=== PATIENT | female | born 1955 | race Two or more races ===

== ENCOUNTER 2020-08-24 09:08 | Outpatient (REF) | payer MEDICARE, MEDICAID, SELFPAY ==
[2020-08-24 10:14] LABS: MANUAL DIFF FLAG NO
[2020-08-24 10:26] LABS: Basophils Percent Auto 0.4 % (0-2); Eosinophils Absolute Auto 0.4 X10*3/uL (0.0-0.4); Eosinophils Percent Auto 3.8 % (0-4); Hematocrit 33.7 % (37-47); Imm Gran Abs Auto 0.03 X10*3/uL (0.00-0.03); Imm Gran Pct Auto 0.3 % (0.0-0.4); Lymphocytes Absolute Auto 2.8 X10*3/uL (1.2-4.9); Lymphocytes Percent Auto 30.7 % (20-40); Mean Corpuscular HGB Conc 32.6 g/dl (31.0-35.0); Mean Corpuscular Hemoglobin 28.4 pg (27.0-33.0); Mean Corpuscular Volume 87.1 fL (80-98); Mean Platelet Volume 11.2 fL (9.4-12.3); Monocytes Absolute Auto 0.6 X10*3/uL (0.1-1.2); Monocytes Percent Auto 6.9 % (2-11); Neutrophils Absolute Auto 5.3 X10*3/uL (2.0-8.3); Neutrophils Percent Auto 57.9 % (45-73); Platelet Count 293 X10*3/uL (160-400); Red Blood Count 3.87 X10*6/uL (4.20-5.50); Red Cell Distribution Width 13.6 % (11.0-16.0); White Blood Count 9.2 X10*3/uL (4.8-10.8)
[2020-08-24 10:36] LABS: Alanine Aminotransferase 14 U/L (0-31); Albumin Level 3.7 g/dL (3.5-5.0); Alkaline Phosphatase 111 U/L (39-117); Anion Gap 17 (12-20); Aspartate Amino Transferase 15 U/L (5-31); Bilirubin Total 0.8 mg/dL (0.0-1.0); Blood Urea Nitrogen 40 mg/dL (9-16); Carbon Dioxide 27 mmol/L (22-29); Chloride 100 mmol/L (96-108); Cholesterol 213 mg/dL; Estimated Glomerular Filt Rate 18; Glucose Fasting 176 mg/dL (60-99); HDL Cholesterol 38 mg/dL; LDL Cholesterol Calculated 125 mg/dl; Potassium 3.5 mmol/l (3.3-5.1); Sodium 140 mmol/L (135-145); Total Protein 6.9 g/dL (6.5-8.0); Triglycerides 254 mg/dL
[2020-08-24 11:16] LABS: Creatinine Urine 112.52 mg/dL; Microalbum/Creatinine Ratio Ur 389.2 ug/mg cr
[2020-08-24 11:17] LABS: Folate > 20.0 ng/mL (> or = 4.0); Vitamin B12 > 2000 pg/mL (200-900)
== END 2020-08-24 09:09 | disposition home or self-care (01) ==
LOC: HO.LAB 09:08
PROVIDERS: PCP Internal Medicine; Visit Provider Internal Medicine
DX: E78.00 Pure hypercholesterolemia, unspecified (principal); E11.29 Type 2 diabetes mellitus with other diabetic kidney complication; E53.8 Deficiency of other specified B group vitamins
CPT/HCPCS: 36415; 80053; 80061; 82043; 82607; 82746; 85025

== ENCOUNTER 2020-09-11 09:45 | Emergency (ER) | payer MEDICARE, MEDICAID, SELFPAY ==
[2020-09-11 09:54] VITALS: BP 104/65; PULSE 71; RESP 16; TEMP 36.4; O2SAT 97; BMI 38.3
--- NOTE | 2020-09-11 10:13 | ED_ITS ---
HPI - Extremity Injury (Lower) General Chief Complaint: Extremity Injury, Lower Stated Complaint: feet pain Time Seen by Provider: 09/11/20 10:00 Source: patient Mode of arrival: ambulatory History of Present Illness HPI Narrative: 65-year-old female with a past medical history of depression, AKA, diabetes, hypertension, hyperlipidemia, presenting to the ED complaining of acute on chronic bilateral foot pain since yesterday. Reports pain began while she was lying in bed. Denies injury/falls or twisting. Denies numbness, tingling, fever, weakness. Reports pain when she ambulates or moves MD complaint: foot injury Related Data Home Medications Medication Instructions Recorded Confirmed hydrochlorothiazide 07/27/20 07/27/20 insulin glargine [Basaglar KwikPen 30 unit SUBCUT BID 07/27/20 07/27/20 U-100 Insulin] metformin 1,000 mg PO BID 07/27/20 07/27/20 Previous Rx's Medication Instructions Recorded chlorthalidone 25 mg tablet 25 mg PO DAILY 90 Days #90 tab 07/11/20 metoprolol tartrate 100 mg tablet 100 mg PO BID 90 Days #180 tab 07/18/20 Pravachol 20 mg tablet 20 mg PO DAILY #90 tab NS 07/31/20 rosuvastatin 10 mg tablet 10 mg PO DAILY 90 Days #90 tab 08/21/20 Pravachol 20 mg tablet 20 mg PO BEDTIME 90 Days #90 tab NS 08/27/20 pantoprazole 40 mg tablet,delayed 40 mg PO DAILY #90 tab 09/06/20 release Allergies Allergy/AdvReac Type Severity Reaction Status Date / Time nut - unspecified [nut] Allergy Severe ANAPHYLAXIS Verified 07/27/20 09:15 vancomycin [VANCOMYCIN] Allergy Severe SEVERE Verified 07/27/20 09:15 ITCHING [place] Inhibitors Allergy Intermediate RASH Verified 07/27/20 09:15 [[place] INHIBITORS] ciprofloxacin [From CIPRO] Allergy Intermediate RASH Verified 07/27/20 09:15 codeine [CODEINE] Allergy Intermediate RASH Verified 07/27/20 09:15 cyclobenzaprine Allergy Intermediate HIVES Verified 07/27/20 09:15 [CYCLOBENZAPRINE] ferrous sulfate Allergy Intermediate RASH Verified 07/27/20 09:15 [FERROUS SULFATE] latex [LATEX] Allergy Intermediate HIVES Verified 07/27/20 09:15 methylprednisolone Allergy Intermediate RASH Verified 07/27/20 09:15 [From MEDROL] Penicillins [PCN] Allergy Intermediate RASH Verified 07/27/20 09:15 tamsulosin [TAMSULOSIN] Allergy Intermediate RASH Verified 07/27/20 09:15 insulin lispro Allergy Unknown Hives Verified 07/27/20 09:15 [Humalog U-100 Insulin] penicillin V Allergy Unknown Hives Verified 07/27/20 09:15 lactose [LACTOSE] AdvReac Intermediate DIARRHEA Verified 07/27/20 09:15 Beef Containing Products AdvReac Mild STOMACH Verified 07/27/20 09:15 UPSET Fish Containing Products AdvReac Mild NAUSEA & Verified 07/27/20 09:15 VOMITING Pork/Porcine Containing AdvReac Mild STOMACH Verified 07/27/20 09:15 Products UPSET Wiley inhibitors Allergy Unknown Anaphylaxis Uncoded 07/27/20 09:15 beef containing products,fish Allergy Unknown Stomach Uncoded 07/27/20 09:15 Upset Codeine Sulfate Allergy Unknown Rash Uncoded 07/27/20 09:15 ferrous sulfate Allergy Unknown dizziness Uncoded 05/24/20 00:00 Latex Allergy Unknown Hives Uncoded 07/27/20 09:15 Latex Exam Gloves Allergy Unknown Hives Uncoded 07/27/20 09:15 Medrol (Jaswinder) Allergy Unknown itchy Uncoded 05/24/20 00:00 Tramadol Allergy Unknown itchy Uncoded 05/24/20 00:00 FRUIT AdvReac Mild NAUSEA & Uncoded 06/07/20 16:26 VOMITING VEGETABLES,FRESH AdvReac Mild NAUSEA & Uncoded 06/07/20 16:26 VOMITING Review of Systems Review of Systems: Constitutional: No Weight loss, No Fever, No Chills Musculoskeletal: +foot pain, No Myalgias, No Joint Swelling Skin: No Skin Lesions, No rash Neuro: No Weakness, No Numbness, No Paresthesias PMFSH Past Medical History Attestation statement: The following information was validated with the patient. Medical History Acute kidney injury Depression Diabetes Essential hypertension Hypercholesteremia Irregular heart beat Surgical History History of extraction of renal calculus History of hysterectomy Family History Family History (Updated 09/06/20 @ 08:19 by AMANDA Baker) Father Diabetes Mother Diabetes Sister Breast cancer Brother No problems noted. Sister No problems noted. Social History Social History Advance Directives: No Advance Directives Information Provided: Yes Physical Exam Vital Signs: Vital Signs: Last Vital Signs Temp 97.6 F 09/11/20 12:00 Pulse 68 09/11/20 12:25 Resp 14 09/11/20 12:00 BP 101/63 09/11/20 12:25 Pulse Ox 96 09/11/20 12:25 Body Mass Index 38.3 Const: General: cooperative and healthy appearing Orientation/consciousness: patient oriented x3 Limitations: no limitations HENMT: Head: Yes normal to inspection Ears: hearing grossly normal bilaterally General nose exam: Normal external nose present Face and sinus: Yes normal facial exam Eyes: General: appearance normal, both eyes and all related structures EOM: EOMs intact bilaterally Neck: Neck: Yes normal visual inspection Resp: Effort & Inspection: normal respiratory effort Cardio: Rate: regular rate Peripheral pulses: dorsalis pedis present Skin: Rashes: no rashes Wounds: no wounds Neuro: General: patient oriented x3 Extrem: Other: Bilateral feet normal to inspection, no erythema, no deformity, no ecchymosis, no fluctuance or induration. Tender bilaterally diffuely, non localized. Neurovascularly intact. Full range of motion intact. Sensation i ntact to light touch. Compartments soft No lower extremity edema or calf tenderness General: Yes normal to inspection Course Course Course Narrative: * X-ray showing bilateral calcaneal spurs. Mild degenerative changes of the midfoot, left greater than right. * Attempted ambulation trial in the ED which patient refused to stand on feet Will obtain PT /case management evaluation * Patient was evaluated by Physical therapy and recommended to go to short-term rehab * [id number]-patient now refusing to go to short-term rehab. Would like to go home. Discussed with patient worried about her being discharged home as she will not ambulate in the ED, she reports she will walk with her walker. Will discharge, significant other is in the waiting room to pick her up MDM - Extremity Injury (Lower) MDM Narrative Medical decision making narrative: 65-year-old female with a past medical history of depression, AKA, diabetes, hypertension, hyperlipidemia, presenting to the ED complaining of acute on chronic bilateral foot pain since yesterday. On exam VSS, NAD/well-appearing, feet bilaterally tender without appreciable deformity or cellulitis/infection Low concern for septic joint, neurovascular compromise, DVT, compartment syndrome, fracture or dislocation Patient requesting x-rays Plan: X-rays, Tylenol/Motrin, ambulation trial Lab Data Labs: Lab Results 09/11/20 Range/Units 12:49 COVID-19 (VIRAJ) Negative (Negative) COVID-19 Clin Com See Note Discharge Plan Discharge Clinical Impression: Bilateral foot pain Patient Disposition: Home, Self-Care Instructions: Arthralgia (ED) Additional Instructions: You need to follow-up with her doctor Your x-ray showed degenerative changes, no acute fracture/dislocation, any fever not infected at this time Take Tylenol and Motrin at home for pain. Ice any your feet, elevate her feet, rest. Follow-up with a human resource consultant Prescriptions: No Action chlorthalidone 25 mg tablet 25 mg PO DAILY 90 Days Qty: 90 RF: 3 metoprolol tartrate 100 mg tablet 100 mg PO BID 90 Days Qty: 180 RF: 0 pravastatin [Pravachol] 20 mg tablet 20 mg PO DAILY Qty: 90 RF: 0 rosuvastatin 10 mg tablet 10 mg PO DAILY 90 Days Qty: 90 RF: 3 pravastatin [Pravachol] 20 mg tablet 20 mg PO BEDTIME 90 Days Qty: 90 RF: 3 pantoprazole 40 mg tablet,delayed release (DR/EC) 40 mg PO DAILY Qty: 90 RF: 1 metformin 500 mg tablet 1,000 mg PO BID RF: 0 Basaglar KwikPen U-100 Insulin 100 unit/mL (3 mL) insulin pen 30 unit SUBCUT BID RF: 0 hydrochlorothiazide RF: 0 Referrals: Joann Partida MD [Primary Care Provider] - 2 days Michael Myers [Physician] - 5 days
[2020-09-11] MEDS: Acetaminophen 325 MG TABLET 650 MG PO (10:18)
[2020-09-11] MEDS: Ibuprofen 600 MG TABLET PO (10:18)
--- NOTE | 2020-09-11 10:27 | XR_ITS ---
EXAMINATION: BILATERAL LEG X-RAY CLINICAL INFORMATION: Acute and chronic foot pain COMPARISON: Previous x-rays of the left foot most recent October 2017 TECHNIQUE: 3 views of each foot FINDINGS: Left: Bone alignment is normal. No fracture or dislocation is seen. There are mild degenerative changes of the midfoot with small osteophytes at the talar navicular and navicular cuneiform joint. Joint spaces are otherwise normal. There are calcaneal spurs. Right foot: Bone alignment is normal. No fracture or dislocation is seen. There are mild degenerative changes of the midfoot with small osteophytes at the talar navicular joint. The joint spaces are otherwise normal. There are calcaneal spurs. XR/XR foot LT min 3V IMPRESSION: Bilateral calcaneal spurs. Mild degenerative changes of the midfoot, left greater than right.
--- NOTE | 2020-09-11 10:27 | XR_ITS ---
EXAMINATION: BILATERAL LEG X-RAY CLINICAL INFORMATION: Acute and chronic foot pain COMPARISON: Previous x-rays of the left foot most recent October 2017 TECHNIQUE: 3 views of each foot FINDINGS: Left: Bone alignment is normal. No fracture or dislocation is seen. There are mild degenerative changes of the midfoot with small osteophytes at the talar navicular and navicular cuneiform joint. Joint spaces are otherwise normal. There are calcaneal spurs. Right foot: Bone alignment is normal. No fracture or dislocation is seen. There are mild degenerative changes of the midfoot with small osteophytes at the talar navicular joint. The joint spaces are otherwise normal. There are calcaneal spurs. XR/XR foot RT min 3V IMPRESSION: Bilateral calcaneal spurs. Mild degenerative changes of the midfoot, left greater than right.
--- NOTE | 2020-09-11 11:31 | PC.NURSE ---
ATTEMPT TO AMBULATE PT AFTER XRAY RESULTS RECEIVED. PT MOMENTARILY STOOD AT BEDSIDE WITH WALKER, MOANING STATED CAN'T , CIERRA HENDRICKS UPDATED, CASE MANAGEMENT AND PT CONSULT ORDERED. PT REPORTED PAIN A LITTLE BETTER 10
[2020-09-11 12:00] VITALS: BP 101/63; PULSE 68; RESP 14; TEMP 36.4; O2SAT 96
--- NOTE | 2020-09-11 12:18 | PC.NURSE ---
pt at bedside for assessment, oob to standing position with walker and therapist
[2020-09-11 12:25] VITALS: BP 101/63; PULSE 68; O2SAT 96
--- NOTE | 2020-09-11 12:44 | MHC.CM.ED ---
Received case management consult from Cassie NORTON. Patient came to ER due to leg pain. Work up essentially negative. Physical therapy eval completed. Short term rehab is recommended. Met with patient and city manager. 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 PCP verified. Copy of HCP obtained from PCP's office. List of facilities provided from [facility]. Patient choices are: 1)[facility] 2)[facility] and 3)[facility]. Referral made via allscripts. [facility] is pending. Continue to monitor for d/c needs.
[2020-09-11 13:11] LABS: COVID-19 Test Negative (Negative)
--- NOTE | 2020-09-11 14:10 | MHC.CM.ED ---
[facility], [facility] and [facility] are unable to offer a bed. Referrals being broadcasted at this time. Continue to monitor for d/c needs.
--- NOTE | 2020-09-11 14:44 | MHC.CM.ED ---
Patient has decided she doesn't want to go to short term rehab. She wants to go home. Her boyfriend will transport her home. Cassie NORTON aware. Continue to monitor for d/c needs.
== END 2020-09-11 15:48 | disposition home or self-care (01) ==
PROVIDERS: Physician Assistant; Emergency Provider Emergency Medicine; PCP Internal Medicine
DX: M79.671 Pain in right foot (principal); M79.672 Pain in left foot; E11.9 Type 2 diabetes mellitus without complications; I10 Essential (primary) hypertension; Z20.828 Contact with and (suspected) exposure to other viral communicable diseases; Z79.899 Other long term (current) drug therapy; Z79.01 Long term (current) use of anticoagulants
CPT/HCPCS: 73630; 87635; 97161; 99283

== ENCOUNTER 2021-03-02 12:29 | Emergency (ER) | payer MEDICARE, MEDICAID, SELFPAY ==
--- NOTE | ~2021-03-02 | XR_ITS ---
EXAMINATION: XR ELBOW, LEFT CLINICAL INFORMATION: Elbow swelling. COMPARISON: None TECHNIQUE: AP, lateral, and oblique views of the left elbow. FINDINGS: Bony alignments are intact. The cortices are intact. Significant soft tissue swelling is present overlying the olecranon process, most consistent with olecranon bursitis, indeterminate etiology. There is no joint effusion present. Incidental note is also made of subtle calcification overlying and inseparable from both medial and lateral epicondyles of the humerus consistent with epicondylitis. XR/XR elbow LT min 3V IMPRESSION: 1. Significant soft tissue swelling overlying the olecranon process of the ulna, most consistent with olecranon bursitis, indeterminate etiology. 2. No radiographic evidence of any acute fracture, subluxation or dislocation or joint effusion. Subtle soft tissue calcification inseparable from and overlying both medial and lateral epicondyles of the humerus, most consistent with epicondylitis.
[2021-03-02 13:14] VITALS: BP 142/75; PULSE 80; RESP 18; TEMP 36.3; O2SAT 96; BMI 37.7
--- NOTE | 2021-03-02 14:29 | ED.EXTPRO ---
HPI - Extremity Problem General Chief complaint: Extremity Injury, Upper Stated complaint: elbow pain Time Seen by Provider: 03/02/21 14:29 Source: patient Mode of arrival: ambulatory Limitations: no limitations History of Present Illness HPI Narrative: Patient is a 65-year-old female with no significant past medical history complaining of 2 days of left elbow pain. She denies injury. She says that it is just swollen and she does not know why. She is able to flex and extend her elbow. She denies any bug bites or rashes or fevers. She states this is never happened before. Related Data Home Medications Medication Instructions Recorded Confirmed metformin 1,000 mg PO BID 07/27/20 11/27/20 albuterol sulfate 90 mcg/actuation 2 puff PO Q4H PRN 09/12/20 01/29/21 aerosol inhaler cetirizine 10 mg tablet 10 mg PO DAILY PRN 09/12/20 01/29/21 Previous Rx's Medication Instructions Recorded chlorthalidone 25 mg tablet 25 mg PO DAILY 90 Days #90 tab 07/11/20 pantoprazole 40 mg tablet,delayed 40 mg PO DAILY #90 tab 09/06/20 release bupropion HCl 150 mg 24 hr tablet, 150 mg PO QAM #90 tab 10/24/20 extended release miscellaneous medical supply #1 ea 10/30/20 pen needle, diabetic 31 gauge x #60 ea 11/28/2002/03 insulin glargine 100 unit/mL (3 30 unit SUBCUT BID #3 ml 12/03/20 mL) subcutaneous pen Cozaar 50 mg tablet 50 mg PO BID 90 Days #180 tab NS 12/07/20 blood sugar diagnostic #100 ea 01/30/21 blood-glucose meter #1 ea 01/30/21 lancets 28 gauge #100 ea 01/30/21 naproxen 500 mg tablet 500 mg PO BID #60 tab 01/30/21 dextromethorphan HBr 15 mg capsule 30 mg PO Q8H PRN 7 Days #21 cap 02/13/21 azithromycin 250 mg tablet 250 mg PO DIRECTED 5 Days #6 tab 02/14/21 gabapentin 300 mg capsule 300 mg PO BID #180 cap 02/19/21 Allergies Allergy/AdvReac Type Severity Reaction Status Date / Time nut - unspecified [nut] Allergy Severe ANAPHYLAXIS Verified 03/02/21 13:16 vancomycin [VANCOMYCIN] Allergy Severe SEVERE Verified 03/02/21 13:16 ITCHING [place] Inhibitors Allergy Intermediate RASH Verified 03/02/21 13:16 [[place] INHIBITORS] ciprofloxacin [From CIPRO] Allergy Intermediate RASH Verified 03/02/21 13:16 codeine [CODEINE] Allergy Intermediate RASH Verified 03/02/21 13:16 cyclobenzaprine Allergy Intermediate HIVES Verified 03/02/21 13:16 [CYCLOBENZAPRINE] ferrous sulfate Allergy Intermediate RASH Verified 03/02/21 13:16 [FERROUS SULFATE] latex [LATEX] Allergy Intermediate HIVES Verified 03/02/21 13:16 methylprednisolone Allergy Intermediate RASH Verified 03/02/21 13:16 [From MEDROL] tamsulosin [TAMSULOSIN] Allergy Intermediate RASH Verified 03/02/21 13:16 insulin lispro Allergy Unknown Hives Verified 03/02/21 13:16 [Humalog U-100 Insulin] penicillin V Allergy Unknown Hives Verified 03/02/21 13:16 lactose [LACTOSE] AdvReac Intermediate DIARRHEA Verified 03/02/21 13:16 Beef Containing Products AdvReac Mild STOMACH Verified 03/02/21 13:16 UPSET Fish Containing Products AdvReac Mild NAUSEA & Verified 03/02/21 13:16 VOMITING Pork/Porcine Containing AdvReac Mild STOMACH Verified 03/02/21 13:16 Products UPSET Tramadol Allergy Unknown itchy Uncoded 11/27/20 10:59 FRUIT AdvReac Mild NAUSEA & Uncoded 11/27/20 10:59 VOMITING VEGETABLES,FRESH AdvReac Mild NAUSEA & Uncoded 11/27/20 10:59 VOMITING Review of Systems Review of Systems: Yes all other systems are reviewed and are negative PMFSH Past Medical History Medical History Acute kidney injury Calcaneal spur of both feet Depression Diabetes Dyslipidemia Essential hypertension Hypercholesteremia Irregular heart beat Leg edema Pain in both lower legs Surgical History History of extraction of renal calculus History of hysterectomy Family History Family History Father Diabetes Mother Diabetes Sister Breast cancer Brother No problems noted. Sister No problems noted. Social History Social History Alcohol intake: former Advance Directives: No Advance Directives Information Provided: No Patient : No Physical Exam Vital Signs: Vital Signs: Last Vital Signs Temp 97.3 F 03/02/21 13:14 Pulse 80 03/02/21 13:14 Resp 18 03/02/21 13:14 BP 142/75 H 03/02/21 13:14 Pulse Ox 96 03/02/21 13:14 Body Mass Index 37.7 Const: General: cooperative, healthy appearing, comfortable and no acute distress Nutritional Appearance: average body habitus Orientation/consciousness: patient oriented x3 Eyes: General: appearance normal, both eyes and all related structures Neuro: General: patient oriented x3 Extrem: Other: Left elbow, swelling at the joint, full range of motion, no signs of infection noted, no lacerations or ecchymosis. No tenderness to palpation. MDM - Extremity (Nontraumatic) Imaging Data elbow x-ray left: Attestation: I personally reviewed and interpreted this imaging study as follows: Radiologist's impression: [address] [id number] ReportSigned Patient: Paige HarrisMR#: [id number]: [id number]:[id number]/Sex: 65 / FADM Date: 03/02/21Loc: HO.EDAttending Dr: Ordering Physician: Milad Velazquez MD Date of Service: 03/02/21 Procedure(s): XR elbow LT min 3V Accession Number(s): [id number] cc: Milad Velazquez MD~ EXAMINATION: XR ELBOW, LEFT CLINICAL INFORMATION: Elbow swelling. COMPARISON: None TECHNIQUE: AP, lateral, and oblique views of the left elbow. FINDINGS: Bony alignments are intact. The cortices are intact. Significant soft tissue swelling is present overlying the olecranon process, most consistent with olecranon bursitis, indeterminate etiology. There is no joint effusion present. Incidental note is also made of subtle calcification overlying and inseparable from both medial and lateral epicondyles of the humerus consistent with epicondylitis. XR/XR elbow LT min 3V IMPRESSION: 1. Significant soft tissue swelling overlying the olecranon process of the ulna, most consistent with olecranon bursitis, indeterminate etiology. 2. No radiographic evidence of any acute fracture, subluxation or dislocation or joint effusion. Subtle soft tissue calcification inseparable from and overlying both medial and lateral epicondyles of the humerus, most consistent with epicondylitis. Dictated By:SAQIB HERRERA MDSigned By:<Electronically signed by SAQIB HERRERA MD in OV>03/02/21 1417 DD/ 1356TD/TT: Vp Ad Products And Planning: ENRIQUE Discharge Plan Discharge Clinical Impression: Epicondylitis Bursitis of elbow Qualifiers: Elbow bursitis location: olecranon bursitis Laterality: left Qualified Code(s): M70.22 - Olecranon bursitis, left elbow Prescriptions: No Action chlorthalidone 25 mg tablet 25 mg PO DAILY 90 Days Qty: 90 RF: 3 pantoprazole 40 mg tablet,delayed release (DR/EC) 40 mg PO DAILY Qty: 90 RF: 1 bupropion HCl 150 mg tablet extended release 24 hr 150 mg PO QAM Qty: 90 RF: 1 (DME) miscellaneous medical supply Misc See Rx Instructions .ROUTE .MEDSUPPLY Qty: 1 RF: 2 (DME) pen needle, diabetic 31 gauge x 5/16 needle See Rx Instructions .ROUTE .MEDSUPPLY Qty: 60 RF: 11 Basaglar KwikPen U-100 Insulin 100 unit/mL (3 mL) insulin pen 30 unit SUBCUT BID Qty: 3 RF: 2 losartan [Cozaar] 50 mg tablet 50 mg PO BID 90 Days Qty: 180 RF: 1 (DME) FreeStyle Test Strip See Rx Instructions .ROUTE .MEDSUPPLY Qty: 100 RF: 11 (DME) blood-glucose meter [FreeStyle Lite Meter] Kit See Rx Instructions .ROUTE .MEDSUPPLY Qty: 1 RF: 0 (DME) lancets [FreeStyle Lancets] 28 gauge misc See Rx Instructions .ROUTE .MEDSUPPLY Qty: 100 RF: 6 naproxen 500 mg tablet 500 mg PO BID Qty: 60 RF: 3 dextromethorphan HBr [Tussin Cough (DM only)] 15 mg capsule 30 mg PO Q8H PRN (Reason: cough) 7 Days Qty: 21 RF: 0 azithromycin 250 mg tablet 250 mg PO DIRECTED 5 Days Qty: 6 RF: 0 gabapentin 300 mg capsule 300 mg PO BID Qty: 180 RF: 2 metformin 500 mg tablet 1,000 mg PO BID RF: 0 albuterol sulfate 90 mcg/actuation HFA aerosol inhaler 2 puff PO Q4H PRN (Reason: Wheezing) RF: 0 cetirizine 10 mg tablet 10 mg PO DAILY PRN (Reason: Allergy Symptoms) RF: 0
== END 2021-03-02 15:09 | disposition home or self-care (01) ==
PROVIDERS: Emergency Provider Emergency Medicine Emergency Medical Services; PCP Internal Medicine
DX: M70.22 Olecranon bursitis, left elbow (principal); M77.02 Medial epicondylitis, left elbow; M77.12 Lateral epicondylitis, left elbow; M25.522 Pain in left elbow; R22.32 Localized swelling, mass and lump, left upper limb; Y93.9 Activity, unspecified; I10 Essential (primary) hypertension; E11.9 Type 2 diabetes mellitus without complications; E78.5 Hyperlipidemia, unspecified
CPT/HCPCS: 73080; 99283

== ENCOUNTER 2021-04-08 09:51 | Outpatient (REF) | payer MEDICARE, MEDICAID, SELFPAY ==
[2021-04-08 10:56] LABS: Alanine Aminotransferase 13 U/L (0-31); Alkaline Phosphatase 118 U/L (39-117); Anion Gap 14 (12-20); Aspartate Amino Transferase 12 U/L (5-31); Bilirubin Total 0.7 mg/dL (0.0-1.0); Blood Urea Nitrogen 43 mg/dL (9-16); Calcium 9.7 mg/dL (8.4-10.2); Carbon Dioxide 28 mmol/L (22-29); Chloride 101 mmol/L (96-108); Cholesterol 246 mg/dL; Estimated Glomerular Filt Rate 17; Glucose Fasting 241 mg/dL (60-99); HDL Cholesterol 48 mg/dL; LDL Cholesterol Calculated 145 mg/dl; Potassium 4.2 mmol/L (3.3-5.1); Sodium 139 mmol/L (135-145); Total Protein 7.3 g/dL (6.5-8.0); Triglycerides 266 mg/dL
[2021-04-08 12:52] LABS: Creatinine Urine 111.69 mg/dL; Microalbum/Creatinine Ratio Ur 244.4 ug/mg cr
[2021-04-13 13:21] LABS: Vitamin D 25-OH, D2 <4 ng/mL; Vitamin D 25-OH, D3 19 ng/mL; Vitamin D 25-OH, Total 19 ng/mL (30-100)
== END 2021-04-08 09:52 | disposition home or self-care (01) ==
LOC: HO.LAB 09:51
PROVIDERS: PCP Internal Medicine; Visit Provider Internal Medicine
DX: E78.5 Hyperlipidemia, unspecified (principal); E55.9 Vitamin D deficiency, unspecified; N17.9 Acute kidney failure, unspecified; E11.65 Type 2 diabetes mellitus with hyperglycemia; Z79.4 Long term (current) use of insulin
CPT/HCPCS: 36415; 80053; 80061; 82043; 82306

== ENCOUNTER 2021-05-06 11:58 | Outpatient (REF) | payer MEDICARE, MEDICAID, SELFPAY ==
[2021-05-06 12:55] LABS: MANUAL DIFF FLAG NO
[2021-05-06 13:12] LABS: Basophils Percent Auto 0.4 % (0-2); Eosinophils Absolute Auto 0.4 X10*3/uL (0.0-0.4); Eosinophils Percent Auto 5.4 % (0-4); Hemoglobin 10.7 g/dl (12.0-16.0); Imm Gran Abs Auto 0.03 X10*3/uL (0.00-0.03); Imm Gran Pct Auto 0.4 % (0.0-0.4); Lymphocytes Absolute Auto 2.7 X10*3/uL (1.2-4.9); Lymphocytes Percent Auto 33.7 % (20-40); Mean Corpuscular HGB Conc 33.4 g/dl (31.0-35.0); Mean Corpuscular Volume 86.7 fL (80-98); Mean Platelet Volume 10.8 fL (9.4-12.3); Monocytes Absolute Auto 0.5 X10*3/uL (0.1-1.2); Monocytes Percent Auto 5.9 % (2-11); Neutrophils Absolute Auto 4.3 X10*3/uL (2.0-8.3); Neutrophils Percent Auto 54.2 % (45-73); Platelet Count 269 X10*3/uL (160-400); Red Blood Count 3.69 X10*6/uL (4.20-5.50); Red Cell Distribution Width 13.2 % (11.0-16.0); White Blood Count 7.9 X10*3/uL (4.8-10.8)
[2021-05-06 13:45] LABS: Albumin Level 3.9 g/dL (3.5-5.0); Anion Gap 17 (12-20); Carbon Dioxide 25 mmol/L (22-29); Chloride 98 mmol/L (96-108); Magnesium 1.6 mg/dL (1.6-2.6); Phosphorus 3.5 mg/dL (2.7-4.5); Potassium 4.6 mmol/L (3.3-5.1); Sodium 135 mmol/L (135-145)
[2021-05-06 14:09] LABS: Vitamin D 25-OH Total 51.5 ng/mL (>30)
[2021-05-06 15:42] LABS: Creatinine Urine 58.56 mg/dL; Protein/Creatinine Ratio, Ur 0.85 (<0.2); Total Protein Urine Random 50 mg/dL (<12)
[2021-05-06 15:44] LABS: Glucose Urine UA 250 MG/DL (NEG); Leukocyte Esterase Urine NEG (NEG); Nitrite Urine NEG (NEG); Specific Gravity - Urine 1.015 (1.005-1.025); Urine Blood NEG (NEG); Urine Ketones NEG (NEG); Urine Protein 1+ MG/DL (NEG-TRACE)
[2021-05-06 16:07] LABS: Appearance Urine CLEAR; Color Urine YELLOW
[2021-05-06 17:13] LABS: Bacteria Urine 1+ /LPF; RBC Urine 0 /HPF (0); Renal Epithelial Cells Urine 1+ /LPF; Squamous Epithelial Cell Urine 1+ /LPF
[2021-05-07 16:31] LABS: PTHI 34 pg/mL (14-64)
== END 2021-05-06 11:59 | disposition home or self-care (01) ==
LOC: HO.LAB 11:58
PROVIDERS: PCP Internal Medicine; Visit Provider Internal Medicine Nephrology
DX: N18.4 Chronic kidney disease, stage 4 (severe) (principal)
CPT/HCPCS: 36415; 80051; 81001; 81003; 82040; 82043; 82306; 82310; 83735; 83970; 84100; 84156; 85025; 87086; 87147

== ENCOUNTER 2021-06-27 19:20 | Emergency (ER) | payer MEDICARE, MEDICAID, SELFPAY | END 2021-06-27 20:17 | disposition left against medical advice (07) | PROVIDERS: Emergency Provider Emergency Medicine; PCP Internal Medicine | DX: R21 Rash and other nonspecific skin eruption (principal); M79.89 Other specified soft tissue disorders ==

== ENCOUNTER 2021-07-29 07:33 | Outpatient (REF) | payer MEDICARE, MEDICAID, SELFPAY ==
[2021-07-29 08:10] LABS: MANUAL DIFF FLAG NO
[2021-07-29 08:25] LABS: Basophils Percent Auto 0.4 % (0-2); Eosinophils Absolute Auto 0.3 X10*3/uL (0.0-0.4); Eosinophils Percent Auto 3.3 % (0-4); Hematocrit 31.5 % (37.0-47.0); Hemoglobin 10.3 g/dl (12.0-16.0); Imm Gran Abs Auto 0.03 X10*3/uL (0.00-0.03); Imm Gran Pct Auto 0.4 % (0.0-0.4); Lymphocytes Absolute Auto 2.2 X10*3/uL (1.2-4.9); Lymphocytes Percent Auto 27.7 % (20-40); Mean Corpuscular HGB Conc 32.7 g/dl (31.0-35.0); Mean Corpuscular Hemoglobin 28.9 pg (27.0-33.0); Mean Corpuscular Volume 88.2 fL (80.0-98.0); Mean Platelet Volume 10.5 fL (9.4-12.3); Monocytes Absolute Auto 0.4 X10*3/uL (0.1-1.2); Monocytes Percent Auto 5.2 % (2-11); Platelet Count 286 X10*3/uL (160-400); Red Blood Count 3.57 X10*6/uL (4.20-5.50); Red Cell Distribution Width 13.1 % (11.0-16.0); White Blood Count 7.9 X10*3/uL (4.8-10.8)
[2021-07-29 08:33] LABS: Estimated Average Glucose 194 mg/dL; Hemoglobin A1c % 8.4 %
[2021-07-29 09:02] LABS: ~HepC Num1 0.07 S/CO (0.00-0.79); ~Hepatitis C Antibody Nonreactive (Nonreactive)
[2021-07-29 09:03] LABS: Anion Gap 15 (12-20); Blood Urea Nitrogen 31 mg/dL (9-16); Calcium 9.6 mg/dL (8.4-10.2); Carbon Dioxide 26 mmol/L (22-29); Chloride 101 mmol/L (96-108); Estimated Glomerular Filt Rate 17; Iron 58 mcg/dL (30-160); Magnesium 1.6 mg/dL (1.6-2.6); Percent Iron Saturation 20 % (15-50); Potassium 4.6 mmol/L (3.3-5.1); Sodium 137 mmol/L (135-145); Total Iron Binding Capacity 296 mcg/dL (228-428); Unsaturated Iron Binding 238 ug/dL
[2021-07-29 09:05] LABS: Ferritin 62 ng/mL (10-250); TSH reflex Free T4 1.47 uIU/mL (0.32-4.0); Vitamin D 25-OH Total 43.6 ng/mL (>30)
[2021-07-29 09:08] LABS: Uric Acid 11.2 mg/dL (2.4-5.7)
[2021-07-29 09:13] LABS: HBsAGNum1 0.18 S/CO (0.00-0.99); Hepatitis B Surface Antigen Negative (Negative)
[2021-07-29 10:42] LABS: Appearance Urine CLEAR; Color Urine STRAW; Glucose Urine UA NEG (NEG); Leukocyte Esterase Urine NEG (NEG); Nitrite Urine NEG (NEG); Urine Blood NEG (NEG); Urine Ketones NEG (NEG); Urine Protein TRACE MG/DL (NEG-TRACE)
[2021-07-29 11:13] LABS: Creatinine Urine 99.69 mg/dL; Microalbum/Creatinine Ratio Ur 171.5 ug/mg cr
[2021-07-30 14:55] LABS: Complement C3 105 mg/dL (83-193)
[2021-07-30 16:21] LABS: Calcium (PTHI) 9.6 mg/dL (8.6-10.4); PTHI 75 pg/mL (14-64)
[2021-07-30 23:02] LABS: Anti Nuclear Antibody Pattern Nuclear, Homogeneous; Anti Nuclear Antibody Screen POSITIVE (NEGATIVE); Anti Nuclear Antibody Titer 1:40 titer
[2021-08-01 12:46] LABS: IgA 343 mg/dL (70-320); IgG 1261 mg/dL (600-1540); IgM 21 mg/dL (50-300)
[2021-08-01 13:47] LABS: Neutrophil Cyto Ab Screen NEGATIVE (NEGATIVE)
== END 2021-07-29 07:34 | disposition home or self-care (01) ==
LOC: HO.LAB 07:33
PROVIDERS: PCP Internal Medicine; Visit Provider Internal Medicine Nephrology
DX: N18.4 Chronic kidney disease, stage 4 (severe) (principal)
CPT/HCPCS: 36415; 80051; 81003; 82043; 82306; 82310; 82565; 82728; 82784; 83036; 83540; 83735; 83970; 84443; 84520; 84550; 85025; 86021; 86038; 86039; 86160; 86334; 86803; 87340

== ENCOUNTER → 2021-08-20 10:34 | Outpatient (BNVA) | payer MEDICARE, MEDICAID, SELFPAY | PROVIDERS: PCP Internal Medicine; Visit Provider Nurse Practitioner Gerontology | DX: E11.65 Type 2 diabetes mellitus with hyperglycemia (principal); E11.22 Type 2 diabetes mellitus with diabetic chronic kidney disease; I12.9 Hypertensive chronic kidney disease with stage 1 through stage 4 chronic kidney disease, or unspecified chronic kidney disease; N17.9 Acute kidney failure, unspecified; N18.4 Chronic kidney disease, stage 4 (severe); E66.09 Other obesity due to excess calories; E78.5 Hyperlipidemia, unspecified; E78.00 Pure hypercholesterolemia, unspecified; Z68.37 Body mass index [BMI] 37.0-37.9, adult; Z83.3 Family history of diabetes mellitus; Z80.3 Family history of malignant neoplasm of breast; Z88.6 Allergy status to analgesic agent; Z88.1 Allergy status to other antibiotic agents; Z91.014 Allergy to mammalian meats; Z91.040 Latex allergy status; Z91.011 Allergy to milk products; Z91.018 Allergy to other foods; Z88.0 Allergy status to penicillin; Z91.013 Allergy to seafood; Z88.8 Allergy status to other drugs, medicaments and biological substances; Z79.4 Long term (current) use of insulin; Z79.84 Long term (current) use of oral hypoglycemic drugs; Z79.899 Other long term (current) drug therapy | CPT/HCPCS: 82947; 99212 ==

== ENCOUNTER → 2021-11-19 09:51 | Outpatient (BNVA) | payer MEDICARE, SELFPAY | PROVIDERS: PCP Internal Medicine; Visit Provider Surgery Vascular Surgery | DX: N18.4 Chronic kidney disease, stage 4 (severe) (principal) | CPT/HCPCS: 99202 ==

== ENCOUNTER 2021-11-25 05:57 | Day surgery (SDC) | payer MEDICARE, MEDICAID, SELFPAY ==
[2021-11-25] VITALS (7 sets, daily range): BP systolic 104–130; BP diastolic 69–79; PULSE 64–78; RESP 14–18; TEMP 36.6–36.9; O2SAT 95–100; BMI 36.5
[2021-11-25 06:21] LABS: Glucose, Whole Blood 206 mg/dL (60-115)
[2021-11-25 06:22] LABS: Hematocrit 34.9 % (37.0-47.0); Mean Corpuscular HGB Conc 31.5 g/dl (31.0-35.0); Mean Corpuscular Hemoglobin 27.9 pg (27.0-33.0); Mean Corpuscular Volume 88.6 fL (80.0-98.0); Mean Platelet Volume 10.4 fL (9.4-12.3); Platelet Count 318 X10*3/uL (160-400); Red Blood Count 3.94 X10*6/uL (4.20-5.50); Red Cell Distribution Width 14.6 % (11.0-16.0); White Blood Count 9.2 X10*3/uL (4.8-10.8)
[2021-11-25 06:32] LABS: Anion Gap 16 (12-20); Blood Urea Nitrogen 33 mg/dL (9-16); Calcium 10.3 mg/dL (8.4-10.2); Carbon Dioxide 24 mmol/L (22-29); Chloride 102 mmol/L (96-108); Estimated Glomerular Filt Rate 24; Glucose Random 235 mg/dL (60-115); Potassium 4.5 mmol/L (3.3-5.1); Sodium 137 mmol/L (135-145)
--- NOTE | 2021-11-25 07:03 | ECG_ITS ---
Test Reason : R/O ARRHYTHMIA Blood Pressure : / mmHG Vent. Rate : 062 BPM Atrial Rate : 062 BPM P-R Int : 314 ms QRS Dur : 128 ms QT Int : 458 ms P-R-T Axes : 037 047 000 degrees QTc Int : 464 ms Sinus rhythm with 1st degree A-V block Right bundle branch block Abnormal ECG When compared with ECG of 15-NOV-2019 13:15, MD interval has increased Right bundle branch block is now Present Referred By: Praveen Muniz Electronically Signed By:CALEB LONG MD
--- NOTE | 2021-11-25 07:16 | HO.ANESPROP2 ---
HPI - Anesthesia Eval Consult details Narrative: 66 yo female patient for AV fistula creation Left Upper Extremity PMFSH Active Problems Active Problems: All Active Problems (Updated 08/20/21 @ 11:39 by KATIE Leos) Type 2 diabetes mellitus with chronic kidney disease (Acute) Obesity due to excess calories (Acute) DM2 (diabetes mellitus, type 2) (Acute) CKD (chronic kidney disease) (Acute) Epicondylitis, lateral (tennis elbow) (Acute) Dyslipidemia (Acute) Leg edema (Acute) Pain in both lower legs (Acute) Calcaneal spur of both feet (Acute) Diabetes (Acute) Acute kidney injury (Acute) Anemia (Acute) Essential hypertension (Acute) Chest pain in last 2 weeks. Intermittent- not activity related. ? Improvement with positioning. [id number]. Resolves on its own . Cardiac work up in the past for palpitations, chest pain, dyspnea at various times.Negative. Last echo 2011 normal EF 60-65%. ?Borderline pulmonary HTN. Last myocardial perfusion scan 2009 negative for ischemia. EKG in past has shown increased SC interval and RBBB. No change in EKG today compared with previous. H/o CHF in the past 2011 secondary to anemia in the setting of ventricular dysfunction from HTN. Diuresed. GERD. Takes medications as needed Past Medical History Medical History Acute kidney injury Calcaneal spur of both feet CKD (chronic kidney disease) Depression Diabetes DM2 (diabetes mellitus, type 2) Dyslipidemia Epicondylitis, lateral (tennis elbow) Essential hypertension Hypercholesteremia Irregular heart beat Leg edema Obesity due to excess calories Pain in both lower legs Type 2 diabetes mellitus with chronic kidney disease Family History Family History Father Diabetes Mother Diabetes Sister Breast cancer Brother No problems noted. Sister No problems noted. Family history of problems with anesthesia: No Surgical History Surgical History History of extraction of renal calculus History of hysterectomy History of Problems with Anesthesia: No Social History Social History Household Members: Significant Other Housing: Apartment Alcohol intake: never Patient Tobacco Use Status: Never used Tobacco e-Cigarette/Vaping Use: Never Used Second Hand Smoke Exposure: No Use of substances other than those prescribed or required for medical reasons: No Are you DNR?: No Advance Directives: No Advance Directives Information Provided: Yes service: No Current occupational status: disabled Meds Allergies Allergy/AdvReac Type Severity Reaction Status Date / Time nut - unspecified [nut] Allergy Severe ANAPHYLAXIS Verified 11/25/21 06:12 rosuvastatin Allergy Severe Facial Verified 11/25/21 06:12 Swelling vancomycin [VANCOMYCIN] Allergy Severe SEVERE Verified 11/25/21 06:12 ITCHING [place] Inhibitors Allergy Intermediate RASH Verified 11/25/21 06:12 [[place] INHIBITORS] ciprofloxacin [From CIPRO] Allergy Intermediate RASH Verified 11/25/21 06:12 codeine [CODEINE] Allergy Intermediate RASH Verified 11/25/21 06:12 cyclobenzaprine Allergy Intermediate HIVES Verified 11/25/21 06:12 [CYCLOBENZAPRINE] ferrous sulfate Allergy Intermediate RASH Verified 11/25/21 06:12 [FERROUS SULFATE] insulin lispro Allergy Intermediate Hives Verified 11/25/21 06:12 [Humalog U-100 Insulin] latex [LATEX] Allergy Intermediate HIVES Verified 11/25/21 06:12 methylprednisolone Allergy Intermediate RASH Verified 11/25/21 06:12 [From MEDROL] penicillin V Allergy Intermediate Hives Verified 11/25/21 06:12 tamsulosin [TAMSULOSIN] Allergy Intermediate RASH Verified 11/25/21 06:12 insulin degludec Allergy Mild Hives Verified 11/25/21 06:12 [From Tresiba FlexTouch U-100] pravastatin Allergy Mild pruritus Verified 11/25/21 06:12 lactose [LACTOSE] AdvReac Intermediate DIARRHEA Verified 11/25/21 06:12 Beef Containing Products AdvReac Mild STOMACH Verified 11/25/21 06:12 UPSET Fish Containing Products AdvReac Mild NAUSEA & Verified 11/25/21 06:12 VOMITING Pork/Porcine Containing AdvReac Mild STOMACH Verified 11/25/21 06:12 Products UPSET Tramadol Allergy Intermediate itchy Uncoded 11/25/21 06:12 FRUIT AdvReac Mild NAUSEA & Uncoded 11/25/21 06:12 VOMITING VEGETABLES,FRESH AdvReac Mild NAUSEA & Uncoded 11/25/21 06:12 VOMITING Exam Exam Date and Time: November 25, 2021 0716 Height,Weight and Vital Signs: Height 5 ft 3 in Weight 93.44 kg Last Vital Signs Temp 97.8 F 11/25/21 06:15 Pulse 64 11/25/21 06:15 Resp 16 11/25/21 06:15 BP 130/76 11/25/21 06:15 Pulse Ox 100 11/25/21 06:15 Pertinent Lab Results Pertinent Lab Results: Laboratory Tests 11/25/21 11/25/21 11/25/21 06:12 06:12 06:17 WBC 9.2 RBC 3.94 L Hgb 11.0 L Hct 34.9 L MCV 88.6 MCH 27.9 MCHC 31.5 RDW 14.6 Plt Count 318 MPV 10.4 Absolute Nucleated RBC 0.000 Nucleated RBC % (auto) 0.0 Sodium 137 Potassium 4.5 Chloride 102 Carbon Dioxide 24 Anion Gap 16 BUN 33 H Creatinine 2.07 H Estim Creat Clear Calc TNP Estimated GFR 24 POC Glucose 206 H Random Glucose 235 H Calcium 10.3 H D Airway Mallampati Class: II TM Dist: >3cm Neck ROM: Full Loose/Missing/Broken Teeth: No Heart: RRR Lungs: CTAB Assessment and Plan Assessment Anesthesia Assessment: Anesthesia Plan Discussed and Chart Reviewed Final Anesthetic Review Family History of Problems with Anesthesia: No History of Problems with Anesthesia: No NPO: Yes ASA Class: III Final Preanesthetic Review: No Changes in Pt Med Stat, Meds/Allgs Chart Reviewed, Consent Obtained/Reviewed and Anes Risks/Benef Reviewed Patient Risk: Intermediate Procedure Risk: Intermediate Assessment/Block/Sedation in SS: Assess/Block/Sedation-SS Anesthetic Plan Anesthetic Plan: GA and Other (No new ekg changes. No chest pain today. OK to proceed) Disposition: Standard PACU
[2021-11-25] MEDS: 0.9 % Sodium Chloride 1,000 ML 50 ML IVCONT (07:26)
--- NOTE | 2021-11-25 07:37 | MHC.SHP ---
Pre-Procedural Eval Section A Date of Service: 11/25/21 The patient is an INPATIENT: No Changes since office visit: Yes Patient answered all questions The History & Physical has been completed within 30 days and I have reviewed it.: Yes Section B Chief Complaint: chronic kidney disease Allergies: Allergies Allergy/AdvReac Type Severity Reaction Status Date / Time nut - unspecified [nut] Allergy Severe ANAPHYLAXIS Verified 11/25/21 06:12 rosuvastatin Allergy Severe Facial Verified 11/25/21 06:12 Swelling vancomycin [VANCOMYCIN] Allergy Severe SEVERE Verified 11/25/21 06:12 ITCHING [place] Inhibitors Allergy Intermediate RASH Verified 11/25/21 06:12 [[place] INHIBITORS] ciprofloxacin [From CIPRO] Allergy Intermediate RASH Verified 11/25/21 06:12 codeine [CODEINE] Allergy Intermediate RASH Verified 11/25/21 06:12 cyclobenzaprine Allergy Intermediate HIVES Verified 11/25/21 06:12 [CYCLOBENZAPRINE] ferrous sulfate Allergy Intermediate RASH Verified 11/25/21 06:12 [FERROUS SULFATE] insulin lispro Allergy Intermediate Hives Verified 11/25/21 06:12 [Humalog U-100 Insulin] latex [LATEX] Allergy Intermediate HIVES Verified 11/25/21 06:12 methylprednisolone Allergy Intermediate RASH Verified 11/25/21 06:12 [From MEDROL] penicillin V Allergy Intermediate Hives Verified 11/25/21 06:12 tamsulosin [TAMSULOSIN] Allergy Intermediate RASH Verified 11/25/21 06:12 insulin degludec Allergy Mild Hives Verified 11/25/21 06:12 [From Tresiba FlexTouch U-100] pravastatin Allergy Mild pruritus Verified 11/25/21 06:12 lactose [LACTOSE] AdvReac Intermediate DIARRHEA Verified 11/25/21 06:12 Beef Containing Products AdvReac Mild STOMACH Verified 11/25/21 06:12 UPSET Fish Containing Products AdvReac Mild NAUSEA & Verified 11/25/21 06:12 VOMITING Pork/Porcine Containing AdvReac Mild STOMACH Verified 11/25/21 06:12 Products UPSET Tramadol Allergy Intermediate itchy Uncoded 11/25/21 06:12 FRUIT AdvReac Mild NAUSEA & Uncoded 11/25/21 06:12 VOMITING VEGETABLES,FRESH AdvReac Mild NAUSEA & Uncoded 11/25/21 06:12 VOMITING Plan I have reviewed the history and physical and performed a pertinent physical examination on my patient. No changes have occurred unless specified.
--- NOTE | 2021-11-25 09:57 | W.PM.OPN ---
Operative Note Operative Note Date of Service: 11/25/21 Narrative: Operative note by [facility] Preoperative diagnosis: Chronic renal insufficiency Postoperative diagnosis: Same Procedure: Left arm AV fistula creation (direct brachiocephalic) Surgeon:Remington Giraldo M.D. Financial Services Agent: Thomas Anesthesia: General Specimens: None Drains: None Estimated blood loss: Minimal Indications: 66-year-old female with chronic renal insufficiency presents for permanent dialysis access. The patient has signed the informed consent after reviewing risks, complications, benefits, and alternatives previously discussed with the patient. The patient was given the opportunity to ask any additional questions or voice any concerns. All questions were answered to the patient's satisfaction. Procedure in detail: Patient was brought to the operating room prior to which a time-out was called for patient identification site verification. Left arm was prepped and draped in standard surgical fashion. Preprocedure the cephalic vein was mapped out with ultrasound along with the brachial artery. Transverse incision was carried out approximately 1-2 cm above the antecubital fossa we were able to dissect down to the cephalic vein. This was isolated with a silastic loop. In a similar fashion we were easily able to find the brachial artery. We dissected this proximally and distally and we placed silastic loops as well. At this time 3000 units of systemic heparin was administered. After 5 minutes of circulation time the cephalic vein was clamped at its most distal point. Ligated with an 11 blade. And the residual stump was tied off with a 3-0 silk stick tie. Once this was done we flushed the cephalic vein. We dissect this up proximally. We used pen to hilton the anterior aspect of the vein. This was spatulated. Arteriotomy was made in the brachial artery. This was splayed open with to retention 7 0 Prolene stitches. Once this was done we circumferentially anastomosed the artery and vein with a 6 0 Prolene suture. Prior to closure was flushed clear. Once closed adequate hemostasis was achieved. One interrupted 7 0 Prolene had to be placed. Snow was used for hemostatic agent. Once dry deep layer was reapproximated using 2 0 Polysorb superficial layer with 3-0 poly Sorb and finally skin with a running subcuticular 4-0 Monocryl. Dermabond was used as a sterile dressing. At the end the case sponge instrument counts were correct. Patient had a palpable radial and ulnar pulse at the end the case. This note is constructed using voice recognition software. While every effort has been made to ensure accuracy, analytics associate errors may have been included. Thank you for allowing me to participate in the care of your patient. Yours sincerely, Remington Giraldo MD, FACS, R.P.V.I.
== END 2021-11-25 11:08 | disposition home or self-care (01) ==
PROVIDERS: PCP Internal Medicine; Visit Provider Surgery Vascular Surgery
PROC: (CPT 36821; principal; 2021-11-25 07:30)
DX: E11.22 Type 2 diabetes mellitus with diabetic chronic kidney disease (principal); N18.4 Chronic kidney disease, stage 4 (severe); I12.9 Hypertensive chronic kidney disease with stage 1 through stage 4 chronic kidney disease, or unspecified chronic kidney disease; Z87.442 Personal history of urinary calculi; Z79.84 Long term (current) use of oral hypoglycemic drugs; R60.0 Localized edema; I49.9 Cardiac arrhythmia, unspecified; E78.5 Hyperlipidemia, unspecified; M17.0 Bilateral primary osteoarthritis of knee; Z88.1 Allergy status to other antibiotic agents; Z88.8 Allergy status to other drugs, medicaments and biological substances; Z91.040 Latex allergy status
CPT/HCPCS: 36821; 36415; 80048; 82947; 85027; 93005; J0690; J2370; J2405; J3010

== ENCOUNTER → 2021-11-29 10:23 | Outpatient (BNVA) | payer OTHER, SELFPAY | PROVIDERS: PCP Internal Medicine; Visit Provider Nurse Practitioner Gerontology | DX: E11.22 Type 2 diabetes mellitus with diabetic chronic kidney disease (principal); I12.9 Hypertensive chronic kidney disease with stage 1 through stage 4 chronic kidney disease, or unspecified chronic kidney disease; N18.4 Chronic kidney disease, stage 4 (severe); E78.5 Hyperlipidemia, unspecified; I10 Essential (primary) hypertension; E66.09 Other obesity due to excess calories; Z79.4 Long term (current) use of insulin; Z68.37 Body mass index [BMI] 37.0-37.9, adult | CPT/HCPCS: 82947; 83036; 99212 ==

== ENCOUNTER 2021-12-09 12:56 | Outpatient (REF) | payer OTHER, SELFPAY ==
--- NOTE | ~2021-12-09 | MM_ITS ---
EXAMINATION: MM SCREENING DIGITAL BREAST TOMOSYNTHESIS, BILATERAL CLINICAL INFORMATION: Screening. Asymptomatic. The lifetime risk of breast cancer based on the Tyrer-Cuzick Model is 14%. COMPARISON: Mammography: December 09, 2017 and studies dating back to September 10, 2011 TECHNIQUE: Digital breast tomosynthesis is performed in both the craniocaudal and mediolateral oblique views along with computer-aided detection (CAD). Synthesized 2D images are generated from the tomosynthesis. FINDINGS: The breasts are almost entirely fatty (ACR BI-RADS breast composition Category a). There are no significant masses, abnormal calcifications, or other abnormalities. MM/MM tomosynthesis screening BI IMPRESSION: There are no significant changes from prior study. ASSESSMENT: BI-RADS 1: Negative RECOMMENDATION: Routine annual mammography screening. This patient's information was entered into a reminder system with a target due date for their next mammogram.
== END 2021-12-09 12:57 | disposition home or self-care (01) ==
LOC: HO.MAMMO 12:56
PROVIDERS: PCP Internal Medicine; Visit Provider Internal Medicine
DX: Z12.31 Encounter for screening mammogram for malignant neoplasm of breast (principal)
CPT/HCPCS: 77063; 77067

== ENCOUNTER → 2021-12-17 10:25 | Outpatient (BNVA) | payer OTHER, MEDICAID, SELFPAY | PROVIDERS: PCP Internal Medicine; Visit Provider Surgery Vascular Surgery | DX: N18.4 Chronic kidney disease, stage 4 (severe) (principal) | CPT/HCPCS: 99212 ==

== ENCOUNTER 2022-02-19 09:53 | Outpatient (REF) | payer OTHER, SELFPAY ==
--- NOTE | ~2022-02-19 | MM_ITS ---
EXAMINATION: BONE DENSITOMETRY CLINICAL INDICATION: Asymptomatic menopausal state. COMPARISON: None (current study represents initial baseline exam). TECHNIQUE: Using a [employer] DXA System (software version: 13.1) manufactured by [employer], dual-energy x-ray absorptiometry was performed of the lumbar spine and left hip. The images are of good technical quality. Summary results are attached. FINDINGS: AP SPINE L1-L4 (excluding L2 and L3): The data of L1-L4 has been changed to exclude the L2 and L3 vertebral bodies, because degenerative changes at these levels may cause overestimation of lumbar spine density. BMD 1.144 g/cm2, Z-score 0.5, T-score -0.2, normal. LEFT FEMUR, NECK: BMD 0.924 g/cm2, Z-score 0.1, T-score -0.8, normal. LEFT FEMUR, TOTAL: BMD 0.818 g/cm2, Z-score -1.0, T-score -1.5, osteopenia. IDENTIFIED RISK FACTORS: Renal, height loss, menopause, hysterectomy, bilateral oophorectomy. HISTORY OF FRACTURE: None listed. MEDICATIONS: Multivitamin. MM/XR DEXA axial skeleton IMPRESSION: 1. DIAGNOSIS: Osteopenia based on the lowest T-score value of -1.5 in the total femur applying World Health Organization criteria. 2. 10-YEAR FRACTURE RISK PREDICTION, FRAX: Major osteoporotic fracture (clinical spine, forearm, hip or shoulder) 4.0%. Hip fracture 0.2%. 3. Treatment Recommendations: NOF guidelines recommend consideration for treatment in postmenopausal women and men age 50 and older presenting with the following: -A hip or vertebral (clinical or morphometric) fracture. -T-score less than or equal to -2.5 at the femoral neck or spine after appropriate evaluation to exclude secondary causes. -Low bone mass at the hip or spine and a 10-year fracture probability by FRAX of greater than or equal to 3% for hip fracture or greater than or equal to 20% for major osteoporotic fracture based on the [place] adapted WHO algorithm. 4. Other Recommendations: All treatment decisions require clinical judgment and consideration of individual patient factors, including patient preferences, comorbidities, previous drug use, risk factors not captured in the FRAX model (e.g. frailty, falls, vitamin D deficiency, increased bone turnover, interval significant decline in bone density) and possible under or overestimation of fracture risk by FRAX. Additional medical evaluation for secondary cause of low bone mineral density may be appropriate. FUTURE SCAN RECOMMENDATION: People with diagnosed cases of osteoporosis or at high risk for fracture should have regular bone mineral density tests. For patients eligible for Medicare, routine testing is allowed once every 2 years. The testing frequency can be increased to one year for patients who have rapidly progressing disease, those who are receiving or discontinuing medical therapy to restore bone mass, or have additional risk factors.
== END 2022-02-19 09:54 | disposition home or self-care (01) ==
LOC: HO.MAMMO 09:53
PROVIDERS: PCP Internal Medicine; Visit Provider Internal Medicine
DX: Z13.820 Encounter for screening for osteoporosis (principal); Z78.0 Asymptomatic menopausal state; M85.80 Other specified disorders of bone density and structure, unspecified site
CPT/HCPCS: 77080

== ENCOUNTER 2022-04-24 09:10 | Outpatient (REF) | payer MEDICARE, SELFPAY ==
[2022-04-24 10:47] LABS: Appearance Urine CLEAR; Color Urine YELLOW; Glucose Urine UA NEG (NEG); Leukocyte Esterase Urine NEG (NEG); Nitrite Urine NEG (NEG); PH 5.5 (5.0-8.0); Urine Blood NEG (NEG); Urine Ketones NEG (NEG); Urine Protein NEG (NEG-TRACE)
[2022-04-24 10:48] LABS: Alanine Aminotransferase 11 U/L (0-31); Albumin Level 4.2 g/dL (3.5-5.0); Alkaline Phosphatase 121 U/L (39-117); Anion Gap 16 (12-20); Aspartate Amino Transferase 13 U/L (5-31); Bilirubin Total 0.7 mg/dL (0.0-1.0); Blood Urea Nitrogen 38 mg/dL (9-16); Calcium 9.9 mg/dL (8.4-10.2); Carbon Dioxide 23 mmol/L (22-29); Chloride 104 mmol/L (96-108); Cholesterol 271 mg/dL; Estimated Glomerular Filt Rate 22; Glucose Fasting 121 mg/dL (60-99); HDL Cholesterol 46 mg/dL; LDL Cholesterol Calculated 193 mg/dl; Potassium 4.2 mmol/L (3.3-5.1); Sodium 139 mmol/L (135-145); Total Protein 7.8 g/dL (6.5-8.0); Triglycerides 161 mg/dL
[2022-04-24 10:48] LABS: Albumin Level 4.2 g/dL (3.5-5.0); Anion Gap 16 (12-20); Blood Urea Nitrogen 40 mg/dL (9-16); Calcium 9.9 mg/dL (8.4-10.2); Carbon Dioxide 23 mmol/L (22-29); Chloride 105 mmol/L (96-108); Estimated Glomerular Filt Rate 22; Magnesium 1.7 mg/dL (1.6-2.6); Potassium 4.3 mmol/L (3.3-5.1); Sodium 140 mmol/L (135-145)
[2022-04-24 10:58] LABS: Creatinine Urine 108.25 mg/dL; Microalbum/Creatinine Ratio Ur 49.8 ug/mg cr; Protein/Creatinine Ratio, Ur 0.12 (<0.2); Total Protein Urine Random 13 mg/dL (<12)
[2022-04-24 11:08] LABS: Vitamin D 25-OH Total 50.1 ng/mL (>30)
[2022-04-24 11:17] LABS: Bacteria Urine 1+ /LPF; Mucus Urine TRACE /LPF; RBC Urine 0-2 /HPF (0); Squamous Epithelial Cell Urine 1+ /LPF
[2022-04-24 11:28] LABS: Vitamin D 25-OH Total 48.7 ng/mL (>30)
[2022-04-28 17:32] LABS: Calcium (PTHI) 10.3 mg/dL (8.6-10.4); PTHI 113 pg/mL (16-77)
== END 2022-04-24 09:11 | disposition home or self-care (01) ==
LOC: HO.LAB 09:10
PROVIDERS: PCP Internal Medicine; Visit Provider Internal Medicine Nephrology
DX: E11.22 Type 2 diabetes mellitus with diabetic chronic kidney disease (principal); N18.4 Chronic kidney disease, stage 4 (severe); E55.9 Vitamin D deficiency, unspecified; E78.5 Hyperlipidemia, unspecified; Z79.4 Long term (current) use of insulin
CPT/HCPCS: 36415; 80051; 80053; 80061; 81001; 82040; 82043; 82306; 82310; 82565; 83735; 83970; 84100; 84156; 84520; 87086

== ENCOUNTER 2022-06-08 08:46 | Emergency (ER) | payer OTHER, SELFPAY ==
--- NOTE | ~2022-06-08 | XR_ITS ---
EXAMINATION: XR SHOULDER, RIGHT CLINICAL INFORMATION: Pain COMPARISON: Previous exam dated 04/28/2012 TECHNIQUE: Three views of the right shoulder. FINDINGS: There is loss of bony integrity at the level of the distal clavicle and adjacent acromion at the AC joint. There is degenerative lipping occurring off the acromium. Degenerative change at the insertion of the superior rotator cuff. Mild degeneration in the inferior glenohumeral articulation. XR/XR shoulder RT min 2V IMPRESSION: Evidence of degenerative changes. Findings may preclude to impingement. I cannot exclude an element of osteolysis at the level of the AC joint
[2022-06-08 09:47] VITALS: BP 146/67; PULSE 68; RESP 18; TEMP 37.2; O2SAT 99; BMI 38.4
--- NOTE | 2022-06-08 11:44 | ED.EXTPRO ---
HPI - Extremity Problem General Chief complaint: Extremity Injury, Upper Stated complaint: sent from doctors, pain in R arm Time Seen by Provider: 06/08/22 10:15 Source: patient Mode of arrival: ambulatory Limitations: no limitations History of Present Illness HPI Narrative: 66-year-old female history of anemia, CKD, diabetes presents to ED for right shoulder pain for the past 2 weeks. Patient denies any swelling or redness of right upper extremity. Patient states she received a B12 injection into her right arm ever since has had pain. Patient states pain on range of motion of shoulders. Patient denies any referred chest pain, shortness of breath, bluish discoloration, hotness, or coolness. Related Data Home Medications Medication Instructions Recorded Confirmed pen needle, diabetic 32 gauge x #50 ea 12/17/21 12/31/21 (BD Ultra-Fine Debra Pen Needle) Previous Rx's Medication Instructions Recorded miscellaneous medical supply #1 ea 10/30/20 blood sugar diagnostic (FreeStyle #100 ea 01/30/21 Test strips) blood-glucose meter (FreeStyle #1 ea 01/30/21 Lite Meter kit) pantoprazole 40 mg tablet,delayed 40 mg PO DAILY #90 tabs 03/05/21 release albuterol sulfate 90 mcg/actuation 2 puff PO Q4H PRN bronchospasm 30 05/18/21 aerosol inhaler days #6.7 grams fluticasone 250 mcg-salmeterol 50 1 inh inhalation BID 30 days #60 ea 05/18/21 mcg/dose blistr powdr for inhalation (Advair Diskus) pravastatin 20 mg tablet 20 mg PO BEDTIME 90 days #90 tabs 08/05/21 blood-glucose meter (FreeStyle #1 ea 08/20/21 Lite Meter kit) cetirizine 10 mg tablet 10 mg PO DAILY PRN Allergy 11/12/21 Symptoms 90 days #90 tabs blood sugar diagnostic (FreeStyle #100 ea 11/28/21 Lite Strips) flash glucose scanning reader #1 ea 11/29/21 (FreeStyle Med 2 [place]) lancets 28 gauge (FreeStyle #100 ea 12/02/21 Lancets) insulin glargine U-300 conc 300 82 unit (0.2733 mL) subcut DAILY 12/05/21 unit/mL (1.5 mL) subcutaneous pen 30 days #9 mL (Toujeo SoloStar U-300 Insulin) pen needle, diabetic 31 gauge x #150 ea 12/05/21/ (AboutTime Pen Needle) azithromycin 250 mg tablet See Rx Instructions PO .COMPLEX #6 01/10/22 tabs metoprolol tartrate 50 mg tablet 50 mg PO BID 90 days #180 tabs 01/14/22 dulaglutide 1.5 mg/0.5 mL 1.5 mg (0.5 mL) subcut QWEEK 84 01/29/22 subcutaneous pen injector days #6 mL (Trulicity) valsartan 160 mg tablet 160 mg PO DAILY 30 days #30 tabs 02/03/22 chlorthalidone 25 mg tablet 25 mg PO DAILY 90 days #90 tabs 02/27/22 walker #1 ea 03/03/22 gabapentin 300 mg capsule 300 mg PO BID #180 caps 04/29/22 flash glucose sensor (FreeStyle #2 ea 05/15/22 Med 2 Sensor kit) amlodipine 5 mg tablet 5 mg PO DAILY 90 days #90 tabs 06/03/22 bupropion HCl 150 mg 24 hr tablet, 150 mg PO QAM #90 tabs 06/03/22 extended release insulin aspart U-100 100 unit/mL 12 - 16 unit (0.12 - 0.16 mL) 06/04/22 (3 mL) subcutaneous pen (Novolog subcut TID #15 mL Flexpen U-100 Insulin aspart) Allergies Allergy/AdvReac Type Severity Reaction Status Date / Time nut - unspecified [nut] Allergy Severe ANAPHYLAXIS Verified 06/08/22 09:47 rosuvastatin Allergy Severe Facial Verified 06/08/22 09:47 Swelling vancomycin [VANCOMYCIN] Allergy Severe SEVERE Verified 06/08/22 09:47 ITCHING [place] Inhibitors Allergy Intermediate RASH Verified 06/08/22 09:47 [[place] INHIBITORS] ciprofloxacin [From CIPRO] Allergy Intermediate RASH Verified 06/08/22 09:47 codeine [CODEINE] Allergy Intermediate RASH Verified 06/08/22 09:47 cyclobenzaprine Allergy Intermediate HIVES Verified 06/08/22 09:47 [CYCLOBENZAPRINE] ferrous sulfate Allergy Intermediate RASH Verified 06/08/22 09:47 [FERROUS SULFATE] insulin lispro Allergy Intermediate Hives Verified 06/08/22 09:47 [Humalog U-100 Insulin] latex [LATEX] Allergy Intermediate HIVES Verified 06/08/22 09:47 methylprednisolone Allergy Intermediate RASH Verified 06/08/22 09:47 [From MEDROL] penicillin V Allergy Intermediate Hives Verified 06/08/22 09:47 tamsulosin [TAMSULOSIN] Allergy Intermediate RASH Verified 06/08/22 09:47 insulin degludec Allergy Mild Hives Verified 06/08/22 09:47 [From Tresiba FlexTouch U-100] pravastatin Allergy Mild pruritus Verified 06/08/22 09:47 lactose [LACTOSE] AdvReac Intermediate DIARRHEA Verified 06/08/22 09:47 Beef Containing Products AdvReac Mild STOMACH Verified 06/08/22 09:47 UPSET Fish Containing Products AdvReac Mild NAUSEA & Verified 06/08/22 09:47 VOMITING Pork/Porcine Containing AdvReac Mild STOMACH Verified 06/08/22 09:47 Products UPSET Tramadol Allergy Intermediate itchy Uncoded 12/31/21 09:01 FRUIT AdvReac Mild NAUSEA & Uncoded 12/31/21 09:01 VOMITING VEGETABLES,FRESH AdvReac Mild NAUSEA & Uncoded 12/31/21 09:01 VOMITING Review of Systems Review of Systems: Right shoulder pain. 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 Sister No problems noted. Social History Social History Household Members: Significant Other Housing: Apartment Alcohol intake: never Patient Tobacco Use Status: Never used Tobacco e-Cigarette/Vaping Use: Never Used Second Hand Smoke Exposure: No Advance Directives: No Advance Directives Information Provided: No service: No Current occupational status: disabled Physical Exam Vital Signs: Vital Signs: Last Vital Signs Temp 99.0 F 06/08/22 09:47 Pulse 68 06/08/22 09:47 Resp 18 06/08/22 09:47 BP 146/67 H 06/08/22 09:47 Pulse Ox 99 06/08/22 09:47 O2 Del Method 06/08/22 09:47 BMI result Body Mass Index 38.4 Const: General: cooperative, healthy appearing, comfortable, no acute distress, well developed, alert, awake and Physically active Orientation/consciousness: oriented to person, oriented to place, oriented to time and patient oriented x3 HEENT: Head: Yes normal to inspection, Yes No palpable skull fracture present, Yes normocephalic, Yes atraumatic and No abrasion Eyes: General: appearance normal, both eyes and all related structures Neck: Neck: Yes normal visual inspection, Yes full ROM, Yes no lymphadenopathy, Yes no meningeal signs, Yes trachea midline, Yes supple, No anterior neck swelling and No tender Chest: Chest palpation & inspection: normal inspection of the chest and normal palpation of entire chest wall Resp: Effort & Inspection: normal respiratory effort and able to speak in complete sentences Auscultation: clear to auscultation bilaterally Cardio: Jugular venous distension: no JVD Heart sounds: S1 normal heart sound present and S2 normal heart sound present GI: Inspection: Yes normal to inspection and No abdominal wall ecchymosis Palpation (GI): Soft to palpation, not firm, nontender, no guarding and not rigid : General: No CVA tenderness and Yes no CVA tenderness Back/Spine/Pelvis: Back: no CVA tenderness, No CVA tenderness and No back tenderness Skin: General skin exam: no rashes or lesions noted and elasticity normal Neuro: General: oriented to person, oriented to place, oriented to time, patient oriented x3, gait normal, no meningeal signs and CN's II-XI intact bilaterally Extrem: General: Yes normal to inspection and Yes full ROM Shoulder/upper arm images: 1. Positive for tenderness on palpation. Negative for swelling, redness, ecchymosis, or deformity of her upper extremity. Positive for pain on range of motion. Neuro/vascular exam intact. Motor exam intact but limited due to pain Psych: Appearance: grossly normal, well kempt and not disheveled Course Course Course Narrative: Was sent for x-ray make sure there is no fracture arthritis. Currently no signs of DVT. Reevaluation(s) Reevaluation #1: Patient's x-ray shows severe arthritis of shoulder. Once again history physical exam does not indicate DVT. Negative for any swelling, redness, warmth or heaviness sensation of right upper extremity as per patient. Negative for coldness, numbness, or bluish black discoloration of extremity to indicate arterial occlusion. NOt Suspecting compartment syndrome. Skin is soft. Patient only able to take Tylenol. Patient cannot take NSAIDs due to renal failure on dialysis. Patient has allergy to narcotics patient also has allergy to steroids. Time: 13:27 MDM - Extremity (Nontraumatic) MDM Narrative Medical decision making narrative: Shoulder degenerative arthritis Discharge Plan Discharge Clinical Impression: Shoulder arthritis Patient Disposition: Home, Self-Care Instructions: Arthritis (ED) Additional Instructions: X-ray shows severe arthritis. He follow-up with primary care provider for referral to Orthopedic and physical therapy. Due to significant allergies he can only take Tylenol. Primary care provider may need to refer you to pain managment clinic. Return to the ED immediately for any swelling of the upper extremity, redness, bluish black discoloration, coldness, hotness, stiffness, numbness/tingling, fever, chills, chest pain, shortness of breath, or any other concerning symptoms. Prescriptions: No Action (DME) miscellaneous medical supply Misc See Rx Instructions .ROUTE .MEDSUPPLY Qty: 1 2RF Rx Instructions: Use 1 compression stocking bilaterally knee high 20 mmHg. (DME) FreeStyle Test Strip See Rx Instructions .ROUTE .MEDSUPPLY Qty: 100 11RF Rx Instructions: Use 1 three times a day (DME) blood-glucose meter [FreeStyle Lite Meter] Kit See Rx Instructions .ROUTE .MEDSUPPLY Qty: 1 0RF Rx Instructions: As directed 3x daily pantoprazole 40 mg tablet,delayed release (DR/EC) 40 mg PO DAILY Qty: 90 1RF albuterol sulfate 90 mcg/actuation HFA aerosol inhaler 2 puff PO Q4H PRN (Reason: bronchospasm) 30 Days Qty: 6.7 3RF fluticasone propion-salmeterol [Advair Diskus] 250-50 mcg/dose blister with device 1 inh inhalation BID 30 Days Qty: 60 2RF cetirizine 10 mg tablet 10 mg PO DAILY PRN (Reason: Allergy Symptoms) 90 Days Qty: 90 1RF (DME) FreeStyle Lite Strips Strip See Rx Instructions .ROUTE .MEDSUPPLY Qty: 100 11RF Rx Instructions: As directed three times a day (DME) lancets [FreeStyle Lancets] 28 gauge misc See Rx Instructions .ROUTE .MEDSUPPLY Qty: 100 11RF Rx Instructions: Three times a day Toujeo SoloStar U-300 Insulin 300 unit/mL (1.5 mL) insulin pen 82 unit subcut DAILY 30 Days Qty: 9 5RF (DME) pen needle, diabetic [AboutTime Pen Needle] 31 gauge x 5/16 needle See Rx Instructions .Route Qty: 150 11RF Rx Instructions: As directed 4 x/day azithromycin 250 mg tablet See Rx Instructions PO .COMPLEX Qty: 6 0RF Rx Instructions: For 250 mg dose pack: take 500 mg today (day 1), then 250 mg for 4 days (days 2-5) PO metoprolol tartrate 50 mg tablet 50 mg PO BID 90 Days Qty: 180 1RF Trulicity 1.5 mg/0.5 mL pen injector 1.5 mg subcut QWEEK 84 Days Qty: 6 2RF valsartan 160 mg tablet 160 mg PO DAILY 30 Days Qty: 30 6RF chlorthalidone 25 mg tablet 25 mg PO DAILY 90 Days Qty: 90 3RF (DME) walker Misc See Rx Instructions .Route Qty: 1 0RF Rx Instructions: walker with seat gabapentin 300 mg capsule 300 mg PO BID Qty: 180 2RF (DME) FreeStyle Med 2 Sensor Kit See Rx Instructions .ROUTE .MEDSUPPLY Qty: 2 11RF Rx Instructions: As directed every 2 weeks bupropion HCl 150 mg tablet extended release 24 hr 150 mg PO QAM Qty: 90 1RF amlodipine 5 mg tablet 5 mg PO DAILY 90 Days Qty: 90 1RF insulin aspart U-100 [Novolog Flexpen U-100 Insulin] 100 unit/mL (3 mL) insulin pen 12 - 16 unit subcut TID Qty: 15 6RF Rx Instructions: 12 units before meals, 14 units for bg over 200 and 16 u for bg over 300 pravastatin 20 mg tablet 20 mg PO BEDTIME 90 Days Qty: 90 1RF (DME) blood-glucose meter [FreeStyle Lite Meter] Kit See Rx Instructions .ROUTE .MEDSUPPLY Qty: 1 0RF Rx Instructions: As directed (DME) FreeStyle Med 2 [place] Misc See Rx Instructions .ROUTE .MEDSUPPLY Qty: 1 0RF Rx Instructions: As directed (DME) pen needle, diabetic [BD Ultra-Fine Debra Pen Needle] 32 gauge x 5/32 needle See Rx Instructions subcut QID Qty: 50 Rx Instructions: As directed Referrals: Joann Partida MD [Primary Care Provider] - (Right shoulder severe arthritis.) Stand Alone Forms: Work/School Release Interventions: ED Discharge Assessment Last Done: 06/08/22 13:53 Discharge Date/Time: 06/08/22 13:54 Print Language: [place]ayan
[2022-06-08] MEDS: Acetaminophen 325 MG TABLET 975 MG PO (11:56)
== END 2022-06-08 13:54 | disposition home or self-care (01) ==
PROVIDERS: Emergency Provider Emergency Medicine; PCP Internal Medicine
DX: M19.011 Primary osteoarthritis, right shoulder (principal); M25.511 Pain in right shoulder; Z79.899 Other long term (current) drug therapy
CPT/HCPCS: 73030; 99283

== ENCOUNTER 2022-07-07 10:00 | Emergency (ER) | payer OTHER, MEDICAID, SELFPAY ==
--- NOTE | ~2022-07-07 | CT_ITS ---
EXAMINATION: CT ABDOMEN AND PELVIS WITHOUT CONTRAST CLINICAL INFORMATION: Reason for Exam Back pain radiating to pelvic area COMPARISON: 04/13/2019 TECHNIQUE: Multidetector volumetric imaging was performed from the lung bases through the pubic symphysis. Sagittal and coronal reformatted images were obtained on the technologist workstation. This CT examination was performed using dose optimization techniques as appropriate, variously including the following: *Automated exposure control *Adjustment of mA and/or kV according to patient size (this includes techniques or standardized protocols for targeted exams where dose is matched to indication/reason for exam; i.e. extremities or head) *Use of iterative reconstruction technique DLP 1044. FINDINGS: The lack of intravenous contrast limits evaluation of the solid visceral organs including the liver, spleen, pancreas, and kidneys. LUNG BASES: Mild bibasilar atelectasis. Normal heart size. LIVER, GALLBLADDER, AND BILIARY TREE: Limited non-contrast evaluation is normal. No gross focal hepatic lesion. Normal liver size and contour. No gross biliary ductal dilation. The gallbladder is unremarkable with no evidence of radiopaque gallstones, gallbladder wall thickening, or obvious pericholecystic inflammatory changes. PANCREAS: Limited non-contrast evaluation is normal. No sky-pancreatic fluid. SPLEEN: Borderline splenomegaly measuring 13.4 cm anterior to posterior and 11 cm craniocaudal. No focal splenic lesion. ADRENAL GLANDS: Normal; no adrenal mass. KIDNEYS AND URETERS: Limited non-contrast evaluation is normal. No hydronephrosis, hydroureter, or calculi seen. No perinephric stranding. GASTROINTESTINAL TRACT: Small bowel and colon are non-dilated. No bowel wall thickening. No pericolonic inflammatory changes to suggest colitis or diverticulitis. Normal appendix. ABDOMINAL WALL: Small fat-containing umbilical hernia. LYMPH NODES: Normal sized left periaortic lymph nodes are present. No pathologically enlarged lymphadenopathy. VASCULAR: Normal caliber abdominal aorta. BLADDER: Unremarkable. PELVIC VISCERA: Uterus not seen likely surgically absent. No adnexal mass. OSSEOUS STRUCTURES: No acute or suspicious osseous abnormalities. Mild convex left lumbar scoliosis with asymmetric loss of disc height, endplate sclerosis, and osteophytosis along the right aspect of L2-3. CT/CT abdomen pelvis wo IV con IMPRESSION: No acute CT finding. Borderline splenomegaly. Degenerative changes at L2-3.
--- NOTE | ~2022-07-07 | XR_ITS ---
EXAMINATION: XR CHEST CLINICAL INFORMATION: Weakness COMPARISON: 11/15/2019 TECHNIQUE: Frontal view of the chest was obtained. FINDINGS: Similar appearance of chronic coarse interstitial prominence. No focal consolidation or mass. Normal pulmonary vascularity. No pleural effusion or pneumothorax. Normal heart size. Degenerative changes of the shoulders and spine. XR/XR chest 1V IMPRESSION: No acute pulmonary disease. Similar appearance of chronic coarse interstitial prominence.
[2022-07-07 10:16] VITALS: BP 130/70; PULSE 90; O2SAT 98
[2022-07-07 10:17] VITALS: BP 109/51; PULSE 79; RESP 18; TEMP 36.8; O2SAT 96; BMI 38.4
[2022-07-07 10:24] VITALS: BP 109/51; PULSE 90; RESP 18; TEMP 36.8; O2SAT 95
--- NOTE | 2022-07-07 10:25 | ECG_ITS ---
Test Reason : Chest Pain Blood Pressure : / mmHG Vent. Rate : 079 BPM Atrial Rate : 079 BPM P-R Int : 206 ms QRS Dur : 124 ms QT Int : 412 ms P-R-T Axes : 019 079 009 degrees QTc Int : 472 ms Normal sinus rhythm Right bundle branch block Abnormal ECG When compared with ECG of 25-NOV-2021 07:09, TN interval has decreased Referred By: Cassie Hassan Electronically Signed By:SILVERIO ANN MD
--- NOTE | 2022-07-07 10:25 | ED_ITS ---
HPI - General Adult General Chief complaint: Abdominal Pain Stated complaint: BACK PAIN,H/O KIDNEY FAILURE PER EMS Time Seen by Provider: 07/07/22 10:10 Source: patient and EMS Mode of arrival: EMS History of Present Illness HPI narrative: 67-year-old female with a past medical history of CKD, diabetes, HLD, HTN, arthritis, presenting to the ED via EMS complaining of substernal chest pain, SOB, and back pain radiating to pelvic area x2 days. States pain is constant. Reports pain is similar to prior arthritic attacks, c/o diffuse myalgias. Also reports urinary frequency. Denies nausea, vomiting, diarrhea, dysuria/hematuria, cough, urinary incontinence/retention, numbness, tingling, weakness Onset (ago): day(s) Related Data Home Medications Medication Instructions Recorded Confirmed pen needle, diabetic 32 gauge x #50 ea 12/17/21 06/19/22 (BD Ultra-Fine Debra Pen Needle) Previous Rx's Medication Instructions Recorded miscellaneous medical supply #1 ea 10/30/20 pantoprazole 40 mg tablet,delayed 40 mg PO DAILY #90 tabs 03/05/21 release albuterol sulfate 90 mcg/actuation 2 puff PO Q4H PRN bronchospasm 30 05/18/21 aerosol inhaler days #6.7 grams fluticasone 250 mcg-salmeterol 50 1 inh inhalation BID 30 days #60 ea 05/18/21 mcg/dose blistr powdr for inhalation (Advair Diskus) blood-glucose meter (FreeStyle #1 ea 08/20/21 Lite Meter kit) cetirizine 10 mg tablet 10 mg PO DAILY PRN Allergy 11/12/21 Symptoms 90 days #90 tabs blood sugar diagnostic (FreeStyle #100 ea 11/28/21 Lite Strips) flash glucose scanning reader #1 ea 11/29/21 (FreeStyle Med 2 [facility]) lancets 28 gauge (FreeStyle #100 ea 12/02/21 Lancets) pen needle, diabetic 31 gauge x #150 ea 12/05/2102/03 (AboutTime Pen Needle) dulaglutide 1.5 mg/0.5 mL 1.5 mg (0.5 mL) subcut QWEEK 84 01/29/22 subcutaneous pen injector days #6 mL (Trulicity) valsartan 160 mg tablet 160 mg PO DAILY 30 days #30 tabs 02/03/22 chlorthalidone 25 mg tablet 25 mg PO DAILY 90 days #90 tabs 02/27/22 walker #1 ea 03/03/22 flash glucose sensor (FreeStyle #2 ea 05/15/22 Med 2 Sensor kit) amlodipine 5 mg tablet 5 mg PO DAILY 90 days #90 tabs 06/03/22 bupropion HCl 150 mg 24 hr tablet, 150 mg PO QAM #90 tabs 06/03/22 extended release insulin aspart U-100 100 unit/mL 12 - 16 unit (0.12 - 0.16 mL) 06/09/22 (3 mL) subcutaneous pen (Novolog subcut TID #15 mL Flexpen U-100 Insulin aspart) insulin glargine U-300 conc 300 85 unit (0.2833 mL) subcut DAILY 06/19/22 unit/mL (1.5 mL) subcutaneous pen 30 days #8.499 mL (Toujeo SoloStar U-300 Insulin) meclizine 25 mg tablet 25 mg PO TID PRN dizziness 30 days 06/19/22 #90 tabs pravastatin 40 mg tablet 40 mg PO BEDTIME 90 days #90 tabs 06/19/22 metoprolol tartrate 50 mg tablet 50 mg PO BID 90 days #180 tabs 06/20/22 gabapentin 300 mg capsule 300 mg PO BID #180 caps 06/30/22 acetaminophen 500 mg tablet 500 mg PO Q6H PRN fever or pain 07/07/22 (Tylenol Extra Strength) #14 tabs cefuroxime axetil 250 mg tablet 250 mg PO BID 7 days #14 tabs 07/07/22 methocarbamol 500 mg tablet 500 mg PO TID PRN pain (scale 07/07/22 score 4-6) #14 tabs Allergies Allergy/AdvReac Type Severity Reaction Status Date / Time nut - unspecified [nut] Allergy Severe ANAPHYLAXIS Verified 06/19/22 09:22 rosuvastatin Allergy Severe Facial Verified 06/19/22 09:22 Swelling vancomycin [VANCOMYCIN] Allergy Severe SEVERE Verified 06/19/22 09:22 ITCHING [place] Inhibitors Allergy Intermediate RASH Verified 06/19/22 09:22 [[place] INHIBITORS] ciprofloxacin [From CIPRO] Allergy Intermediate RASH Verified 06/19/22 09:22 codeine [CODEINE] Allergy Intermediate RASH Verified 06/19/22 09:22 cyclobenzaprine Allergy Intermediate HIVES Verified 06/19/22 09:22 [CYCLOBENZAPRINE] ferrous sulfate Allergy Intermediate RASH Verified 06/19/22 09:22 [FERROUS SULFATE] insulin lispro Allergy Intermediate Hives Verified 06/19/22 09:22 [Humalog U-100 Insulin] latex [LATEX] Allergy Intermediate HIVES Verified 06/19/22 09:22 methylprednisolone Allergy Intermediate RASH Verified 06/19/22 09:22 [From MEDROL] penicillin V Allergy Intermediate Hives Verified 06/19/22 09:22 tamsulosin [TAMSULOSIN] Allergy Intermediate RASH Verified 06/19/22 09:22 insulin degludec Allergy Mild Hives Verified 06/19/22 09:22 [From Tresiba FlexTouch U-100] pravastatin Allergy Mild pruritus Verified 06/19/22 09:22 lactose [LACTOSE] AdvReac Intermediate DIARRHEA Verified 06/19/22 09:22 Beef Containing Products AdvReac Mild STOMACH Verified 06/19/22 09:22 UPSET Fish Containing Products AdvReac Mild NAUSEA & Verified 06/19/22 09:22 VOMITING Pork/Porcine Containing AdvReac Mild STOMACH Verified 06/19/22 09:22 Products UPSET Tramadol Allergy Intermediate itchy Uncoded 06/19/22 09:22 FRUIT AdvReac Mild NAUSEA & Uncoded 06/19/22 09:22 VOMITING VEGETABLES,FRESH AdvReac Mild NAUSEA & Uncoded 06/19/22 09:22 VOMITING Review of Systems Review of Systems: Constitutional: No Fever, No Chills, No Night Sweats, No Fatigue, No Malaise ENT/Mouth: No Ear Pain, No Nasal Congestion, No Sinus Pain, No sore throat, No Rhinorrhea, No Swallowing Difficulty Eyes: No Eye Pain, No Swelling, No Redness, No Vision Changes Cardiovascular: + Chest Pain, + SOB, No Dyspnea on Exertion, No Orthopnea, No Edema, No Palpitations Respiratory: No Cough, No Sputum, No Wheezing, No Dyspnea Gastrointestinal: No Nausea, No Vomiting, No Diarrhea, No Constipation, + Abdominal pain Genitourinary: No Dysuria, + Urinary Frequency, No Hematuria, No Urinary Incontinence/retention, No Urgency, No Flank Pain, No Urinary Flow Changes, No Hesitancy Musculoskeletal: + joint pain, + Myalgias, No Joint Swelling Skin: No Skin Lesions, No rash Neuro: No Weakness, No Numbness, No Paresthesias, No Loss of Consciousness, No Dizziness, No Headache Yes all other systems are reviewed and are negative Constitutional: Constitutional: Reports as per HPI Neurologic: Denies Abnormal speech present [facility] Past Medical History Attestation statement: The following information was validated with the patient. 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 Sister No problems noted. Social History Social History Household Members: Significant Other Housing: Apartment Alcohol intake: never Patient Tobacco Use Status: Never used Tobacco e-Cigarette/Vaping Use: Never Used Second Hand Smoke Exposure: No Advance Directives: Yes Advance Directives on File: Yes Advance Directives Date on File: 09/11/20 service: No Current occupational status: disabled Cognitive needs: Yes Hearing needs: No Vision needs: Yes Physical Exam ED Vital Signs: Vital Signs - 24 hr 07/07/22 10:17 07/07/22 10:24 07/07/22 13:21 Temperature 98.3 F 98.3 F Pulse Rate 79 90 70 Respiratory Rate 18 18 18 Blood Pressure 109/51 L 109/51 L 123/67 Pulse Oximetry 96 95 94 Oxygen Delivery Method Room Air Room Air Room Air BMI result Body Mass Index 38.4 Const General: cooperative, healthy appearing, no acute distress, alert and awake Orientation/consciousness: patient oriented x3 Limitations: no limitations HENNE Head: Yes normal to inspection and Yes atraumatic Ears: hearing grossly normal bilaterally General nose exam: Normal external nose present Face and sinus: Yes normal facial exam Eyes General: appearance normal, both eyes and all related structures EOM: EOMs intact bilaterally Neck Neck: Yes normal visual inspection and Yes no meningeal signs Resp Effort & Inspection: normal respiratory effort and no respiratory distress Auscultation: clear to auscultation bilaterally, no crackles, no rhonchi and no wheezes Cardio Rate: regular rate Heart sounds: S1 normal heart sound present and S2 normal heart sound present GI Inspection: Yes normal to inspection Palpation (GI): Soft to palpation, nontender, no guarding and not rigid General: Yes no CVA tenderness Back/Spine/Pelvis Other: No midline thoracic/lumbar spinous tenderness/step-off or deformity. + diffuse MSK back tenderness to palpation, no appreciable deformity/ecchymosis. Back: no CVA tenderness Skin Rashes: no rashes Wounds: no wounds Neuro Other: Strength intact throughout. No saddle anesthesia. Sensation intact to light touch. Neurovascular intact distally General: patient oriented x3, tone normal, moves all extremities, no meningeal signs, no focal motor deficits and CN's II-XI intact bilaterally Cranial nerves: Yes CN's II-XII intact bilaterally Cognition (Neuro): normal cognition Speech: No Abnormal speech present Motor exam (neuro): 5/5 motor strength present throughout Extrem General: Yes normal to inspection Course Course Course Narrative: -1215--no leukocytosis. H&H at patient's baseline. Renal function at patient's baseline. Magnesium mildly low at 1.5 > IV repletion ordered -troponin negative. UA infected > IV Rocephin given XR chest 1V IMPRESSION: No acute pulmonary disease. Similar appearance of chronic coarse interstitial prominence. 1339--CT abdomen pelvis wo IV con IMPRESSION: No acute CT finding. ? ? Borderline splenomegaly. Degenerative changes at L2-3. > patient reports symptomatic improvement after medications given in the ED. Results discussed with patient including worrisome signs and symptoms and strict return precautions, and when to return to the emergency department. They v erbalized understanding and feel safe for discharge at this time. Medical Decision Making [facility] Narrative Medical decision making narrative: 67-year-old female with a past medical history of CKD, diabetes, HLD, HTN, arthritis, presenting to the ED via EMS complaining of substernal chest pain, SOB, and back pain radiating to pelvic area x2 days. On exam vital signs stable, NAD, nontoxic appearing, lungs CTA, abdomen soft/nontender, no midline spinous tenderness or or red flag symptoms. Concern for ACS vs renal stone vs UTI vs arthritic flare vs ?Diverticulitis/appendicitis of the lower a differ ential due to nontender abdomen. Symptoms atypical for PE/pneumonia Plan: EKG, labs, UA, CXR, CT abdomen/pelvis, re-evaluate Medical Records Medical records reviewed: Yes I reviewed the patient's medical records. Lab Data Lab results reviewed: Yes I reviewed the patient's lab results. Result diagrams: 07/07/22 11:08 07/07/22 11:08 Labs: Lab Results 07/07/22 07/07/22 07/07/22 Range/Units 11:08 11:08 11:08 WBC 10.3 (4.8-10.8) X10*3/uL RBC 3.77 L (4.20-5.50) X10*6/uL Hgb 10.5 L (12.0-16.0) g/dl Hct 31.5 L (37.0-47.0) % MCV 83.6 (80.0-98.0) fL MCH 27.9 (27.0-33.0) pg MCHC 33.3 (31.0-35.0) g/dl RDW 13.6 (11.0-16.0) % Plt Count 169 D (160-400) X10*3/uL MPV 10.9 (9.4-12.3) fL Immature Gran % (Auto) 0.4 (0.0-0.4) % Neut % (Auto) 71.8 (45-73) % Lymph % (Auto) 19.3 L (20-40) % [place] % (Auto) 6.1 (2-11) % Eos % (Auto) 2.1 (0-4) % Baso % (Auto) 0.3 (0-2) % Lymph # (Auto) 2.0 (1.2-4.9) X10*3/uL [place] # (Auto) 0.6 (0.1-1.2) X10*3/uL Eos # (Auto) 0.2 (0.0-0.4) X10*3/uL Baso # (Auto) 0.0 (0.0-0.2) X10*3/uL Abs Immat Gran (auto) 0.04 H (0.00-0.03) X10*3/uL Absolute Neuts (auto) 7.4 (2.0-8.3) x10*3/uL Absolute Nucleated RBC 0.000 (0.0-0.012) X10*3/uL Nucleated RBC % (auto) 0.0 (0.0-0.2) /100WBC Sodium 138 (135-145) mmol/L Potassium 3.8 (3.3-5.1) mmol/L Chloride 102 (96-108) mmol/L Carbon Dioxide 21 L (22-29) mmol/L Anion Gap 19 (12-20) BUN 43 H (9-16) mg/dL Creatinine 2.29 H (0.5-1.4) mg/dL Estim Creat Clear Calc 26.9 Estimated GFR 21 Random Glucose 226 H (60-115) mg/dL Calcium 9.3 D (8.4-10.2) mg/dL Magnesium 1.5 L (1.6-2.6) mg/dL Total Bilirubin 0.9 (0.0-1.0) mg/dL Direct Bilirubin 0.3 (0.0-0.5) mg/dL AST 10 (5-31) U/L ALT 7 (0-31) U/L Alkaline Phosphatase 120 H (39-117) U/L Troponin I High Sens 3.9 (<3.5-17.0) ng/L Total Protein 7.4 (6.5-8.0) g/dL Albumin 3.9 (3.5-5.0) g/dL Lipase 17 (8-78) U/L Urine Color Urine Appearance Urine pH (5.0-9.0) Ur Specific Chloride (1.005-1.025) Urine Protein (Neg-Trace) mg/dL Urine Glucose (UA) (Negative) mg/dL Urine Ketones (Negative) mg/dL Urine Blood (Negative) Urine Nitrite (Negative) Ur Leukocyte Esterase (Negative) Urine RBC (0-2) /HPF Urine WBC (0-5) /HPF Ur Squamous Epith Cells (0-2) /HPF Urine Bacteria (None Seen) Hyaline Casts (0-2) /LPF 07/07/22 Range/Units 11:39 WBC (4.8-10.8) X10*3/uL RBC (4.20-5.50) X10*6/uL Hgb (12.0-16.0) g/dl Hct (37.0-47.0) % MCV (80.0-98.0) fL MCH (27.0-33.0) pg MCHC (31.0-35.0) g/dl RDW (11.0-16.0) % Plt Count (160-400) X10*3/uL MPV (9.4-12.3) fL Immature Gran % (Auto) (0.0-0.4) % Neut % (Auto) (45-73) % Lymph % (Auto) (20-40) % [place] % (Auto) (2-11) % Eos % (Auto) (0-4) % Baso % (Auto) (0-2) % Lymph # (Auto) (1.2-4.9) X10*3/uL [place] # (Auto) (0.1-1.2) X10*3/uL Eos # (Auto) (0.0-0.4) X10*3/uL Baso # (Auto) (0.0-0.2) X10*3/uL Abs Immat Gran (auto) (0.00-0.03) X10*3/uL Absolute Neuts (auto) (2.0-8.3) x10*3/uL Absolute Nucleated RBC (0.0-0.012) X10*3/uL Nucleated RBC % (auto) (0.0-0.2) /100WBC Sodium (135-145) mmol/L Potassium (3.3-5.1) mmol/L Chloride (96-108) mmol/L Carbon Dioxide (22-29) mmol/L Anion Gap (12-20) BUN (9-16) mg/dL Creatinine (0.5-1.4) mg/dL Estim Creat Clear Calc Estimated GFR Random Glucose (60-115) mg/dL Calcium (8.4-10.2) mg/dL Magnesium (1.6-2.6) mg/dL Total Bilirubin (0.0-1.0) mg/dL Direct Bilirubin (0.0-0.5) mg/dL AST (5-31) U/L ALT (0-31) U/L Alkaline Phosphatase (39-117) U/L Troponin I High Sens (<3.5-17.0) ng/L Total Protein (6.5-8.0) g/dL Albumin (3.5-5.0) g/dL Lipase (8-78) U/L Urine Color Yellow Urine Appearance Clear Urine pH 5.5 (5.0-9.0) Ur Specific Chloride 1.015 (1.005-1.025) Urine Protein Trace (Neg-Trace) mg/dL Urine Glucose (UA) Negative (Negative) mg/dL Urine Ketones Negative (Negative) mg/dL Urine Blood Negative (Negative) Urine Nitrite Negative (Negative) Ur Leukocyte Esterase Small (1+) H (Negative) Urine RBC 0-2 (0-2) /HPF Urine WBC 11-20 H (0-5) /HPF Ur Squamous Epith Cells 0-2 (0-2) /HPF Urine Bacteria None Seen (None Seen) Hyaline Casts 0-2 (0-2) /LPF Discharge Plan Discharge Clinical Impression: Acute UTI, Myalgia Patient Disposition: Home, Self-Care Instructions: Acute Low Back Pain (ED), Urinary Tract Infection in Older Adults (ED) Additional Instructions: You have urinary tract infection. Ceftin is an antibiotic please take as prescribed. Your other blood work was reassuring, her chest x-ray was unremarkable Robaxin is a muscle relaxer, take at night as makes you drowsy, do not drive, drink alcohol, or operate machinery while taking. Additionally take Tylenol for pain. If symptoms persist or worsen return to the emergency department Please have close follow-up with her doctor Prescriptions: New cefuroxime axetil 250 mg tablet 250 mg PO BID 7 Days Qty: 14 0RF acetaminophen [Tylenol Extra Strength] 500 mg tablet 500 mg PO Q6H PRN (Reason: fever or pain) Qty: 14 0RF methocarbamol 500 mg tablet 500 mg PO TID PRN (Reason: pain (scale score 4-6)) Qty: 14 0RF No Action (DME) miscellaneous medical [place] [facility] [place] Inst[place] .ROUTE .MEDSUPPLY Qty: 1 2RF Rx Instructions: Use 1 compression stocking bilaterally knee high 20 mmHg. pantoprazole 40 mg tablet,delayed release (DR/EC) 40 mg PO DAILY Qty: 90 1RF albuterol sulfate 90 mcg/actuation HFA aerosol inhaler 2 puff PO Q4H PRN (Reason: bronchospasm) 30 Days Qty: 6.7 3RF fluticasone propion-salmeterol [Advair Diskus] 250-50 mcg/dose blister with device 1 inh inhalation BID 30 Days Qty: 60 2RF cetirizine 10 mg tablet 10 mg PO DAILY PRN (Reason: Allergy Symptoms) 90 Days Qty: 90 1RF (DME) FreeStyle Lite Strips Strip See Rx Instructions .ROUTE .MEDSUPPLY Qty: 100 11RF Rx Instructions: As directed three times a day (DME) lancets [FreeStyle Lancets] 28 gauge [facility] [place] See Rx Instructions .ROUTE .MEDSUPPLY Qty: 100 11RF Rx Instructions: Three times a day (DME) pen needle, diabetic [AboutTime Pen Needle] 31 gauge x 5/16 needle See Rx Instructions .Route Qty: 150 11RF Rx Instructions: As directed 4 x/day Trulicity 1.5 mg/0.5 mL pen injector 1.5 mg subcut QWEEK 84 Days Qty: 6 2RF valsartan 160 mg tablet 160 mg PO DAILY 30 Days Qty: 30 6RF chlorthalidone 25 mg tablet 25 mg PO DAILY 90 Days Qty: 90 3RF (DME) [place] [facility] [place] Instructions .Route Qty: 1 0RF Rx Instructions: walker with seat (DME) FreeStyle Med 2 Sensor Kit See Rx Instructions .ROUTE .MEDSUPPLY Qty: 2 11RF Rx Instructions: As directed every 2 weeks bupropion HCl 150 mg tablet extended release 24 hr 150 mg PO QAM Qty: 90 1RF amlodipine 5 mg tablet 5 mg PO DAILY 90 Days Qty: 90 1RF insulin aspart U-100 [Novolog Flexpen U-100 Insulin] 100 unit/mL (3 mL) insulin pen 12 - 16 unit subcut TID Qty: 15 6RF Rx Instructions: 12 units before meals, 14 units for bg over 200 and 16 u for bg over 300 metoprolol tartrate 50 mg tablet 50 mg PO BID 90 Days Qty: 180 1RF gabapentin 300 mg capsule 300 mg PO BID Qty: 180 2RF Toudax SoloStar U-300 Insulin 300 unit/mL (1.5 mL) insulin pen 85 unit subcut DAILY 30 Days Qty: 8.499 5RF pravastatin 40 mg tablet 40 mg PO BEDTIME 90 Days Qty: 90 1RF meclizine 25 mg tablet 25 mg PO TID PRN (Reason: dizziness) 30 Days Qty: 90 0RF (DME) blood-glucose meter [FreeStyle Lite Meter] Kit See Rx Instructions .ROUTE .MEDSUPPLY Qty: 1 0RF Rx Instructions: As directed (DME) FreeStyle Med 2 [facility] See Rx Instructions .ROUTE .MEDSUPPLY Qty: 1 0RF Rx Instructions: As directed (DME) pen needle, diabetic [BD Ultra-Fine Debra Pen Needle] 32 gauge x 5/32 needle See Rx Instructions subcut QID Qty: 50 Rx Instructions: As directed Referrals: [facility] [Provider Group] Physician,Unknown J [Primary Care Provider] - 2 days
[2022-07-07 11:12] LABS: MANUAL DIFF FLAG NO
[2022-07-07 11:14] LABS: Basophils Percent Auto 0.3 % (0-2); Eosinophils Absolute Auto 0.2 X10*3/uL (0.0-0.4); Eosinophils Percent Auto 2.1 % (0-4); Hematocrit 31.5 % (37.0-47.0); Hemoglobin 10.5 g/dl (12.0-16.0); Imm Gran Abs Auto 0.04 X10*3/uL (0.00-0.03); Imm Gran Pct Auto 0.4 % (0.0-0.4); Lymphocytes Percent Auto 19.3 % (20-40); Mean Corpuscular HGB Conc 33.3 g/dl (31.0-35.0); Mean Corpuscular Hemoglobin 27.9 pg (27.0-33.0); Mean Corpuscular Volume 83.6 fL (80.0-98.0); Mean Platelet Volume 10.9 fL (9.4-12.3); Monocytes Absolute Auto 0.6 X10*3/uL (0.1-1.2); Monocytes Percent Auto 6.1 % (2-11); Neutrophils Absolute Auto 7.4 x10*3/uL (2.0-8.3); Neutrophils Percent Auto 71.8 % (45-73); Platelet Count 169 X10*3/uL (160-400); Red Blood Count 3.77 X10*6/uL (4.20-5.50); Red Cell Distribution Width 13.6 % (11.0-16.0); White Blood Count 10.3 X10*3/uL (4.8-10.8)
[2022-07-07] MEDS: Ketorolac Tromethamine 15 MG/ML VIAL IVPUSH (11:18)
--- NOTE | 2022-07-07 11:21 | PC.NURSE ---
pt alert and oriented x 4. skin pink and warm. came with lower back pain radiating to lower abdomen. She reports pain 10/10, adm Ketorolac 1mg. Pt also complains of chest pain 10/10. ekg and chest xray ordered. Pt insisted in going to the bathroom to urinate but could not get off the bed. I offered bed palacio and she refused. She is now asking for commode.
[2022-07-07 11:39] LABS: Alanine Aminotransferase 7 U/L (0-31); Albumin Level 3.9 g/dL (3.5-5.0); Alkaline Phosphatase 120 U/L (39-117); Anion Gap 19 (12-20); Aspartate Amino Transferase 10 U/L (5-31); Bilirubin Direct 0.3 mg/dL (0.0-0.5); Bilirubin Total 0.9 mg/dL (0.0-1.0); Blood Urea Nitrogen 43 mg/dL (9-16); Calcium 9.3 mg/dL (8.4-10.2); Carbon Dioxide 21 mmol/L (22-29); Chloride 102 mmol/L (96-108); Creatinine Clr Calc Pharmacy 26.9; Estimated Glomerular Filt Rate 21; Glucose Random 226 mg/dL (60-115); Lipase 17 U/L (8-78); Magnesium 1.5 mg/dL (1.6-2.6); Potassium 3.8 mmol/L (3.3-5.1); Sodium 138 mmol/L (135-145); Total Protein 7.4 g/dL (6.5-8.0)
[2022-07-07 11:40] LABS: Troponin-I High Sensitivity 3.9 ng/L (<3.5-17.0)
[2022-07-07 11:51] LABS: Appearance Urine Clear; Color Urine Yellow; Glucose Urine UA Negative (Negative); Leukocyte Esterase Urine Small (1+) (Negative); Nitrite Urine Negative (Negative); PH 5.5 (5.0-9.0); Specific Gravity - Urine 1.015 (1.005-1.025); UMIC TRIGGER UACC YES; Urine Blood Negative (Negative); Urine Ketones Negative (Negative); Urine Protein Trace mg/dL (Neg-Trace)
[2022-07-07 11:56] LABS: Bacteria Urine None Seen (None Seen); Hyaline Casts Urine 0-2 /LPF (0-2); RBC Urine 0-2 /HPF (0-2); Squamous Epithelial Cell Urine 0-2 /HPF (0-2); UACC Culture Trigger YES
--- NOTE | 2022-07-07 12:28 | PC.NURSE ---
pt has CKD. She is still able to make urine. She has a fistula on her left upper arm. thrill and bruit present.
[2022-07-07] MEDS: cefTRIAXone sodium 1 GM in 0.9 % Sodium Chloride 50 ML IV (12:43)
[2022-07-07] MEDS: Magnesium Sulfate/H2O 2 GM/50 ML PIGGYBACK IV (13:12)
[2022-07-07 13:21] VITALS: BP 123/67; PULSE 70; RESP 18; O2SAT 94
== END 2022-07-07 14:27 | disposition home or self-care (01) ==
PROVIDERS: Physician Assistant; Emergency Provider Emergency Medicine
DX: N39.0 Urinary tract infection, site not specified (principal); B95.1 Streptococcus, group B, as the cause of diseases classified elsewhere; M79.10 Myalgia, unspecified site; E11.22 Type 2 diabetes mellitus with diabetic chronic kidney disease; I12.9 Hypertensive chronic kidney disease with stage 1 through stage 4 chronic kidney disease, or unspecified chronic kidney disease; N18.4 Chronic kidney disease, stage 4 (severe); E78.5 Hyperlipidemia, unspecified; Z79.899 Other long term (current) drug therapy; Z79.4 Long term (current) use of insulin; Z79.02 Long term (current) use of antithrombotics/antiplatelets
CPT/HCPCS: 36415; 71045; 74176; 80048; 80076; 81001; 83690; 83735; 84484; 85025; 87086; 87147; 93005; 96365; 96375; 99284; J0696; J1885; J3475

== ENCOUNTER 2022-08-21 13:27 | Emergency (ER) | payer OTHER, SELFPAY ==
--- NOTE | ~2022-08-21 | XR_ITS ---
EXAMINATION: XR CHEST CLINICAL INFORMATION: Weakness COMPARISON: 07/07/2022 TECHNIQUE: 2 views of the chest were obtained. FINDINGS: No significant abnormality is noted involving the heart, lungs, mediastinum, bony thorax or soft tissues. Some minimal interstitial prominence is again noted unchanged. XR/XR chest 2V IMPRESSION: No acute intrathoracic disease.
--- NOTE | 2022-08-21 13:44 | ECG_ITS ---
Test Reason : WEAKNESS Blood Pressure : / mmHG Vent. Rate : 099 BPM Atrial Rate : 099 BPM P-R Int : 238 ms QRS Dur : 130 ms QT Int : 356 ms P-R-T Axes : 032 055 -10 degrees QTc Int : 456 ms Sinus rhythm with 1st degree A-V block Right bundle branch block T wave abnormality, consider inferior ischemia Abnormal ECG When compared with ECG of 07-JUL-2022 10:36, IN interval has increased Referred By: Luda Levine Electronically Signed By:Johnathon Perez
[2022-08-21 13:45] VITALS: BP 151/72; PULSE 99; RESP 18; TEMP 37; O2SAT 97
[2022-08-21 13:46] VITALS: BP 151/72; PULSE 99; RESP 18; TEMP 37; O2SAT 97; BMI 31.3
--- NOTE | 2022-08-21 13:46 | ED.GENADULT ---
HPI - General Adult General Chief complaint: General Medical Stated complaint: GENERAL WEAKNESS PER EMS Time Seen by Provider: 08/21/22 13:28 Source: patient Mode of arrival: EMS Limitations: no limitations History of Present Illness HPI narrative: Patient is a 67-year-old female who presents to the emergency department via EMS with complaints of generalized weakness, diffuse myalgias, has diffuse lower back pain radiating to the bilateral legs, bilateral knees and feet are painful. She states that this is chronic. However, she states that her symptoms have been worsening and causing her to not be able to sleep at night. Today she felt that she could not deal with the pain anymore, she tried to contact her primary care doctor's office, and she states that the phone number was not working. She states that pain has been progressively worsening since she was last seen in the emergency department (which was 07/07/2022). She is ambulatory with a walker at home but feels weak, she is currently taking gabapentin and Tylenol at home without improvement in her pain. Denies any known sick contacts. Denies any chest pain, shortness of breath, difficulty breathing, nausea, vomiting, diarrhea. Denies identifiable precipitating injury/ fall, fevers, chills, burning with micturition, urinary frequency, urgency, hesitancy, bladder or bowel dysfunction, numbness or tingling of the perineum or bilateral legs. Denies any recent surgical procedures, personal history of cancer, or IV drug usage. . Related Data Home Medications Medication Instructions Recorded Confirmed pen needle, diabetic 32 gauge x #50 ea 12/17/21 06/19/22 (BD Ultra-Fine Debra Pen Needle) Previous Rx's Medication Instructions Recorded miscellaneous medical supply #1 ea 10/30/20 pantoprazole 40 mg tablet,delayed 40 mg PO DAILY #90 tabs 03/05/21 release albuterol sulfate 90 mcg/actuation 2 puff PO Q4H PRN bronchospasm 30 05/18/21 aerosol inhaler days #6.7 grams fluticasone 250 mcg-salmeterol 50 1 inh inhalation BID 30 days #60 ea 05/18/21 mcg/dose blistr powdr for inhalation (Advair Diskus) blood-glucose meter (FreeStyle #1 ea 08/20/21 Lite Meter kit) cetirizine 10 mg tablet 10 mg PO DAILY PRN Allergy 11/12/21 Symptoms 90 days #90 tabs blood sugar diagnostic (FreeStyle #100 ea 11/28/21 Lite Strips) flash glucose scanning reader #1 ea 11/29/21 (FreeStyle Med 2 [place]) lancets 28 gauge (FreeStyle #100 ea 12/02/21 Lancets) pen needle, diabetic 31 gauge x #150 ea 12/05/21 5/16 (AboutTime Pen Needle) dulaglutide 1.5 mg/0.5 mL 1.5 mg (0.5 mL) subcut QWEEK 84 01/29/22 subcutaneous pen injector days #6 mL (Trulicity) chlorthalidone 25 mg tablet 25 mg PO DAILY 90 days #90 tabs 02/27/22 walker #1 ea 03/03/22 flash glucose sensor (FreeStyle #2 ea 05/15/22 Med 2 Sensor kit) amlodipine 5 mg tablet 5 mg PO DAILY 90 days #90 tabs 06/03/22 bupropion HCl 150 mg 24 hr tablet, 150 mg PO QAM #90 tabs 06/03/22 extended release insulin aspart U-100 100 unit/mL 12 - 16 unit (0.12 - 0.16 mL) 06/09/22 (3 mL) subcutaneous pen (Novolog subcut TID #15 mL Flexpen U-100 Insulin aspart) insulin glargine U-300 conc 300 85 unit (0.2833 mL) subcut DAILY 06/19/22 unit/mL (1.5 mL) subcutaneous pen 30 days #8.499 mL (Toujeo SoloStar U-300 Insulin) pravastatin 40 mg tablet 40 mg PO BEDTIME 90 days #90 tabs 06/19/22 metoprolol tartrate 50 mg tablet 50 mg PO BID 90 days #180 tabs 06/20/22 gabapentin 300 mg capsule 300 mg PO BID #180 caps 06/30/22 acetaminophen 500 mg tablet 500 mg PO Q6H PRN fever or pain 07/07/22 (Tylenol Extra Strength) #14 tabs cefuroxime axetil 250 mg tablet 250 mg PO BID 7 days #14 tabs 07/07/22 methocarbamol 500 mg tablet 500 mg PO TID PRN pain (scale 07/07/22 score 4-6) #14 tabs valsartan 160 mg tablet 160 mg PO DAILY 30 days #30 tabs 07/07/22 meclizine 25 mg tablet 25 mg PO TID PRN dizziness 30 days 07/23/22 #90 tabs back brace #1 ea 08/12/22 juxtalite calf wrap bilateral #2 ea 08/12/22 methocarbamol 500 mg tablet 500 mg PO BEDTIME PRN muscle spasm 08/21/22 #10 tabs Allergies Allergy/AdvReac Type Severity Reaction Status Date / Time nut - unspecified [nut] Allergy Severe ANAPHYLAXIS Verified 06/19/22 09:22 rosuvastatin Allergy Severe Facial Verified 06/19/22 09:22 Swelling vancomycin [VANCOMYCIN] Allergy Severe SEVERE Verified 06/19/22 09:22 ITCHING [place] Inhibitors Allergy Intermediate RASH Verified 06/19/22 09:22 [[place] INHIBITORS] ciprofloxacin [From CIPRO] Allergy Intermediate RASH Verified 06/19/22 09:22 codeine [CODEINE] Allergy Intermediate RASH Verified 06/19/22 09:22 cyclobenzaprine Allergy Intermediate HIVES Verified 06/19/22 09:22 [CYCLOBENZAPRINE] ferrous sulfate Allergy Intermediate RASH Verified 06/19/22 09:22 [FERROUS SULFATE] insulin lispro Allergy Intermediate Hives Verified 06/19/22 09:22 [Humalog U-100 Insulin] latex [LATEX] Allergy Intermediate HIVES Verified 06/19/22 09:22 methylprednisolone Allergy Intermediate RASH Verified 06/19/22 09:22 [From MEDROL] penicillin V Allergy Intermediate Hives Verified 06/19/22 09:22 tamsulosin [TAMSULOSIN] Allergy Intermediate RASH Verified 06/19/22 09:22 insulin degludec Allergy Mild Hives Verified 06/19/22 09:22 [From Tresiba FlexTouch U-100] pravastatin Allergy Mild pruritus Verified 06/19/22 09:22 lactose [LACTOSE] AdvReac Intermediate DIARRHEA Verified 06/19/22 09:22 Beef Containing Products AdvReac Mild STOMACH Verified 06/19/22 09:22 UPSET Fish Containing Products AdvReac Mild NAUSEA & Verified 06/19/22 09:22 VOMITING Pork/Porcine Containing AdvReac Mild STOMACH Verified 06/19/22 09:22 Products UPSET Tramadol Allergy Intermediate itchy Uncoded 06/19/22 09:22 FRUIT AdvReac Mild NAUSEA & Uncoded 06/19/22 09:22 VOMITING VEGETABLES,FRESH AdvReac Mild NAUSEA & Uncoded 06/19/22 09:22 VOMITING Review of Systems Review of Systems: Constitutional: No weight loss, fever, chills. Positive weakness, positive fatigue HEENT: No visual loss, blurred vision, double vision. No hearing loss, sneezing, congestion, runny nose or sore throat. Skin: No rash or itching. Cardiovascular: No chest pain, chest pressure or chest discomfort. No palpitations or pedal edema. Respiratory: No shortness of breath, cough or sputum production. Gastrointestinal: No anorexia, nausea, vomiting or diarrhea. No abdominal pain or blood in stool. Genitourinary: No burning micturition. No urinary frequency or incontinence. Neurologic: No headache, dizziness, syncope, unilateral weakness, ataxia, numbness or tingling in the extremities. No change in bowel or bladder control. Musculoskeletal: + Back pain as noted in HPI. Bilateral lower extremity and joint pain. Hematologic: No bleeding or bruising. Lymphatics: No enlarged lymph nodes. [facility] Past Medical History Attestation statement: The following information was validated with the patient. 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 Sister No problems noted. Social History Social History Household Members: Significant Other Housing: Apartment Alcohol intake: never Patient Tobacco Use Status: Never used Tobacco e-Cigarette/Vaping Use: Never Used Second Hand Smoke Exposure: No Advance Directives: Yes Advance Directives on File: Yes Advance Directives Date on File: 09/11/20 service: No Current occupational status: disabled Cognitive needs: Yes Hearing needs: No Vision needs: Yes Physical Exam ED Vital Signs: Vital Signs - 24 hr 08/21/22 13:45 08/21/22 13:46 08/21/22 15:28 Temperature 98.6 F 98.6 F 96.9 F Pulse Rate 99 99 99 Respiratory Rate 18 18 16 Blood Pressure 151/72 H 151/72 H 135/71 Pulse Oximetry 97 97 96 Oxygen Delivery Method Room Air Room Air Room Air BMI result Body Mass Index 31.3 Appearance: Alert.?Oriented to person, place and time. No acute distress.?Normal affect. Eyes: Pupils equal, round and reactive to light.? ENT: Pharynx normal.?? Neck: Normal inspection.? Neck supple.?? CVS: Heart sounds normal. Normal heart rate and rhythm.? Pulses normal; bilateral radial pulses 2+, bilateral posterior tibial/dorsalis pedis pulses 2+.? Respiratory: No respiratory distress.? Lung sounds clear to auscultation bilaterally?? Abdomen: Soft and non-tender. Normoactive bowel sounds. Skin: Skin warm and dry.? Normal skin color.? Extremities: No lower extremity edema.? No calf ttp? Back: + mild paraspinal muscular tenderness from lumbar region to coccyx. No CVA tenderness. No midline spinal tenderness, step-off's, or deformity. Full ROM intact in bilateral lower extremities. Straight leg test positive on right; Straight leg test positive on left. No rashes, lesions, areas of induration or fluctuance, or signs of infection noted. Neuro: Moves all extremities spontaneously. 3/5 strength in hip extension/flexion, abduction, adduction bilaterally. Sensation to light touch intact bilaterally. Patellar and Achilles reflex 2+ bilaterally. No focal neuro deficits. Course Course Course Narrative: Patient is a 67-year-old female with a past medical history of CKD, dm, HLD, HTN, arthritis who presents to the emergency department for evaluation of generalized weakness, diffuse lower back and bilateral lower extremity pain. Acute on chronic. She presented via EMS, ambulatory with a slow and steady gait in the use of a walker in the emergency department, required minimal assistance from lying to sitting pisition, otherwise independent. On examination vitals are stable, she is nontoxic appearing, no apparent respiratory distress, abdominal exam is benign, no red flag symptoms, no neurological deficits upon examination, no midline spinous tenderness, step-offs, or deformities. Exacerbation of pain has been atraumatic, low suspicion for fracture or subluxation, given history of arthritis I suspect pain to be secondary to arthritic flare. However, given age in reports of generalized weakness will obtain labs, EKG, urinalysis, chest x-ray, acetaminophen for pain. Disposition pending results. Reevaluation(s) Reevaluation #1: CBC reveals a normocytic anemia consistent with baseline not needing transfusion criteria, no leukocytosis. CMP reveals CKD, BUN and creatinine are actually improved from baseline. Magnesium at 1.5, will order oral replacement. Troponin 6.4, EKG revealing sinus rhythm with first-degree AV block and right bundle-branch block, no acute ischemic findings when compared to prior, not suspect ACS as cause of generalized weakness. Urinalysis not consistent with UTI. Chest x-ray reveals no acute cardiopulmonary process. At this time, suspect increased pain/weakness to be related to arthritic flare. Discussed these findings with patient. She declines physical therapy evaluation to determine with her short-term rehab or physical therapy and home would be of benefit. Advised that she should follow-up with her primary care provider for persistent symptoms. Return with worsening signs and symptoms to return back to the emergency department for. All questions answered. She was discharged home in stable condition. Time: 15:52 Medications Administered Discontinued Medications Generic Name Dose Route Start Last Admin Trade Name Leatha PRN Reason Stop Dose Admin Magnesium Oxide 800 mg 08/21/22 15:52 08/21/22 16:00 Magnesium Oxide 400 Mg Tablet PO 08/21/22 15:53 800 mg ONCE ONE Administration Ondansetron HCl 4 mg 08/21/22 15:48 08/21/22 15:55 Ondansetron Hcl 4 Mg/2 Ml Vial IVPUSH 08/21/22 15:49 4 mg ONCE ONE Administration Medical Decision Making Medical Records Medical records reviewed: Yes I reviewed the patient's medical records. Lab Data Lab results reviewed: Yes I reviewed the patient's lab results. Result diagrams: 08/21/22 14:23 08/21/22 14:23 Labs: Lab Results 08/21/22 08/21/22 08/21/22 Range/Units 14:23 14:23 14:23 WBC 9.7 (4.8-10.8) X10*3/uL RBC 3.68 L (4.20-5.50) X10*6/uL Hgb 10.1 L (12.0-16.0) g/dl Hct 30.3 L (37.0-47.0) % MCV 82.3 (80.0-98.0) fL MCH 27.4 (27.0-33.0) pg MCHC 33.3 (31.0-35.0) g/dl RDW 13.2 (11.0-16.0) % Plt Count 269 D (160-400) X10*3/uL MPV 10.1 (9.4-12.3) fL Immature Gran % (Auto) 0.4 (0.0-0.4) % Neut % (Auto) 71.2 (45-73) % Lymph % (Auto) 20.4 (20-40) % [place] % (Auto) 6.6 (2-11) % Eos % (Auto) 1.1 (0-4) % Baso % (Auto) 0.3 (0-2) % Lymph # (Auto) 2.0 (1.2-4.9) X10*3/uL [place] # (Auto) 0.6 (0.1-1.2) X10*3/uL Eos # (Auto) 0.1 (0.0-0.4) X10*3/uL Baso # (Auto) 0.0 (0.0-0.2) X10*3/uL Abs Immat Gran (auto) 0.04 H (0.00-0.03) X10*3/uL Absolute Neuts (auto) 6.9 (2.0-8.3) x10*3/uL Absolute Nucleated RBC 0.000 (0.0-0.012) X10*3/uL Nucleated RBC % (auto) 0.0 (0.0-0.2) /100WBC Sodium 135 (135-145) mmol/L Potassium 3.6 (3.3-5.1) mmol/L Chloride 97 (96-108) mmol/L Carbon Dioxide 28 (22-29) mmol/L Anion Gap 14 (12-20) BUN 26 H (9-16) mg/dL Creatinine 1.92 H (0.5-1.4) mg/dL Estim Creat Clear Calc 33.3 Estimated GFR 26 Random Glucose 218 H (60-115) mg/dL Calcium 10.1 D (8.4-10.2) mg/dL Magnesium 1.5 L (1.6-2.6) mg/dL Total Bilirubin 0.8 (0.0-1.0) mg/dL AST 9 (5-31) U/L ALT 9 (0-31) U/L Alkaline Phosphatase 129 H (39-117) U/L Troponin I High Sens (<3.5-17.0) ng/L B-Natriuretic Peptide (<100) pg/mL Total Protein 7.9 (6.5-8.0) g/dL Albumin 3.9 (3.5-5.0) g/dL Urine Color Urine Appearance Urine pH (5.0-9.0) Ur Specific [place] (1.005-1.025) Urine Protein (Neg-Trace) mg/dL Urine Glucose (UA) (Negative) mg/dL Urine Ketones (Negative) mg/dL Urine Blood (Negative) Urine Nitrite (Negative) Ur Leukocyte Esterase (Negative) Urine RBC (0-2) /HPF Urine WBC (0-5) /HPF Ur Squamous Epith Cells (0-2) /HPF Urine Bacteria (None Seen) Hyaline Casts (0-2) /LPF COVID-19 (VIRAJ) Negative (Negative) COVID-19 Clin Com See Note Influenza Type A (LEEANNE) (Negative) Influenza Type B (LEEANNE) (Negative) Influenza A & B Note 08/21/22 08/21/22 08/21/22 Range/Units 14:23 14:23 14:23 WBC (4.8-10.8) X10*3/uL RBC (4.20-5.50) X10*6/uL Hgb (12.0-16.0) g/dl Hct (37.0-47.0) % MCV (80.0-98.0) fL MCH (27.0-33.0) pg MCHC (31.0-35.0) g/dl RDW (11.0-16.0) % Plt Count (160-400) X10*3/uL MPV (9.4-12.3) fL Immature Gran % (Auto) (0.0-0.4) % Neut % (Auto) (45-73) % Lymph % (Auto) (20-40) % [place] % (Auto) (2-11) % Eos % (Auto) (0-4) % Baso % (Auto) (0-2) % Lymph # (Auto) (1.2-4.9) X10*3/uL [place] # (Auto) (0.1-1.2) X10*3/uL Eos # (Auto) (0.0-0.4) X10*3/uL Baso # (Auto) (0.0-0.2) X10*3/uL Abs Immat Gran (auto) (0.00-0.03) X10*3/uL Absolute Neuts (auto) (2.0-8.3) x10*3/uL Absolute Nucleated RBC (0.0-0.012) X10*3/uL Nucleated RBC % (auto) (0.0-0.2) /100WBC Sodium (135-145) mmol/L Potassium (3.3-5.1) mmol/L Chloride (96-108) mmol/L Carbon Dioxide (22-29) mmol/L Anion Gap (12-20) BUN (9-16) mg/dL Creatinine (0.5-1.4) mg/dL Estim Creat Clear Calc Estimated GFR Random Glucose (60-115) mg/dL Calcium (8.4-10.2) mg/dL Magnesium (1.6-2.6) mg/dL Total Bilirubin (0.0-1.0) mg/dL AST (5-31) U/L ALT (0-31) U/L Alkaline Phosphatase (39-117) U/L Troponin I High Sens 6.4 D (<3.5-17.0) ng/L B-Natriuretic Peptide 16 (<100) pg/mL Total Protein (6.5-8.0) g/dL Albumin (3.5-5.0) g/dL Urine Color Urine Appearance Urine pH (5.0-9.0) Ur Specific [place] (1.005-1.025) Urine Protein (Neg-Trace) mg/dL Urine Glucose (UA) (Negative) mg/dL Urine Ketones (Negative) mg/dL Urine Blood (Negative) Urine Nitrite (Negative) Ur Leukocyte Esterase (Negative) Urine RBC (0-2) /HPF Urine WBC (0-5) /HPF Ur Squamous Epith Cells (0-2) /HPF Urine Bacteria (None Seen) Hyaline Casts (0-2) /LPF COVID-19 (VIRAJ) (Negative) COVID-19 Clin Com Influenza Type A (LEEANNE) Negative (Negative) Influenza Type B (LEEANNE) Negative (Negative) Influenza A & B Note See Note 08/21/22 Range/Units 14:23 WBC (4.8-10.8) X10*3/uL RBC (4.20-5.50) X10*6/uL Hgb (12.0-16.0) g/dl Hct (37.0-47.0) % MCV (80.0-98.0) fL MCH (27.0-33.0) pg MCHC (31.0-35.0) g/dl RDW (11.0-16.0) % Plt Count (160-400) X10*3/uL MPV (9.4-12.3) fL Immature Gran % (Auto) (0.0-0.4) % Neut % (Auto) (45-73) % Lymph % (Auto) (20-40) % [place] % (Auto) (2-11) % Eos % (Auto) (0-4) % Baso % (Auto) (0-2) % Lymph # (Auto) (1.2-4.9) X10*3/uL [place] # (Auto) (0.1-1.2) X10*3/uL Eos # (Auto) (0.0-0.4) X10*3/uL Baso # (Auto) (0.0-0.2) X10*3/uL Abs Immat Gran (auto) (0.00-0.03) X10*3/uL Absolute Neuts (auto) (2.0-8.3) x10*3/uL Absolute Nucleated RBC (0.0-0.012) X10*3/uL Nucleated RBC % (auto) (0.0-0.2) /100WBC Sodium (135-145) mmol/L Potassium (3.3-5.1) mmol/L Chloride (96-108) mmol/L Carbon Dioxide (22-29) mmol/L Anion Gap (12-20) BUN (9-16) mg/dL Creatinine (0.5-1.4) mg/dL Estim Creat Clear Calc Estimated GFR Random Glucose (60-115) mg/dL Calcium (8.4-10.2) mg/dL Magnesium (1.6-2.6) mg/dL Total Bilirubin (0.0-1.0) mg/dL AST (5-31) U/L ALT (0-31) U/L Alkaline Phosphatase (39-117) U/L Troponin I High Sens (<3.5-17.0) ng/L B-Natriuretic Peptide (<100) pg/mL Total Protein (6.5-8.0) g/dL Albumin (3.5-5.0) g/dL Urine Color Yellow Urine Appearance Clear Urine pH 5.5 (5.0-9.0) Ur Specific [place] 1.010 (1.005-1.025) Urine Protein 30 (1+) H (Neg-Trace) mg/dL Urine Glucose (UA) Negative (Negative) mg/dL Urine Ketones Negative (Negative) mg/dL Urine Blood Negative (Negative) Urine Nitrite Negative (Negative) Ur Leukocyte Esterase Negative (Negative) Urine RBC 0-2 (0-2) /HPF Urine WBC 0-5 (0-5) /HPF Ur Squamous Epith Cells 0-2 (0-2) /HPF Urine Bacteria None Seen (None Seen) Hyaline Casts 0-2 (0-2) /LPF COVID-19 (VIRAJ) (Negative) COVID-19 Clin Com Influenza Type A (LEEANNE) (Negative) Influenza Type B (LEEANNE) (Negative) Influenza A & B Note Imaging Data Chest x-ray: Radiologist's impression: XR/XR chest 2V IMPRESSION: No acute intrathoracic disease. ECG Data Attestation: I personally reviewed and interpreted this ECG as follows: Prior ECG tracings: available for review Interpretation: Rate: 79 Rhythm:? Sinus rhythm first-degree AV block and right bundle-branch block which is seen on prior EKG Normal P waves.? Normal MISTI.?? Normal QRS complex.?? ST T wave :??T-wave inversion in III, aVF which is seen and prior EKG qTC: 456 prior studies:? June 2022 The study has been interpreted contemporaneously by me. Discharge Plan Discharge Clinical Impression: Myalgia Patient Disposition: Home, Self-Care Instructions: Musculoskeletal Pain (ED) Additional Instructions: You can take Tylenol 500 mg, 2 tablets (1,000mg) every 4-6 hours as needed for pain, but not to exceed 3 doses daily (3,000mg).? Prescription for Robaxin , a muscle relaxer, was sent to your pharmacy, that you may take at bedtime as needed for pain. Medication may make you drowsy, should not drive, drink alcohol, or operate machinery while taking this medication. Return to emergency department any new or worsening symptoms or concerns. Contact your primary care provider to arrange for a follow-up visit. Prescriptions: New methocarbamol 500 mg tablet 500 mg PO BEDTIME PRN (Reason: muscle spasm) Qty: 10 0RF No Action (DME) miscellaneous medical supply [facility] [place] See Rx Instructions .ROUTE .MEDSUPPLY Qty: 1 2RF Rx Instructions: Use 1 compression stocking bilaterally knee high 20 mmHg. pantoprazole 40 mg tablet,delayed release (DR/EC) 40 mg PO DAILY Qty: 90 1RF albuterol sulfate 90 mcg/actuation HFA aerosol inhaler 2 puff PO Q4H PRN (Reason: bronchospasm) 30 Days Qty: 6.7 3RF fluticasone propion-salmeterol [Advair Diskus] 250-50 mcg/dose blister with device 1 inh inhalation BID 30 Days Qty: 60 2RF cetirizine 10 mg tablet 10 mg PO DAILY PRN (Reason: Allergy Symptoms) 90 Days Qty: 90 1RF (DME) FreeStyle Lite Strips Strip See Rx Instructions .ROUTE .MEDSUPPLY Qty: 100 11RF Rx Instructions: As directed three times a day (DME) lancets [FreeStyle Lancets] [facility] See Rx Instructions .ROUTE .MEDSUPPLY Qty: 100 11RF Rx Instructions: Three times a day (DME) pen needle, diabetic [AboutTime Pen Needle] 31 gauge x 5/16 needle See Rx Instructions .Route Qty: 150 11RF Rx Instructions: As directed 4 x/day Trulicity 1.5 mg/0.5 mL pen injector 1.5 mg subcut QWEEK 84 Days Qty: 6 2RF chlorthalidone 25 mg tablet 25 mg PO DAILY 90 Days Qty: 90 3RF (DME) walker Misc See Rx Instructions .Route Qty: 1 0RF Rx Instructions: walker with seat (DME) FreeStyle Med 2 Sensor Kit See Rx Instructions .ROUTE .MEDSUPPLY Qty: 2 11RF Rx Instructions: As directed every 2 weeks bupropion HCl 150 mg tablet extended release 24 hr 150 mg PO QAM Qty: 90 1RF amlodipine 5 mg tablet 5 mg PO DAILY 90 Days Qty: 90 1RF insulin aspart U-100 [Novolog Flexpen U-100 Insulin] 100 unit/mL (3 mL) insulin pen 12 - 16 unit subcut TID Qty: 15 6RF Rx Instructions: 12 units before meals, 14 units for bg over 200 and 16 u for bg over 300 metoprolol tartrate 50 mg tablet 50 mg PO BID 90 Days Qty: 180 1RF gabapentin 300 mg capsule 300 mg PO BID Qty: 180 2RF valsartan 160 mg tablet 160 mg PO DAILY 30 Days Qty: 30 6RF meclizine 25 mg tablet 25 mg PO TID PRN (Reason: dizziness) 30 Days Qty: 90 0RF (DME) back brace Misc See Rx Instructions .Route Qty: 1 0RF Rx Instructions: As directed (DME) juxtalite calf wrap bilateral 30 mmHg See Rx Instructions .Route .MEDSUPPLY Qty: 2 0RF Rx Instructions: As directed cefuroxime axetil 250 mg tablet 250 mg PO BID 7 Days Qty: 14 0RF acetaminophen [Tylenol Extra Strength] 500 mg tablet 500 mg PO Q6H PRN (Reason: fever or pain) Qty: 14 0RF methocarbamol 500 mg tablet 500 mg PO TID PRN (Reason: pain (scale score 4-6)) Qty: 14 0RF Toujeo SoloStar U-300 Insulin 300 unit/mL (1.5 mL) insulin pen 85 unit subcut DAILY 30 Days Qty: 8.499 5RF pravastatin 40 mg tablet 40 mg PO BEDTIME 90 Days Qty: 90 1RF (DME) blood-glucose meter [FreeStyle Lite Meter] Kit See Rx Instructions .ROUTE .MEDSUPPLY Qty: 1 0RF Rx Instructions: As directed (DME) FreeStyle Med 2 [place] Misc See Rx Instructions .ROUTE .MEDSUPPLY Qty: 1 0RF Rx Instructions: As directed (DME) pen needle, diabetic [BD Ultra-Fine Debra Pen Needle] 32 gauge x 5/32 needle See Rx Instructions subcut QID Qty: 50 Rx Instructions: As directed Referrals: Joann Partida MD [Primary Care Provider] -
[2022-08-21 14:30] LABS: MANUAL DIFF FLAG NO
[2022-08-21 14:32] LABS: Basophils Percent Auto 0.3 % (0-2); Eosinophils Absolute Auto 0.1 X10*3/uL (0.0-0.4); Eosinophils Percent Auto 1.1 % (0-4); Hematocrit 30.3 % (37.0-47.0); Hemoglobin 10.1 g/dl (12.0-16.0); Imm Gran Abs Auto 0.04 X10*3/uL (0.00-0.03); Imm Gran Pct Auto 0.4 % (0.0-0.4); Lymphocytes Percent Auto 20.4 % (20-40); Mean Corpuscular HGB Conc 33.3 g/dl (31.0-35.0); Mean Corpuscular Hemoglobin 27.4 pg (27.0-33.0); Mean Corpuscular Volume 82.3 fL (80.0-98.0); Mean Platelet Volume 10.1 fL (9.4-12.3); Monocytes Absolute Auto 0.6 X10*3/uL (0.1-1.2); Monocytes Percent Auto 6.6 % (2-11); Neutrophils Absolute Auto 6.9 x10*3/uL (2.0-8.3); Neutrophils Percent Auto 71.2 % (45-73); Platelet Count 269 X10*3/uL (160-400); Red Blood Count 3.68 X10*6/uL (4.20-5.50); Red Cell Distribution Width 13.2 % (11.0-16.0); White Blood Count 9.7 X10*3/uL (4.8-10.8)
[2022-08-21 14:42] LABS: Appearance Urine Clear; Color Urine Yellow; Glucose Urine UA Negative (Negative); Leukocyte Esterase Urine Negative (Negative); Nitrite Urine Negative (Negative); PH 5.5 (5.0-9.0); UMIC TRIGGER UACC YES; Urine Blood Negative (Negative); Urine Ketones Negative (Negative); Urine Protein 30 (1+) mg/dL (Neg-Trace)
[2022-08-21 14:47] LABS: Bacteria Urine None Seen (None Seen); Hyaline Casts Urine 0-2 /LPF (0-2); RBC Urine 0-2 /HPF (0-2); Squamous Epithelial Cell Urine 0-2 /HPF (0-2); WBC Urine 0-5 /HPF (0-5)
[2022-08-21 14:50] LABS: Alanine Aminotransferase 9 U/L (0-31); Albumin Level 3.9 g/dL (3.5-5.0); Alkaline Phosphatase 129 U/L (39-117); Anion Gap 14 (12-20); Aspartate Amino Transferase 9 U/L (5-31); Bilirubin Total 0.8 mg/dL (0.0-1.0); Blood Urea Nitrogen 26 mg/dL (9-16); Calcium 10.1 mg/dL (8.4-10.2); Carbon Dioxide 28 mmol/L (22-29); Chloride 97 mmol/L (96-108); Creatinine Clr Calc Pharmacy 33.3; Estimated Glomerular Filt Rate 26; Glucose Random 218 mg/dL (60-115); Magnesium 1.5 mg/dL (1.6-2.6); Potassium 3.6 mmol/L (3.3-5.1); Sodium 135 mmol/L (135-145); Total Protein 7.9 g/dL (6.5-8.0)
[2022-08-21 14:53] LABS: COVID-19 Test Negative (Negative); IDNOW Serial# 55D5AD1C; IDNOW Serial# 9DB6401D; Influenza A Negative (Negative); Influenza B2 Negative (Negative)
[2022-08-21 14:54] LABS: B Type Natriuretic Peptide 16 pg/mL (<100)
[2022-08-21 14:55] LABS: Troponin-I High Sensitivity 6.4 ng/L (<3.5-17.0)
[2022-08-21 15:28] VITALS: BP 135/71; PULSE 99; RESP 16; TEMP 36.1; O2SAT 96
[2022-08-21] MEDS: ondansetron HCL 4 MG/2 ML VIAL IVPUSH (15:55)
[2022-08-21] MEDS: Magnesium Oxide 400 MG TABLET 800 MG PO (16:00)
== END 2022-08-21 18:48 | disposition home or self-care (01) ==
PROVIDERS: Nurse Practitioner Family; Emergency Provider Emergency Medicine; PCP Internal Medicine
DX: M79.10 Myalgia, unspecified site (principal); E11.22 Type 2 diabetes mellitus with diabetic chronic kidney disease; I12.9 Hypertensive chronic kidney disease with stage 1 through stage 4 chronic kidney disease, or unspecified chronic kidney disease; N18.4 Chronic kidney disease, stage 4 (severe); E78.5 Hyperlipidemia, unspecified; D64.9 Anemia, unspecified; Z79.84 Long term (current) use of oral hypoglycemic drugs; Z79.02 Long term (current) use of antithrombotics/antiplatelets; Z79.899 Other long term (current) drug therapy; Z20.822 Contact with and (suspected) exposure to COVID-19
CPT/HCPCS: 71046; 80053; 81001; 83735; 83880; 84484; 85025; 87502; 87635; 93005; 99283; 99284; J2405

== ENCOUNTER 2022-10-24 08:49 | Outpatient (REF) | payer OTHER, SELFPAY ==
[2022-10-24 10:01] LABS: Creatinine Urine 109.65 mg/dL; Microalbum/Creatinine Ratio Ur 40.1 ug/mg cr
[2022-10-24 10:46] LABS: Alanine Aminotransferase 13 U/L (0-31); Albumin Level 3.8 g/dL (3.5-5.0); Alkaline Phosphatase 130 U/L (39-117); Anion Gap 17 (12-20); Aspartate Amino Transferase 13 U/L (5-31); Bilirubin Total 0.6 mg/dL (0.0-1.0); Blood Urea Nitrogen 37 mg/dL (9-16); Calcium 10.3 mg/dL (8.4-10.2); Carbon Dioxide 30 mmol/L (22-29); Chloride 98 mmol/L (96-108); Cholesterol 222 mg/dL; Estimated Glomerular Filt Rate 18; Glucose Fasting 200 mg/dL (60-99); HDL Cholesterol 37 mg/dL; LDL Cholesterol Calculated 153 mg/dl; Potassium 4.3 mmol/L (3.3-5.1); Sodium 141 mmol/L (135-145); Total Protein 7.5 g/dL (6.5-8.0); Triglycerides 160 mg/dL
[2022-10-24 11:09] LABS: Vitamin D 25-OH Total 42.8 ng/mL (>30)
== END 2022-10-24 08:50 | disposition home or self-care (01) ==
LOC: HO.LAB 08:49
PROVIDERS: PCP Internal Medicine; Visit Provider Internal Medicine
DX: E11.9 Type 2 diabetes mellitus without complications (principal); N18.4 Chronic kidney disease, stage 4 (severe); E55.9 Vitamin D deficiency, unspecified; E78.5 Hyperlipidemia, unspecified
CPT/HCPCS: 36415; 80053; 80061; 82043; 82306

== ENCOUNTER 2022-11-20 09:58 | Emergency (ER) | payer OTHER, SELFPAY ==
--- NOTE | ~2022-11-20 | XR_ITS ---
EXAMINATION: XR CHEST CLINICAL INFORMATION: Fatigue. COMPARISON: 08/21/2022 chest radiographs. TECHNIQUE: Frontal view of the chest was obtained. FINDINGS: No significant abnormality is noted involving the heart, lungs, mediastinum, bony thorax or soft tissues. XR/XR chest 1V IMPRESSION: No acute cardiopulmonary process.
--- NOTE | 2022-11-20 10:27 | ED_ITS ---
HPI - General Adult General Chief complaint: Weakness Stated complaint: PT FEELS UNWELL PER EMS Time Seen by Provider: 11/20/22 10:15 Source: patient and EMS Mode of arrival: EMS History of Present Illness HPI narrative: 67-year-old female the past medical history of CKD, depression, diabetes, HLD, HTN, pedal edema, presenting to ED complaining of generalized fatigue, nausea, chills, decreased appetite, and feeling generally unwell x3 weeks. Reports decreased p.o. intake. POC 500 via EMS. Patient reports compliance with insulin. Denies CP/SOB, abdominal pain, vomiting/diarrhea, dysuria/hematuria, pedal edema. Onset (ago): week(s) Related Data Home Medications Medication Instructions Recorded Confirmed pen needle, diabetic 32 gauge x #50 ea 12/17/21 10/28/22 (BD Ultra-Fine Debra Pen Needle) Previous Rx's Medication Instructions Recorded miscellaneous medical supply #1 ea 10/30/20 blood-glucose meter (FreeStyle #1 ea 08/20/21 Lite Meter kit) cetirizine 10 mg tablet 10 mg PO DAILY PRN Allergy 11/12/21 Symptoms 90 days #90 tabs blood sugar diagnostic (FreeStyle #100 ea 11/28/21 Lite Strips) flash glucose scanning reader #1 ea 11/29/21 (FreeStyle Med 2 [place]) lancets 28 gauge (FreeStyle #100 ea 12/02/21 Lancets) pen needle, diabetic 31 gauge x #150 ea 12/05/21 5/ (AboutTime Pen Needle) dulaglutide 1.5 mg/0.5 mL 1.5 mg (0.5 mL) subcut QWEEK 84 01/29/22 subcutaneous pen injector days #6 mL (Trulicity) chlorthalidone 25 mg tablet 25 mg PO DAILY 90 days #90 tabs 02/27/22 walker #1 ea 03/03/22 flash glucose sensor (FreeStyle #2 ea 05/15/22 Med 2 Sensor kit) amlodipine 5 mg tablet 5 mg PO DAILY 90 days #90 tabs 06/03/22 bupropion HCl 150 mg 24 hr tablet, 150 mg PO QAM #90 tabs 06/03/22 extended release insulin aspart U-100 100 unit/mL 12 - 16 unit (0.12 - 0.16 mL) 06/09/22 (3 mL) subcutaneous pen (Novolog subcut TID #15 mL FlexPen U-100 Insulin aspart) insulin glargine U-300 conc 300 85 unit (0.2833 mL) subcut DAILY 06/19/22 unit/mL (1.5 mL) subcutaneous pen 30 days #8.499 mL (Toujeo SoloStar U-300 Insulin) metoprolol tartrate 50 mg tablet 50 mg PO BID 90 days #180 tabs 06/20/22 acetaminophen 500 mg tablet 500 mg PO Q6H PRN fever or pain 07/07/22 (Tylenol Extra Strength) #14 tabs cefuroxime axetil 250 mg tablet 250 mg PO BID 7 days #14 tabs 07/07/22 valsartan 160 mg tablet 160 mg PO DAILY 30 days #30 tabs 07/07/22 back brace #1 ea 08/12/22 juxtalite calf wrap bilateral #2 ea 08/12/22 fluticasone 250 mcg-salmeterol 50 1 inh inhalation BID 30 days #60 ea 09/17/22 mcg/dose blistr powdr for inhalation (Advair Diskus) recliner #1 ea 09/19/22 back brace #1 ea 10/08/22 fluticasone 100 mcg-salmeterol 50 1 inh inhalation BID 30 days #60 ea 10/16/22 mcg/dose blistr powdr for inhalation (Advair Diskus) comp.stocking,thigh,long,x-lrg #12 ea 10/19/22 albuterol sulfate 2.5 mg/3 mL 2.5 mg (3 mL) inhalation QID PRN 10/21/22 (0.083 %) solution for nebulization shortness of breath or wheezing 30 days #75 mL albuterol sulfate 90 mcg/actuation 2 puff PO Q4H PRN bronchospasm 30 10/21/22 aerosol inhaler days #6.7 grams ezetimibe 10 mg tablet 10 mg PO DAILY 90 days #90 tabs 10/28/22 nebulizer tube #1 ea 10/28/22 pantoprazole 40 mg tablet,delayed 40 mg PO DAILY #90 tabs 10/28/22 release Allergies Allergy/AdvReac Type Severity Reaction Status Date / Time nut - unspecified [nut] Allergy Severe ANAPHYLAXIS Verified 10/28/22 09:52 rosuvastatin Allergy Severe Facial Verified 10/28/22 09:52 Swelling vancomycin [VANCOMYCIN] Allergy Severe SEVERE Verified 10/28/22 09:52 ITCHING [place] Inhibitors Allergy Intermediate RASH Verified 10/28/22 09:52 [[place] INHIBITORS] ciprofloxacin [From CIPRO] Allergy Intermediate RASH Verified 10/28/22 09:52 codeine [CODEINE] Allergy Intermediate RASH Verified 10/28/22 09:52 cyclobenzaprine Allergy Intermediate HIVES Verified 10/28/22 09:52 [CYCLOBENZAPRINE] ferrous sulfate Allergy Intermediate RASH Verified 10/28/22 09:52 [FERROUS SULFATE] insulin lispro Allergy Intermediate Hives Verified 10/28/22 09:52 [Humalog U-100 Insulin] latex [LATEX] Allergy Intermediate HIVES Verified 10/28/22 09:52 methylprednisolone Allergy Intermediate RASH Verified 10/28/22 09:52 [From MEDROL] penicillin V Allergy Intermediate Hives Verified 10/28/22 09:52 tamsulosin [TAMSULOSIN] Allergy Intermediate RASH Verified 10/28/22 09:52 insulin degludec Allergy Mild Hives Verified 10/28/22 09:52 [From Tresiba FlexTouch U-100] pravastatin Allergy Mild pruritus Verified 10/28/22 09:52 lactose [LACTOSE] AdvReac Intermediate DIARRHEA Verified 10/28/22 09:52 Beef Containing Products AdvReac Mild STOMACH Verified 10/28/22 09:52 UPSET Fish Containing Products AdvReac Mild NAUSEA & Verified 10/28/22 09:52 VOMITING Pork/Porcine Containing AdvReac Mild STOMACH Verified 10/28/22 09:52 Products UPSET Tramadol Allergy Intermediate itchy Uncoded 10/28/22 09:52 FRUIT AdvReac Mild NAUSEA & Uncoded 10/28/22 09:52 VOMITING VEGETABLES,FRESH AdvReac Mild NAUSEA & Uncoded 10/28/22 09:52 VOMITING Review of Systems Review of Systems: Constitutional: No Fever, + Chills, + Fatigue, + Malaise ENT/Mouth: No Ear Pain, No Nasal Congestion, No sore throat, No Rhinorrhea, No Swallowing Difficulty Eyes: No Eye Pain, No Swelling, No Redness,No Vision Changes Cardiovascular: No Chest Pain, No SOB, No Orthopnea, No Edema, No Palpitations Respiratory: No Cough, No Sputum, No Dyspnea Gastrointestinal: + Nausea, No Vomiting, No Diarrhea, No Constipation, No Abdominal pain Genitourinary: No irregular bleeding, No Dysuria, No Urinary Frequency, No Hematuria, No Urinary Incontinence/retention, No Flank Pain Musculoskeletal: No joint pain, No Myalgias, No Joint Swelling Skin: No Skin Lesions, No rash Neuro: + Weakness, No Loss of Consciousness, No Dizziness, No Headache Yes all other systems are reviewed and are negative Constitutional: Constitutional: Reports as per [facility] Past Medical History Attestation statement: The following information was validated with the patient. 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 Sister No problems noted. Social History Social History Household Members: Significant Other Housing: Apartment Alcohol intake: never Patient Tobacco Use Status: Never used Tobacco Smoked in Last 30 Days: No e-Cigarette/Vaping Use: Never Used Second Hand Smoke Exposure: No Use of substances other than those prescribed or required for medical reasons: No Advance Directives: Yes Advance Directives on File: Yes Advance Directives Date on File: 09/11/20 service: No Current occupational status: disabled Cognitive needs: Yes Hearing needs: No Vision needs: Yes Physical Exam ED Vital Signs: Vital Signs - 24 hr 11/20/22 10:33 11/20/22 12:28 11/20/22 14:15 Temperature 98.1 F 97.8 F 98.8 F Pulse Rate 79 72 76 Respiratory Rate 20 18 18 Blood Pressure 142/80 H 131/70 127/68 Pulse Oximetry 97 97 96 Oxygen Delivery Method Room Air Room Air Room Air BMI result Body Mass Index 36.8 Const General: cooperative, healthy appearing and no acute distress Orientation/consciousness: patient oriented x3 Limitations: no limitations HENMT Head: Yes normal to inspection and Yes atraumatic Ears: hearing grossly normal bilaterally General nose exam: Normal external nose present Face and sinus: Yes normal facial exam Eyes General: appearance normal, both eyes and all related structures EOM: EOMs intact bilaterally Neck Neck: Yes normal visual inspection and Yes no meningeal signs Resp Effort & Inspection: normal respiratory effort and no respiratory distress Auscultation: clear to auscultation bilaterally, no crackles, no rales, no rhonchi and no wheezes Cardio Rate: regular rate Heart sounds: S1 normal heart sound present and S2 normal heart sound present GI Inspection: Yes normal to inspection Palpation (GI): Soft to palpation, nontender, no guarding and not rigid General: Yes no CVA tenderness Back/Spine/Pelvis Back: no CVA tenderness Skin Rashes: no rashes Wounds: no wounds Neuro General: patient oriented x3, tone normal, moves all extremities, no meningeal signs, no focal motor deficits and CN's II-XI intact bilaterally Cognition (Neuro): normal cognition Extrem General: Yes normal to inspection Course Course Course Narrative: -1213--no leukocytosis. H&H stable. Baseline CKD. Magnesium low at 1.3 > will give IV repletion. Labs otherwise reassuring -glucose 346, no anion gap. Acetone negative. COVID and influenza negative. XR chest 1V IMPRESSION: No acute cardiopulmonary process. -repeat magnesium 1.9 -1516--repeat POC 131 Results discussed with patient including worrisome signs and symptoms and strict return precautions, and when to return to the emergency department. They verbalized understanding and feel safe for discharge at this time. Medications Administered Discontinued Medications Generic Name Dose Route Start Last Admin Trade Name Freq PRN Reason Stop Dose Admin Lactated Ringer's 500 mls @ 999 mls/hr 11/20/22 10:45 11/20/22 13:24 Lr IV 11/20/22 11:15 Infused .Q31M JOSE Infusion Magnesium Sulfate 2 gm in 50 mls @ 25 mls/hr 11/20/22 12:14 03/02/23 13:23 Magnesium Sulfate/H2o IV 11/20/22 14:13 25 mls/hr ONCE ONE Administration Medical Decision Making Medical Decision Making [facility] Narrative: 67-year-old female the past medical history of CKD, depression, diabetes, HLD, HTN, pedal edema, presenting to ED complaining of generalized fatigue, nausea, chills, decreased appetite, and feeling generally unwell x3 weeks. On exam vital signs stable, NAD, nontoxic appearing, exam nonfocal. Concern for metabolic/infectious etiologies vs viral illness vs hyperglycemia or DKA. Plan: EKG, labs, UA, CXR, IVF, re-evaluate Please refer to course for remaining clinical decision making, interpretation of labs/imaging results, and discussions with consultants and/or family members. Differential Diagnosis Differential Diagnoses: The differential diagnosis associated with the presentation includes as above Lab Data [facility] Lab Attestation statement: I reviewed the patient's lab results. 11/20/22 11:13 11/20/22 11:12 Labs: Lab Results 11/20/22 11/20/22 11/20/22 Range/Units 11:12 11:12 11:13 WBC 10.4 (4.8-10.8) X10*3/uL RBC 3.79 L (4.20-5.50) X10*6/uL Hgb 10.6 L (12.0-16.0) g/dl Hct 31.6 L (37.0-47.0) % MCV 83.4 (80.0-98.0) fL MCH 28.0 (27.0-33.0) pg MCHC 33.5 (31.0-35.0) g/dl RDW 14.0 (11.0-16.0) % Plt Count 228 (160-400) X10*3/uL MPV 10.9 (9.4-12.3) fL Immature Gran % (Auto) 0.5 H (0.0-0.4) % Neut % (Auto) 65.6 (45-73) % Lymph % (Auto) 25.4 (20-40) % Gregg % (Auto) 6.2 (2-11) % Eos % (Auto) 1.7 (0-4) % Baso % (Auto) 0.6 (0-2) % Lymph # (Auto) 2.6 (1.2-4.9) X10*3/uL Gregg # (Auto) 0.6 (0.1-1.2) X10*3/uL Eos # (Auto) 0.2 (0.0-0.4) X10*3/uL Baso # (Auto) 0.1 (0.0-0.2) X10*3/uL Abs Immat Gran (auto) 0.05 H (0.00-0.03) X10*3/uL Absolute Neuts (auto) 6.8 (2.0-8.3) x10*3/uL Absolute Nucleated RBC 0.000 (0.0-0.012) X10*3/uL Nucleated RBC % (auto) 0.0 (0.0-0.2) /100WBC VBG pH (7.32-7.43) VBG pCO2 mmHg VBG pO2 mmHg VBG HCO3 (22-26) mmol/L VBG O2 Saturation % VBG Base Excess mmol/L Sodium 136 (135-145) mmol/L Potassium 3.7 (3.3-5.1) mmol/L Chloride 98 (96-108) mmol/L Carbon Dioxide 26 (22-29) mmol/L Anion Gap 16 (12-20) BUN 29 H (9-16) mg/dL Creatinine 1.88 H (0.5-1.4) mg/dL Estim Creat Clear Calc 32.1 Estimated GFR 27 POC Glucose (60-115) mg/dL Random Glucose 346 H (60-115) mg/dL Calcium 9.3 D (8.4-10.2) mg/dL Magnesium 1.3 L* (1.6-2.6) mg/dL Total Bilirubin 0.8 (0.0-1.0) mg/dL Direct Bilirubin 0.2 (0.0-0.5) mg/dL AST 9 (5-31) U/L ALT 10 (0-31) U/L Alkaline Phosphatase 117 (39-117) U/L Troponin I High Sens (<3.5-17.0) ng/L B-Natriuretic Peptide 30 (<100) pg/mL Total Protein 7.0 (6.5-8.0) g/dL Albumin 3.5 (3.5-5.0) g/dL Lipase 17 (8-78) U/L Urine Color Urine Appearance Urine pH (5.0-9.0) Ur Specific Pollock (1.005-1.025) Urine Protein (Neg-Trace) mg/dL Urine Glucose (UA) (Negative) mg/dL Urine Ketones (Negative) mg/dL Urine Blood (Negative) Urine Nitrite (Negative) Ur Leukocyte Esterase (Negative) Acetone, Qual Negative (Negative) COVID-19 (VIRAJ) (Negative) COVID-19 Clin Com Influenza Type A (LEEANNE) (Negative) Influenza Type B (LEEANNE) (Negative) Influenza A & B Note 11/20/22 11/20/22 11/20/22 Range/Units 11:13 11:13 11:18 WBC (4.8-10.8) X10*3/uL RBC (4.20-5.50) X10*6/uL Hgb (12.0-16.0) g/dl Hct (37.0-47.0) % MCV (80.0-98.0) fL MCH (27.0-33.0) pg MCHC (31.0-35.0) g/dl RDW (11.0-16.0) % Plt Count (160-400) X10*3/uL MPV (9.4-12.3) fL Immature Gran % (Auto) (0.0-0.4) % Neut % (Auto) (45-73) % Lymph % (Auto) (20-40) % Gregg % (Auto) (2-11) % Eos % (Auto) (0-4) % Baso % (Auto) (0-2) % Lymph # (Auto) (1.2-4.9) X10*3/uL Gregg # (Auto) (0.1-1.2) X10*3/uL Eos # (Auto) (0.0-0.4) X10*3/uL Baso # (Auto) (0.0-0.2) X10*3/uL Abs Immat Gran (auto) (0.00-0.03) X10*3/uL Absolute Neuts (auto) (2.0-8.3) x10*3/uL Absolute Nucleated RBC (0.0-0.012) X10*3/uL Nucleated RBC % (auto) (0.0-0.2) /100WBC VBG pH 7.44 H (7.32-7.43) VBG pCO2 39 mmHg VBG pO2 54 mmHg VBG HCO3 27 H (22-26) mmol/L VBG O2 Saturation 85.0 % VBG Base Excess 3.0 mmol/L Sodium (135-145) mmol/L Potassium (3.3-5.1) mmol/L Chloride (96-108) mmol/L Carbon Dioxide (22-29) mmol/L Anion Gap (12-20) BUN (9-16) mg/dL Creatinine (0.5-1.4) mg/dL Estim Creat Clear Calc Estimated GFR POC Glucose (60-115) mg/dL Random Glucose (60-115) mg/dL Calcium (8.4-10.2) mg/dL Magnesium (1.6-2.6) mg/dL Total Bilirubin (0.0-1.0) mg/dL Direct Bilirubin (0.0-0.5) mg/dL AST (5-31) U/L ALT (0-31) U/L Alkaline Phosphatase (39-117) U/L Troponin I High Sens (<3.5-17.0) ng/L B-Natriuretic Peptide (<100) pg/mL Total Protein (6.5-8.0) g/dL Albumin (3.5-5.0) g/dL Lipase (8-78) U/L Urine Color Urine Appearance Urine pH (5.0-9.0) Ur Specific Pollock (1.005-1.025) Urine Protein (Neg-Trace) mg/dL Urine Glucose (UA) (Negative) mg/dL Urine Ketones (Negative) mg/dL Urine Blood (Negative) Urine Nitrite (Negative) Ur Leukocyte Esterase (Negative) Acetone, Qual (Negative) COVID-19 (VIRAJ) Negative (Negative) COVID-19 Clin Com See Note Influenza Type A (LEEANNE) Negative (Negative) Influenza Type B (LEEANNE) Negative (Negative) Influenza A & B Note See Note 11/20/22 11/20/22 11/20/22 Range/Units 12:02 12:34 14:22 WBC (4.8-10.8) X10*3/uL RBC (4.20-5.50) X10*6/uL Hgb (12.0-16.0) g/dl Hct (37.0-47.0) % MCV (80.0-98.0) fL MCH (27.0-33.0) pg MCHC (31.0-35.0) g/dl RDW (11.0-16.0) % Plt Count (160-400) X10*3/uL MPV (9.4-12.3) fL Immature Gran % (Auto) (0.0-0.4) % Neut % (Auto) (45-73) % Lymph % (Auto) (20-40) % Gregg % (Auto) (2-11) % Eos % (Auto) (0-4) % Baso % (Auto) (0-2) % Lymph # (Auto) (1.2-4.9) X10*3/uL Gregg # (Auto) (0.1-1.2) X10*3/uL Eos # (Auto) (0.0-0.4) X10*3/uL Baso # (Auto) (0.0-0.2) X10*3/uL Abs Immat Gran (auto) (0.00-0.03) X10*3/uL Absolute Neuts (auto) (2.0-8.3) x10*3/uL Absolute Nucleated RBC (0.0-0.012) X10*3/uL Nucleated RBC % (auto) (0.0-0.2) /100WBC VBG pH (7.32-7.43) VBG pCO2 mmHg VBG pO2 mmHg VBG HCO3 (22-26) mmol/L VBG O2 Saturation % VBG Base Excess mmol/L Sodium (135-145) mmol/L Potassium (3.3-5.1) mmol/L Chloride (96-108) mmol/L Carbon Dioxide (22-29) mmol/L Anion Gap (12-20) BUN (9-16) mg/dL Creatinine (0.5-1.4) mg/dL Estim Creat Clear Calc Estimated GFR POC Glucose (60-115) mg/dL Random Glucose (60-115) mg/dL Calcium (8.4-10.2) mg/dL Magnesium 1.9 (1.6-2.6) mg/dL Total Bilirubin (0.0-1.0) mg/dL Direct Bilirubin (0.0-0.5) mg/dL AST (5-31) U/L ALT (0-31) U/L Alkaline Phosphatase (39-117) U/L Troponin I High Sens < 3.5 (<3.5-17.0) ng/L B-Natriuretic Peptide (<100) pg/mL Total Protein (6.5-8.0) g/dL Albumin (3.5-5.0) g/dL Lipase (8-78) U/L Urine Color Yellow Urine Appearance Clear Urine pH 6.5 (5.0-9.0) Ur Specific Pollock 1.010 (1.005-1.025) Urine Protein Trace (Neg-Trace) mg/dL Urine Glucose (UA) 250 H (Negative) mg/dL Urine Ketones Negative (Negative) mg/dL Urine Blood Negative (Negative) Urine Nitrite Negative (Negative) Ur Leukocyte Esterase Negative (Negative) Acetone, Qual (Negative) COVID-19 (VIRAJ) (Negative) COVID-19 Clin Com Influenza Type A (LEEANNE) (Negative) Influenza Type B (LEEANNE) (Negative) Influenza A & B Note 11/20/22 Range/Units 15:09 WBC (4.8-10.8) X10*3/uL RBC (4.20-5.50) X10*6/uL Hgb (12.0-16.0) g/dl Hct (37.0-47.0) % MCV (80.0-98.0) fL MCH (27.0-33.0) pg MCHC (31.0-35.0) g/dl RDW (11.0-16.0) % Plt Count (160-400) X10*3/uL MPV (9.4-12.3) fL Immature Gran % (Auto) (0.0-0.4) % Neut % (Auto) (45-73) % Lymph % (Auto) (20-40) % Gregg % (Auto) (2-11) % Eos % (Auto) (0-4) % Baso % (Auto) (0-2) % Lymph # (Auto) (1.2-4.9) X10*3/uL Gregg # (Auto) (0.1-1.2) X10*3/uL Eos # (Auto) (0.0-0.4) X10*3/uL Baso # (Auto) (0.0-0.2) X10*3/uL Abs Immat Gran (auto) (0.00-0.03) X10*3/uL Absolute Neuts (auto) (2.0-8.3) x10*3/uL Absolute Nucleated RBC (0.0-0.012) X10*3/uL Nucleated RBC % (auto) (0.0-0.2) /100WBC VBG pH (7.32-7.43) VBG pCO2 mmHg VBG pO2 mmHg VBG HCO3 (22-26) mmol/L VBG O2 Saturation % VBG Base Excess mmol/L Sodium (135-145) mmol/L Potassium (3.3-5.1) mmol/L Chloride (96-108) mmol/L Carbon Dioxide (22-29) mmol/L Anion Gap (12-20) BUN (9-16) mg/dL Creatinine (0.5-1.4) mg/dL Estim Creat Clear Calc Estimated GFR POC Glucose 131 H (60-115) mg/dL Random Glucose (60-115) mg/dL Calcium (8.4-10.2) mg/dL Magnesium (1.6-2.6) mg/dL Total Bilirubin (0.0-1.0) mg/dL Direct Bilirubin (0.0-0.5) mg/dL AST (5-31) U/L ALT (0-31) U/L Alkaline Phosphatase (39-117) U/L Troponin I High Sens (<3.5-17.0) ng/L B-Natriuretic Peptide (<100) pg/mL Total Protein (6.5-8.0) g/dL Albumin (3.5-5.0) g/dL Lipase (8-78) U/L Urine Color Urine Appearance Urine pH (5.0-9.0) Ur Specific Pollock (1.005-1.025) Urine Protein (Neg-Trace) mg/dL Urine Glucose (UA) (Negative) mg/dL Urine Ketones (Negative) mg/dL Urine Blood (Negative) Urine Nitrite (Negative) Ur Leukocyte Esterase (Negative) Acetone, Qual (Negative) COVID-19 (VIRAJ) (Negative) COVID-19 Clin Com Influenza Type A (LEEANNE) (Negative) Influenza Type B (LEEANNE) (Negative) Influenza A & B Note Independent Interpretation I performed an independent interpretation of an: EKG Radiology Impression Discussion of test interpretation with radiology: I have reviewed the radiologist's reading. External Record Review External record reviewed: Office record, Outpatient record, Prior outpatient labs, Prior outpatient radiology, Primary care record and Outside ED record Chronic Conditions Patient?s care impacted by: Diabetes and Hypertension Discharge Plan Discharge Clinical Impression: Generalized weakness Patient Disposition: Home, Self-Care Instructions: Weakness (ED) Additional Instructions: Your blood work showed a low magnesium, this was repleted in the emergency department. Otherwise your blood work, urine, and chest x-ray were reassuring. Please close follow-up with her doctor. Recommend repeat outpatient labs in 1-2 weeks If symptoms persist or worsen return to the emergency department Please make sure you are checking her sugar in taking her insulin Prescriptions: No Action (DME) miscellaneous medical supply Misc See Rx Instructions .ROUTE .MEDSUPPLY Qty: 1 2RF Rx Instructions: Use 1 compression stocking bilaterally knee high 20 mmHg. cetirizine 10 mg tablet 10 mg PO DAILY PRN (Reason: Allergy Symptoms) 90 Days Qty: 90 1RF (DME) FreeStyle Lite Strips Strip See Rx Instructions .ROUTE .MEDSUPPLY Qty: 100 11RF Rx Instructions: As directed three times a day (DME) lancets [FreeStyle Lancets] 28 gauge misc See Rx Instructions .ROUTE .MEDSUPPLY Qty: 100 11RF Rx Instructions: Three times a day (DME) pen needle, diabetic [AboutTime Pen Needle] 31 gauge x 5/16 needle See Rx Instructions .Route Qty: 150 11RF Rx Instructions: As directed 4 x/day Trulicity 1.5 mg/0.5 mL pen injector 1.5 mg subcut QWEEK 84 Days Qty: 6 2RF chlorthalidone 25 mg tablet 25 mg PO DAILY 90 Days Qty: 90 3RF (DME) walker Misc See Rx Instructions .Route Qty: 1 0RF Rx Instructions: walker with seat (DME) FreeStyle Med 2 Sensor Kit See Rx Instructions .ROUTE .MEDSUPPLY Qty: 2 11RF Rx Instructions: As directed every 2 weeks bupropion HCl 150 mg tablet extended release 24 hr 150 mg PO QAM Qty: 90 1RF amlodipine 5 mg tablet 5 mg PO DAILY 90 Days Qty: 90 1RF insulin aspart U-100 [Novolog FlexPen U-100 Insulin] 100 unit/mL (3 mL) insulin pen 12 - 16 unit subcut TID Qty: 15 6RF Rx Instructions: 12 units before meals, 14 units for bg over 200 and 16 u for bg over 300 metoprolol tartrate 50 mg tablet 50 mg PO BID 90 Days Qty: 180 1RF valsartan 160 mg tablet 160 mg PO DAILY 30 Days Qty: 30 6RF (DME) back brace Misc See Rx Instructions .Route Qty: 1 0RF Rx Instructions: As directed (DME) juxtalite calf wrap bilateral 30 mmHg See Rx Instructions .Route .MEDSUPPLY Qty: 2 0RF Rx Instructions: As directed (DME) recliner See Rx Instructions .Route .MEDSUPPLY Qty: 1 0RF Rx Instructions: As directed (DME) back brace Misc See Rx Instructions .Route Qty: 1 0RF Rx Instructions: As directed fluticasone propion-salmeterol [Advair Diskus] 100-50 mcg/dose blister with device 1 inh inhalation BID 30 Days Qty: 60 0RF (DME) comp.stocking,thigh,long,x-lrg Misc See Rx Instructions .Route Qty: 12 0RF Rx Instructions: PLEASE MEASURE FOR COMPRESSION STOCKINGS albuterol sulfate 90 mcg/actuation HFA aerosol inhaler 2 puff PO Q4H PRN (Reason: bronchospasm) 30 Days Qty: 6.7 3RF albuterol sulfate 2.5 mg /3 mL (0.083 %) solution for nebulization 2.5 mg inhalation QID PRN (Reason: shortness of breath or wheezing) 30 Days Qty: 75 1RF (DME) nebulizer tube See Rx Instructions .Route .MEDSUPPLY Qty: 1 0RF Rx Instructions: As directed cefuroxime axetil 250 mg tablet 250 mg PO BID 7 Days Qty: 14 0RF acetaminophen [Tylenol Extra Strength] 500 mg tablet 500 mg PO Q6H PRN (Reason: fever or pain) Qty: 14 0RF Sangita KimoStar U-300 Insulin 300 unit/mL (1.5 mL) insulin pen 85 unit subcut DAILY 30 Days Qty: 8.499 5RF pantoprazole 40 mg tablet,delayed release (DR/EC) 40 mg PO DAILY Qty: 90 1RF ezetimibe 10 mg tablet 10 mg PO DAILY 90 Days Qty: 90 0RF fluticasone propion-salmeterol [Advair Diskus] 250-50 mcg/dose blister with device 1 inh inhalation BID 30 Days Qty: 60 2RF (DME) blood-glucose meter [FreeStyle Lite Meter] Kit See Rx Instructions .ROUTE .MEDSUPPLY Qty: 1 0RF Rx Instructions: As directed (DME) [place] Med 2 [facility] [place] Instructions .ROUTE .MEDSUPPLY Qty: 1 0RF Rx Instructions: As directed (DME) pen needle, diabetic [BD Ultra-Fine Debra Pen Needle] 32 gauge x 5/32 needle See Rx Instructions subcut QID Qty: 50 Rx Instructions: As directed Referrals: Joann Partida MD [Primary Care Provider] - 3 days
[2022-11-20 10:33] VITALS: BP 124/80; BP 142/80; PULSE 66; PULSE 79; RESP 20; TEMP 36.7; O2SAT 90; O2SAT 97; BMI 36.8
--- NOTE | 2022-11-20 10:34 | ECG_ITS ---
Test Reason : feeling unwell Blood Pressure : / mmHG Vent. Rate : 077 BPM Atrial Rate : 077 BPM P-R Int : 322 ms QRS Dur : 086 ms QT Int : 414 ms P-R-T Axes : 044 073 -01 degrees QTc Int : 468 ms Sinus rhythm with 1st degree A-V block Junctional ST depression, probably normal Right bundle branch block Abnormal ECG When compared with ECG of 21-AUG-2022 13:53, No significant changes seen Referred By: Cassie Hassan Electronically Signed By:CALEB LONG MD
[2022-11-20 11:19] LABS: MANUAL DIFF FLAG NO
[2022-11-20 11:25] LABS: Basophils Absolute Auto 0.1 X10*3/uL (0.0-0.2); Basophils Percent Auto 0.6 % (0-2); Eosinophils Absolute Auto 0.2 X10*3/uL (0.0-0.4); Eosinophils Percent Auto 1.7 % (0-4); Hematocrit 31.6 % (37.0-47.0); Hemoglobin 10.6 g/dl (12.0-16.0); Imm Gran Abs Auto 0.05 X10*3/uL (0.00-0.03); Imm Gran Pct Auto 0.5 % (0.0-0.4); Lymphocytes Absolute Auto 2.6 X10*3/uL (1.2-4.9); Lymphocytes Percent Auto 25.4 % (20-40); Mean Corpuscular HGB Conc 33.5 g/dl (31.0-35.0); Mean Corpuscular Volume 83.4 fL (80.0-98.0); Mean Platelet Volume 10.9 fL (9.4-12.3); Monocytes Absolute Auto 0.6 X10*3/uL (0.1-1.2); Monocytes Percent Auto 6.2 % (2-11); Neutrophils Absolute Auto 6.8 x10*3/uL (2.0-8.3); Neutrophils Percent Auto 65.6 % (45-73); Platelet Count 228 X10*3/uL (160-400); Red Blood Count 3.79 X10*6/uL (4.20-5.50); White Blood Count 10.4 X10*3/uL (4.8-10.8)
[2022-11-20 11:32] LABS: VBG HCO3 27 mmol/L (22-26); VBG pCO2 39 mmHg; VBG pH 7.44 (7.32-7.43); VBG pO2 54 mmHg
[2022-11-20 11:32] LABS: Venous Blood Gas Refer to POC result
[2022-11-20 11:44] LABS: IDNOW Serial# 16C4AD1C
[2022-11-20 11:45] LABS: COVID-19 Test Negative (Negative); IDNOW Serial# BCCEAD1C; Influenza A Negative (Negative); Influenza B2 Negative (Negative)
[2022-11-20 11:48] LABS: Acetone, serum QL Negative (Negative)
[2022-11-20 11:53] LABS: B Type Natriuretic Peptide 30 pg/mL (<100)
[2022-11-20] MEDS: Lactated Ringers 500 ML 999 ML IV (11:59)
[2022-11-20 12:04] LABS: Alanine Aminotransferase 10 U/L (0-31); Albumin Level 3.5 g/dL (3.5-5.0); Alkaline Phosphatase 117 U/L (39-117); Anion Gap 16 (12-20); Aspartate Amino Transferase 9 U/L (5-31); Bilirubin Direct 0.2 mg/dL (0.0-0.5); Bilirubin Total 0.8 mg/dL (0.0-1.0); Blood Urea Nitrogen 29 mg/dL (9-16); Calcium 9.3 mg/dL (8.4-10.2); Carbon Dioxide 26 mmol/L (22-29); Chloride 98 mmol/L (96-108); Creatinine Clr Calc Pharmacy 32.1; Estimated Glomerular Filt Rate 27; Glucose Random 346 mg/dL (60-115); Lipase 17 U/L (8-78); Magnesium 1.3 mg/dL (1.6-2.6); Potassium 3.7 mmol/L (3.3-5.1); Sodium 136 mmol/L (135-145)
[2022-11-20 12:12] LABS: Appearance Urine Clear; Color Urine Yellow; Glucose Urine UA 250 mg/dL (Negative); Leukocyte Esterase Urine Negative (Negative); Nitrite Urine Negative (Negative); PH 6.5 (5.0-9.0); Urine Blood Negative (Negative); Urine Ketones Negative (Negative); Urine Protein Trace mg/dL (Neg-Trace)
[2022-11-20 12:28] VITALS: BP 131/70; PULSE 72; RESP 18; TEMP 36.6; O2SAT 97
[2022-11-20 12:58] LABS: Troponin-I High Sensitivity < 3.5 ng/L (<3.5-17.0)
[2022-11-20] MEDS: Magnesium Sulfate/H2O 2 GM/50 ML PIGGYBACK IV (13:23)
--- NOTE | 2022-11-20 13:55 | MHC.EDTECH ---
patient states she does not want to have labs drawn anymore, patient had labs drawn twice and states if she needs to drawn again she will refuse.
[2022-11-20 14:15] VITALS: BP 127/68; PULSE 76; RESP 18; TEMP 37.1; O2SAT 96
[2022-11-20 14:44] LABS: Magnesium 1.9 mg/dL (1.6-2.6)
[2022-11-20 15:12] LABS: Glucose, Whole Blood 131 mg/dL (60-115)
[2022-11-20 15:40] VITALS: BP 112/63; PULSE 77; RESP 18; TEMP 36.7; O2SAT 96
== END 2022-11-20 15:40 | disposition home or self-care (01) ==
PROVIDERS: Physician Assistant; Emergency Provider Student in an Organized Health Care Education/Training Program; PCP Internal Medicine
DX: R53.1 Weakness (principal); R06.02 Shortness of breath; R60.0 Localized edema; I10 Essential (primary) hypertension; R11.0 Nausea; R94.31 Abnormal electrocardiogram [ECG] [EKG]; Z20.822 Contact with and (suspected) exposure to COVID-19; Z20.828 Contact with and (suspected) exposure to other viral communicable diseases; Z79.899 Other long term (current) drug therapy
CPT/HCPCS: 36415; 71045; 80048; 80076; 81003; 82009; 82803; 82947; 83690; 83735; 83880; 84484; 85025; 87502; 87635; 93005; 96361; 96374; 99284; 99285; J3475

== ENCOUNTER 2022-12-19 09:08 | Outpatient (REF) | payer OTHER, SELFPAY ==
[2022-12-19 10:47] LABS: MANUAL DIFF FLAG NO
[2022-12-19 11:05] LABS: Basophils Absolute Auto 0.1 X10*3/uL (0.0-0.2); Basophils Percent Auto 0.6 % (0-2); Eosinophils Absolute Auto 0.3 X10*3/uL (0.0-0.4); Eosinophils Percent Auto 2.5 % (0-4); Hemoglobin 11.9 g/dl (12.0-16.0); Imm Gran Abs Auto 0.03 X10*3/uL (0.00-0.03); Imm Gran Pct Auto 0.3 % (0.0-0.4); Lymphocytes Absolute Auto 3.2 X10*3/uL (1.2-4.9); Lymphocytes Percent Auto 28.5 % (20-40); Mean Corpuscular Volume 85.4 fL (80.0-98.0); Mean Platelet Volume 10.8 fL (9.4-12.3); Monocytes Absolute Auto 0.8 X10*3/uL (0.1-1.2); Monocytes Percent Auto 6.9 % (2-11); Neutrophils Absolute Auto 6.8 x10*3/uL (2.0-8.3); Neutrophils Percent Auto 61.2 % (45-73); Platelet Count 256 X10*3/uL (160-400); Red Cell Distribution Width 14.1 % (11.0-16.0); White Blood Count 11.1 X10*3/uL (4.8-10.8)
== END 2022-12-19 09:09 | disposition home or self-care (01) ==
LOC: HO.LAB 09:08
PROVIDERS: PCP Internal Medicine; Visit Provider Internal Medicine Pulmonary Disease
DX: J45.909 Unspecified asthma, uncomplicated (principal); Z91.09 Other allergy status, other than to drugs and biological substances
CPT/HCPCS: 36415; 82785; 85025; 86003; 99202

== ENCOUNTER 2023-01-28 08:24 | Outpatient (REF) | payer OTHER, SELFPAY ==
--- NOTE | 2023-01-28 09:55 | PFT_ITS ---
INDICATION: Asthma. SPIROMETRY: FEV1 to FVC of 87% with an FEV1 of 1.87 L, which is 82% predicted and an FVC of 2.15 L, which is 73% predicted. There was a trend response to bronchodilators noted. Maximum voluntary ventilation 66% predicted. LUNG VOLUMES: Total lung capacity 70% predicted with an expiratory reserve volume of 57% predicted. DIFFUSION CAPACITY: DLCO 70% predicted. COMPARISON: None. INTERPRETATION: No obstructive ventilatory defects. There was a trend response to bronchodilators noted. There is a moderate decrease in maximum voluntary ventilation secondary to lung deconditioning, although cannot rule out neuromuscular conditions. The patient does have a restrictive ventilatory defects consistent with mild restrictive lung disease. Need to consider underlying parenchymal lung condition and/or neuromuscular conditions. The patient does have a mild diffusion impairment that corrects to normal when correcting for the alveolar volume. Clinical correlation is warranted. Benoit Bridges MD MR/MODL / [id number]
== END 2023-01-28 08:25 | disposition home or self-care (01) ==
LOC: HO.RESP 08:24
PROVIDERS: PCP Nurse Practitioner Family; Visit Provider Internal Medicine Pulmonary Disease
DX: J45.909 Unspecified asthma, uncomplicated (principal); Z91.09 Other allergy status, other than to drugs and biological substances
CPT/HCPCS: 94010; 94727; 94729; 99212

== ENCOUNTER 2023-04-22 10:52 | Outpatient (AMB) | payer OTHER, SELFPAY ==
--- NOTE | 2023-04-22 10:54 | A.OFFPC_ITS ---
Vital Signs 04/22/23 10:57 04/22/23 11:35 Height 5 ft 3 in Weight 198 lb BMI 35.1 BP 140/78 H 130/80 Blood Pressure Location Rt brachial Lt brachial Position Sitting Sitting Intake Visit Reasons: 3mth f/u Intake Note: Patient here for a 3 month follow up Glove Maker Required: No Accompanied by: BREAD ICER Allergies nut - unspecified [nut] Allergy (Severe, Verified 04/22/23 11:05) Anaphylaxis rosuvastatin Allergy (Severe, Verified 04/22/23 11:05) Facial Swelling vancomycin [VANCOMYCIN] Allergy (Severe, Verified 04/22/23 11:05) Itching VIRGINIA Inhibitors [VIRGINIA INHIBITORS] Allergy (Intermediate, Verified 04/22/23 11:05) Rash ciprofloxacin [From CIPRO] Allergy (Intermediate, Verified 04/22/23 11:05) Rash codeine [CODEINE] Allergy (Intermediate, Verified 04/22/23 11:05) Rash cyclobenzaprine [CYCLOBENZAPRINE] Allergy (Intermediate, Verified 04/22/23 11:05) Hives ferrous sulfate [FERROUS SULFATE] Allergy (Intermediate, Verified 04/22/23 11:05) Rash insulin lispro [Humalog U-100 Insulin] Allergy (Intermediate, Verified 04/22/23 11:05) Hives latex [LATEX] Allergy (Intermediate, Verified 04/22/23 11:05) Hives methylprednisolone [From MEDROL] Allergy (Intermediate, Verified 04/22/23 11:05) Rash penicillin V Allergy (Intermediate, Verified 04/22/23 11:05) Hives tamsulosin [TAMSULOSIN] Allergy (Intermediate, Verified 04/22/23 11:05) Rash tramadol Allergy (Intermediate, Verified 04/22/23 11:05) Itching insulin degludec [From Tresiba FlexTouch U-100] Allergy (Mild, Verified 04/22/23 11:05) Hives pravastatin Allergy (Mild, Verified 04/22/23 11:05) pruritus lactose [LACTOSE] Adverse Reaction (Intermediate, Verified 04/22/23 11:05) Diarrhea Beef Containing Products Adverse Reaction (Mild, Verified 04/22/23 11:05) Stomach Upset Fish Containing Products Adverse Reaction (Mild, Verified 04/22/23 11:05) Nausea and Vomiting Pork/Porcine Containing Products Adverse Reaction (Mild, Verified 04/22/23 11:05) Stomach Upset FRUIT Adverse Reaction (Mild, Uncoded 04/22/23 11:05) NAUSEA & VOMITING VEGETABLES,FRESH Adverse Reaction (Mild, Uncoded 04/22/23 11:05) NAUSEA & VOMITING Medication List - Last Reconciled 04/22/23 by Joann Ferreira MD acetaminophen (Tylenol Extra Strength) 500 mg PO Q6H PRN albuterol sulfate 90 mcg/actuation (Ventolin HFA) 2 puffs inhalation Q4H PRN albuterol sulfate 2.5 mg (3 mL) inhalation QID PRN 30 days amlodipine 5 mg PO DAILY 90 days back brace As directed blood sugar diagnostic (FreeStyle Lite Strips) As directed three times a day blood-glucose meter (FreeStyle Lite Meter kit) As directed Breo Ellipta 200-25 mcg/dose (fluticasone furoate-vilanterol) 1 inh inhalation DAILY 30 days NS bupropion HCl 150 mg PO QAM cetirizine 10 mg PO DAILY PRN 90 days chlorthalidone 25 mg PO DAILY 90 days comp.stocking,thigh,long,x-lrg PLEASE MEASURE FOR COMPRESSION STOCKINGS dulaglutide (Trulicity) 1.5 mg (0.5 mL) subcut QWEEK 84 days ezetimibe 10 mg PO DAILY 90 days flash glucose scanning reader (AGRIMAPSStyle Med 2 [place]) As directed flash glucose sensor (FreeStyle Med 2 Sensor kit) As directed every 2 weeks fluticasone propion-salmeterol 250-50 mcg/dose (Advair Diskus) 1 inh inhalation BID insulin aspart U-100 (Novolog FlexPen U-100 Insulin aspart) 12 - 16 units (0.12 - 0.16 mL) subcut TID insulin glargine U-300 conc (Toujeo SoloStar U-300 Insulin) 85 units (0.2833 mL) subcut DAILY 30 days [juxtalite calf wrap bilateral As directed] lancets (FreeStyle Lancets) Three times a day metoprolol tartrate 50 mg PO BID 90 days miscellaneous medical supply Use 1 compression stocking bilaterally knee high 20 mmHg. [nebulizer tube As directed] [nebulizer tube and adapter As directed] omalizumab 300 mg (2 mL) subcut Q4W 28 days pantoprazole 40 mg PO DAILY pen needle, diabetic (AboutTime Pen Needle) As directed 4 x/day pen needle, diabetic (BD Ultra-Fine Debra Pen Needle) As directed [recliner lift chair As directed] valsartan 160 mg PO DAILY 30 days walker walker with seat Tobacco use date assessed: 10/28/22 Fall risk assessment: No Falls in past year Last assessed Fall Risk: 04/22/23 Dental Screening Dental Screen Date: 04/22/23 Did you have a dental visit in the last 12 months?: No Did you have a dental problem in the last 6 months where you did not have access to dental care?: No Was dental information given to patient?: Patient has dentist HPI HPI Comments History of Present Illness Details This is a 67-year-old female with hypertension, diabetes mellitus type 2 on long-term current use of insulin, chronic kidney disease stage IV and severe recurrent major depression that comes today accompanied by BREAD ICER for follow-up on his conditions. Walks with a walker for gait stability. Blood pressure borderline normal to elevated. GFR has been about the same and has Nephrology. Depression stable with medications. A1c within goal. Complains of left foot pain has been present for few months. No chest pain or shortness of breath. She has not started Zetia. [facility] Medical History Acute kidney injury Calcaneal spur of both feet CKD (chronic kidney disease) CKD (chronic kidney disease) stage 4, GFR 15-29 ml/min Depression Diabetes DM2 (diabetes mellitus, type 2) Dyslipidemia Epicondylitis, lateral (tennis elbow) Essential hypertension Hypercholesteremia Irregular heart beat Leg edema Medicare annual wellness visit, initial Obesity due to excess calories Pain in both lower legs Postmenopausal Severe recurrent major depression Type 2 diabetes mellitus with chronic kidney disease Surgical History History of extraction of renal calculus History of hysterectomy Hx of vascular surgery Family History Father Diabetes Mother Diabetes Sister Breast cancer Brother No problems noted. Sister No problems noted. Social History Household Members: Significant Other Housing: Apartment Are you a primary child daycare worker to a significant other at home: No Do you presently have visiting nurse or other home services: Yes Alcohol intake: never Patient Tobacco Use Status: Never used Tobacco e-Cigarette/Vaping Use: Never Used Second Hand Smoke Exposure: No Advance Directives Date on File: 09/11/20 service: No Current occupational status: disabled Cognitive needs: Yes Hearing needs: No Vision needs: Yes Questionnaire Thrive Questionnaire Date Thrive assessed: 10/28/22 NAYELY-7 AMB Questionnaire NAYELY-7 Date NAYELY - 7 assessed: 10/28/22 Source: Developed by Drs. Stew Reynolds, Татьяна Barron, Biju Rodrigez and colleagues, with an educational saul from [employer]. Review of Systems Const All systems reviewed & are unremarkable except as noted in HPI and below Eyes Reports no additional complaints, Denies change in vision and Denies other visual disturbances Card Denies chest pain at rest, Denies chest pain with activity, Denies edema, Denies irregular heart rhythm, Denies claudication, Denies dyspnea, Denies dyspnea on exertion, Denies orthopnea, Denies paroxysmal nocturnal dyspnea and Denies slow heart rate Resp Denies cough, Denies dyspnea and Denies dyspnea on exertion GI Denies abdominal pain, Denies change in bowel habits, Denies excessive flatus, Denies nausea and Denies vomiting Denies urinary incontinence, Denies urinary hesitancy and Denies urinary urgency Musc Denies abnormal gait, Denies atrophy, Denies deformity and Denies limited range of motion Skin/Breast Denies bleeding lesions, Denies changing lesions and Denies rash Neuro Denies abnormal gait and Denies lack of coordination Physical exam (Primary Care) Vital Signs: Last Vital Signs BP 140/78 H 04/22/23 10:57 BMI result Body Mass Index 35.1 Tobacco/Smoking Status: Tobacco use Status Tobacco use date assessed 10/28/22 04/22/23 10:56 Patient Tobacco Use Status Never used Tobacco 04/22/23 10:56 e-Cigarette/Vaping Use Never Used 04/22/23 10:56 Thrive Assessment: Date of Thrive Assessment Date Thrive assessed 10/28/22 04/22/23 10:56 Eyes General: appearance normal, both eyes and all related structures Eyelids: Yes eyelids normal Conjunctivae: conjunctivae normal Neck Neck: Yes normal visual inspection and Yes supple Resp Effort & Inspection: normal respiratory effort Auscultation: clear to auscultation bilaterally Cardio Jugular venous distension: no JVD Rate: regular rate Rhythm: regular rhythm Heart sounds: S1 normal heart sound present and S2 normal heart sound present Extrem General: Yes full ROM Results AMB Hemoglobin A1c AMB Hemoglobin A1c 6.8 % Last Edit by AMANDA Dumont on 04/22/23 11:0 4 Results Reviewed Results Reviewed: Laboratory Last Values Hgb A1c (Clinic) 6.8 % (4.0-6.0) H 04/22/23 10:54 Assessment and Plan Assessment & Plan (1) DM2 (diabetes mellitus, type 2): Code(s): E11.9 - Type 2 diabetes mellitus without complications Qualifiers: Diabetes mellitus care home insulin use: without care home use Diabetes mellitus complication status: with hyperglycemia Qualified Code(s): E11.65 - Type 2 diabetes mellitus with hyperglycemia Plan: Continue insulin and Trulicity. A1c goal is equal or less than 7% (2) Severe recurrent major depression: Code(s): F33.2 - Major depressive disorder, recurrent severe without psychotic features Plan: Continue bupropion (3) CKD (chronic kidney disease) stage 4, GFR 15-29 ml/min: Code(s): N18.4 - Chronic kidney disease, stage 4 (severe) Plan: Avoid NSAIDs. Blood pressure should be within goal. A1c within goal. Blood pressure goal is equal or less than 130/80. Follow-up with nephrology. (4) Essential hypertension: Code(s): I10 - Essential (primary) hypertension Plan: Continue amlodipine and valsartan. Blood pressure goal is equal or less than 130/80. Orders: Orders Comprehensive [place]. Panel Fast 5 Months E11.22 - Type 2 diabetes mellitus with diabetic chronic kidney disease, N18.4 - Chronic kidney disease, stage 4 (severe), Z79.4 - shelter (current) use of insulin Lipid Panel 5 Months E78.5 - Hyperlipidemia, unspecified Vitamin D 25-OH Total 5 Months E55.9 - Vitamin D deficiency, unspecified Microalbumin, Random (w Creat) 5 Months E11.9 - Type 2 diabetes mellitus without complications AMB Hemoglobin A1c Today E11.22 - Type 2 diabetes mellitus with diabetic chronic kidney disease Coding Level of Care Code Est Pt Level 4 (24980) Diagnoses DM2 (diabetes mellitus, type 2) E11.65 Diabetes mellitus remote computer terminal operator insulin use: without care home use Diabetes mellitus complication status: with hyperglycemia Severe recurrent major depression F33.2 CKD (chronic kidney disease) stage 4, GFR 15-29 ml/min N18.4 Essential hypertension I10 Time Spent (min) 23
[2023-04-22 10:57] VITALS: BP 140/78; BMI 35.1
[2023-04-22 11:35] VITALS: BP 130/80
== END 2023-04-22 11:19 | disposition home or self-care (01) ==
PROVIDERS: PCP Internal Medicine; Visit Provider Internal Medicine
DX: E11.65 Type 2 diabetes mellitus with hyperglycemia (principal); F33.2 Major depressive disorder, recurrent severe without psychotic features; I12.9 Hypertensive chronic kidney disease with stage 1 through stage 4 chronic kidney disease, or unspecified chronic kidney disease; N18.4 Chronic kidney disease, stage 4 (severe); E11.22 Type 2 diabetes mellitus with diabetic chronic kidney disease
CPT/HCPCS: 83036; 99214

== ENCOUNTER 2023-05-13 12:46 | Outpatient (AMB) | payer OTHER, SELFPAY ==
--- NOTE | 2023-05-13 12:48 | A.OFFVIS_ITS ---
Intake Vital Signs 05/13/23 12:49 Height 5 ft 3 in Weight 195 lb 1.745 oz BMI 34.6 BP 116/70 Blood Pressure Location Rt brachial Position Sitting Pulse 70 Pulse Source Pulse Oximeter Temp 98.2 F Temp Source Skin Pulse Oximetry (%) 96 Oxygen Delivery Method Room Air Intake Visit Reasons: Joint Pain Intake Note: New patient here for joint pain. Naval Marine Engineer Required: No Accompanied by: Self / Same As Patient Allergies nut - unspecified [nut] Allergy (Severe, Verified 05/13/23 12:49) Anaphylaxis rosuvastatin Allergy (Severe, Verified 05/13/23 12:49) Facial Swelling vancomycin [VANCOMYCIN] Allergy (Severe, Verified 05/13/23 12:49) Itching V[place] Inhibitors [VIR[place]IA INHIBITORS] Allergy (Intermediate, Verified 05/13/23 12:49) Rash ciprofloxacin [From CIPRO] Allergy (Intermediate, Verified 05/13/23 12:49) Rash codeine [CODEINE] Allergy (Intermediate, Verified 05/13/23 12:49) Rash cyclobenzaprine [CYCLOBENZAPRINE] Allergy (Intermediate, Verified 05/13/23 12:49) Hives ferrous sulfate [FERROUS SULFATE] Allergy (Intermediate, Verified 05/13/23 12:49) Rash insulin lispro [Humalog U-100 Insulin] Allergy (Intermediate, Verified 05/13/23 12:49) Hives latex [LATEX] Allergy (Intermediate, Verified 05/13/23 12:49) Hives methylprednisolone [From MEDROL] Allergy (Intermediate, Verified 05/13/23 12:49) Rash penicillin V Allergy (Intermediate, Verified 05/13/23 12:49) Hives tamsulosin [TAMSULOSIN] Allergy (Intermediate, Verified 05/13/23 12:49) Rash tramadol Allergy (Intermediate, Verified 05/13/23 12:49) Itching insulin degludec [From Tresiba FlexTouch U-100] Allergy (Mild, Verified 05/13/23 12:49) Hives pravastatin Allergy (Mild, Verified 05/13/23 12:49) pruritus lactose [LACTOSE] Adverse Reaction (Intermediate, Verified 05/13/23 12:49) Diarrhea Beef Containing Products Adverse Reaction (Mild, Verified 05/13/23 12:49) Stomach Upset Fish Containing Products Adverse Reaction (Mild, Verified 05/13/23 12:49) Nausea and Vomiting Pork/Porcine Containing Products Adverse Reaction (Mild, Verified 05/13/23 12:49) Stomach Upset FRUIT Adverse Reaction (Mild, Uncoded 05/13/23 12:49) NAUSEA & VOMITING VEGETABLES,FRESH Adverse Reaction (Mild, Uncoded 05/13/23 12:49) NAUSEA & VOMITING Medication List - Last Reconciled 05/13/23 by Saira Rodriguez MD acetaminophen (Tylenol Extra Strength) 500 mg PO Q6H PRN albuterol sulfate 90 mcg/actuation (Ventolin HFA) 2 puffs inhalation Q4H PRN albuterol sulfate 2.5 mg (3 mL) inhalation QID PRN 30 days amlodipine 5 mg PO DAILY 90 days back brace As directed blood sugar diagnostic (FreeStyle Lite Strips) As directed three times a day blood-glucose meter (FreeStyle Lite Meter kit) As directed Breo Ellipta 200-25 mcg/dose (fluticasone furoate-vilanterol) 1 inh inhalation DAILY 30 days NS bupropion HCl 150 mg PO QAM cetirizine 10 mg PO DAILY PRN 90 days chlorthalidone 25 mg PO DAILY 90 days dulaglutide (Trulicity) 1.5 mg (0.5 mL) subcut QWEEK 84 days ezetimibe 10 mg PO DAILY 90 days flash glucose scanning reader (JimdoStyle Med 2 [place]) As directed flash glucose sensor (FreeStyle Med 2 Sensor kit) As directed every 2 weeks fluticasone propion-salmeterol 250-50 mcg/dose (Advair Diskus) 1 inh inhalation BID insulin aspart U-100 (Novolog FlexPen U-100 Insulin aspart) 12 - 16 units (0.12 - 0.16 mL) subcut TID insulin glargine U-300 conc (Toujeo SoloStar U-300 Insulin) 85 units (0.2833 mL) subcut DAILY 30 days [juxtalite calf wrap bilateral As directed] lancets (FreeStyle Lancets) Three times a day metoprolol tartrate 50 mg PO BID 90 days [nebulizer tube and adapter As directed] pantoprazole 40 mg PO DAILY pen needle, diabetic (AboutTime Pen Needle) As directed 4 x/day pen needle, diabetic (BD Ultra-Fine Debra Pen Needle) As directed [recliner lift chair As directed] valsartan 160 mg PO DAILY 30 days walker walker with seat HPI HPI Comments History of Present Illness Details This is a 67-year-old female who presents for evaluation of diffuse pain. Patient states she has pain everywhere in her knees, back, neck, shoulders, hands, feet. She states that both her sisters also suffer from chronic pain. She takes Tylenol sometimes which does not help much. She used to be on gabapentin in the past and it was discontinued due to CKD. She is unaware of any family history of autoimmune rheumatic disease. ON LICENSE OF [facility] Medical History Acute kidney injury Calcaneal spur of both feet CKD (chronic kidney disease) CKD (chronic kidney disease) stage 4, GFR 15-29 ml/min Depression Diabetes DM2 (diabetes mellitus, type 2) Dyslipidemia Epicondylitis, lateral (tennis elbow) Essential hypertension Hypercholesteremia Irregular heart beat Leg edema Medicare annual wellness visit, initial Obesity due to excess calories Pain in both lower legs Postmenopausal Severe recurrent major depression Type 2 diabetes mellitus with chronic kidney disease Surgical History History of extraction of renal calculus History of hysterectomy Hx of vascular surgery Family History Father Diabetes Mother Diabetes Sister Breast cancer Brother No problems noted. Sister No problems noted. Social History Household Members: Significant Other Housing: Apartment Are you a primary acute care nursing assistant to a significant other at home: No Do you presently have visiting nurse or other home services: Yes Alcohol intake: never Patient Tobacco Use Status: Never used Tobacco e-Cigarette/Vaping Use: Never Used Second Hand Smoke Exposure: No Advance Directives Date on File: 09/11/20 service: No Current occupational status: disabled Cognitive needs: Yes Hearing needs: No Vision needs: Yes Female Reproductive History Menstrual Total pregnancies: 0 Review of Systems Const Reports fatigue and Reports weakness ENT Reports neck pain Musc Reports arthralgias and Reports neck pain Neuro Reports weakness Endo Reports fatigue Physical Exam Vital Signs: Last Vital Signs Temp 98.2 F 05/13/23 12:49 Pulse 70 08/23/23 12:49 BP 116/70 05/13/23 12:49 Pulse Ox 96 05/13/23 12:49 Oxygen Delivery Method Room Air 05/13/23 12:49 BMI result Body Mass Index 34.6 Const General: cooperative, healthy appearing and comfortable Nutritional Appearance: obese Orientation/consciousness: patient oriented x3 Limitations: wheelchair HEENT Head: Yes normocephalic and Yes atraumatic Mouth: moist mucous membranes Resp Effort & Inspection: normal respiratory effort and able to speak in complete sentences Neuro General: patient oriented x3 Extrem Other: Mild osteoarthritic changes of both hands with no active synovitis Normal range of motion of both shoulders with no pain Diffuse fibromyalgia tender points Bilateral knee crepitus Assessment & Plan Assessment & Plan (1) Polyarthralgia: Code(s): M25.50 - Pain in unspecified joint Plan: This is a 67-year-old female who presents for evaluation of diffuse pain. I do not see any signs of autoimmune rheumatic disease upon my evaluation. Clinical picture rather consistent with fibromyalgia. Discussed management of fibromyalgia with patient. Is a noninflammatory, non- autoimmune central afferent processing disorder leading to a diffuse pain syndrome. I suggested evaluation by a therapist and/or a psychiatrist. Advised patient to use her CPAP regularly. Try to follow sleep hygiene practices. Consider a referral for a sleep study to rule out LYNETTE from her PCP. Patient would benefit from increased physical activity. patient's mobility is quite limited, I suggested low-impact exercises such as stretches at home or lifting light weights Follow-up as needed Plan I spent 30 minutes reviewing patient's chart, evaluating patient, ordering diagnostic workup, counseling patient and documenting in the chart Coding Level of Care Code New Pt Level 3 (34082) Diagnoses Polyarthralgia M25.50
[2023-05-13 12:49] VITALS: BP 116/70; PULSE 70; TEMP 36.8; O2SAT 96; BMI 34.6
== END 2023-05-13 13:33 | disposition home or self-care (01) ==
PROVIDERS: PCP Internal Medicine; Visit Provider Student in an Organized Health Care Education/Training Program
DX: M25.50 Pain in unspecified joint (principal)
CPT/HCPCS: 99203

== ENCOUNTER → 2023-05-13 12:46 | Outpatient (BNVA) | payer OTHER, SELFPAY | PROVIDERS: Visit Provider Student in an Organized Health Care Education/Training Program | DX: M25.50 Pain in unspecified joint (principal) | CPT/HCPCS: 99202 ==

== ENCOUNTER 2023-06-30 11:15 | Outpatient (AMB) | payer OTHER, SELFPAY ==
--- NOTE | 2023-06-30 11:18 | MHC.PC.OV ---
Vital Signs 06/30/23 11:19 Height 5 ft 3 in Weight 196 lb 6 oz BMI 34.8 BP 110/60 Blood Pressure Location Rt brachial Position Sitting Pulse 64 Pulse Source Pulse Oximeter Pulse Oximetry (%) 94 Oxygen Delivery Method Room Air Intake Visit Reasons: all over pain, rheumatology no help Intake Note: Patient is here to follow up on Polyarthralgia. Jackaroo Required: No Oceanographic Meteorologist: Present Accompanied by: Spouse Allergies nut - unspecified [nut] Allergy (Severe, Verified 06/30/23 11:19) Anaphylaxis rosuvastatin Allergy (Severe, Verified 06/30/23 11:19) Facial Swelling vancomycin [VANCOMYCIN] Allergy (Severe, Verified 06/30/23 11:19) Itching VIRGINIA Inhibitors [VIRGINIA INHIBITORS] Allergy (Intermediate, Verified 06/30/23 11:19) Rash ciprofloxacin [From CIPRO] Allergy (Intermediate, Verified 06/30/23 11:19) Rash codeine [CODEINE] Allergy (Intermediate, Verified 06/30/23 11:19) Rash cyclobenzaprine [CYCLOBENZAPRINE] Allergy (Intermediate, Verified 06/30/23 11:19) Hives ferrous sulfate [FERROUS SULFATE] Allergy (Intermediate, Verified 06/30/23 11:19) Rash insulin lispro [Humalog U-100 Insulin] Allergy (Intermediate, Verified 06/30/23 11:19) Hives latex [LATEX] Allergy (Intermediate, Verified 06/30/23 11:19) Hives methylprednisolone [From MEDROL] Allergy (Intermediate, Verified 06/30/23 11:19) Rash penicillin V Allergy (Intermediate, Verified 06/30/23 11:19) Hives tamsulosin [TAMSULOSIN] Allergy (Intermediate, Verified 06/30/23 11:19) Rash tramadol Allergy (Intermediate, Verified 06/30/23 11:19) Itching insulin degludec [From Tresiba FlexTouch U-100] Allergy (Mild, Verified 06/30/23 11:19) Hives pravastatin Allergy (Mild, Verified 06/30/23 11:19) pruritus lactose [LACTOSE] Adverse Reaction (Intermediate, Verified 06/30/23 11:19) Diarrhea Beef Containing Products Adverse Reaction (Mild, Verified 06/30/23 11:19) Stomach Upset Fish Containing Products Adverse Reaction (Mild, Verified 06/30/23 11:19) Nausea and Vomiting Pork/Porcine Containing Products Adverse Reaction (Mild, Verified 06/30/23 11:19) Stomach Upset FRUIT Adverse Reaction (Mild, Uncoded 06/30/23 11:19) NAUSEA & VOMITING VEGETABLES,FRESH Adverse Reaction (Mild, Uncoded 06/30/23 11:19) NAUSEA & VOMITING Tobacco use date assessed: 06/30/23 Fall risk assessment: No Falls in past year Last assessed Fall Risk: 06/30/23 Dental Screening Dental Screen Date: 06/30/23 Did you have a dental visit in the last 12 months?: Yes Did you have a dental problem in the last 6 months where you did not have access to dental care?: No Was dental information given to patient?: Patient has dentist HPI HPI Comments History of Present Illness Details 68-year-old female past medical history significant for hypertension, CKD, diabetes mellitus, depression, hyperlipidemia osteoarthritis amongst other. Patient presents today for polyarthralgia. 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 Patient continues to have bilateral wrist joint pain, knee pain. Patient reports take Tylenol once a day for arthritis pain with no improvement patient advised she can take Tylenol 500 mg q.6 hours as needed for pain and do not exceed 4000 mg Tylenol in 1 day and will send diclofenac cream to apply to joints pain. Offered referral to pain management however patient declines at this time. Patient currently ambulates with a walker inside her house and uses a motorized wheelchair when going out of the house due to limited mobility from pain. 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 Sister No problems noted. Social History Household Members: Significant Other Housing: Apartment Are you a primary health care / medical job titles to a significant other at home: No Do you presently have visiting nurse or other home services: Yes Alcohol intake: never Patient Tobacco Use Status: Never used Tobacco e-Cigarette/Vaping Use: Never Used Second Hand Smoke Exposure: No Advance Directives Date on File: 09/11/20 service: No Current occupational status: disabled Cognitive needs: Yes (walker, power chair) Hearing needs: No Vision needs: Yes (glasses) Questionnaire Thrive Questionnaire Date Thrive assessed: 10/28/22 NAYELY-7 AMB Questionnaire NAYELY-7 Date NAYELY - 7 assessed: 10/28/22 Source: Developed by Drs. Stew Reynolds, Татьяна Barron, Biju Rodrigez and colleagues, with an educational saul from [employer]. Review of Systems Const Denies chills, Denies fatigue, Denies fever(s) and Denies poor appetite Eyes Denies no additional complaints ENT Reports Normal hearing present Card Denies chest pain, Denies syncope, Denies rapid heart rate and Denies dyspnea Resp Denies cough and Denies dyspnea GI Denies change in stool character, Denies constipation, Denies diarrhea, Denies nausea and Denies vomiting Denies urinary frequency, Denies dysuria and Denies urinary urgency Neuro Reports Normal hearing present, Denies confusion and Denies syncope Psych Denies confusion Endo Denies fatigue Physical exam (Primary Care) Vital Signs: Last Vital Signs Pulse 64 06/30/23 11:19 BP 110/60 06/30/23 11:19 Pulse Ox 94 06/30/23 11:19 Oxygen Delivery Method Room Air 06/30/23 11:19 BMI result Body Mass Index 34.8 Tobacco/Smoking Status: Tobacco use Status Tobacco use date assessed 06/30/23 06/30/23 11:26 Patient Tobacco Use Status Never used Tobacco 06/30/23 11:26 e-Cigarette/Vaping Use Never Used 06/30/23 11:26 Thrive Assessment: Date of Thrive Assessment Date Thrive assessed 10/28/22 06/30/23 11:26 Const General: No confusion Orientation/consciousness: No confusion HENMT Head: Yes normocephalic and Yes atraumatic Eyes Conjunctivae: conjunctivae normal Chest Chest palpation & inspection: normal inspection of the chest Resp Effort & Inspection: normal respiratory effort Auscultation: clear to auscultation bilaterally, no crackles, no rhonchi and no wheezes Cardio Rate: regular rate Rhythm: regular rhythm Heart sounds: S1 normal heart sound present and S2 normal heart sound present GI Inspection: Yes normal to inspection Neuro General: No confusion Cranial nerves: Yes Normal hearing present Extrem General: No edema Assessment and Plan Assessment & Plan (1) Fibromyalgia: Code(s): M79.7 - Fibromyalgia (2) Polyarthralgia: Code(s): M25.50 - Pain in unspecified joint Plan: Can continue to take Tylenol as needed for pain. Will send diclofenac cream to apply to various joints. Offer referral to pain management patient declines at this time. Plan Keep scheduled follow-up with PCP or follow-up sooner if needed. Medications: New diclofenac sodium 1% (Arthritis Pain (diclofenac)) apply to single elbow, wrist or hand; for hand includes palm/fingers/back of hand 2 grams topical QID 100 grams 0RF M17.9 - Osteoarthritis of knee, unspecified, M79.7 - Fibromyalgia Coding Level of Care Code Est Pt Level 3 (36588) Diagnoses Fibromyalgia M79.7 Polyarthralgia M25.50
[2023-06-30 11:19] VITALS: BP 110/60; PULSE 64; O2SAT 94; BMI 34.8
== END 2023-06-30 11:46 | disposition home or self-care (01) ==
PROVIDERS: PCP Internal Medicine; Visit Provider Nurse Practitioner Family
DX: M79.7 Fibromyalgia (principal); M25.50 Pain in unspecified joint
CPT/HCPCS: 99213

== ENCOUNTER 2023-10-05 09:05 | Outpatient (AMB) | payer OTHER, SELFPAY ==
--- NOTE | 2023-10-05 09:06 | A.OFFPC_ITS ---
Intake Visit Reasons: DM [phone] Intake Note: Telephone visit for DM follow up Senior Field Engineer Required: No Accompanied by: Self / Same As Patient Allergies nut - unspecified [nut] Allergy (Severe, Verified 10/05/23:) Anaphylaxis rosuvastatin Allergy (Severe, Verified 10/05/23:) Facial Swelling vancomycin [VANCOMYCIN] Allergy (Severe, Verified 10/05/23:) Itching VIRGINIA Inhibitors [VIRGINIA INHIBITORS] Allergy (Intermediate, Verified 10/05/23) Rash ciprofloxacin [From CIPRO] Allergy (Intermediate, Verified 10/05/23) Rash codeine [CODEINE] Allergy (Intermediate, Verified 10/05/23) Rash cyclobenzaprine [CYCLOBENZAPRINE] Allergy (Intermediate, Verified 10/05/23) Hives ferrous sulfate [FERROUS SULFATE] Allergy (Intermediate, Verified 10/05/23) Rash insulin lispro [Humalog U-100 Insulin] Allergy (Intermediate, Verified 10/05/23) Hives latex [LATEX] Allergy (Intermediate, Verified 10/05/23) Hives methylprednisolone [From MEDROL] Allergy (Intermediate, Verified 10/05/23) Rash penicillin V Allergy (Intermediate, Verified 10/05/23:) Hives tamsulosin [TAMSULOSIN] Allergy (Intermediate, Verified 10/05/23) Rash tramadol Allergy (Intermediate, Verified 10/05/23:) Itching insulin degludec [From Tresiba FlexTouch U-100] Allergy (Mild, Verified 10/05/23:) Hives pravastatin Allergy (Mild, Verified 10/05/23:) pruritus lactose [LACTOSE] Adverse Reaction (Intermediate, Verified 10/05/23:) Diarrhea Beef Containing Products Adverse Reaction (Mild, Verified 10/05/23:28) Stomach Upset Fish Containing Products Adverse Reaction (Mild, Verified 10/05/23:) Nausea and Vomiting Pork/Porcine Containing Products Adverse Reaction (Mild, Verified 10/05/23:) Stomach Upset FRUIT Adverse Reaction (Mild, Uncoded 10/05/23 09:28) NAUSEA & VOMITING VEGETABLES,FRESH Adverse Reaction (Mild, Uncoded 10/05/23 09:28) NAUSEA & VOMITING Medication List - Last Reconciled 10/05/23 by Joann Ferreira MD acetaminophen (Tylenol Extra Strength) 500 mg PO Q6H PRN albuterol sulfate 2.5 mg (3 mL) inhalation QID PRN 30 days albuterol sulfate 90 mcg/actuation (Ventolin HFA) 2 puffs inhalation Q4H PRN amlodipine 5 mg PO DAILY 90 days back brace As directed blood sugar diagnostic (FreeStyle Lite Strips) As directed three times a day blood-glucose meter (FreeStyle Lite Meter kit) As directed Breo Ellipta 200-25 mcg/dose (fluticasone furoate-vilanterol) 1 inh inhalation DAILY 30 days NS bupropion HCl 150 mg PO QAM cetirizine 10 mg PO DAILY PRN 90 days chlorthalidone 25 mg PO DAILY 90 days diclofenac sodium 1% (Arthritis Pain (diclofenac)) 2 grams topical QID dulaglutide (Trulicity) 1.5 mg (0.5 mL) subcut QWEEK 84 days ezetimibe 10 mg PO DAILY 90 days flash glucose scanning reader (CoreworxStyle Med 2 [place]) As directed flash glucose sensor (FreeStyle Med 2 Sensor kit) As directed every 2 weeks fluticasone propion-salmeterol 250-50 mcg/dose (Wixela Inhub) 1 ea PO BID insulin aspart U-100 (Novolog FlexPen U-100 Insulin aspart) 12 - 16 units (0.12 - 0.16 mL) subcut TID insulin glargine U-300 conc (Toujeo SoloStar U-300 Insulin) 85 units (0.2833 mL) subcut DAILY 30 days [juxtalite calf wrap bilateral As directed] lancets (FreeStyle Lancets) Three times a day metoprolol tartrate 50 mg PO BID 90 days [nebulizer tube and adapter As directed] pantoprazole 40 mg PO DAILY pen needle, diabetic As directed 4 x/day pen needle, diabetic (BD Ultra-Fine Debra Pen Needle) As directed [recliner lift chair As directed] valsartan 160 mg PO DAILY 30 days walker walker with seat Tobacco use date assessed: 10/05/23 Fall risk assessment: No Falls in past year Last assessed Fall Risk: 10/05/23 Dental Screening Dental Screen Date: 10/05/23 Did you have a dental visit in the last 12 months?: Yes Did you have a dental problem in the last 6 months where you did not have access to dental care?: No Was dental information given to patient?: Patient has dentist HPI HPI Comments History of Present Illness Details This is a 68-year-old female with diabetes mellitus type 2 on long-term current use of insulin, hypertension, hyperlipidemia and severe major depression that has tele health visit by phone complaining of left knee pain that has been bothering her for the past month. I will order an x-ray and refer to ortho. Labs will be order to check A1c. Was advised to take her blood pressure at home. Lipid panel will be order and her LDL goal should be less than 70. Depression stable with medications. She has chronic kidney disease stage 4 with last GFR 21 and is follow by Nephrology. Aware that has to avoid NSAIDs. [facility] Medical History (Updated 10/05/23 @ 11:48 by Joann Ferreira MD) Medicare annual wellness visit, initial Severe recurrent major depression Postmenopausal CKD (chronic kidney disease) stage 4, GFR 15-29 ml/min Type 2 diabetes mellitus with chronic kidney disease Obesity due to excess calories DM2 (diabetes mellitus, type 2) CKD (chronic kidney disease) Epicondylitis, lateral (tennis elbow) Dyslipidemia Leg edema Pain in both lower legs Calcaneal spur of both feet Acute kidney injury Irregular heart beat Depression Hypercholesteremia Diabetes Essential hypertension Surgical History Hx of vascular surgery History of extraction of renal calculus History of hysterectomy Family History Father Diabetes Mother Diabetes Sister Breast cancer Brother No problems noted. Sister No problems noted. Social History Household Members: Significant Other Housing: Apartment Are you a primary healthcare consultant to a significant other at home: No Do you presently have visiting nurse or other home services: Yes Alcohol intake: never Patient Tobacco Use Status: Never used Tobacco e-Cigarette/Vaping Use: Never Used Second Hand Smoke Exposure: No Advance Directives Date on File: 09/11/20 service: No Current occupational status: disabled Cognitive needs: Yes (walker, power chair) Hearing needs: No Vision needs: Yes (glasses) Questionnaire PHQ-9 Over the last 2 weeks, how often have you been bothered by any of the following problems? 1. Little interest or pleasure in doing things: nearly every day 2. Feeling down, depressed, or hopeless: nearly every day 3. Trouble falling or staying asleep, or sleeping too much: nearly every day 4. Feeling tired or having little energy: several days 5. Poor appetite or overeating: several days 6. Feeling bad about yourself - or that you are a failure or have let yourself or your family down: more than half the days 7. Trouble concentrating on things, such as reading the newspaper or watching television: not at all 8. Moving or speaking so slowly that other people could have noticed. Or the opposite - being so fidgety or restless that you have been moving around a lot more than usual: not at all 9. Thoughts that you would be better off or of hurting yourself in some way: not at all Total score: 13 Depression Screening Interpretation: Positive Depression Screening Follow-up: Existing condition and In treatment Depression Screening Done: Yes 45721 - PHQ-9 Billing: Yes Source: Developed by Drs. Stew Reynolds, Татьяна Barron, Biju Rodrigez and colleagues, with an educational saul from [employer]. Thrive Questionnaire Date Thrive assessed: 10/05/23 I am a: Patient What is your living situation today?: I have a steady place to live Within the past 12 months, did the food you bought not last and you didn't have the money to get more?: Never true Within the past 12 months, did you worry whether your food would run out before you got money to buy more?: Never true Do you have trouble paying for medicines?: No Do you have trouble getting transportation to medical appointments?: No Do you have trouble paying your heating and electricity bill?: No Do you have trouble taking care of your child, family member or friend?: No Do you have trouble with day-to-day activities such as bathing, preparing meals, shopping, managing finances, etc.?: No Are you currently unemployed and looking for a job?: No Are you interested in more education?: No Please select the resources that you would like help with: None AUDIT C Alcohol Use Questionnaire (AUDIT-C) 1. How often do you have a drink containing alcohol?: Never Total Score: 0 NAYELY-7 AMB Questionnaire NAYELY-7 Date NAYELY - 7 assessed: 10/05/23 Feeling nervous, anxious, or on edge: 2 = More than half the days Not being able to stop or control worryin = Not at all Worrying too much about different things: 1 = Several days Trouble relaxin = Not at all Being so restless that it is hard to sit still: 0 = Not at all Becoming easily annoyed or irritable: 1 = Several days Feeling afraid as if something awful might happen: 0 = Not at all Total NAYELY-7 score (0-4 normal; 5-9 mild; 10-14 moderate; 15-21 severe): 4 Source: Developed by Drs. Stew Reynolds, Татьяна Barron, Biju Rodrigez and colleagues, with an educational saul from [employer]. NAYELY-7 Assessment Billing NAYELY-7 Assessment Tool: NAYELY-7 Assessment 57128 Review of Systems Const All systems reviewed & are unremarkable except as noted in HPI and below Eyes Reports no additional complaints, Denies change in vision and Denies other visual disturbances ENT Denies change in voice, Denies nasal discharge and Denies sinus pain Card Denies chest pain at rest, Denies chest pain with activity, Denies edema, Denies irregular heart rhythm, Denies claudication, Denies dyspnea, Denies dyspnea on exertion, Denies orthopnea, Denies paroxysmal nocturnal dyspnea and Denies slow heart rate Resp Denies cough, Denies dyspnea and Denies dyspnea on exertion GI Denies abdominal pain, Denies change in bowel habits, Denies excessive flatus, Denies nausea and Denies vomiting Denies urinary incontinence, Denies urinary hesitancy and Denies urinary urgency Musc Denies abnormal gait, Denies atrophy, Denies deformity, Reports arthralgias and Denies limited range of motion Skin/Breast Denies bleeding lesions, Denies changing lesions and Denies rash Neuro Denies abnormal gait and Denies lack of coordination Physical exam (Primary Care) Tobacco/Smoking Status: Tobacco use Status Tobacco use date assessed 10/05/23 10/05/23 09:11 Patient Tobacco Use Status Never used Tobacco 10/05/23 09:11 e-Cigarette/Vaping Use Never Used 10/05/23 09:11 PHQ-9: PHQ-9 Score PHQ-9: Total score 13 10/05/23 09:34 Depression Screening Interpretation: Positive Depression Screening Follow-up: Existing condition and In treatment Thrive Assessment: Date of Thrive Assessment Date Thrive assessed 10/05/23 10/05/23 09:11 Office Procedures Flu Questionnaire Does the patient have a severe egg allergy?: No Immunizations flu vacc [id number] 6mos up(PF) 60 mcg(15 mcgx4)/0.5 mL IM syringe Performing Provider: Joann Ferreira MD [facility] Documented (not given) by: AMANDA Dumont on 10/05/23 09:12 Reason Not Given: Patient Refused Telehealth Telehealth Location of provider rendering services: practice address Location of patient: address on file Patient Identification confirmed using: Name, : Yes Telehealth method: voice only Patient verbally consented to treatment: Yes Patient verbally consented to billing insurance company: Yes Patient informed of any privacy concerns related to visit: Yes Minutes spent on Phone/Video with Pt.: 15 Assessment and Plan Assessment & Plan (1) Severe recurrent major depression: Code(s): F33.2 - Major depressive disorder, recurrent severe without psychotic features Qualifiers: Psychotic features: without psychotic features Qualified Code(s): F33.2 - Major depressive disorder, recurrent severe without psychotic features Plan: Continue bupropion. (2) DM2 (diabetes mellitus, type 2): Code(s): E11.9 - Type 2 diabetes mellitus without complications Qualifiers: Diabetes mellitus penitentiary insulin use: without intermediate accountant use Diabetes mellitus complication status: with hyperglycemia Qualified Code(s): E11.65 - Type 2 diabetes mellitus with hyperglycemia Plan: Continue insulin. A1c goal is equal or less than 7%. (3) Essential hypertension: Code(s): I10 - Essential (primary) hypertension Plan: Continue chlorthalidone. Blood pressure goal is equal or less than 130/80. (4) Left knee pain: Code(s): M25.562 - Pain in left knee Qualifiers: Chronicity: chronic Qualified Code(s): M25.562 - Pain in left knee; G89.29 - Other chronic pain Plan: X-ray ordered. Referred to Ortho. (5) Hyperlipidemia LDL goal <70: Code(s): E78.5 - Hyperlipidemia, unspecified Plan: Continue statins. LDL goal is less than 70. (6) CKD (chronic kidney disease) stage 4, GFR 15-29 ml/min: Code(s): N18.4 - Chronic kidney disease, stage 4 (severe) Plan: Avoid NSAIDs. Follow-up with nephrology. Orders: Orders Vitamin D 25-OH Total Today E55.9 - Vitamin D deficiency, unspecified Influenza [id number] Immunization Today Z23 - Encounter for immunization XR knee LT 2V Today M25.562 - Pain in left knee Lipid Panel Today E78.5 - Hyperlipidemia, unspecified Microalbumin, Random (w Creat) Today E11.9 - Type 2 diabetes mellitus without complications Comprehensive [place]. Panel Fast Today E78.5 - Hyperlipidemia, unspecified Referrals Orthopedics Referral M25.562 - Pain in left knee Medications: New pen needle, diabetic (Comfort EZ Pen [place]) Use 1 pen needle four times a day 100 ea 6RF E11.9 - Type 2 diabetes mellitus without complications Coding Level of Care Code Tele Est Pt Level 4 (02180) Diagnoses Severe episode of recurrent major depressive disorder, without psychotic features F33.2 Psychotic features: without psychotic features Type 2 diabetes mellitus with hyperglycemia, without long-term current use of insulin E11.65 Diabetes mellitus penitentiary insulin use: without intermediate accountant use Diabetes mellitus complication status: with hyperglycemia Essential hypertension I10 Chronic pain of left knee M25.562; G89.29 Chronicity: chronic Hyperlipidemia LDL goal <70 E78.5 CKD (chronic kidney disease) stage 4, GFR 15-29 ml/min N18.4 Additional Codes NAYELY-7 Assessment Billing - NAYELY-7 Assessment Tool: NAYELY-7 Assessment 15901 ([id number]) Time Spent (min) 15
== END 2023-10-05 09:43 | disposition home or self-care (01) ==
LOC: HO.HMGH 09:05
PROVIDERS: PCP Internal Medicine; Visit Provider Internal Medicine
DX: E11.65 Type 2 diabetes mellitus with hyperglycemia (principal); I12.9 Hypertensive chronic kidney disease with stage 1 through stage 4 chronic kidney disease, or unspecified chronic kidney disease; N18.4 Chronic kidney disease, stage 4 (severe); F33.2 Major depressive disorder, recurrent severe without psychotic features
CPT/HCPCS: 99442

== ENCOUNTER 2023-11-11 07:52 | Outpatient (REF) | payer OTHER, SELFPAY ==
--- NOTE | ~2023-11-11 | XR_ITS ---
EXAMINATION: XR KNEE, LEFT CLINICAL INFORMATION: Pain. COMPARISON: Radiographs dated 04/22/2019. TECHNIQUE: AP and lateral views of the left knee. FINDINGS: No fracture or joint effusion. Alignment is anatomic. Joint spaces are maintained. There are atherosclerotic calcifications. XR/XR knee LT 2V IMPRESSION: Normal left knee.
--- NOTE | ~2023-11-11 | XR_ITS ---
EXAMINATION: XR ANKLE, LEFT CLINICAL INFORMATION: Pain. COMPARISON: Left foot radiographs dated 09/11/2020. TECHNIQUE: AP, lateral, and mortise views of the left ankle. FINDINGS: There is bony demineralization. The ankle mortise is intact. No fracture or dislocation is seen. There is a left ankle joint effusion. Boehler's angle is normal. There are moderate posterior and plantar calcaneal spurs. There are degenerative changes of the dorsal midfoot. There is mild lateral soft tissue swelling. XR/XR ankle LT min 3V IMPRESSION: 1. No fracture or dislocation is seen. 2. There is a small left ankle joint effusion. 3. There are calcaneal spurs. 4. There is mild soft tissue swelling adjacent to the lateral malleolus.
[2023-11-11 08:07] LABS: MANUAL DIFF FLAG NO
[2023-11-11 08:46] LABS: Basophils Absolute Auto 0.1 X10*3/uL (0.0-0.2); Basophils Percent Auto 0.6 % (0-2); Eosinophils Absolute Auto 0.3 X10*3/uL (0.0-0.4); Eosinophils Percent Auto 3.1 % (0-4); Hematocrit 34.5 % (37.0-47.0); Hemoglobin 11.2 g/dl (12.0-16.0); Imm Gran Pct Auto 1.2 % (0.0-0.4); Lymphocytes Absolute Auto 2.7 X10*3/uL (1.2-4.9); Lymphocytes Percent Auto 31.6 % (20-40); Mean Corpuscular HGB Conc 32.5 g/dl (31.0-35.0); Mean Corpuscular Hemoglobin 28.7 pg (27.0-33.0); Mean Corpuscular Volume 88.5 fL (80.0-98.0); Mean Platelet Volume 9.9 fL (9.4-12.3); Monocytes Absolute Auto 0.5 X10*3/uL (0.1-1.2); Monocytes Percent Auto 5.7 % (2-11); Neutrophils Percent Auto 57.8 % (45-73); Platelet Count 275 X10*3/uL (160-400); Red Cell Distribution Width 14.4 % (11.0-16.0); White Blood Count 8.6 X10*3/uL (4.8-10.8)
[2023-11-11 09:17] LABS: Alanine Aminotransferase 9 U/L (0-31); Alkaline Phosphatase 110 U/L (39-117); Anion Gap 12 (12-20); Aspartate Amino Transferase 11 U/L (5-31); Bilirubin Total 0.5 mg/dL (0.0-1.0); Blood Urea Nitrogen 26 mg/dL (9-16); Carbon Dioxide 24 mmol/L (22-29); Chloride 109 mmol/L (96-108); Cholesterol 197 mg/dL (<200); Estimated Glomerular Filt Rate 27; Glucose Fasting 123 mg/dL (60-99); HDL Cholesterol 45 mg/dL (>40); Iron 50 mcg/dL (30-160); LDL Cholesterol Calculated 121 mg/dL (<100); Percent Iron Saturation 21 % (15-50); Potassium 4.3 mmol/L (3.3-5.1); Sodium 141 mmol/L (135-145); Total Iron Binding Capacity 238 mcg/dL (228-428); Triglycerides 158 mg/dL (<150); Unsaturated Iron Binding 188 ug/dL
[2023-11-11 09:18] LABS: Creatinine Urine 68.08 mg/dL; Microalbum/Creatinine Ratio Ur 111.6 ug/mg cr (<30)
[2023-11-11 09:34] LABS: Vitamin D 25-OH Total 41.3 ng/mL (>30)
[2023-11-11 09:52] LABS: Folate 6.6 ng/mL (> or = 4.0); Vitamin B12 626 pg/mL (200-900)
== END 2023-11-11 07:53 | disposition home or self-care (01) ==
LOC: HO.XRAY 07:52
PROVIDERS: PCP Internal Medicine; Visit Provider Internal Medicine
DX: E11.22 Type 2 diabetes mellitus with diabetic chronic kidney disease (principal); N18.4 Chronic kidney disease, stage 4 (severe); E53.8 Deficiency of other specified B group vitamins; E78.5 Hyperlipidemia, unspecified; D63.1 Anemia in chronic kidney disease; E55.9 Vitamin D deficiency, unspecified; M25.562 Pain in left knee; M25.572 Pain in left ankle and joints of left foot; Z79.4 Long term (current) use of insulin
CPT/HCPCS: 36415; 73560; 73610; 80053; 80061; 82043; 82306; 82570; 82607; 82746; 83540; 85025

== ENCOUNTER 2023-12-16 22:08 | Emergency (ER) | payer OTHER, SELFPAY ==
--- NOTE | ~2023-12-16 | CT_ITS ---
EXAMINATION: CT head/brain wo IV con CLINICAL INFORMATION: Reason for Exam headache COMPARISON: None. TECHNIQUE: Contiguous axial imaging was performed from the skull base to vertex without intravenous contrast. Sagittal and coronal reformatted images were obtained. This CT examination was performed using dose optimization techniques as appropriate, variously including the following: * Automated exposure control * Adjustment of mA and/or kV according to patient size (this includes techniques or standardized protocols for targeted exams where dose is matched to indication/reason for exam; i.e. extremities or head) Use of iterative reconstruction technique DLP: 582.08 mGy-cm FINDINGS: No acute osseous or soft tissue abnormality. The mastoid air cells and visualized portions of the paranasal sinuses are well aerated. There is no evidence of acute intracranial hemorrhage or territorial infarction. No abnormal mass effect or midline shift is seen. Chapman to white matter differentiation is well preserved. No extra-axial fluid collections are identified. No hydrocephalus. Proportional prominence of the ventricles and sulcal spaces is consistent with mild volume loss. Patchy periventricular and deep white matter hypoattenuation is consistent with mild small vessel ischemic changes. CT/CT head/brain wo IV con IMPRESSION: No acute intracranial abnormality including hemorrhage, mass effect, hydrocephalus, or acute territorial edematous infarction.
[2023-12-16 22:16] VITALS: BP 162/88; PULSE 77; O2SAT 98; BMI 33.3
[2023-12-16 22:19] VITALS: BP 137/52; PULSE 73; RESP 18; TEMP 36.8; O2SAT 98
--- NOTE | 2023-12-16 22:37 | ECG_ITS ---
Test Reason : PAIN Blood Pressure : / mmHG Vent. Rate : 072 BPM Atrial Rate : 072 BPM P-R Int : 260 ms QRS Dur : 086 ms QT Int : 426 ms P-R-T Axes : 037 058 -09 degrees QTc Int : 466 ms Sinus rhythm with 1st degree A-V block Low voltage QRS Nonspecific ST abnormality Abnormal QRS-T angle, consider primary T wave abnormality Abnormal ECG When compared with ECG of 20-NOV-2022 10:55, No significant change was found Referred By: David De Electronically Signed By:Johnathon Perez
[2023-12-16 23:04] LABS: Basophils Percent Auto 0.4 % (0-2); Eosinophils Absolute Auto 0.2 X10*3/uL (0.0-0.4); Eosinophils Percent Auto 2.6 % (0-4); Hematocrit 32.1 % (37.0-47.0); Hemoglobin 10.6 g/dl (12.0-16.0); Imm Gran Abs Auto 0.03 X10*3/uL (0.00-0.03); Imm Gran Pct Auto 0.4 % (0.0-0.4); Lymphocytes Absolute Auto 2.4 X10*3/uL (1.2-4.9); Lymphocytes Percent Auto 29.8 % (20-40); MANUAL DIFF FLAG NO; Mean Corpuscular Hemoglobin 28.7 pg (27.0-33.0); Mean Platelet Volume 9.8 fL (9.4-12.3); Monocytes Absolute Auto 0.6 X10*3/uL (0.1-1.2); Monocytes Percent Auto 7.1 % (2-11); Neutrophils Absolute Auto 4.8 x10*3/uL (2.0-8.3); Neutrophils Percent Auto 59.7 % (45-73); Platelet Count 197 X10*3/uL (160-400); Red Blood Count 3.69 X10*6/uL (4.20-5.50); Red Cell Distribution Width 13.6 % (11.0-16.0)
--- NOTE | 2023-12-16 23:13 | ED.GENADULT ---
HPI - General Adult General Chief complaint: General Medical Stated complaint: HTN,pt took valsartan 30 mins prior to ems arrival Time Seen by Provider: 12/16/23 22:17 Source: patient, RN notes reviewed and old records reviewed Mode of arrival: EMS Limitations: no limitations History of Present Illness HPI narrative: 68-year-old female presents for evaluation of ?my blood pressure was high. ? Patient has a history of kidney disease, diabetes, hypertension. She states ?I had a headache and felt off so I took my blood pressure and it was ?220/140. She took her valsartan and called EMS. EMS found her blood pressure be 182/94 On arrival to the ED, the patient's blood pressure is 137/52 Patient reports that she currently experiences a dull, 3-10 posterior headache She denies any other symptoms at this time Related Data Previous Rx's Medication Instructions Recorded blood-glucose meter (FreeStyle #1 ea 08/20/21 Lite Meter kit) cetirizine 10 mg tablet 10 mg PO DAILY PRN Allergy 11/12/21 Symptoms 90 days #90 tabs flash glucose scanning reader #1 ea 11/29/21 (FreeStyle Med 2 Wellman) lancets 28 gauge (FreeStyle #100 ea 12/02/21 Lancets) walker #1 ea 03/03/22 flash glucose sensor (FreeStyle #2 ea 05/15/22 Med 2 Sensor kit) acetaminophen 500 mg tablet 500 mg PO Q6H PRN fever or pain 07/07/22 (Tylenol Extra Strength) #14 tabs juxtalite calf wrap bilateral #2 ea 08/12/22 back brace #1 ea 10/08/22 nebulizer tube and adapter #1 ea 11/27/22 recliner lift chair #1 ea 01/07/23 albuterol sulfate 2.5 mg/3 mL 2.5 mg (3 mL) inhalation QID PRN 05/18/23 (0.083 %) solution for nebulization shortness of breath or wheezing 30 days #75 mL diclofenac sodium 1 % topical gel 2 g topical QID #100 grams 06/30/23 (Arthritis Pain (diclofenac)) albuterol sulfate 90 mcg/actuation 2 puff inhalation Q4H PRN for 07/15/23 aerosol inhaler (Ventolin HFA) muscle spasm #18 ea Breo Ellipta 200 mcg-25 mcg/dose 1 inh inhalation DAILY 30 days #1 08/26/23 powder for inhalation (fluticasone ea furoate-vilanterol) metoprolol tartrate 50 mg tablet 50 mg PO BID 90 days #180 tabs 08/26/23 chlorthalidone 25 mg tablet 25 mg PO DAILY 90 days #90 tabs 09/30/23 pen needle, diabetic 31 gauge x #150 ea 09/30/2302/03 pen needle, diabetic 31 gauge x #100 ea 10/05/2302/03 (Comfort EZ Pen [place]) bupropion HCl 150 mg 24 hr tablet, 150 mg PO QAM #90 tabs 10/21/23 extended release fluticasone 250 mcg-salmeterol 50 1 ea PO BID #60 ea 10/21/23 mcg/dose blistr powdr for inhalation (Wixela Inhub) insulin aspart U-100 100 unit/mL 12 - 16 unit (0.12 - 0.16 mL) 10/21/23 (3 mL) subcutaneous pen (Novolog subcut TID #15 mL FlexPen U-100 Insulin aspart) insulin glargine U-300 conc 300 85 unit (0.2833 mL) subcut DAILY 10/21/23 unit/mL (1.5 mL) subcutaneous pen 30 days #8.499 mL (Toujeo SoloStar U-300 Insulin) dulaglutide 1.5 mg/0.5 mL 1.5 mg (0.5 mL) subcut QWEEK 84 11/06/23 subcutaneous pen injector days #6 mL (Trulicity) valsartan 320 mg tablet 320 mg PO DAILY 90 days #90 tabs 11/20/23 ezetimibe 10 mg tablet 10 mg PO DAILY 90 days #90 tabs 11/24/23 pantoprazole 40 mg tablet,delayed 40 mg PO DAILY #90 tabs 12/11/23 release blood sugar diagnostic (FreeStyle #100 ea 12/14/23 Lite Strips) tirzepatide 2.5 mg/0.5 mL 5 mg subcut QWEEK 4 weeks #4 mL 12/14/23 subcutaneous pen injector (Andrey) Allergies Allergy/AdvReac Type Severity Reaction Status Date / Time nut - unspecified [nut] Allergy Severe Anaphylaxis Verified 10/05/23 09:28 rosuvastatin Allergy Severe Facial Verified 10/05/23 09:28 Swelling vancomycin [VANCOMYCIN] Allergy Severe Itching Verified 10/05/23 09:28 [place] Inhibitors Allergy Intermediate Rash Verified 10/05/23 09:28 [[place] INHIBITORS] ciprofloxacin [From CIPRO] Allergy Intermediate Rash Verified 10/05/23 09:28 codeine [CODEINE] Allergy Intermediate Rash Verified 10/05/23 09:28 cyclobenzaprine Allergy Intermediate Hives Verified 10/05/23 09:28 [CYCLOBENZAPRINE] ferrous sulfate Allergy Intermediate Rash Verified 10/05/23 09:28 [FERROUS SULFATE] insulin lispro Allergy Intermediate Hives Verified 10/05/23 09:28 [Humalog U-100 Insulin] latex [LATEX] Allergy Intermediate Hives Verified 10/05/23 09:28 methylprednisolone Allergy Intermediate Rash Verified 10/05/23 09:28 [From MEDROL] penicillin V Allergy Intermediate Hives Verified 10/05/23 09:28 tamsulosin [TAMSULOSIN] Allergy Intermediate Rash Verified 10/05/23 09:28 tramadol Allergy Intermediate Itching Verified 10/05/23 09:28 insulin degludec Allergy Mild Hives Verified 10/05/23 09:28 [From Tresiba FlexTouch U-100] pravastatin Allergy Mild pruritus Verified 10/05/23 09:28 lactose [LACTOSE] AdvReac Intermediate Diarrhea Verified 10/05/23 09:28 Beef Containing Products AdvReac Mild Stomach Verified 10/05/23 09:28 Upset Fish Containing Products AdvReac Mild Nausea and Verified 10/05/23 09:28 Vomiting Pork/Porcine Containing AdvReac Mild Stomach Verified 10/05/23 09:28 Products Upset FRUIT AdvReac Mild NAUSEA & Uncoded 10/05/23 09:28 VOMITING VEGETABLES,FRESH AdvReac Mild NAUSEA & Uncoded 10/05/23 09:28 VOMITING Review of Systems Constitutional: Constitutional: Denies chills, Denies fever(s) and Reports headache(s) Eyes: Eyes: Denies blurry vision ENT: Reports headache(s) Cardiovascular: Cardiovascular: Denies chest pain and Denies dyspnea Respiratory: Respiratory: Denies cough and Denies dyspnea Gastrointestinal: Gastrointestinal: Denies abdominal pain, Denies nausea and Denies vomiting Musculoskeletal: Musculoskeletal: Denies back pain Integumentary/Breasts: Skin/Breast: Denies rash Neurologic: Reports headache(s) PMFSH Past Medical History Medical History Acute kidney injury Calcaneal spur of both feet CKD (chronic kidney disease) CKD (chronic kidney disease) stage 4, GFR 15-29 ml/min Depression Diabetes DM2 (diabetes mellitus, type 2) Dyslipidemia Epicondylitis, lateral (tennis elbow) Essential hypertension Hypercholesteremia Irregular heart beat Leg edema Medicare annual wellness visit, initial Obesity due to excess calories Pain in both lower legs Postmenopausal 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 Sister No problems noted. Social History Social History Household Members: Significant Other Housing: Apartment Are you a primary pharmacist critical care to a significant other at home: No Do you presently have visiting nurse or other home services: Yes Alcohol intake: never Patient Tobacco Use Status: Never used Tobacco Smoked in Last 30 Days: No e-Cigarette/Vaping Use: Never Used Second Hand Smoke Exposure: No Use of substances other than those prescribed or required for medical reasons: No Advance Directives: Yes Advance Directives Information Provided: Yes Advance Directives on File: No Advance Directives Date on File: 09/11/20 service: No Current occupational status: disabled Cognitive needs: Yes (walker, power chair) Hearing needs: No Vision needs: Yes (glasses) Physical Exam ED Vital Signs: Vital Signs - 24 hr 12/16/23 22:19 12/17/23 00:04 Temperature 98.2 F 98.2 F Pulse Rate 73 76 Respiratory Rate 18 16 Blood Pressure 137/52 L 123/53 L Pulse Oximetry 98 99 Oxygen Delivery Method Room Air Room Air BMI result Body Mass Index 33.3 Const General: healthy appearing, comfortable, no acute distress, alert and awake Nutritional Appearance: well nourished Orientation/consciousness: patient oriented x3 HENMT Head: Yes normocephalic and Yes atraumatic Throat: Yes posterior oropharynx normal Eyes Eyelids: Yes eyelids normal Conjunctivae: conjunctivae normal Sclerae: sclerae normal Corneas: corneas normal Pupils: Equal, round and reactive pupils present EOM: EOMs intact bilaterally Neck Neck: Yes full ROM Resp Effort & Inspection: normal respiratory effort, able to speak in complete sentences, no audible wheezes and not labored Auscultation: clear to auscultation bilaterally Cardio Rate: regular rate Rhythm: regular rhythm GI Inspection: No distended Palpation (GI): Soft to palpation, not firm, nontender, no guarding and not rigid Skin Other: Left upper extremity fistula General skin exam: no rashes or lesions noted and elasticity normal Neuro General: patient oriented x3 Cranial nerves: Yes CN's II-XII intact bilaterally, Yes Equal, round and reactive pupils present and Yes Bilaterally intact EOM present Cognition (Neuro): normal cognition Extrem Other: Moving all extremities well without any obvious deformities Medical Decision Making Medical Decision Making MDM Narrative: 68-year-old female presents for evaluation of high blood pressure, on arrival to the ED her blood pressure is 137/52. She still complains of a headache. She denies any chest pain. Plan for basic labs, EKG and a CT scan of the brain. Will follow her blood pressure closely. Her symptoms may be related to anxiety. She has a left upper extremity fistula that was placed 2 years ago but she is not on dialysis and this has not yet been used Differential Diagnosis Differential Diagnoses: The differential diagnosis associated with the presentation includes Hypertension Acute headache Anxiety Tension headache Cluster headache Lab Data 12/16/23 22:56 12/16/23 22:56 Labs: Lab Results 12/16/23 Range/Units 22:56 WBC 8.0 (4.8-10.8) X10*3/uL RBC 3.69 L (4.20-5.50) X10*6/uL Hgb 10.6 L (12.0-16.0) g/dl Hct 32.1 L (37.0-47.0) % MCV 87.0 (80.0-98.0) fL MCH 28.7 (27.0-33.0) pg MCHC 33.0 (31.0-35.0) g/dl RDW 13.6 (11.0-16.0) % Plt Count 197 D (160-400) X10*3/uL MPV 9.8 (9.4-12.3) fL Immature Gran % (Auto) 0.4 (0.0-0.4) % Neut % (Auto) 59.7 (45-73) % Lymph % (Auto) 29.8 (20-40) % [place] % (Auto) 7.1 (2-11) % Eos % (Auto) 2.6 (0-4) % Baso % (Auto) 0.4 (0-2) % Lymph # (Auto) 2.4 (1.2-4.9) X10*3/uL [place] # (Auto) 0.6 (0.1-1.2) X10*3/uL Eos # (Auto) 0.2 (0.0-0.4) X10*3/uL Baso # (Auto) 0.0 (0.0-0.2) X10*3/uL Abs Immat Gran (auto) 0.03 (0.00-0.03) X10*3/uL Absolute Neuts (auto) 4.8 (2.0-8.3) x10*3/uL Absolute Nucleated RBC 0.000 (0.0-0.012) X10*3/uL Nucleated RBC % (auto) 0.0 (0.0-0.2) /100WBC Sodium 138 (135-145) mmol/L Potassium 3.8 (3.3-5.1) mmol/L Chloride 110 H (96-108) mmol/L Carbon Dioxide 21 L (22-29) mmol/L Anion Gap 11 L (12-20) BUN 43 H (9-16) mg/dL Creatinine 2.10 H (0.5-1.4) mg/dL Estim Creat Clear Calc 27.9 Estimated GFR 23 Random Glucose 190 H (60-115) mg/dL Calcium 9.7 (8.4-10.2) mg/dL Total Bilirubin 0.3 (0.0-1.0) mg/dL AST 10 (5-31) U/L ALT 8 (0-31) U/L Alkaline Phosphatase 117 (39-117) U/L Troponin I High Sens < 2.7 (<3.5-17.0) ng/L Total Protein 7.4 (6.5-8.0) g/dL Albumin 3.8 (3.5-5.0) g/dL Lipase 40 (8-78) U/L Discharge Plan Discharge Clinical Impression: Hypertension, Headache Patient Disposition: Home, Self-Care Instructions: Acute Headache (ED), Chronic Hypertension (ED) Additional Instructions: Your workup in the ER today was reassuring. Your blood pressure improved with your home medication. Follow-up with your primary doctor Return for new or worsening symptoms Prescriptions: No Action cetirizine 10 mg tablet 10 mg PO DAILY PRN (Reason: Allergy Symptoms) 90 Days Qty: 90 1RF (DME) lancets [FreeStyle Lancets] 28 gauge misc See Rx Instructions .ROUTE .MEDSUPPLY Qty: 100 11RF Rx Instructions: Three times a day (DME) walker Misc See Rx Instructions .Route Qty: 1 0RF Rx Instructions: walker with seat (DME) FreeStyle Med 2 Sensor Kit See Rx Instructions .ROUTE .MEDSUPPLY Qty: 2 11RF Rx Instructions: As directed every 2 weeks (DME) juxtalite calf wrap bilateral 30 mmHg See Rx Instructions .Route .MEDSUPPLY Qty: 2 0RF Rx Instructions: As directed (DME) back brace Misc See Rx Instructions .Route Qty: 1 0RF Rx Instructions: As directed (DME) nebulizer tube and adapter See Rx Instructions .Route .MEDSUPPLY Qty: 1 0RF Rx Instructions: As directed (DME) recliner lift chair See Rx Instructions .Route .MEDSUPPLY Qty: 1 0RF Rx Instructions: As directed albuterol sulfate 2.5 mg /3 mL (0.083 %) solution for nebulization 2.5 mg inhalation QID PRN (Reason: shortness of breath or wheezing) 30 Days Qty: 75 1RF albuterol sulfate [Ventolin HFA] 90 mcg/actuation HFA aerosol inhaler 2 puff inhalation Q4H PRN (Reason: for muscle spasm) Qty: 18 3RF metoprolol tartrate 50 mg tablet 50 mg PO BID 90 Days Qty: 180 1RF fluticasone furoate-vilanterol [Breo Ellipta] 200-25 mcg/dose blister with device 1 inh inhalation DAILY 30 Days Qty: 1 6RF chlorthalidone 25 mg tablet 25 mg PO DAILY 90 Days Qty: 90 3RF (DME) pen needle, diabetic 31 gauge x 5/16 needle See Rx Instructions .Route Qty: 150 11RF Rx Instructions: As directed 4 x/day fluticasone propion-salmeterol [Wixela Inhub] 250-50 mcg/dose blister with device 1 ea PO BID Qty: 60 3RF insulin aspart U-100 [Novolog FlexPen U-100 Insulin] 100 unit/mL (3 mL) insulin pen 12 - 16 unit subcut TID Qty: 15 6RF Rx Instructions: 12 units before meals, 14 units for bg over 200 and 16 u for bg over 300 bupropion HCl 150 mg tablet extended release 24 hr 150 mg PO QAM Qty: 90 1RF Toujeo SoloStar U-300 Insulin 300 unit/mL (1.5 mL) insulin pen 85 unit subcut DAILY 30 Days Qty: 8.499 5RF Trulicity 1.5 mg/0.5 mL pen injector 1.5 mg subcut QWEEK 84 Days Qty: 6 2RF valsartan 320 mg tablet 320 mg PO DAILY 90 Days Qty: 90 1RF ezetimibe 10 mg tablet 10 mg PO DAILY 90 Days Qty: 90 0RF pantoprazole 40 mg tablet,delayed release (DR/EC) 40 mg PO DAILY Qty: 90 1RF (DME) FreeStyle Lite Strips Strip See Rx Instructions .ROUTE .MEDSUPPLY Qty: 100 11RF Rx Instructions: As directed three times a day Mounjaro 2.5 mg/0.5 mL pen injector 5 mg subcut QWEEK 28 Days Qty: 4 0RF acetaminophen [Tylenol Extra Strength] 500 mg tablet 500 mg PO Q6H PRN (Reason: fever or pain) Qty: 14 0RF (DME) pen needle, diabetic [Comfort EZ Pen [place]] 31 gauge x 5/16 needle See Rx Instructions .Route Qty: 100 6RF Rx Instructions: Use 1 pen needle four times a day diclofenac sodium [Arthritis Pain (diclofenac)] 1 % gel 2 g topical QID Qty: 100 0RF Rx Instructions: apply to single elbow, wrist or hand; for hand includes palm/fingers/back of hand (DME) blood-glucose meter [FreeStyle Lite Meter] Kit See Rx Instructions .ROUTE .MEDSUPPLY Qty: 1 0RF Rx Instructions: As directed (DME) FreeStyle Med 2 Wellman Misc See Rx Instructions .ROUTE .MEDSUPPLY Qty: 1 0RF Rx Instructions: As directed
[2023-12-16 23:19] LABS: Alanine Aminotransferase 8 U/L (0-31); Albumin Level 3.8 g/dL (3.5-5.0); Alkaline Phosphatase 117 U/L (39-117); Anion Gap 11 (12-20); Aspartate Amino Transferase 10 U/L (5-31); Bilirubin Total 0.3 mg/dL (0.0-1.0); Blood Urea Nitrogen 43 mg/dL (9-16); Calcium 9.7 mg/dL (8.4-10.2); Carbon Dioxide 21 mmol/L (22-29); Chloride 110 mmol/L (96-108); Creatinine Clr Calc Pharmacy 27.9; Estimated Glomerular Filt Rate 23; Glucose Random 190 mg/dL (60-115); Lipase 40 U/L (8-78); Potassium 3.8 mmol/L (3.3-5.1); Sodium 138 mmol/L (135-145); Total Protein 7.4 g/dL (6.5-8.0)
[2023-12-16 23:26] LABS: Troponin-I High Sensitivity < 2.7 ng/L (<3.5-17.0)
[2023-12-17 00:04] VITALS: BP 123/53; PULSE 76; RESP 16; TEMP 36.8; O2SAT 99
== END 2023-12-17 05:45 | disposition home or self-care (01) ==
PROVIDERS: Physician Assistant; Emergency Provider Emergency Medicine
DX: R51.9 Headache, unspecified (principal); I12.9 Hypertensive chronic kidney disease with stage 1 through stage 4 chronic kidney disease, or unspecified chronic kidney disease; E11.22 Type 2 diabetes mellitus with diabetic chronic kidney disease; N18.4 Chronic kidney disease, stage 4 (severe); Z79.899 Other long term (current) drug therapy
CPT/HCPCS: 36415; 70450; 80053; 83690; 84484; 85025; 93005; 99284

== ENCOUNTER → 2023-12-16 22:37 | Outpatient (BNV) | payer OTHER, SELFPAY | PROVIDERS: Emergency Provider Emergency Medicine; Visit Provider Internal Medicine Cardiovascular Disease | DX: I44.0 Atrioventricular block, first degree (principal) | CPT/HCPCS: 93010 ==

== ENCOUNTER 2024-06-18 15:08 | Emergency (ER) | payer OTHER, SELFPAY ==
--- NOTE | ~2024-06-18 | XR_ITS ---
EXAMINATION: XR ELBOW, RIGHT CLINICAL INFORMATION: Pain and swelling. COMPARISON: None available. TECHNIQUE: AP, lateral, and oblique views of the right elbow. FINDINGS: IV tubing is seen in the antecubital fossa. Minimal spurring of the ulna coronoid process. The bones and soft tissues are otherwise unremarkable. No fracture or joint effusion. Alignment is anatomic. Joint spaces are maintained. XR/XR elbow RT min 3V IMPRESSION: * No acute fracture or dislocation. * Minimal spurring of the ulna coronoid process. Electronically signed by: Kierra Flores MD 06/18/2024 07:09 PM EDT
--- NOTE | ~2024-06-18 | XR_ITS ---
EXAMINATION: XR WRIST, RIGHT CLINICAL INFORMATION: Right wrist pain and swelling. COMPARISON: None available. TECHNIQUE: PA, lateral, and oblique views of the right wrist. FINDINGS: The bones and soft tissues appear unremarkable. No fracture identified. Alignment is anatomic with normal appearance of the joint spaces. No erosions or abnormal soft tissue calcifications. XR/XR wrist RT min 3V IMPRESSION: Normal plain film examination of the right wrist. Electronically signed by: Artis Dorado MD 06/18/2024 06:46 PM EDT
--- NOTE | ~2024-06-18 | US_ITS ---
EXAMINATION: US TRIPLEX UPPER EXTREMITY, RIGHT CLINICAL INFORMATION: Pain. COMPARISON: None available. TECHNIQUE: Color-flow triplex imaging with spectral analysis and compression Doppler was performed on the right upper extremity. FINDINGS: The right internal jugular, subclavian, and axillary veins are patent and free of thrombus. The imaged segment of the right brachiocephalic vein is patent. Spectral doppler waveforms are normal. The brachial, basilic, cephalic, radial, and ulnar veins are patent and compressible. US/US venous duplex UE RT IMPRESSION: No evidence of deep venous thrombosis involving the right upper extremity. Electronically signed by: Omero Trevizo MD 06/18/2024 06:15 PM EDT
[2024-06-18 15:25] VITALS: BP 119/73; PULSE 79; PULSE 80; RESP 16; TEMP 37.2; O2SAT 97; O2SAT 99; BMI 33.8
[2024-06-18 16:04] VITALS: BP 121/71; PULSE 73; RESP 18; TEMP 36.7; O2SAT 100
--- OUTSIDE RECORDS SUMMARY | 2024-06-18 16:20 | XMS_ITS | Continuity of Care Document ---
Author Organization [facility] Address Unknown Care Team Providers Care Publication Editor Name Role Phone Alejandro Ferreira MD, Joann Acevedo Primary Care Physician Encounter [facility] ACCT R [id number] Date(s): 09/24/21 - 10/24/21 [facility] Attending Physician: Vinayak Collazo Admitting Physician: Vinayak Collazo Referring Physician: Vinayak Collazo Allergies, Adverse Reactions, Alerts Substance Reaction Severity Status ciprofloxacin hives / diarrhea Active codeine hives Active azithromycin diarrhea, painful joints Act rosa isela penicillin hives Active levofloxacin diarrhea Active Medrol unknown Active Bactrim diarrhea Active Latex rash Active NovoLog Mix 70/30 hives on arm and itching all over Active Other Food Allergy all fresh vegetables and fruits- it ch/hives Active [place] inhibitors hives Active Medications Accu-Chek Marilee Test Strips See Instructions, 200, 10, 10, 02/11/08 11:08:46, Test BS seven times per day and prn, DM, ADS OPPTHS Start Date: 02/11/08 Status: Ordered Accu-Chek Multiclix Drum Lancets See Instructions, 204, 10, 10, 02/11/08 11:08:53, Test BS seven times a day and prn, DM, ADS OPPTHS Start Date: 02/11/08 Status: Ordered Advair Diskus 250 mcg-50 mcg inhalation powder 1, puffs, Inhalation, 2 times a day, PRN, Refills 0, Maintenance, 05/14/16 12:37:57 Start Date: 05/14/16 Status: Ordered BuPROpion = 150 mg, By Mouth, 2 times a day, 0 Refills, Maintenance, 01/31/16 9:28:20 Start Date: 01/31/16 Status: Ordered cetirizine 10 mg oral tablet 1 tablet = 10 mg, By Mouth, Daily, PRN Other, 0 Refills, Maintenance, 01/31/16 9:25:28 Start Date: 01/31/16 Status: Ordered chlorthalidone 25 mg oral tablet 1 tablet = 25 mg, By Mouth, Daily in AM, 0 Refills, Maintenance, 07/10/10 11:52:28 Start Date: 07/10/10 Status: Ordered Cozaar 50 mg oral tablet 50 mg, 1, tablet, By Mouth, 2 times a day, Refills 0, Maintenance, 01/31/16 9:24:39 Start Date: 01/31/16 Status: Ordered Humalog Mix 75/25 See Instructions, inject 100 units in am and 90 units before supper, # 60 mL, 6 Refills, Maintenance, dispense 18 vials Start Date: 06/04/10 Status: Ordered Humalog Mix 75/25 Inj 70 unit, Subcutaneous Injection, Daily at bedtime, 0 Refills, Maintenance, 05/14/16 12:33:01 Start Date: 05/14/16 Status: Ordered Insulin Syringe, BD Ultra-Fine 1 cc 30 G x 12.7 mm (1/2in) See Instructions, 60, 6, 6, 09/19/08 14:46:09, USE WITH INSULIN TWICE A DAY, [facility] Start Date: 09/19/08 Status: Ordered Metformin = 1,000 mg, By Mouth, 2 times a day, 0 Refills, Maintenance, 01/31/16 9:24:11 Start Date: 01/31/16 Status: Ordered metoprolol 100 mg oral tablet 100 mg, 1, tablet, By Mouth, 2 times a day, Refills 0, Maintenance, 05/14/16 12:40:31 Start Date: 05/14/16 Status: Ordered nystatin topical 643853 u/gm powder 1 application, Topically, 2 times a day, PRN Rash, apply to abdomen and groin folds for rash, # 30 Gm, 3 Refills, Maintenance, 08/16/18 9:57:15 EST, Powder, 1 application Topically 2 times a day,PRN:Rash,Instr:apply to abdomen and groin folds for rash Start Date: 08/16/18 Status: Ordered Patient's Own Meds See Instructions, Maintenance, vitamin b12 inj, injection monthly, 05/14/16 12:37:02 Start Date: 05/14/16 Status: Ordered Pravachol 20 mg oral tablet 20 mg, 1, tablet, By Mouth, Daily in AM, Refills 0, Maintenance, 05/14/16 12:35:12 Start Date: 05/14/16 Status: Ordered ProAir HFA 90 mcg/inh inhalation aerosol with adapter 2, puffs, Inhalation, 4 times a day, PRN, Refills 0, Maintenance, 05/14/16 12:38:35 Start Date: 05/14/16 Status: Ordered Protonix 40 mg oral delayed release tablet 40 mg, 1, tablet, By Mouth, Daily, PRN, Refills 0, Maintenance, Other, 01/31/16 9:25:09 Start Date: 01/31/16 Status: Ordered Problem List Condition Effective Dates Status Health Status Inform ant Asthma(Confirmed) Active Depression(Confirmed) Active Diabetes mellitus(Confirmed) Active HTN (hypertension)(Confirmed) Active Social History Social History Type Response Smoking Status Never smoker entered on: 01/31/16 Sex
[2024-06-18 17:01] LABS: MANUAL DIFF FLAG NO
[2024-06-18] MEDS: Acetaminophen 325 MG TABLET 975 MG PO (17:08)
[2024-06-18] MEDS: methocarbamoL 750 MG TABLET 1500 MG PO (17:09)
[2024-06-18 17:15] LABS: INTERNATIONAL NORM RATIO 1.1 (0.9-1.1); Prothrombin Time 13.2 SEC (10.9-12.4)
--- NOTE | 2024-06-18 17:25 | ECG_ITS ---
Test Reason : ARRYTHMIA Blood Pressure : / mmHG Vent. Rate : 079 BPM Atrial Rate : 079 BPM P-R Int : 252 ms QRS Dur : 126 ms QT Int : 390 ms P-R-T Axes : 036 047 000 degrees QTc Int : 447 ms Sinus rhythm with 1st degree A-V block Right bundle branch block Abnormal ECG When compared with ECG of 16-DEC-2023 22:51, No significant change was found Referred By: Yuliana Rojas Electronically Signed By:IRMA CAMARA
[2024-06-18 17:26] LABS: Alanine Aminotransferase 5 U/L (0-31); Albumin Level 3.6 g/dL (3.5-5.0); Alkaline Phosphatase 104 U/L (39-117); Anion Gap 14 (12-20); Aspartate Amino Transferase 8 U/L (5-31); Bilirubin Total 0.9 mg/dL (0.0-1.0); Blood Urea Nitrogen 30 mg/dL (9-16); C Reactive Protein 19.19 mg/dL (< or = 0.50); Calcium 10.5 mg/dL (8.4-10.2); Carbon Dioxide 22 mmol/L (22-29); Chloride 105 mmol/L (96-108); Creatinine Clr Calc Pharmacy 32.3; Estimated Glomerular Filt Rate 29; Glucose Random 96 mg/dL (60-115); Magnesium 1.3 mg/dL (1.6-2.6); Potassium 3.9 mmol/L (3.3-5.1); Sodium 137 mmol/L (135-145); Total Protein 7.9 g/dL (6.5-8.0)
[2024-06-18 17:35] LABS: Basophils Percent Auto 0.3 % (0-2); Eosinophils Absolute Auto 0.1 X10*3/uL (0.0-0.4); Eosinophils Percent Auto 0.8 % (0-4); Hematocrit 29.1 % (37.0-47.0); Imm Gran Abs Auto 0.06 X10*3/uL (0.00-0.03); Imm Gran Pct Auto 0.5 % (0.0-0.4); Lymphocytes Absolute Auto 2.6 X10*3/uL (1.2-4.9); Mean Corpuscular HGB Conc 34.4 g/dl (31.0-35.0); Mean Corpuscular Hemoglobin 29.1 pg (27.0-33.0); Mean Corpuscular Volume 84.6 fL (80.0-98.0); Mean Platelet Volume 9.9 fL (9.4-12.3); Monocytes Absolute Auto 1.2 X10*3/uL (0.1-1.2); Monocytes Percent Auto 9.1 % (2-11); Neutrophils Absolute Auto 9.1 x10*3/uL (2.0-8.3); Neutrophils Percent Auto 69.3 % (45-73); Platelet Count 339 X10*3/uL (160-400); Red Blood Count 3.44 X10*6/uL (4.20-5.50); Red Cell Distribution Width 13.2 % (11.0-16.0); White Blood Count 13.1 X10*3/uL (4.8-10.8)
[2024-06-18 18:05] LABS: Erythrocyte Sedimentation Rate 109 MM/HR (0-20)
[2024-06-18] MEDS: Magnesium Sulfate/H2O 2 GM/50 ML PIGGYBACK IV (18:21)
--- NOTE | 2024-06-18 18:51 | PC.NURSE ---
IV established, medicated per the MAR - magnesium infusing. 20Iv established right AC.
[2024-06-18 18:55] VITALS: BP 123/75; PULSE 71; RESP 16; TEMP 36.8; O2SAT 100
[2024-06-18 20:37] VITALS: BP 103/54; PULSE 75; RESP 16; TEMP 36.8; O2SAT 97
--- NOTE | 2024-06-18 21:27 | ED.EXTPRO ---
HPI - Extremity Problem General Chief complaint: Extremity Injury, Upper Stated complaint: 06/30 pain and swelling in arms Time Seen by Provider: 06/18/24 16:08 Source: patient Limitations: language barrier History of Present Illness ED Provider: Yuliana Rojas PA-C HPI Narrative: 68-year-old female with a history of fibromyalgia, polyarthralgia, chronic kidney disease, diabetes and obesity presents with right upper extremity pain for unclear duration. Patient has had ongoing discomfort from the point were elbow to the wrist. Over the past few days, she has developed concurrent swelling. The swelling is most focal at the point of the wrist, the pain is most painful over the elbow. Patient is able to flex and extend the elbow, there was minimal flexion and extension from the wrist secondary to pain. Denies trauma, or overuse injury. Denies redness, warmth, fevers. Patient states she is currently a missed assessment by a sales relationship manager, she is not sure for which medical condition. She states she is supposed to have ?infusions?. Related Data Previous Rx's ?Medication ?Instructions ?Recorded blood-glucose meter (FreeStyle #1 ea 08/20/21 Lite Meter kit) cetirizine 10 mg tablet 10 mg PO DAILY PRN Allergy 11/12/21 Symptoms 90 days #90 tabs flash glucose scanning reader #1 ea 11/29/21 (FreeStyle Med 2 Ama) lancets 28 gauge (FreeStyle #100 ea 12/02/21 Lancets) walker #1 ea 03/03/22 flash glucose sensor (FreeStyle #2 ea 05/15/22 Med 2 Sensor kit) acetaminophen 500 mg tablet 500 mg PO Q6H PRN fever or pain 07/07/22 (Tylenol Extra Strength) #14 tabs juxtalite calf wrap bilateral #2 ea 08/12/22 back brace #1 ea 10/08/22 nebulizer tube and adapter #1 ea 11/27/22 recliner lift chair #1 ea 01/07/23 albuterol sulfate 2.5 mg/3 mL 2.5 mg (3 mL) inhalation QID PRN 05/18/23 (0.083 %) solution for nebulization shortness of breath or wheezing 30 days #75 mL diclofenac sodium 1 % topical gel 2 g topical QID #100 grams 06/30/23 (Arthritis Pain (diclofenac)) albuterol sulfate 90 mcg/actuation 2 puff inhalation Q4H PRN for 07/15/23 aerosol inhaler (Ventolin HFA) muscle spasm #18 ea Breo Ellipta 200 mcg-25 mcg/dose 1 inh inhalation DAILY 30 days #1 08/26/23 powder for inhalation (fluticasone ea furoate-vilanterol) chlorthalidone 25 mg tablet 25 mg PO DAILY 90 days #90 tabs 09/30/23 pen needle, diabetic 31 gauge x #150 ea 09/30/23 5 fluticasone 250 mcg-salmeterol 50 1 ea PO BID #60 ea 10/21/23 mcg/dose blistr powdr for inhalation (Wixela Inhub) blood sugar diagnostic (FreeStyle #100 ea 12/14/23 Lite Strips) insulin glargine U-300 conc 300 85 unit (0.2833 mL) subcut DAILY 01/06/24 unit/mL (1.5 mL) subcutaneous pen 30 days #8.499 mL (Toudax SoloStar U-300 Insulin) tirzepatide 2.5 mg/0.5 mL 5 mg subcut QWEEK 4 weeks #4 mL 01/27/24 subcutaneous pen injector (Andrey) metoprolol tartrate 50 mg tablet 50 mg PO BID 90 days #180 tabs 02/29/24 valsartan 320 mg tablet 320 mg PO DAILY 90 days #90 tabs 02/29/24 pen needle, diabetic 31 gauge x #100 ea 03/01/2402/03 (Comfort EZ Pen [place]) dulaglutide 1.5 mg/0.5 mL 1.5 mg (0.5 mL) subcut QWEEK 84 03/17/24 subcutaneous pen injector days #6 mL (Trulicity) insulin aspart U-100 100 unit/mL 12 - 16 unit (0.12 - 0.16 mL) 04/23/24 (3 mL) subcutaneous pen (Novolog subcut TID #15 mL FlexPen U-100 Insulin aspart) pantoprazole 40 mg tablet,delayed 40 mg PO DAILY #90 tabs 04/23/24 release bupropion HCl 150 mg 24 hr tablet, 150 mg PO QAM #90 tabs 04/24/24 extended release ezetimibe 10 mg tablet 10 mg PO DAILY 90 days #90 tabs 05/30/24 methocarbamol 750 mg tablet 750 mg PO QID PRN pain #20 tabs 06/18/24 Allergies Allergy/AdvReac Type Severity Reaction Status Date / Time nut - unspecified [nut] Allergy Severe Anaphylaxis Verified 06/18/24 15:27 rosuvastatin Allergy Severe Facial Verified 06/18/24 15:27 Swelling vancomycin [VANCOMYCIN] Allergy Severe Itching Verified 06/18/24 15:27 [place] Inhibitors Allergy Intermediate Rash Verified 06/18/24 15:27 [[place] INHIBITORS] ciprofloxacin [From CIPRO] Allergy Intermediate Rash Verified 06/18/24 15:27 codeine [CODEINE] Allergy Intermediate Rash Verified 06/18/24 15:27 cyclobenzaprine Allergy Intermediate Hives Verified 06/18/24 15:27 [CYCLOBENZAPRINE] ferrous sulfate Allergy Intermediate Rash Verified 06/18/24 15:27 [FERROUS SULFATE] insulin lispro Allergy Intermediate Hives Verified 06/18/24 15:27 [Humalog U-100 Insulin] latex [LATEX] Allergy Intermediate Hives Verified 06/18/24 15:27 methylprednisolone Allergy Intermediate Rash Verified 06/18/24 15:27 [From MEDROL] penicillin V Allergy Intermediate Hives Verified 06/18/24 15:27 tamsulosin [TAMSULOSIN] Allergy Intermediate Rash Verified 06/18/24 15:27 tramadol Allergy Intermediate Itching Verified 06/18/24 15:27 insulin degludec Allergy Mild Hives Verified 06/18/24 15:27 [From Tresiba FlexTouch U-100] pravastatin Allergy Mild pruritus Verified 06/18/24 15:27 lactose [LACTOSE] AdvReac Intermediate Diarrhea Verified 06/18/24 15:27 Beef Containing Products AdvReac Mild Stomach Verified 06/18/24 15:27 Upset Fish Containing Products AdvReac Mild Nausea and Verified 06/18/24 15:27 Vomiting Pork/Porcine Containing AdvReac Mild Stomach Verified 06/18/24 15:27 Products Upset FRUIT AdvReac Mild NAUSEA & Uncoded 10/05/23 09:28 VOMITING VEGETABLES,FRESH AdvReac Mild NAUSEA & Uncoded 10/05/23 09:28 VOMITING Review of Systems Review of Systems: Yes all other systems are reviewed and are negative Constitutional: Constitutional: Denies fever(s) and Denies weakness Musculoskeletal: Musculoskeletal: Reports arthralgias, Reports joint swelling and Denies tingling Neurologic: Denies tingling, Denies paresthesias and Denies weakness [facility] Past Medical History Attestation statement: The following information was validated with the patient. 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 Sister No problems noted. Social History Social History Household Members: Significant Other Housing: Apartment Are you a primary career coach to a significant other at home: No Do you presently have visiting nurse or other home services: Yes Alcohol intake: never Patient Tobacco Use Status: Never used Tobacco e-Cigarette/Vaping Use: Never Used Second Hand Smoke Exposure: No Advance Directives: Yes Advance Directives on File: Yes Advance Directives Date on File: 09/11/20 Do you have a plan to hurt others: No Plan service: No Current occupational status: disabled Cognitive needs: Yes (walker, power chair) Hearing needs: No Vision needs: Yes (glasses) Physical Exam Vital Signs: Vital Signs: Last Vital Signs Temp 97.5 F 06/18/24 22:27 Pulse 78 06/18/24 22:27 Resp 17 06/18/24 22:27 BP 101/53 L 06/18/24 22:27 Pulse Ox 97 06/18/24 22:27 O2 Del Method Room Air 06/18/24 22:27 BMI result Body Mass Index 33.8 Const: Other: Alert, well in appearance Orientation/consciousness: patient oriented x3 Resp: Effort & Inspection: normal respiratory effort Cardio: Other: Normal peripheral perfusion Skin: Other: Warm dry no rash Neuro: General: patient oriented x3, no focal motor deficits and CN's II-XI intact bilaterally Extrem: Other: Swelling noted over the right wrist, minimal flexion-extension of the wrist secondary to pain, patient able to flex and extend from the elbow, however is painful, there was no erythema or warmth noted over either joint Psych: Other: Calm cooperative Medications Administered Discontinued Medications Generic Name Dose Route Start Last Admin Trade Name Leatha PRN Reason Stop Dose Admin Acetaminophen 975 mg 06/18/24 16:25 06/18/24 17:08 Acetaminophen 325 Mg Tablet PO 06/18/24 16:26 975 mg ONCE ONE Administration Magnesium Sulfate 2 gm in 50 mls @ 25 mls/hr 06/18/24 17:25 06/18/24 20:38 Magnesium Sulfate/H2o IV 06/18/24 19:24 Infused ONCE ONE Infusion Methocarbamol 1,500 mg 06/18/24 16:25 06/18/24 17:09 Methocarbamol 750 Mg Tablet PO 06/18/24 16:26 1,500 mg ONCE ONE Administration Medical Decision Making Medical Decision Making MDM Narrative: 68-year-old female with a history of fibromyalgia, polyarthralgia, chronic kidney disease, diabetes and obesity presents with right upper extremity pain for unclear duration. Patient has had ongoing discomfort from the point were elbow to the wrist. Over the past few days, she has developed concurrent swelling. The swelling is most focal at the point of the wrist, the pain is most painful over the elbow. Patient is able to flex and extend the elbow, there was minimal flexion and extension from the wrist secondary to pain. Denies trauma, or overuse injury. Denies redness, warmth, fevers. Patient states she is currently a missed assessment by a sales relationship manager, she is not sure for which medical condition. She states she is supposed to have ?infusions?. Problem: Age, multiple pain syndromes, diabetes and chronic kidney disease History: Per patient I have considered the following differential diagnoses: Fracture, dislocation, DVT, septic arthritis Plan: Screening labs and a DVT study ordered from triage, I am adding on an x-ray. We will be giving pain meds while we wait for the studies to return. I have independently reviewed the following tests: Labs: Slight leukocytosis, not anemic, inflammatory markers are elevated, no electrolyte abnormalities other than magnesium which is low we will give oral magnesium xray right wrist: XR WRIST, RIGHT CLINICAL INFORMATION: Right wrist pain and swelling. COMPARISON: None available. TECHNIQUE: PA, lateral, and oblique views of the right wrist. FINDINGS: The bones and soft tissues appear unremarkable. No fracture identified. Alignment is anatomic with normal appearance of the joint spaces. No erosions or abnormal soft tissue calcifications. XR/XR wrist RT min 3V IMPRESSION: Normal plain film examination of the right wrist. Electronically signed by: Artis Dorado MD 06/18/2024 06:46 PM EDT RP elbow xray: XR ELBOW, RIGHT CLINICAL INFORMATION: Pain and swelling. COMPARISON: None available. TECHNIQUE: AP, lateral, and oblique views of the right elbow. FINDINGS: IV tubing is seen in the antecubital fossa. Minimal spurring of the ulna coronoid process. The bones and soft tissues are otherwise unremarkable. No fracture or joint effusion. Alignment is anatomic. Joint spaces are maintained. XR/XR elbow RT min 3V IMPRESSION: * No acute fracture or dislocation. * Minimal spurring of the ulna coronoid process. US RUE: XAMINATION: US TRIPLEX UPPER EXTREMITY, RIGHT CLINICAL INFORMATION: Pain. COMPARISON: None available. TECHNIQUE: Color-flow triplex imaging with spectral analysis and compression Doppler was performed on the right upper extremity. FINDINGS: The right internal jugular, subclavian, and axillary veins are patent and free of thrombus. The imaged segment of the right brachiocephalic vein is patent. Spectral doppler waveforms are normal. The brachial, basilic, cephalic, radial, and ulnar veins are patent and compressible. US/US venous duplex UE RT IMPRESSION: No evidence of deep venous thrombosis involving the right upper extremity. Electronically signed by: Omero Trevizo MD 06/18/2024 06:15 PM EDT RP Lab Data 06/18/24 16:57 06/18/24 16:56 Labs: Lab Results 06/18/24 06/18/24 Range/Units 16:56 16:57 WBC 13.1 H (4.8-10.8) X10*3/uL RBC 3.44 L (4.20-5.50) X10*6/uL Hgb 10.0 L (12.0-16.0) g/dl Hct 29.1 L (37.0-47.0) % MCV 84.6 (80.0-98.0) fL MCH 29.1 (27.0-33.0) pg MCHC 34.4 (31.0-35.0) g/dl RDW 13.2 (11.0-16.0) % Plt Count 339 D (160-400) X10*3/uL MPV 9.9 (9.4-12.3) fL Immature Gran % (Auto) 0.5 H (0.0-0.4) % Neut % (Auto) 69.3 (45-73) % Lymph % (Auto) 20.0 (20-40) % Park % (Auto) 9.1 (2-11) % Eos % (Auto) 0.8 (0-4) % Baso % (Auto) 0.3 (0-2) % Lymph # (Auto) 2.6 (1.2-4.9) X10*3/uL Park # (Auto) 1.2 (0.1-1.2) X10*3/uL Eos # (Auto) 0.1 (0.0-0.4) X10*3/uL Baso # (Auto) 0.0 (0.0-0.2) X10*3/uL Abs Immat Gran (auto) 0.06 H (0.00-0.03) X10*3/uL Absolute Neuts (auto) 9.1 H (2.0-8.3) x10*3/uL Absolute Nucleated RBC 0.000 (0.0-0.012) X10*3/uL Nucleated RBC % (auto) 0.0 (0.0-0.2) /100WBC ESR 109 H (0-20) MM/HR Hold Purple Top SEE NOTE PT 13.2 H (10.9-12.4) SEC INR 1.1 (0.9-1.1) Sodium 137 (135-145) mmol/L Potassium 3.9 (3.3-5.1) mmol/L Chloride 105 (96-108) mmol/L Carbon Dioxide 22 (22-29) mmol/L Anion Gap 14 (12-20) BUN 30 H (9-16) mg/dL Creatinine 1.76 H (0.5-1.4) mg/dL Estim Creat Clear Calc 32.3 Estimated GFR 29 Random Glucose 96 (60-115) mg/dL Calcium 10.5 H D (8.4-10.2) mg/dL Magnesium 1.3 L* (1.6-2.6) mg/dL Total Bilirubin 0.9 (0.0-1.0) mg/dL AST 8 (5-31) U/L ALT 5 (0-31) U/L Alkaline Phosphatase 104 (39-117) U/L C-Reactive Protein 19.19 H (< or = 0.50) mg/dL Total Protein 7.9 (6.5-8.0) g/dL Albumin 3.6 (3.5-5.0) g/dL Discharge Plan Discharge Clinical Impression: Bone spur, Arthritis Patient Disposition: Home, Self-Care Instructions: Osteoarthritis (ED) Additional Instructions: The ultrasound of your right upper arm was negative for a clot. The x-rays revealed that you do have arthritis, including a bone spur involved with one of the bones in your elbow. See home care instructions. You should alternate between the use of [id number] Tylenol 1000 mg taken every 8 hours, with the methocarbamol, the muscle relaxant. To note that medication can cause drowsiness, do not drive or operate machinery while taking the medication. Keep your appointment with your sales relationship manager. Prescriptions: New methocarbamol 750 mg tablet 750 mg PO QID PRN (Reason: pain) Qty: 20 0RF No Action cetirizine 10 mg tablet 10 mg PO DAILY PRN (Reason: Allergy Symptoms) 90 Days Qty: 90 1RF (DME) lancets [FreeStyle Lancets] 28 gauge misc See Rx Instructions .ROUTE .MEDSUPPLY Qty: 100 11RF Rx Instructions: Three times a day (DME) walker Misc See Rx Instructions .Route Qty: 1 0RF Rx Instructions: walker with seat (DME) FreeStyle Med 2 Sensor Kit See Rx Instructions .ROUTE .MEDSUPPLY Qty: 2 11RF Rx Instructions: As directed every 2 weeks (DME) juxtalite calf wrap bilateral 30 mmHg See Rx Instructions .Route .MEDSUPPLY Qty: 2 0RF Rx Instructions: As directed (DME) back brace Misc See Rx Instructions .Route Qty: 1 0RF Rx Instructions: As directed (DME) nebulizer tube and adapter See Rx Instructions .Route .MEDSUPPLY Qty: 1 0RF Rx Instructions: As directed (DME) recliner lift chair See Rx Instructions .Route .MEDSUPPLY Qty: 1 0RF Rx Instructions: As directed albuterol sulfate 2.5 mg /3 mL (0.083 %) solution for nebulization 2.5 mg inhalation QID PRN (Reason: shortness of breath or wheezing) 30 Days Qty: 75 1RF albuterol sulfate [Ventolin HFA] 90 mcg/actuation HFA aerosol inhaler 2 puff inhalation Q4H PRN (Reason: for muscle spasm) Qty: 18 3RF fluticasone furoate-vilanterol [Breo Ellipta] 200-25 mcg/dose blister with device 1 inh inhalation DAILY 30 Days Qty: 1 6RF chlorthalidone 25 mg tablet 25 mg PO DAILY 90 Days Qty: 90 3RF (DME) pen needle, diabetic 31 gauge x 5/16 needle See Rx Instructions .Route Qty: 150 11RF Rx Instructions: As directed 4 x/day fluticasone propion-salmeterol [Wixela Inhub] 250-50 mcg/dose blister with device 1 ea PO BID Qty: 60 3RF (DME) FreeStyle Lite Strips Strip See Rx Instructions .ROUTE .MEDSUPPLY Qty: 100 11RF Rx Instructions: As directed three times a day insulin glargine U-300 conc [Toujeo SoloStar U-300 Insulin] 300 unit/mL (1.5 mL) insulin pen 85 unit subcut DAILY 30 Days Qty: 8.499 5RF Mounjaro 2.5 mg/0.5 mL pen injector 5 mg subcut QWEEK 28 Days Qty: 4 0RF metoprolol tartrate 50 mg tablet 50 mg PO BID 90 Days Qty: 180 1RF valsartan 320 mg tablet 320 mg PO DAILY 90 Days Qty: 90 1RF (DME) pen needle, diabetic [Comfort EZ Pen [place]] 31 gauge x 5/16 needle See Rx Instructions .Route Qty: 100 6RF Rx Instructions: Use 1 pen needle four times a day Trulicity 1.5 mg/0.5 mL pen injector 1.5 mg subcut QWEEK 84 Days Qty: 6 2RF pantoprazole 40 mg tablet,delayed release (DR/EC) 40 mg PO DAILY Qty: 90 1RF insulin aspart U-100 [Novolog FlexPen U-100 Insulin] 100 unit/mL (3 mL) insulin pen 12 - 16 unit subcut TID Qty: 15 6RF Rx Instructions: 12 units before meals, 14 units for bg over 200 and 16 u for bg over 300 bupropion HCl 150 mg tablet extended release 24 hr 150 mg PO QAM Qty: 90 1RF ezetimibe 10 mg tablet 10 mg PO DAILY 90 Days Qty: 90 0RF acetaminophen [Tylenol Extra Strength] 500 mg tablet 500 mg PO Q6H PRN (Reason: fever or pain) Qty: 14 0RF diclofenac sodium [Arthritis Pain (diclofenac)] 1 % gel 2 g topical QID Qty: 100 0RF Rx Instructions: apply to single elbow, wrist or hand; for hand includes palm/fingers/back of hand (DME) blood-glucose meter [FreeStyle Lite Meter] Kit See Rx Instructions .ROUTE .MEDSUPPLY Qty: 1 0RF Rx Instructions: As directed (DME) FreeStyle Med 2 Ama [facility] See Rx Instructions .ROUTE .MEDSUPPLY Qty: 1 0RF Rx Instructions: As directed Interventions: ED Discharge Assessment Last Done: 06/18/24 22:27 Discharge Date/Time: 06/18/24 22:36 Print Language: Montserratian
[2024-06-18 22:25] VITALS: BP 101/53; PULSE 78; RESP 17; TEMP 36.4; O2SAT 97
[2024-06-18 22:27] VITALS: BP 101/53; PULSE 78; RESP 17; TEMP 36.4; O2SAT 97
== END 2024-06-18 22:36 | disposition home or self-care (01) ==
PROVIDERS: Physician Assistant Medical; Emergency Provider Emergency Medicine Emergency Medical Services
DX: M77.8 Other enthesopathies, not elsewhere classified (principal); M19.021 Primary osteoarthritis, right elbow; M79.631 Pain in right forearm; E11.22 Type 2 diabetes mellitus with diabetic chronic kidney disease; I12.9 Hypertensive chronic kidney disease with stage 1 through stage 4 chronic kidney disease, or unspecified chronic kidney disease; N18.4 Chronic kidney disease, stage 4 (severe); E66.9 Obesity, unspecified; I49.9 Cardiac arrhythmia, unspecified; M25.531 Pain in right wrist; Z79.899 Other long term (current) drug therapy; Z79.4 Long term (current) use of insulin; Z68.33 Body mass index [BMI] 33.0-33.9, adult
CPT/HCPCS: 36415; 73080; 73110; 80053; 83735; 85025; 85610; 85652; 86140; 93005; 93971; 96365; 96366; 99284; 99285; J3475

== ENCOUNTER 2024-07-06 10:17 | Emergency (ER) | payer OTHER, SELFPAY ==
--- NOTE | ~2024-07-06 | XR_ITS ---
EXAMINATION: XR CHEST CLINICAL INFORMATION: Chest pain COMPARISON: 11/20/2022 TECHNIQUE: Frontal view of the chest was obtained. FINDINGS: There is a subtle nodular infiltrate in the right perihilar region and right upper lobe suspicious for in early pneumonia in this is more conspicuous than on the prior study. A PA and lateral would be helpful as a follow-up. Heart and pulmonary vessels normal. XR/XR chest 1V IMPRESSION: Query early right upper lobe infiltrate. Electronically signed by: Perico Barker MD 07/06/2024 01:58 PM EDT RP
--- NOTE | 2024-07-06 10:21 | ECG_ITS ---
Test Reason : Chest pain Blood Pressure : / mmHG Vent. Rate : 087 BPM Atrial Rate : 087 BPM P-R Int : 258 ms QRS Dur : 128 ms QT Int : 388 ms P-R-T Axes : 035 065 002 degrees QTc Int : 466 ms Sinus rhythm with 1st degree A-V block Right bundle branch block Abnormal ECG When compared with ECG of 18-JUN-2024 18:03, No significant change was found Referred By: Generic ED Physician Electronically Signed By:VIVIANE DAVILA
[2024-07-06 10:25] VITALS: TEMP 37.2; BMI 31.6
--- NOTE | 2024-07-06 10:35 | PC.NURSE ---
Pt enters my care. Pt stated the pain started her head and now radiates into her chest- pt c/o neck pain and inability to wheel cutter the hands due to pain
--- NOTE | 2024-07-06 11:01 | ED.GENADULT ---
HPI - General Adult General Chief complaint: General Medical Stated complaint: CP RADIATING DOWN RT ARM PER EMS Time Seen by Provider: 07/06/24 10:44 Source: patient Mode of arrival: EMS Limitations: no limitations History of Present Illness HPI narrative: 69 years old female presented to the ED with a chief complaint of right-sided chest pain right arm pain for about 3 days. Patient has history of diabetes, hypertension, chronic renal failure approaching dialysis, hypercholesterolemia. No history of coronary artery disease. She has also history of fibromyalgia. She tells me that the pain started 3 days ago is worse with movement of the shoulder. Onset (ago): day(s) (3) Location: upper extremity Radiation: non-radiation Severity: moderate Pain Consistency: constant Relieving factors: none Exacerbating factors: none Related Data Previous Rx's ?Medication ?Instructions ?Recorded blood-glucose meter (FreeStyle #1 ea 08/20/21 Lite Meter kit) cetirizine 10 mg tablet 10 mg PO DAILY PRN Allergy 11/12/21 Symptoms 90 days #90 tabs flash glucose scanning reader #1 ea 11/29/21 (FreeStyle Med 2 Owen) lancets 28 gauge (FreeStyle #100 ea 12/02/21 Lancets) walker #1 ea 03/03/22 flash glucose sensor (FreeStyle #2 ea 05/15/22 Med 2 Sensor kit) acetaminophen 500 mg tablet 500 mg PO Q6H PRN fever or pain 07/07/22 (Tylenol Extra Strength) #14 tabs juxtalite calf wrap bilateral #2 ea 08/12/22 back brace #1 ea 10/08/22 nebulizer tube and adapter #1 ea 11/27/22 recliner lift chair #1 ea 01/07/23 albuterol sulfate 2.5 mg/3 mL 2.5 mg (3 mL) inhalation QID PRN 05/18/23 (0.083 %) solution for nebulization shortness of breath or wheezing 30 days #75 mL diclofenac sodium 1 % topical gel 2 g topical QID #100 grams 06/30/23 (Arthritis Pain (diclofenac)) albuterol sulfate 90 mcg/actuation 2 puff inhalation Q4H PRN for 07/15/23 aerosol inhaler (Ventolin HFA) muscle spasm #18 ea Breo Ellipta 200 mcg-25 mcg/dose 1 inh inhalation DAILY 30 days #1 08/26/23 powder for inhalation (fluticasone ea furoate-vilanterol) chlorthalidone 25 mg tablet 25 mg PO DAILY 90 days #90 tabs 09/30/23 pen needle, diabetic 31 gauge x #150 ea 09/30/2302/03 fluticasone 250 mcg-salmeterol 50 1 ea PO BID #60 ea 10/21/23 mcg/dose blistr powdr for inhalation (Wixela Inhub) blood sugar diagnostic (FreeStyle #100 ea 12/14/23 Lite Strips) insulin glargine U-300 conc 300 85 unit (0.2833 mL) subcut DAILY 01/06/24 unit/mL (1.5 mL) subcutaneous pen 30 days #8.499 mL (Toujeo SoloStar U-300 Insulin) tirzepatide 2.5 mg/0.5 mL 5 mg subcut QWEEK 4 weeks #4 mL 01/27/24 subcutaneous pen injector (Andrey) metoprolol tartrate 50 mg tablet 50 mg PO BID 90 days #180 tabs 02/29/24 valsartan 320 mg tablet 320 mg PO DAILY 90 days #90 tabs 02/29/24 pen needle, diabetic 31 gauge x #100 ea 03/01/2402/03 (Comfort EZ Pen Amalia) dulaglutide 1.5 mg/0.5 mL 1.5 mg (0.5 mL) subcut QWEEK 84 03/17/24 subcutaneous pen injector days #6 mL (Trulicity) insulin aspart U-100 100 unit/mL 12 - 16 unit (0.12 - 0.16 mL) 04/23/24 (3 mL) subcutaneous pen (Novolog subcut TID #15 mL FlexPen U-100 Insulin aspart) pantoprazole 40 mg tablet,delayed 40 mg PO DAILY #90 tabs 04/23/24 release bupropion HCl 150 mg 24 hr tablet, 150 mg PO QAM #90 tabs 04/24/24 extended release ezetimibe 10 mg tablet 10 mg PO DAILY 90 days #90 tabs 05/30/24 methocarbamol 750 mg tablet 750 mg PO QID PRN pain #20 tabs 06/18/24 hydromorphone 2 mg tablet 2 mg PO Q6H PRN pain #8 tabs 07/06/24 (Dilaudid) Allergies Allergy/AdvReac Type Severity Reaction Status Date / Time nut - unspecified [nut] Allergy Severe Anaphylaxis Verified 07/06/24 10:30 rosuvastatin Allergy Severe Facial Verified 07/06/24 10:30 Swelling vancomycin [VANCOMYCIN] Allergy Severe Itching Verified 07/06/24 10:30 [place] Inhibitors Allergy Intermediate Rash Verified 07/06/24 10:30 [[place] INHIBITORS] ciprofloxacin [From CIPRO] Allergy Intermediate Rash Verified 07/06/24 10:30 codeine [CODEINE] Allergy Intermediate Rash Verified 07/06/24 10:30 cyclobenzaprine Allergy Intermediate Hives Verified 07/06/24 10:30 [CYCLOBENZAPRINE] ferrous sulfate Allergy Intermediate Rash Verified 07/06/24 10:30 [FERROUS SULFATE] insulin lispro Allergy Intermediate Hives Verified 07/06/24 10:30 [Humalog U-100 Insulin] latex [LATEX] Allergy Intermediate Hives Verified 07/06/24 10:30 methylprednisolone Allergy Intermediate Rash Verified 07/06/24 10:30 [From MEDROL] penicillin V Allergy Intermediate Hives Verified 07/06/24 10:30 tamsulosin [TAMSULOSIN] Allergy Intermediate Rash Verified 07/06/24 10:30 tramadol Allergy Intermediate Itching Verified 07/06/24 10:30 insulin degludec Allergy Mild Hives Verified 07/06/24 10:30 [From Tresiba FlexTouch U-100] pravastatin Allergy Mild pruritus Verified 07/06/24 10:30 lactose [LACTOSE] AdvReac Intermediate Diarrhea Verified 07/06/24 10:30 Beef Containing Products AdvReac Mild Stomach Verified 07/06/24 10:30 Upset Fish Containing Products AdvReac Mild Nausea and Verified 07/06/24 10:30 Vomiting Pork/Porcine Containing AdvReac Mild Stomach Verified 07/06/24 10:30 Products Upset FRUIT AdvReac Mild NAUSEA & Uncoded 07/06/24 10:30 VOMITING VEGETABLES,FRESH AdvReac Mild NAUSEA & Uncoded 07/06/24 10:30 VOMITING Review of Systems Constitutional: Constitutional: Reports no additional constitutional complaints Cardiovascular: Cardiovascular: Reports no additional cardiovascular complaints Gastrointestinal: Gastrointestinal: Reports no additional gastrointestinal complaints Neurologic: Reports system reviewed and no additional complaints, except as documented PMFSH Past Medical History Attestation statement: The following information was validated with the patient. Medical History Medicare annual wellness visit, initial Severe recurrent major depression Postmenopausal CKD (chronic kidney disease) stage 4, GFR 15-29 ml/min Type 2 diabetes mellitus with chronic kidney disease Obesity due to excess calories DM2 (diabetes mellitus, type 2) CKD (chronic kidney disease) Epicondylitis, lateral (tennis elbow) Dyslipidemia Leg edema Pain in both lower legs Calcaneal spur of both feet Acute kidney injury Irregular heart beat Depression Hypercholesteremia Diabetes Essential hypertension Surgical History Hx of vascular surgery History of extraction of renal calculus History of hysterectomy Family History Family History Father Diabetes Mother Diabetes Sister Breast cancer Brother No problems noted. Sister No problems noted. Social History Social History Household Members: Significant Other Housing: Apartment Are you a primary school child care attendant to a significant other at home: No Do you presently have visiting nurse or other home services: Yes Alcohol intake: never Patient Tobacco Use Status: Never used Tobacco Smoked in Last 30 Days: No e-Cigarette/Vaping Use: Never Used Second Hand Smoke Exposure: No Advance Directives: No Advance Directives Information Provided: Yes Advance Directives Date on File: 09/11/20 Do you have a plan to hurt others: No Plan service: No Current occupational status: disabled Cognitive needs: Yes (walker, power chair) Hearing needs: No Vision needs: Yes (glasses) Physical Exam ED Vital Signs: Vital Signs - 24 hr 07/06/24 10:25 07/06/24 11:29 07/06/24 14:01 Temperature 99 F 98.7 F 98.9 F Pulse Rate 84 81 Respiratory Rate 18 14 Blood Pressure 139/71 145/71 H Pulse Oximetry 96 97 Oxygen Delivery Method Room Air Room Air 07/06/24 15:52 07/06/24 16:13 Temperature 98.6 F 98.4 F Pulse Rate 85 88 Respiratory Rate 14 20 Blood Pressure 145/74 H 147/79 H Pulse Oximetry 98 100 Oxygen Delivery Method Room Air Room Air BMI result Body Mass Index 31.6 Patient looks well no toxic-appearing Const General: cooperative Nutritional Appearance: average body habitus Orientation/consciousness: patient oriented x3 Limitations: no limitations HENMT Head: Yes normal to inspection Neck Neck: Yes normal visual inspection Chest Chest palpation & inspection: normal inspection of the chest Resp Effort & Inspection: normal respiratory effort Auscultation: clear to auscultation bilaterally Cardio Jugular venous distension: no JVD Rate: regular rate Rhythm: regular rhythm GI Inspection: Yes normal to inspection Palpation (GI): Soft to palpation, not firm and nontender Auscultation: normal bowel sounds Skin General skin exam: no rashes or lesions noted, elasticity normal and turgor normal Lesions: no lesions Rashes: no rashes Neuro General: patient oriented x3 Extrem General: Yes normal to inspection and Yes full ROM Course Reevaluation(s) Reevaluation #1: Troponin x2 is negative, I can reproduce her pain with the movement of the rt upper extremity most likely this pain is musculoskeletal. Unfortunately the patient has chronic kidney disease so we can not give her any nonsteroidal also she reports allergy to oxycodone,she report that tramadol also does not work.Pt has hx of fibromyalgia as well. Chest x-ray was read as a possible pneumonia, however patient does not have any fever no cough no respiratory symptoms sat is 98% so I do not think there is any indication for antibiotic therapy. This was discussed with the patient and she is comfortable with that ,she understands she will need follow-up chest x-ray with the primary care physician Time: 14:21 Reevaluation #2: At this point I think the patient can be discharged, I am going to get the ed case manager to talk to the patient as well she has chronic pain she lives home by the is in the hospital right now, she does not get out of the house to much, she has [employer],she ambulate with walker at baseline Time: 15:18 Reevaluation #3: Seen by ed case manager we arrange VNA, I will give a couple of days worth of p.o. Dilaudid till she see her PCP this is only medicine I can give her given the inability to prescribe a nonsteroidal allergy to oxycodone, inability to prescribe gabapentin because chronic renal disease inability also to give her tramadol which does not work according to the pt Time: 16:03 Medications Administered Discontinued Medications Generic Name Dose Route Start Last Admin Trade Name Leatha PRN Reason Stop Dose Admin Diazepam 5 mg 07/06/24 12:07 07/06/24 12:31 Diazepam 5 Mg Tablet PO 07/06/24 12:08 5 mg ONCE ONE Administration Hydromorphone HCl 0.25 mg 07/06/24 14:15 07/06/24 14:43 Hydromorphone Hcl 0.5 Mg/0.5 Ml Syringe IVPUSH 07/06/24 14:16 0.25 mg ONCE ONE Administration Protocol Morphine Sulfate 4 mg 07/06/24 10:58 07/06/24 11:14 Morphine Sulfate 4 Mg/Ml Cartridge IVPUSH 07/06/24 10:59 4 mg ONCE ONE Administration Protocol Medical Decision Making Medical Decision Making [facility] Narrative: Patient presented to the emergency department with a chief complaint of right shoulder pain right-sided chest pain pain is worse with the movement of the right arm. Differential Diagnosis Differential Diagnoses: The differential diagnosis associated with the presentation includes ACS/STEMI/musculoskeletal pain Admission/Observation Consideration of admission/observation: Escalation of care including admission/observation considered Lab Data [facility] Lab Attestation statement: I reviewed the patient's lab results. 07/06/24 11:23 07/06/24 11:23 Labs: Lab Results 07/06/24 07/06/24 Range/Units 11:23 13:31 WBC 11.9 H (4.8-10.8) X10*3/uL RBC 3.33 L (4.20-5.50) X10*6/uL Hgb 9.6 L (12.0-16.0) g/dl Hct 28.3 L (37.0-47.0) % MCV 85.0 (80.0-98.0) fL MCH 28.8 (27.0-33.0) pg MCHC 33.9 (31.0-35.0) g/dl RDW 13.3 (11.0-16.0) % Plt Count 282 (160-400) X10*3/uL MPV 9.7 (9.4-12.3) fL Immature Gran % (Auto) 0.7 H (0.0-0.4) % Neut % (Auto) 80.0 H (45-73) % Lymph % (Auto) 11.8 L (20-40) % [place] % (Auto) 6.9 (2-11) % Eos % (Auto) 0.3 (0-4) % Baso % (Auto) 0.3 (0-2) % Lymph # (Auto) 1.4 (1.2-4.9) X10*3/uL [place] # (Auto) 0.8 (0.1-1.2) X10*3/uL Eos # (Auto) 0.0 (0.0-0.4) X10*3/uL Baso # (Auto) 0.0 (0.0-0.2) X10*3/uL Abs Immat Gran (auto) 0.08 H (0.00-0.03) X10*3/uL Absolute Neuts (auto) 9.6 H (2.0-8.3) x10*3/uL Absolute Nucleated RBC 0.000 (0.0-0.012) X10*3/uL Nucleated RBC % (auto) 0.0 (0.0-0.2) /100WBC PT 13.0 H (10.9-12.4) SEC INR 1.1 (0.9-1.1) APTT 32.6 (26.0-36.8) SEC Sodium 137 (135-145) mmol/L Potassium 4.1 (3.3-5.1) mmol/L Chloride 107 (96-108) mmol/L Carbon Dioxide 20 L (22-29) mmol/L Anion Gap 14 (12-20) BUN 32 H (9-16) mg/dL Creatinine 1.92 H (0.5-1.4) mg/dL Estim Creat Clear Calc 29.2 Estimated GFR 26 Random Glucose 231 H (60-115) mg/dL Calcium 10.3 H (8.4-10.2) mg/dL Total Bilirubin 0.7 (0.0-1.0) mg/dL AST 10 (5-31) U/L ALT 11 (0-31) U/L Alkaline Phosphatase 116 (39-117) U/L Troponin I High Sens 2.9 2.9 (<3.5-17.0) ng/L Total Protein 7.5 (6.5-8.0) g/dL Albumin 3.5 (3.5-5.0) g/dL Independent Interpretation I performed an independent interpretation of an: EKG and Plain X-Ray Interpretation: Electrocardiogram shows sinus rhythm with a rate of 87 right bundle-branch block which is old electrocardiogram is reviewed interpreted by me Radiology Impression Discussion of test interpretation with radiology: I have reviewed the radiologist's reading. Prescription Management I considered prescription management with: Pain Medication Discharge Plan Discharge Clinical Impression: Chest wall pain, Muscle ache of extremity Patient Disposition: Home, Self-Care Instructions: Chest Wall Pain (ED) Additional Instructions: Please follow-up with your primary care physician call tomorrow to make an appointment, we send to the pharmacy 2 days' worth of pain medicine. We will arrange for you visiting nurse . Your blood work for heart attack was negative , your kidney tests are at baseline. Your chest x-ray showed a question of pneumonia however you do not have a fever you have no coughing we recommend that you hour repeat chest x-ray as outpatient with your primary care physician we do not think antibiotics are indicated. Prescriptions: New hydromorphone [Dilaudid] 2 mg tablet 2 mg PO Q6H PRN (Reason: pain) Qty: 8 0RF Rx Instructions: Partial Fill upon patient request. No Action cetirizine 10 mg tablet 10 mg PO DAILY PRN (Reason: Allergy Symptoms) 90 Days Qty: 90 1RF (DME) lancets [FreeStyle Lancets] 28 gauge misc See Rx Instructions .ROUTE .MEDSUPPLY Qty: 100 11RF Rx Instructions: Three times a day (DME) walker Misc See Rx Instructions .Route Qty: 1 0RF Rx Instructions: walker with seat (DME) FreeStyle Med 2 Sensor Kit See Rx Instructions .ROUTE .MEDSUPPLY Qty: 2 11RF Rx Instructions: As directed every 2 weeks (DME) juxtalite calf wrap bilateral 30 mmHg See Rx Instructions .Route .MEDSUPPLY Qty: 2 0RF Rx Instructions: As directed (DME) back brace Misc See Rx Instructions .Route Qty: 1 0RF Rx Instructions: As directed (DME) nebulizer tube and adapter See Rx Instructions .Route .MEDSUPPLY Qty: 1 0RF Rx Instructions: As directed (DME) recliner lift chair See Rx Instructions .Route .MEDSUPPLY Qty: 1 0RF Rx Instructions: As directed albuterol sulfate 2.5 mg /3 mL (0.083 %) solution for nebulization 2.5 mg inhalation QID PRN (Reason: shortness of breath or wheezing) 30 Days Qty: 75 1RF albuterol sulfate [Ventolin HFA] 90 mcg/actuation HFA aerosol inhaler 2 puff inhalation Q4H PRN (Reason: for muscle spasm) Qty: 18 3RF fluticasone furoate-vilanterol [Breo Ellipta] 200-25 mcg/dose blister with device 1 inh inhalation DAILY 30 Days Qty: 1 6RF chlorthalidone 25 mg tablet 25 mg PO DAILY 90 Days Qty: 90 3RF (DME) pen needle, diabetic 31 gauge x 5/16 needle See Rx Instructions .Route Qty: 150 11RF Rx Instructions: As directed 4 x/day fluticasone propion-salmeterol [Wixela Inhub] 250-50 mcg/dose blister with device 1 ea PO BID Qty: 60 3RF (DME) FreeStyle Lite Strips Strip See Rx Instructions .ROUTE .MEDSUPPLY Qty: 100 11RF Rx Instructions: As directed three times a day insulin glargine U-300 conc [Toujeo SoloStar U-300 Insulin] 300 unit/mL (1.5 mL) insulin pen 85 unit subcut DAILY 30 Days Qty: 8.499 5RF Mounjaro 2.5 mg/0.5 mL pen injector 5 mg subcut QWEEK 28 Days Qty: 4 0RF metoprolol tartrate 50 mg tablet 50 mg PO BID 90 Days Qty: 180 1RF valsartan 320 mg tablet 320 mg PO DAILY 90 Days Qty: 90 1RF (DME) pen needle, diabetic [Comfort EZ Pen Amalia] 31 gauge x 5/16 needle See Rx Instructions .Route Qty: 100 6RF Rx Instructions: Use 1 pen needle four times a day Trulicity 1.5 mg/0.5 mL pen injector 1.5 mg subcut QWEEK 84 Days Qty: 6 2RF pantoprazole 40 mg tablet,delayed release (DR/EC) 40 mg PO DAILY Qty: 90 1RF insulin aspart U-100 [Novolog FlexPen U-100 Insulin] 100 unit/mL (3 mL) insulin pen 12 - 16 unit subcut TID Qty: 15 6RF Rx Instructions: 12 units before meals, 14 units for bg over 200 and 16 u for bg over 300 bupropion HCl 150 mg tablet extended release 24 hr 150 mg PO QAM Qty: 90 1RF ezetimibe 10 mg tablet 10 mg PO DAILY 90 Days Qty: 90 0RF acetaminophen [Tylenol Extra Strength] 500 mg tablet 500 mg PO Q6H PRN (Reason: fever or pain) Qty: 14 0RF methocarbamol 750 mg tablet 750 mg PO QID PRN (Reason: pain) Qty: 20 0RF diclofenac sodium [Arthritis Pain (diclofenac)] 1 % gel 2 g topical QID Qty: 100 0RF Rx Instructions: apply to single elbow, wrist or hand; for hand includes palm/fingers/back of hand (DME) blood-glucose meter [FreeStyle Lite Meter] Kit See Rx Instructions .ROUTE .MEDSUPPLY Qty: 1 0RF Rx Instructions: As directed (DME) FreeStyle Med 2 Owen Misc See Rx Instructions .ROUTE .MEDSUPPLY Qty: 1 0RF Rx Instructions: As directed Interventions: ED Discharge Assessment Last Done: 07/06/24 16:13 Print Language: Nigerien
[2024-07-06] MEDS: Morphine Sulfate 4 MG/ML CARTRIDGE IVPUSH (11:14)
[2024-07-06 11:28] LABS: MANUAL DIFF FLAG NO
[2024-07-06 11:29] VITALS: BP 139/71; PULSE 84; RESP 18; TEMP 37.1; O2SAT 96
[2024-07-06 11:29] LABS: Basophils Percent Auto 0.3 % (0-2); Eosinophils Percent Auto 0.3 % (0-4); Hematocrit 28.3 % (37.0-47.0); Hemoglobin 9.6 g/dl (12.0-16.0); Imm Gran Abs Auto 0.08 X10*3/uL (0.00-0.03); Imm Gran Pct Auto 0.7 % (0.0-0.4); Lymphocytes Absolute Auto 1.4 X10*3/uL (1.2-4.9); Lymphocytes Percent Auto 11.8 % (20-40); Mean Corpuscular HGB Conc 33.9 g/dl (31.0-35.0); Mean Corpuscular Hemoglobin 28.8 pg (27.0-33.0); Mean Platelet Volume 9.7 fL (9.4-12.3); Monocytes Absolute Auto 0.8 X10*3/uL (0.1-1.2); Monocytes Percent Auto 6.9 % (2-11); Neutrophils Absolute Auto 9.6 x10*3/uL (2.0-8.3); Platelet Count 282 X10*3/uL (160-400); Red Blood Count 3.33 X10*6/uL (4.20-5.50); Red Cell Distribution Width 13.3 % (11.0-16.0); White Blood Count 11.9 X10*3/uL (4.8-10.8)
[2024-07-06 11:41] LABS: INTERNATIONAL NORM RATIO 1.1 (0.9-1.1)
[2024-07-06 11:44] LABS: Partial Thromboplastin Time 32.6 SEC (26.0-36.8)
[2024-07-06 11:47] LABS: Alanine Aminotransferase 11 U/L (0-31); Albumin Level 3.5 g/dL (3.5-5.0); Alkaline Phosphatase 116 U/L (39-117); Anion Gap 14 (12-20); Aspartate Amino Transferase 10 U/L (5-31); Bilirubin Total 0.7 mg/dL (0.0-1.0); Blood Urea Nitrogen 32 mg/dL (9-16); Calcium 10.3 mg/dL (8.4-10.2); Carbon Dioxide 20 mmol/L (22-29); Chloride 107 mmol/L (96-108); Creatinine Clr Calc Pharmacy 29.2; Estimated Glomerular Filt Rate 26; Glucose Random 231 mg/dL (60-115); Potassium 4.1 mmol/L (3.3-5.1); Sodium 137 mmol/L (135-145); Total Protein 7.5 g/dL (6.5-8.0)
[2024-07-06 11:55] LABS: Troponin-I High Sensitivity 2.9 ng/L (<3.5-17.0)
[2024-07-06] MEDS: diazePAM 5 MG TABLET PO (12:31)
[2024-07-06 14:01] VITALS: BP 145/71; PULSE 81; RESP 14; TEMP 37.2; O2SAT 97
[2024-07-06 14:07] LABS: Troponin-I High Sensitivity 2.9 ng/L (<3.5-17.0)
[2024-07-06] MEDS: HYDROmorphone HCl 0.5 MG/0.5 ML SYRINGE 0.25 MG IVPUSH (14:43)
--- NOTE | 2024-07-06 15:41 | MHC.CM.PN ---
Received consult for assessment of d/c needs: Pt resides w/significant other who is presently hospitalized at [facility] [place]. 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 Pt states she is lonely and has few supports other than S.O. and [employer]. Pt states she would like [facility]NA services for skilled RN to assist w/med management for chronic pain. Referred to [facility]: awaiting acceptance. PCP: Dr. Allen: Pt has cell at bedside and will call [employer] for ride home.
[2024-07-06 15:52] VITALS: BP 145/74; PULSE 85; RESP 14; TEMP 37; O2SAT 98
[2024-07-06 16:13] VITALS: BP 147/79; PULSE 88; RESP 20; TEMP 36.9; O2SAT 100
== END 2024-07-06 16:27 | disposition home or self-care (01) ==
PROVIDERS: Emergency Provider Emergency Medicine; PCP Internal Medicine
DX: R07.89 Other chest pain (principal); M79.18 Myalgia, other site; E11.22 Type 2 diabetes mellitus with diabetic chronic kidney disease; I12.9 Hypertensive chronic kidney disease with stage 1 through stage 4 chronic kidney disease, or unspecified chronic kidney disease; N18.4 Chronic kidney disease, stage 4 (severe); Z99.2 Dependence on renal dialysis; E78.00 Pure hypercholesterolemia, unspecified; Z79.4 Long term (current) use of insulin; Z79.85 Long-term (current) use of injectable non-insulin antidiabetic drugs
CPT/HCPCS: 36415; 71045; 80053; 84484; 85025; 85610; 85730; 93005; 96374; 96375; 99284; J1171; J2270

== ENCOUNTER → 2024-07-06 10:21 | Outpatient (BNV) | payer OTHER, SELFPAY | PROVIDERS: Emergency Provider Emergency Medicine; PCP Internal Medicine; Visit Provider Internal Medicine | DX: R94.31 Abnormal electrocardiogram [ECG] [EKG] (principal) | CPT/HCPCS: 93010 ==

== ENCOUNTER 2024-08-23 19:07 | Emergency (ER) | payer OTHER, SELFPAY ==
--- NOTE | ~2024-08-23 | XR_ITS ---
EXAMINATION: XR ELBOW, LEFT CLINICAL INFORMATION: pain COMPARISON: None available. TECHNIQUE: 2 views of the left elbow. FINDINGS: The bone mineralization is normal. The joint spaces are maintained. There is no evidence for fracture. There is no joint effusion. There is olecranon region soft tissue swelling. XR/XR elbow LT 2V IMPRESSION: Olecranon region soft tissue swelling. No fracture or joint effusion. Electronically signed by: South Spears MD 08/24/2024 03:52 AM [facility]
--- NOTE | ~2024-08-23 | US_ITS ---
EXAMINATION: US TRIPLEX UPPER EXTREMITY, LEFT CLINICAL INFORMATION: Left upper extremity swelling and pain. COMPARISON: None available. TECHNIQUE: Color-flow triplex imaging with spectral analysis and compression Doppler was performed on the left upper extremity. FINDINGS: The left internal jugular, subclavian, and axillary veins are patent and free of thrombus. The imaged segment of the left brachiocephalic vein is patent. Spectral doppler waveforms are normal. The brachial, basilic, cephalic, radial, and ulnar veins are patent and compressible. US/US venous duplex UE LT IMPRESSION: No evidence of deep venous thrombosis involving the left upper extremity. Electronically signed by: South Speras MD 08/24/2024 12:29 AM [facility]
--- NOTE | 2024-08-23 20:10 | ED_ITS ---
HPI - Extremity Injury (Upper) General Chief Complaint: Extremity Injury, Upper Stated Complaint: L arm pain on and off fo 2 ywars Time Seen by Provider: 08/23/24 21:44 Source: patient Mode of arrival: ambulatory Limitations: no limitations History of Present Illness ED Provider: HPI narrative: Patient's history of fibromyalgia CKD status post AV shunt placed on the left 2 years ago since then patient has been having pain in that area patient shunt has never had not been used patient has pain especially in extending the elbow got worse in last 2 months also noticed swelling of the left arm Related Data Previous Rx's ?Medication ?Instructions ?Recorded cetirizine 10 mg tablet 10 mg PO DAILY PRN Allergy 11/12/21 Symptoms 90 days #90 tabs walker #1 ea 03/03/22 flash glucose sensor (FreeStyle #2 ea 05/15/22 Med 2 Sensor kit) acetaminophen 500 mg tablet 500 mg PO Q6H PRN fever or pain 07/07/22 (Tylenol Extra Strength) #14 tabs juxtalite calf wrap bilateral #2 ea 08/12/22 back brace #1 ea 10/08/22 nebulizer tube and adapter #1 ea 11/27/22 recliner lift chair #1 ea 01/07/23 albuterol sulfate 2.5 mg/3 mL 2.5 mg (3 mL) inhalation QID PRN 05/18/23 (0.083 %) solution for nebulization shortness of breath or wheezing 30 days #75 mL diclofenac sodium 1 % topical gel 2 g topical QID #100 grams 06/30/23 (Arthritis Pain (diclofenac)) albuterol sulfate 90 mcg/actuation 2 puff inhalation Q4H PRN for 07/15/23 aerosol inhaler (Ventolin HFA) muscle spasm #18 ea chlorthalidone 25 mg tablet 25 mg PO DAILY 90 days #90 tabs 09/30/23 pen needle, diabetic 31 gauge x #150 ea 09/30/2302/03 fluticasone 250 mcg-salmeterol 50 1 ea PO BID #60 ea 10/21/23 mcg/dose blistr powdr for inhalation (Wixela Inhub) insulin glargine U-300 conc 300 85 unit (0.2833 mL) subcut DAILY 01/06/24 unit/mL (1.5 mL) subcutaneous pen 30 days #8.499 mL (Toujeo SoloStar U-300 Insulin) tirzepatide 2.5 mg/0.5 mL 5 mg subcut QWEEK 4 weeks #4 mL 01/27/24 subcutaneous pen injector (Andrey) metoprolol tartrate 50 mg tablet 50 mg PO BID 90 days #180 tabs 02/29/24 valsartan 320 mg tablet 320 mg PO DAILY 90 days #90 tabs 02/29/24 pen needle, diabetic 31 gauge x #100 ea 03/01/24/ (Comfort EZ Pen [place]) dulaglutide 1.5 mg/0.5 mL 1.5 mg (0.5 mL) subcut QWEEK 84 03/17/24 subcutaneous pen injector days #6 mL (Trulicity) insulin aspart U-100 100 unit/mL 12 - 16 unit (0.12 - 0.16 mL) 04/23/24 (3 mL) subcutaneous pen (Novolog subcut TID #15 mL FlexPen U-100 Insulin aspart) pantoprazole 40 mg tablet,delayed 40 mg PO DAILY #90 tabs 04/23/24 release bupropion HCl 150 mg 24 hr tablet, 150 mg PO QAM #90 tabs 04/24/24 extended release ezetimibe 10 mg tablet 10 mg PO DAILY 90 days #90 tabs 05/30/24 methocarbamol 750 mg tablet 750 mg PO QID PRN pain #20 tabs 06/18/24 hydromorphone 2 mg tablet 2 mg PO Q6H PRN pain #8 tabs 07/06/24 (Dilaudid) Breo Ellipta 200 mcg-25 mcg/dose 1 ea PO DAILY #60 ea 08/01/24 powder for inhalation (fluticasone furoate-vilanterol) flash glucose scanning reader #1 ea 08/22/24 (FreeStyle Med 2 [place]) oxycodone 5 mg tablet 5 mg PO Q6H PRN pain #20 tabs 08/24/24 blood sugar diagnostic (FreeStyle #100 ea 08/30/24 Lite Strips) blood-glucose meter (FreeStyle #1 ea 08/30/24 Lite Meter kit) lancets 28 gauge (FreeStyle #100 ea 08/30/24 Lancets) magnesium oxide 500 mg PO DAILY 90 days #90 tabs 08/30/24 Allergies Allergy/AdvReac Type Severity Reaction Status Date / Time nut - unspecified [nut] Allergy Severe Anaphylaxis Verified 08/30/24 10:46 rosuvastatin Allergy Severe Facial Verified 08/30/24 10:46 Swelling vancomycin [VANCOMYCIN] Allergy Severe Itching Verified 08/30/24 10:46 [place] Inhibitors Allergy Intermediate Rash Verified 08/30/24 10:46 [[place] INHIBITORS] ciprofloxacin [From CIPRO] Allergy Intermediate Rash Verified 08/30/24 10:46 codeine [CODEINE] Allergy Intermediate Rash Verified 08/30/24 10:46 cyclobenzaprine Allergy Intermediate Hives Verified 08/30/24 10:46 [CYCLOBENZAPRINE] ferrous sulfate Allergy Intermediate Rash Verified 08/30/24 10:46 [FERROUS SULFATE] insulin lispro Allergy Intermediate Hives Verified 08/30/24 10:46 [Humalog U-100 Insulin] latex [LATEX] Allergy Intermediate Hives Verified 08/30/24 10:46 methylprednisolone Allergy Intermediate Rash Verified 08/30/24 10:46 [From MEDROL] penicillin V Allergy Intermediate Hives Verified 08/30/24 10:46 tamsulosin [TAMSULOSIN] Allergy Intermediate Rash Verified 08/30/24 10:46 tramadol Allergy Intermediate Itching Verified 08/30/24 10:46 insulin degludec Allergy Mild Hives Verified 08/30/24 10:46 [From Tresiba FlexTouch U-100] pravastatin Allergy Mild pruritus Verified 08/30/24 10:46 lactose [LACTOSE] AdvReac Intermediate Diarrhea Verified 08/30/24 10:46 Beef Containing Products AdvReac Mild Stomach Verified 08/30/24 10:46 Upset Fish Containing Products AdvReac Mild Nausea and Verified 08/30/24 10:46 Vomiting Pork/Porcine Containing AdvReac Mild Stomach Verified 08/30/24 10:46 Products Upset FRUIT AdvReac Mild NAUSEA & Uncoded 08/30/24 10:46 VOMITING VEGETABLES,FRESH AdvReac Mild NAUSEA & Uncoded 08/30/24 10:46 VOMITING Review of Systems 2 Review of Systems: Yes all other systems are reviewed and are negative PMFSH Past Medical History Medical History Medicare annual wellness visit, initial Severe recurrent major depression Postmenopausal CKD (chronic kidney disease) stage 4, GFR 15-29 ml/min Type 2 diabetes mellitus with chronic kidney disease Obesity due to excess calories DM2 (diabetes mellitus, type 2) CKD (chronic kidney disease) Epicondylitis, lateral (tennis elbow) Dyslipidemia Leg edema Pain in both lower legs Calcaneal spur of both feet Acute kidney injury Irregular heart beat Depression Hypercholesteremia Diabetes Essential hypertension Surgical History Hx of vascular surgery History of extraction of renal calculus History of hysterectomy Family History Family History Father Diabetes Mother Diabetes Sister Breast cancer Brother No problems noted. Sister No problems noted. Social History Social History Household Members: Significant Other Housing: Apartment Are you a primary medication care manager to a significant other at home: No Do you presently have visiting nurse or other home services: Yes Unable to assess alcohol history related to: Unknown Alcohol intake: never Patient Tobacco Use Status: Never used Tobacco e-Cigarette/Vaping Use: Never Used Second Hand Smoke Exposure: No Advance Directives Date on File: 09/11/20 service: No Current occupational status: disabled Cognitive needs: Yes (walker, power chair) Hearing needs: No Vision needs: Yes (glasses) Physical Exam 2 Vital Signs: Vital Signs: Last Vital Signs Temp 98.2 F 08/24/24 02:06 Pulse 84 08/24/24 02:06 Resp 16 08/24/24 02:06 BP 146/73 H 08/24/24 02:06 Pulse Ox 100 08/24/24 02:06 O2 Del Method Room Air 08/24/24 02:06 BMI result Body Mass Index 30.0 Appearance: Alert. Oriented X3. No acute distress. Eyes: No pallor or icterus ENT: Pharynx normal. Oral Mucosa moist Neck: Normal inspection. Neck supple. CVS: Normal heart rate and rhythm. Pulses normal. Respiratory: No respiratory distress. Equal air entry bilateral, no wheezing/rales/rhonchi Abdomen: Soft and nontender. Bowel sounds are present, no mass palpable, no CVA tenderness Skin: Skin warm and dry. Normal skin color. Normal skin turgor. Extremities: No lower extremity edema. No calf tenderness left arm in flexed position unable to extend was of pain bruit is present in the fistula diffuse tenderness and swelling of left arm Neuro: Oriented X 3. No motor deficit. No sensory deficit.No cerebellar signs , cranial nerves II-XII intact Course Course Course Narrative: This is a rapid medical exam performed by Yuliana Rojas PA-C. Patient is a 69-year-old female with a history of arthritis, fibromyalgia, chronic kidney disease with AV fistula formation within the left upper extremity that has not required utilization, DM, hypertension, hyperlipidemia presents with left upper extremity pain and swelling x1 month. Patient states she can not fully extend or raise her left upper extremity above her head. Her symptoms have progressed over the past month. No preceding injury. The swelling extends down the length of the arm to the fingers. Denies cool pale limb, no paresthesia. On exam, the radial and ulnar pulses are detected, the limb is warm and well perfused, unwilling to attempt flexion and extension from the wrist or the elbow, she will not attempt lateral raise of the upper extremity. We will screen basic labs, inflammatory markers given her underlying pain syndromes, including coags, we will be screening to rule out DVT. The patient is hemodynamically stable and is able to return to the waiting room pending her full medical assessment. Medications Administered Discontinued Medications Generic Name Dose Route Start Last Admin Trade Name Freq PRN Reason Stop Dose Admin Magnesium Oxide 400 mg 08/23/24 22:21 08/23/24 22:32 Magnesium Oxide 400 Mg Tablet PO 08/23/24 22:22 400 mg ONCE ONE Administration Oxycodone HCl 10 mg 08/23/24 22:21 08/23/24 22:32 Oxycodone Hcl Immed Release 5 Mg Tablet PO 08/23/24 22:22 10 mg ONCE ONE Administration Potassium Chloride 20 meq 08/23/24 22:21 08/23/24 22:32 Potassium Chloride Er 20 Meq Tab.Er.Prt PO 08/23/24 22:22 20 meq ONCE ONE Administration Medical Decision Making Medical Decision Making [facility] Narrative: Patient with diffuse left arm pain after AV shunt placed 2 years ago x-ray negative for acute venous Doppler negative for any blood clot patient has a good bruit in the shunt area patient advised to take pain medication follow with PCP Lab Data [facility] Lab Attestation statement: I reviewed the patient's lab results. 12/03/24 20:29 08/23/24 20:29 Labs: Lab Results 08/23/24 Range/Units 20:29 WBC 11.5 H (4.8-10.8) X10*3/uL RBC 3.24 L (4.20-5.50) X10*6/uL Hgb 9.0 L (12.0-16.0) g/dl Hct 27.2 L (37.0-47.0) % MCV 84.0 (80.0-98.0) fL MCH 27.8 (27.0-33.0) pg MCHC 33.1 (31.0-35.0) g/dl RDW 13.4 (11.0-16.0) % Plt Count 445 H D (160-400) X10*3/uL MPV 9.4 (9.4-12.3) fL Immature Gran % (Auto) 0.4 (0.0-0.4) % Neut % (Auto) 70.5 (45-73) % Lymph % (Auto) 20.3 (20-40) % [place] % (Auto) 7.2 (2-11) % Eos % (Auto) 1.3 (0-4) % Baso % (Auto) 0.3 (0-2) % Lymph # (Auto) 2.3 (1.2-4.9) X10*3/uL [place] # (Auto) 0.8 (0.1-1.2) X10*3/uL Eos # (Auto) 0.2 (0.0-0.4) X10*3/uL Baso # (Auto) 0.0 (0.0-0.2) X10*3/uL Abs Immat Gran (auto) 0.05 H (0.00-0.03) X10*3/uL Absolute Neuts (auto) 8.1 (2.0-8.3) x10*3/uL Absolute Nucleated RBC 0.000 (0.0-0.012) X10*3/uL Nucleated RBC % (auto) 0.0 (0.0-0.2) /100WBC ESR 117 H (0-20) MM/HR PT 13.1 H (10.9-12.4) SEC INR 1.1 (0.9-1.1) D-Dimer High Sensitivty 355 NG/ML Sodium 136 (135-145) mmol/L Potassium 3.1 L D (3.3-5.1) mmol/L Chloride 102 (96-108) mmol/L Carbon Dioxide 25 (22-29) mmol/L Anion Gap 12 (12-20) BUN 22 H (9-16) mg/dL Creatinine 1.77 H (0.5-1.4) mg/dL Estim Creat Clear Calc 30.9 Estimated GFR 29 Random Glucose 149 H (60-115) mg/dL Calcium 10.0 (8.4-10.2) mg/dL Magnesium 1.3 L* (1.6-2.6) mg/dL Total Bilirubin 0.6 (0.0-1.0) mg/dL AST 16 (5-31) U/L ALT < 6 (0-31) U/L Alkaline Phosphatase 112 (39-117) U/L C-Reactive Protein 16.05 H (< or = 0.50) mg/dL Total Protein 7.8 (6.5-8.0) g/dL Albumin 3.3 L (3.5-5.0) g/dL Independent Interpretation I performed an independent interpretation of an: Ultrasound Radiology Impression Discussion of test interpretation with radiology: I have reviewed the radiologist's reading. Radiologist Impression: [place] [id number] XRay Report Signed Patient: Paige Harris MR#: [id number] : 1955 Acct:[id number] Age/Sex: 69 / F ADM Date: 08/23/24 Loc: HO.ED Attending Dr: Ordering Physician: Bobby Chambers MD Date of Service: 08/23/24 Procedure(s): XR elbow LT 2V Accession Number(s): [id number] cc: Joann Partida MD; Bobby Chambers MD~ EXAMINATION: XR ELBOW, LEFT CLINICAL INFORMATION: pain COMPARISON: None available. TECHNIQUE: 2 views of the left elbow. FINDINGS: The bone mineralization is normal. The joint spaces are maintained. There is no evidence for fracture. There is no joint effusion. There is olecranon region soft tissue swelling. XR/XR elbow LT 2V IMPRESSION: Olecranon region soft tissue swelling. No fracture or joint effusion. [place] [id number] Ultrasound Report Signed Patient: Paige Harris MR#: [id number] : 1955 Acct:[id number] Age/Sex: 69 / F ADM Date: 08/23/24 Loc: HO.ED Attending Dr: Ordering Physician: Bobby Chambers MD Date of Service: 08/23/24 Procedure(s): US venous duplex UE LT Accession Number(s): [id number] cc: Joann Partida MD; Bobby Chambers MD~ EXAMINATION: US TRIPLEX UPPER EXTREMITY, LEFT CLINICAL INFORMATION: Left upper extremity swelling and pain. COMPARISON: None available. TECHNIQUE: Color-flow triplex imaging with spectral analysis and compression Doppler was performed on the left upper extremity. FINDINGS: The left internal jugular, subclavian, and axillary veins are patent and free of thrombus. The imaged segment of the left brachiocephalic vein is patent. Spectral doppler waveforms are normal. The brachial, basilic, cephalic, radial, and ulnar veins are patent and compressible. US/US venous duplex UE LT IMPRESSION: No evidence of deep venous thrombosis involving the left upper extremity. Electronically signed by: South Spears MD 08/24/2024 12:29 AM [facility] Discharge Plan Discharge Clinical Impression: Left arm pain Patient Disposition: Home, Self-Care Instructions: Arm Pain (ED) Additional Instructions: Your left arm pain is likely from arthritis Take pain medication as prescribed Follow up with your PCP Prescriptions: New oxycodone 5 mg tablet 5 mg PO Q6H PRN (Reason: pain) Qty: 20 0RF Rx Instructions: Partial Fill upon patient request. No Action cetirizine 10 mg tablet 10 mg PO DAILY PRN (Reason: Allergy Symptoms) 90 Days Qty: 90 1RF (DME) walker Misc See Rx Instructions .Route Qty: 1 0RF Rx Instructions: walker with seat (DME) [employer] 2 Sensor Kit See Rx Instructions .ROUTE .MEDSUPPLY Qty: 2 11RF Rx Instructions: As directed every 2 weeks (DME) juxtalite calf wrap bilateral 30 mmHg See Rx Instructions .Route .MEDSUPPLY Qty: 2 0RF Rx Instructions: As directed (DME) back brace Misc See Rx Instructions .Route Qty: 1 0RF Rx Instructions: As directed (DME) nebulizer tube and adapter See Rx Instructions .Route .MEDSUPPLY Qty: 1 0RF Rx Instructions: As directed (DME) recliner lift chair See Rx Instructions .Route .MEDSUPPLY Qty: 1 0RF Rx Instructions: As directed albuterol sulfate 2.5 mg /3 mL (0.083 %) solution for nebulization 2.5 mg inhalation QID PRN (Reason: shortness of breath or wheezing) 30 Days Qty: 75 1RF albuterol sulfate [Ventolin HFA] 90 mcg/actuation HFA aerosol inhaler 2 puff inhalation Q4H PRN (Reason: for muscle spasm) Qty: 18 3RF chlorthalidone 25 mg tablet 25 mg PO DAILY 90 Days Qty: 90 3RF (DME) pen needle, diabetic 31 gauge x 5/16 needle See Rx Instructions .Route Qty: 150 11RF Rx Instructions: As directed 4 x/day fluticasone propion-salmeterol [Wixela Inhub] 250-50 mcg/dose blister with device 1 ea PO BID Qty: 60 3RF insulin glargine U-300 conc [Toujeo SoloStar U-300 Insulin] 300 unit/mL (1.5 mL) insulin pen 85 unit subcut DAILY 30 Days Qty: 8.499 5RF Mounjaro 2.5 mg/0.5 mL pen injector 5 mg subcut QWEEK 28 Days Qty: 4 0RF metoprolol tartrate 50 mg tablet 50 mg PO BID 90 Days Qty: 180 1RF valsartan 320 mg tablet 320 mg PO DAILY 90 Days Qty: 90 1RF (DME) pen needle, diabetic [Comfort EZ Pen [place]] 31 gauge x 5/16 needle See Rx Instructions .Route Qty: 100 6RF Rx Instructions: Use 1 pen needle four times a day Trulicity 1.5 mg/0.5 mL pen injector 1.5 mg subcut QWEEK 84 Days Qty: 6 2RF pantoprazole 40 mg tablet,delayed release (DR/EC) 40 mg PO DAILY Qty: 90 1RF insulin aspart U-100 [Novolog FlexPen U-100 Insulin] 100 unit/mL (3 mL) insulin pen 12 - 16 unit subcut TID Qty: 15 6RF Rx Instructions: 12 units before meals, 14 units for bg over 200 and 16 u for bg over 300 bupropion HCl 150 mg tablet extended release 24 hr 150 mg PO QAM Qty: 90 1RF ezetimibe 10 mg tablet 10 mg PO DAILY 90 Days Qty: 90 0RF fluticasone furoate-vilanterol [Breo Ellipta] 200-25 mcg/dose blister with device 1 ea PO DAILY Qty: 60 3RF (DME) FreeStyle Med 2 [place] Misc See Rx Instructions .ROUTE .MEDSUPPLY Qty: 1 0RF Rx Instructions: As directed acetaminophen [Tylenol Extra Strength] 500 mg tablet 500 mg PO Q6H PRN (Reason: fever or pain) Qty: 14 0RF methocarbamol 750 mg tablet 750 mg PO QID PRN (Reason: pain) Qty: 20 0RF hydromorphone [Dilaudid] 2 mg tablet 2 mg PO Q6H PRN (Reason: pain) Qty: 8 0RF Rx Instructions: Partial Fill upon patient request. diclofenac sodium [Arthritis Pain (diclofenac)] 1 % gel 2 g topical QID Qty: 100 0RF Rx Instructions: apply to single elbow, wrist or hand; for hand includes palm/fingers/back of hand (DME) FreeStyle Lite Strips Strip See Rx Instructions .ROUTE .MEDSUPPLY Qty: 100 11RF Rx Instructions: As directed three times a day (DME) lancets [FreeStyle Lancets] 28 gauge misc See Rx Instructions .ROUTE .MEDSUPPLY Qty: 100 11RF Rx Instructions: Three times a day magnesium oxide 500 mg magnesium tablet 500 mg PO DAILY 90 Days Qty: 90 1RF (DME) blood-glucose meter [FreeStyle Lite Meter] Kit See Rx Instructions .ROUTE .MEDSUPPLY Qty: 1 0RF Rx Instructions: As directed Interventions: ED Discharge Assessment Last Done: 08/24/24 02:06 Discharge Date/Time: 08/24/24 02:07 Print Language: Finnish
[2024-08-23 20:11] VITALS: BP 145/80; BP 159/76; PULSE 84; PULSE 86; RESP 18; TEMP 36.3; O2SAT 99
[2024-08-23 20:34] LABS: MANUAL DIFF FLAG NO
[2024-08-23 20:36] LABS: Basophils Percent Auto 0.3 % (0-2); Eosinophils Absolute Auto 0.2 X10*3/uL (0.0-0.4); Eosinophils Percent Auto 1.3 % (0-4); Hematocrit 27.2 % (37.0-47.0); Imm Gran Abs Auto 0.05 X10*3/uL (0.00-0.03); Imm Gran Pct Auto 0.4 % (0.0-0.4); Lymphocytes Absolute Auto 2.3 X10*3/uL (1.2-4.9); Lymphocytes Percent Auto 20.3 % (20-40); Mean Corpuscular HGB Conc 33.1 g/dl (31.0-35.0); Mean Corpuscular Hemoglobin 27.8 pg (27.0-33.0); Mean Platelet Volume 9.4 fL (9.4-12.3); Monocytes Absolute Auto 0.8 X10*3/uL (0.1-1.2); Monocytes Percent Auto 7.2 % (2-11); Neutrophils Absolute Auto 8.1 x10*3/uL (2.0-8.3); Neutrophils Percent Auto 70.5 % (45-73); Platelet Count 445 X10*3/uL (160-400); Red Blood Count 3.24 X10*6/uL (4.20-5.50); Red Cell Distribution Width 13.4 % (11.0-16.0); White Blood Count 11.5 X10*3/uL (4.8-10.8)
[2024-08-23 20:41] LABS: INTERNATIONAL NORM RATIO 1.1 (0.9-1.1); Prothrombin Time 13.1 SEC (10.9-12.4)
[2024-08-23 21:17] LABS: Erythrocyte Sedimentation Rate 117 MM/HR (0-20)
[2024-08-23 21:23] LABS: C Reactive Protein 16.05 mg/dL (< or = 0.50)
[2024-08-23 21:31] LABS: Alanine Aminotransferase < 6 U/L (0-31); Albumin Level 3.3 g/dL (3.5-5.0); Alkaline Phosphatase 112 U/L (39-117); Anion Gap 12 (12-20); Aspartate Amino Transferase 16 U/L (5-31); Bilirubin Total 0.6 mg/dL (0.0-1.0); Blood Urea Nitrogen 22 mg/dL (9-16); Carbon Dioxide 25 mmol/L (22-29); Chloride 102 mmol/L (96-108); Creatinine Clr Calc Pharmacy 30.9; Estimated Glomerular Filt Rate 29; Glucose Random 149 mg/dL (60-115); Magnesium 1.3 mg/dL (1.6-2.6); Potassium 3.1 mmol/L (3.3-5.1); Sodium 136 mmol/L (135-145); Total Protein 7.8 g/dL (6.5-8.0)
[2024-08-23 21:40] LABS: D Dimer High Sensitivity 355 NG/ML
[2024-08-23 21:44] VITALS: BP 146/73; PULSE 84; RESP 16; TEMP 36.7; O2SAT 100
[2024-08-23] MEDS: Magnesium Oxide 400 MG TABLET PO (22:32)
[2024-08-23] MEDS: oxyCODONE HCl Immed Release 5 MG TABLET 10 MG PO (22:32)
[2024-08-23] MEDS: Potassium Chloride ER 20 MEQ TAB.ER.PRT PO (22:32)
--- NOTE | 2024-08-23 22:59 | MHC.EDTECH ---
this tech took over care @224, when rounding the pt was witnessed sleeping in the stretcher, w/ equal chest rise and unlabored respirations present
--- NOTE | 2024-08-24 02:04 | PC.NURSE ---
Assisted pt to get dress, reviewed discharge instructions with pt. pt verbalized understanding, pt wheel out to car by this rn with family memeber, no sign of distress upon discharge.
[2024-08-24 02:06] VITALS: BP 146/73; PULSE 84; RESP 16; TEMP 36.8; O2SAT 100
--- OUTSIDE RECORDS SUMMARY | 2024-08-30 16:02 | XMS_ITS | Continuity of Care Document ---
Author Organization [employer] [place] [employer] Address [address] [place] [phone] Care Team Providers Care Glass Vial Filler Name Role Phone HIM CCA OTHER Assessment Encounter Date Assessment Date Assessment LastModified by Organization Details LastModified Time 06/01/2024 06/01/2024 As noted, we were called to see this patient regarding concerns of joint pain. Evaluation in the field was performed by my electrical prospecting operator colleague, as noted above, I provided real-time direction and supervision for this visit. The evaluation revealed joint pain. Impression: 68yo/f with multiple chronic medical problems including asthma, HTN, CKD, IDDM, being evaluated for joint pain. Patient evaluated by medic in home. Triage note states call placed for edema. However patient able to clarify that she is not experiencing any significant edema today, but instead requesting visit for joint pain. Patient states has been in usual state of health, has longstanding history of joint pains, states believes related to arthritis . Takes tylenol as needed, does not believe she has been given formal diagnosis by her doctors. Today states noticing pain in the upper extremities in the shoulder and elbows, lower extremities in the hips, knees, ankles bilaterally. No associated chest pain, dyspnea, abdominal pain. No systemic symptoms of fevers/chills, nausea/vomiting , flu like symptoms. Taking PO normally, ambulating normally. No joint redness, swelling, warmth to accompany symptoms. For medic in home lungs are CTAB without crackles, joints are symmetric without redness, swelling, warmth. No edema noted throughout apart from some trace pedal edema bilaterally. Denies other ROS. Plan: Discussed at length, patient with multiple joint pains today but no redness, swelling, warmth to accompany it. No systemic symptoms of illness. She is ambulating comfortably, tolerating PO. Lungs are clear and there are on other signs of volume overload at this time. Considered volume overload in the setting of her CKD and HTN. No isolated joint redness, swelling, warmth, lower suspicion for septic arthritis or occult fracture/disloc ation. No associated numbness/weakne ss/paresthesias in extremities, lower suspicion for DVT, acute limb ischemia. Vitals are WNL and rest of medic exam is normal, I believe it's reasonable for patient to take tylenol today and monitor symptoms and followup with PMD in 24 hours for recheck. Given strict instructions to reach out immediately with any acute worsening or change in symptoms which she understands. Primary care, consider followup joint evaluation. Disposition: We discussed the diagnostic uncertainty of home visits and the risk associated with this. In this case, the patient and I felt this to be an acceptable and reasonable amount of risk given the benefit of avoiding an ED visit. We discussed the need to seek care urgently/emerge ntly in the setting of any new or worsening serious symptoms, particularly any acute worsening or change in symptoms. [email or web address] Not available 06/01/2024 11:46:54 Plan of Treatment Reminders Order Date Submit Date Provider Last Modified By Organization Details Last Modified Time Details Appointments None recorded. Lab None recorded. Referral None recorded. Procedures None recorded. Surgeries None recorded. Imaging None recorded. Medication Orders Tylenol 325 mg tablet 024 024 [email or web address] Not available 11:40:46 Patient TargetsNo targets recorded. Patient InstructionsNo instructions recorded. Reason for Referral None Reported. Medical Equipment None Reported. Allergies Allergen ID Allergen Name Allergen Category Reaction Reaction Severity Criticality Documentation Date Start Date Code Code System Note Provider Name and Address Organization Details Recorded Time 24199 pravastat in medicatio n Not available Not available Not available 08/08/2024 22800 RxNorm Not Available [facility] - production 4 13:38:21 5141 tree nut food Not available Not available Not available 02/16/2024 Karlie Ramírez MD [address] [facility],[address], [place], [phone], [employer] 4 10:01:58 5142 beef allergeni c extract food,medi cation Not available Not available Not available 02/16/2024 59981 9 RxNorm Karlie Ramírez MD [address], [place], [phone], [employer] 4 10:02:08 5143 fish derived food,medi cation Not available Not available Not available 02/16/2024 Karlie Ramírez MD [address] [place] [address],[address], [place], [address], [employer] 4 10:02:18 5144 vancomyci n medicatio n Not available Not available Not available 02/16/2024 37648 RxNorm Not Available [facility] - production 4 03:47:47 5145 rosuvasta tin medicatio n Not available Not available Not available 02/16/2024 70977 2 RxNorm Not Available [facility] - production 13:38:21 5146 Product containin g angiotens in-conver ting enzyme inhibitor (product) medicatio n Not available Not available Not available 02/16/2024 36385 009 SNOMED Karlie Ramírez MD [address] [place] [address],[address], [place], [address], [employer] 4 10:02:50 5147 ciproflox acin medicatio n Not available Not available Not available 02/16/2024 2551 RxNorm Not Available [facility] - production 4 03:47:47 5148 codeine medicatio n Not available Not available Not available 02/16/2024 2670 RxNorm Not Available [facility] - production 4 13:38:21 5149 latex environme nt,medica tion Not available Not available Not available 02/16/2024 49976 91 RxNorm Not Available [facility] - production 4 03:47:47 5150 lactose food,medi cation Not available Not available Not available 02/16/2024 6211 RxNorm Karlie Ramírez MD [address] [place] [address],[address], [place], [address], [employer] 4 10:03:16 5151 cyclobenz aprine medicatio n Not available Not available Not available 02/16/2024 23898 RxNorm Not Available [facility] - production 4 13:38:21 5152 ferrous sulfate medicatio n Not available Not available Not available 02/16/2024 25761 [facility] Not Available [facility] 4 13:38:21 5153 insulin lispro medicatio n Not available Not available Not available 02/16/2024 55049 RxNorm Karlie Ramírez MD [address] [place] [address],[address] [facility], [place], [address], [employer] 4 10:03:48 5154 methylpre dnisolone medicatio n Not available Not available Not available 02/16/2024 6902 RxNorm Not Available [facility] 4 03:47:47 5155 Medicinal product containin g penicilli n and acting as antibacte rial agent (product) medicatio n Not available Not available Not available 02/16/2024 22632 05 SNOMED Karlie Ramírez MD [address] [place] [address],[address], [place], [address], [employer] 4 10:04:13 5156 tamsulosi n medicatio n Not available Not available Not available 02/16/2024 29580 RxNorm Not Available [facility] 4 13:38:21 5157 tramadol medicatio n Not available Not available Not available 02/16/2024 34976 RxNorm Karlie Ramírez MD [address] [place] [address],[address] [facility], [place], [address], [employer] 4 10:04:30 Medications Name Sig Start Date Stop Date Status Note LastModified by Organization Details LastModified Time albuterol sulfate 2.5 mg/3 mL (0.083 %) solution for nebulization USE 1 VIAL VIA NEBULIZER 4 TIMES A DAY NEEDED FOR SHORTNESS OF BREATH OR WHEEZING FOR 30 DAYS active Not Available Not Available Not Available chlorthalido ne 25 mg tablet TAKE 1 TABLET BY MOUTH EVERY DAY active Not Available Not Available No t Available amlodipine 5 mg tablet TAKE 1 TABLET BY MOUTH EVERY DAY active Not Available Not Available No t Available pantoprazole 40 mg tablet,delay ed release TAKE 1 TABLET BY MOUTH EVERY DAY active Not Available Not Available No t Available valsartan 320 mg tablet TAKE 1 TABLET BY MOUTH DAILY active Not Available Not Available Not Available metoprolol tartrate 50 mg tablet TAKE 1 TABLET BY MOUTH TWICE A DAY active Not Available Not Available No t Available Tylenol 325 mg tablet Take 3 tablets by oral route. 2023 active Not Available Not Available Not Avai lable albuterol sulfate HFA 90 mcg/actuatio n aerosol inhaler TAKE 2 PUFFS EVERY 4 HOURS NEEDED FOR BRONCHOSPAS M FOR 30 DAYS active Not Available Not Available No t Available valsartan 160 mg tablet TAKE 1 TABLET BY MOUTH EVERY DAY FOR 30 DAYS active Not Available Not Available No t Available ezetimibe 10 mg tablet TAKE 1 TABLET BY MOUTH EVERY DAY active Not Available Not Available No t Available Novolog FlexPen U-100 Insulin aspart 100 unit/mL (3 mL) subcutaneous PLEASE SEE ATTACHED FOR DETAILED DIRECTIONS active Not Available Not Available N ot Available bupropion HCl XL 150 mg 24 hr tablet, extended release TAKE 1 TABLET BY MOUTH EVERY MORNING active Not Available Not Available No t Available BD Ultra-Fine Mini Pen Needle 31 gauge x 3/16 DIRECTED 4 X/DAY active Not Available Not Available No t Available BD Ultra-Fine Short Pen Needle 31 gauge x 5/16 USE 1 PEN NEEDLE FOUR TIMES A DAY active Not Available Not Available Not Available FreeStyle Lite Strips DIRECTED THREE TIMES A DAY active Not Available Not Available No t Available diclofenac 1 % topical gel PLEASE SEE ATTACHED FOR DETAILED DIRECTIONS active Not Available Not Available N ot Available Trulicity 1.5 mg/0.5 mL subcutaneous pen injector INJECT 1 PEN SUBCUTANEOU SLY WEEKLY FOR 84 DAYS active Not Available Not Available Not Available Sherudax SoloStar U-300 Insulin 300 unit/mL (1.5 mL) subcutaneous pen INJECT 85 UNIT (0.2833 ML) SUBCUTANEOU SLY DAILY FOR 30 DAYS active Not Available Not Available Not Available Breo Ellipta 200 mcg-25 mcg/dose powder for inhalation TAKE 1 PUFF BY MOUTH EVERY DAY active Not Available Not Available No t Available Wixela Inhub 250 mcg-50 mcg/dose powder for inhalation INHALE 1 PUFF BY MOUTH TWICE A DAY active Not Available Not Available No t Available Mounjaro 2.5 mg/0.5 mL subcutaneous pen injector INJECT 2.5 MG (0.5 ML) SUBCUTANEOU SLY WEEKLY FOR 4 WEEKS active Not Available Not Available Not Available Ozempic 0.25 mg or 0.5 mg (2 mg/3 mL) subcutaneous pen injector INJECT 0.25 MG (0.368 ML) SUBCUTANEOU SLY EVERY WEEK FOR 4 WEEKS FOR 4 WEEKS active Not Available Not Available No t Available Vitals Date Recorded Body temperature Body weight Respiratory rate Body height Heart rate Oxygen saturation Oxygen saturation in Arterial blood by Pulse oximetry Systolic blood pressure Diastolic blood pressure Provider Name and Address Organization Details Last Updated DateTime 4 98.4 [degF] 739789 g 18 /min 157.48 cm 90 /min 98 % 98 % 132 mm[Hg] 78 mm[Hg] Not Available [facility] - production 4 11:36:00 Social History None recorded. Functional Status None recorded. Mental Status None recorded. Family History Nothing Reported. Medical History No medical history recorded. Gynecological HistoryNo gynecological history recorded. Obstetrics History GPAL:G 0 P 0 0 0 0 Past Encounters Encounter ID Performer Location Encounter Start Date Encounter Closed Date Diagnosis/Indication Diagnosis SNOMED-CT Code Diagnosis ICD10 Code [id number] Denilson Brunner MD [facility] [address] [place] [phone] 06/01/2024 11:35:50 06/01/2024 14:24:16 Pain of right knee joint [id number] 92101 M25.561 Health Concerns Section Related Observation LastModified by Organization Detai ls LastModified Time None Recorded Concern Status LastModified by Organization Details LastModified Time None Recorded Payers Encounter Date Sequence Insurance Name Policy Number Policy Galdamez Covered Member ID Galdamez Member ID Guarantor Name 06/01/2024 1 [employer] [facility] [employer] - DOS ON OR AFTER 2022 - DUAL ELIGIBLE - RETIREMENT OPTIONS AND ONE CARE (MEDICARE REPLACEMENT/ADV ANTAGE - HMO) Paige Harris [id number] Paige Harris Notes Date Note Type Note Provider Name and Address Organization Details Recorded Time 06/01/2024 text/html HPI: Call to perry at [phone] and spoke with Mbr who is feeling ill with edema bilaterally in feet and legs and both arms. Mbr reports the swelling is worse than usual. Mbr denies SOB, fever, or Chest Pain. Mbr has significant medical hx including asthma, HTN, CKD 4 w/fistula placement (new and has not started HD yet) DM on insulin, hx ovarian cancer, lymphedema, anemia, migraine, NAYELY, GERD and obesity. Allergies to tree nuts, beef-derived products, fruit and vegetables, vancomycin, rosuvastatin, [place] Inhibitors, Ciprofloxacin, Codeine, Cyclobenzaprine, ferrous sulfate, insulin lispro, latex, methylprednisolone, PCN, Tamsulosin, pravastatin, lactose, fish flavor and tramadol. Offered INSTED and Mbr agreed. This CRU RN placed [facility]STED referral in and sent gc activity to CP for notification of this triage. Confirmed address and phone/[phone]. Instructed Mbr to call 911 and go to ER if worsening s/s and mbr agreed to do. ................... ................... ................... ................... ................... ................... ................... ........ [facility] Nurse Triage Notes (Mahesh Downey): Chief Complaints: Edema, Weakness/Lethargy PMH: COPD/Asthma, Diabetes, Hypertension, Cancer Allergies: Ciprofloxacin, Latex, Methylprednisolone, Vancomycin Other Allergies: tree nuts, beef-derived products, fruit and vegetables, vancomycin, rosuvastatin, [place] Inhibitors, Ciprofloxacin, Codeine, Cyclobenzaprine, ferrous sulfate, insulin lispro, latex, methylprednisolone, PCN, Tamsulosin, pravastatin, lactose, fish flavor and tramadol Comments: Reviewed HPI ................... ................... ................... ................... ................... ................... ................... ........ Electric Power Line Examiner Note From Michael Donahue: Patient found supine in bed. Patient complains of pain in her joints, bilateral hands, wrists, hips, ankles, heat, knees. Patient attributes pain to arthritis. Patient has been taking Tylenol with little relief. Patient states pain has been gradually increasing for years. Patient states she has been ambulating to the bathroom, denies urinary symptoms. Patient denies any other pain or complaints. Denies difficult, breathing, nausea, vomiting, diarrhea, chest pain, abdominal pain, weakness, lethargy or any other. Patient said she has not taken Tylenol yet today.Patient, pink warm, dry, secondary exam, unremarkable, joints, lower extremities without edema, no swelling or redness noted. Good CSM, ROM in all. Patient reports increase of pain on movement.[facility] recommends 1000 mg Tylenol three times a day for pain. And to follow up with the pain clinic that she is enrolled in at her next appointment. Patient ambulates with a steady slow even gait, appears in pain. Red flags, patient education discussed. Patient demonstrates understanding of care and plan. Electric Power Line Examiner Allergies: Ciprofloxacin, Latex, Methylprednisolone, Vancomycin ................... ................... ................... ................... ................... ................... ................... ........ Disposition: Fulfilled Denilson Brunner MD [address] [facility],[address], [place], [address], [employer] 06/01/2024 12:14:49 OBGyn Episode No OBEpisode recorded.
--- OUTSIDE RECORDS SUMMARY | 2024-08-30 16:02 | XMS_ITS | Data Portability ---
Author Organization [facility], [place] Address [address] [place] [address] Care Team Providers Care Endless Bed Drum Sander Name Role Phone HIM CCA OTHER Assessment Encounter Date Assessment Date Assessment LastModified by Organization Details LastModified Time 02/16/2024 02/16/2024 I provided real -time medical direction via phone for this encounter, and was available for additional phone based assistance as needed. I have reviewed and agree with the Assessment and Plan as documented by the Driver License Examiner. We discussed the diagnostic uncertainty of home visits and the risk associated with this. In this case the patient and I felt this to be an acceptable and reasonable amount of risk given the benefit of avoiding an ED visit. The patient given the opportunity to ask questions. Advised if develops CP/severe SOB/turning blue/intolerable back pain /focal numbness or weakness in extremities /uncontrolled n/v/d or black/bloody emesis or stool/ AMS/ syncope/ hi fever / to call 911- verbalized understanding of instructions to the medic maria esther Not available 02/16/2024 10:54:22 06/01/2024 06/01/2024 As noted, we were called to see this patient regarding concerns of joint pain. Evaluation in the field was performed by my corporate operations compliance manager colleague, as noted above, I provided real-time [...] abdominal pain. No systemic symptoms of fevers/chills, nausea/vomiting, flu like symptoms. Taking PO normally, ambulating [...] lower suspicion for septic arthritis or occult fracture/disloca tion. No associated numbness/weaknes s/paresthesias in extremities, lower suspicion for DVT, acute [...] We discussed the need to seek care urgently/emergen tly in the setting of any new or worsening serious symptoms, particularly any acute worsening or change in symptoms. [email or web address] Not available 06/01/2024 11:46:54 08/08/2024 08/08/2024 As noted, we were called to see this patient regarding concerns of pain. Evaluation in the field was performed by my corporate operations compliance manager colleague, as noted above, I provided real-time direction and supervision for this visit. The evaluation revealed same. Impression: 69yo/f with multiple chronic medical conditions referred for evaluation today due to chronic headache and body pains but now unable to ambulate. Found by medic in home, pt is awake, alert, but experiencing worsening whole body pain. She is now sitting in a wheelchair unable to ambulate or stand. 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 Discussed with medics who feel she is unsafe to remain at home and I am in agreement. Pt will need transfer to ED for full in person evaluation and discussion of rehab placement. Expect call placed to [facility] ED. Plan: ED Primary care, consider ED followup and rehab needs. Disposition: We discussed the situation and I recommended referral to the emergency department. [email or web address] Not available 08/08/2024 15:37:38 Plan of Treatment Reminders Order Date Submit Date Provider Last Modified By Organization Details Last Modified Time Details Appointments None recorded. Lab None recorded. Referral None recorded. Procedures None recorded. Surgeries None recorded. Imaging electrocard iogram 2023 [email or web address], [address], 10:56:38 Medication Orders Tylenol 325 mg tablet 2023 024 [email or web address] Not available 11:40:46 Patient TargetsNo targets recorded. Patient InstructionsNo instructions recorded. Reason for Referral None Reported. Results Created Date Observation Date Name Description Value Unit Range Abnormal Flag Note LastModifiedBy Organization Detail LastModifiedTime 02/16/20 24 02/16/2024 elect rema rdz am No observ ation record ed. [email or web address] [address], [address], 02/16/2024 10:56:36 Result Notes None recorded. Procedures Surgical History None recorded. Imaging Results Imaging Date Name Status LastModified by Organization Details LastModified Time 02/16/2024 electrocardiogram completed [email or web address] [address], [address], 02/16/2024 10:56:36 Procedure Notes None recorded. Medical Equipment None Reported. Allergies Allergen ID Allergen Name Allergen Category Reaction Reaction Severity Criticality Documentation Date Start Date Code Code System Note Provider Name and Address Organization Details Recorded Time 96265 gary in medicatio n Not available Not available Not available 08/08/2024 77531 RxNorm Not Available [facility] - production 4 13:38:21 5141 tree nut food Not available Not available Not available 02/16/2024 Karlie Ramírez MD [address] [facility],[address], [place], [address], [facility] 4 10:01:58 5142 beef allergeni c extract food,medi cation Not available Not available Not available 02/16/2024 09698 9 RxNorm Karlie Ramírez MD [address] [facility],[address], [place], [address], [facility] 4 10:02:08 5143 fish derived food,medi cation Not available Not available Not available 02/16/2024 Karlie Ramírez MD [address] [facility],[address], [place], [address], [facility] 4 10:02:18 5144 vancomyci n medicatio n Not available Not available Not available 02/16/2024 98398 RxNorm Not Available [facility] - production 03:47:47 5145 rosuvasta tin medicatio n Not available Not available Not available 02/16/2024 83608 2 [facility] 13:38:21 5146 Product containin g angiotens in-conver ting enzyme inhibitor (product) medicatio n Not available Not available Not available 02/16/2024 79536 009 SNOMED Karlie Ramírez MD [address] [facility],[address], [place], [address], [facility] 4 10:02:50 5147 ciproflox acin medicatio n Not available Not available Not available 02/16/2024 2551 RxNorm Not Available [facility] - production 03:47:47 5148 codeine medicatio n Not available Not available Not available 02/16/2024 2670 RxNorm Not Available [facility] - production 13:38:21 5149 latex environme nt,medica tion Not available Not available Not available 02/16/2024 37910 91 RxNorm Not Available [facility] - production 03:47:47 5150 lactose food,medi cation Not available Not available Not available 02/16/2024 6211 RxNorm Karlie Ramírez MD [address] [facility],[address], [place], [address], [facility] 4 10:03:16 5151 cyclobenz aprine medicatio n Not available Not available Not available 02/16/2024 47794 RxNorm Not Available [facility] - production 13:38:21 5152 ferrous sulfate medicatio n Not available Not available Not available 02/16/2024 64334 RxNorm Not Available [facility] - production 13:38:21 5153 insulin lispro medicatio n Not available Not available Not available 02/16/2024 28671 RxNorm Karlie Ramírez MD [address] [facility],[address], [place], [address], [facility] 4 10:03:48 5154 methylpre dnisolone medicatio n Not available Not available Not available 02/16/2024 6902 RxNorm [facility] 03:47:47 5155 Medicinal product containin g penicilli n and acting as antibacte rial agent (product) medicatio n Not available Not available Not available 02/16/2024 14056 05 SNOMED Karlie Ramírez MD [address] [facility],[address], [place], [address], [facility] 4 10:04:13 5156 tamsulosi n medicatio n Not available Not available Not available 02/16/2024 10671 RxNorm Not Available [facility] - production 4 13:38:21 5157 tramadol medicatio n Not available Not available Not available 02/16/2024 79887 RxNorm Karlie Ramírez MD [address], [place], [address], JORGE LUIS - ROCÍO, MOUSTAPHA 10:04:30 Medications Name Sig Start Date Stop [...] active Not Available Not Available Not Available Sangita Crooks U-300 Insulin 300 unit/mL (1.5 mL) subcutaneous [...] Available No t Available Vitals Date Recorded Respiratory rate Oxygen saturation Oxygen saturation in Arterial blood by Pulse oximetry Body height Heart rate Body temperature Body weight Systolic blood pressure Diastolic blood pressure Provider Name and Address Organization Details Last Updated DateTime 4 16 /min 98 % 98 % 160.02 cm 64 /min 97.1 [degF] 50602.8 48 g 155 mm[Hg] 84 mm[Hg] Not Available [facility] 4 09:59:36 Date Recorded Body temperature Body weight Respiratory rate Body height Heart rate Oxygen saturation Oxygen saturation in Arterial blood by Pulse oximetry Systolic blood pressure Diastolic blood pressure Provider Name and Address Organization Details Last Updated DateTime 4 98.4 [degF] 754880 g 18 /min 157.48 cm 90 /min 98 % 98 % 132 mm[Hg] 78 mm[Hg] Not Available [facility] 4 11:36:00 Date Recorded Oxygen saturation Oxygen saturation in Arterial blood by Pulse oximetry Heart rate Respiratory rate Systolic blood pressure Diastolic blood pressure Provider Name and Address Organization Details Last Updated DateTime 4 99 % 99 % 90 /min 18 /min 138 mm[Hg] 80 mm[Hg] Not Available [facility] 15:51:20 Social History None recorded. Functional Status None recorded. Mental Status None recorded. Family History Nothing Reported. Medical History No medical history recorded. Gynecological HistoryNo gynecological history recorded. Obstetrics History GPAL:G 0 P 0 0 0 0 Past Encounters Encounter ID Performer Location Encounter Start Date Encounter Closed Date Diagnosis/Indication Diagnosis SNOMED-CT Code Diagnosis ICD10 Code [id number] Karlie Ramírez MD [facility] [address] [place] [phone] 02/16/2024 09:59:31 02/16/2024 17:13:28 Thoracic back pain 338654533 M54.6 [id number] Denilson Brunner MD [facility] [address] [place] [phone] 06/01/2024 11:35:50 06/01/2024 14:24:16 Pain of right knee joint 5534460775 14102 M25.561 [id number] Denilson Brunner MD [facility] [address] [place] [phone] 08/08/2024 15:28:56 08/08/2024 16:50:00 Generalized chronic body pains 530620817 G89.29 Health Concerns Section Related Observation LastModified by Organization Detai ls LastModified Time None Recorded Concern Status LastModified by Organization Details LastModified Time None Recorded Advance Directives Directive None Recorded Payers Encounter Date Sequence Insurance Name Policy Number Policy Galdamez Covered Member ID [id number] Member ID Guarantor Name 02/16/2024 1 [facility] [employer] - DOS ON OR AFTER 2022 - DUAL ELIGIBLE - SENIOR LIVING OPTIONS AND ONE CARE (MEDICARE REPLACEMENT/ADV ANTAGE - HMO) Paige Harris [id number] Paige Harris 06/01/2024 1 [facility] DOS ON OR AFTER 2022 - DUAL ELIGIBLE - SENIOR LIVING OPTIONS AND ONE CARE (MEDICARE REPLACEMENT/ADV ANTAGE - HMO) Paige Harris [id number] Paige Harris 08/08/2024 1 [facility] [employer] - DOS ON OR AFTER 2022 - DUAL ELIGIBLE - SENIOR LIVING OPTIONS AND ONE CARE (MEDICARE REPLACEMENT/ADV ANTAGE - HMO) Paige Harris [id number] Paige Harris Notes Date Note Type Note Provider Name and Address Organization Details Recorded Time 02/16/2024 text/html HPI: Mbr calling into [facility] and [facility] transferred call to this CRU RN. Tony is a 68 yo Sinhala/Wallisian speaking female with significant hx including asthma, HTN, CKD 4 with HD, Dyslipidemia, DM 2, Obesity, hx of ovarian cancer, arthritis, lymphedema, MDD, PTSD, anemia, migraine, GERD, and seasonal allergies. Tony has multiple allergies including tree nuts, beef derived products, vancomycin, Rosuvastatin, [place] inhibitors, ciprofloxacin, codeine, cyclobenzaprine, ferrous sulfate, insulin lispro, latex, methylprednisolone, PCN, Tamsulosin, Pravastatin, lactose, fish flavor, and Tramadol. Mbr reporting severe 'gas pain' on both sides of her back. Mbr describes it as 'air' in her back and stated it was not chest pain or her heart. Mbr declining ER. Mbr denies fever, headaches or injury or fall. Mbr positive to sob due to hurts when takes deep breathes. Mbr adamantly refusing ER at this time. Instructed Mbr to call 911 if s/s worsen and she agreed. Offered [facility] for today and she agreed. Confirmed address and phone/[phone]. ................... ................... ................... ................... ................... ................... ................... ........ CRC Nurse Triage Notes (Malena Hodge): Comments: HPI Reviewed. No further information needed to process visit. Driver License Examiner POC Test Results from [facility] EKG (1) [10:06] EKG test performed. Attachments uploaded as part of this test result can be found under Documents section. ................... ................... ................... ................... ................... ................... ................... ........ Driver License Examiner Note From [facility]: Pt reports acute on chronic back spasms in her mid back. Pt sts pain when taking a deep breath or moving. Pt denies CP, BARDALES, f/n/v/d. Pt is alert, NAD. VSS. Afebrile. Non focal neuro exam. Lungs CTA. Benign ABD exam. Pain on palpation across mid back. No LE edema. ECG uploaded. Pt educated on tylenol dosing and advised to f/u with PCP carole. Red flags reviewed. ................... ................... ................... ................... ................... ................... ................... ........ Disposition: FulfilledSEGMD: As above-patient denies radiation of the pain so she has no anterior chest pain. The pain is across her lower posterior ribs and her upper paralumbar region. She denies sweats. The patient does still void occasionally -Denies any UTI symptoms or cloudy urine. She went just prior to medic arrival Karlie Ramírez MD [address] [facility],[address], [place], [address], JORGE LUIS - MOUSTAPHA ALFORD 02/16/2024 10:56:52 06/01/2024 text/html HPI: Call to mbr at [phone] and spoke with Mbr who is feeling [...] notification of this triage. Confirmed address and phone/[phone]. Instructed Mbr to call 911 and go [...] ................... ................... ................... ................... ................... ................... ........ Driver License Examiner Note From Michael Donahue: Patient found [...] all. Patient reports increase of pain on movement.[facility] recommends 1000 mg Tylenol three times a day for pain. And to follow up with the pain clinic that she is enrolled in at her next appointment. Patient ambulates with a steady slow even gait, appears in pain. Red flags, patient education discussed. Patient demonstrates understanding of care and plan. Driver License Examiner Allergies: Ciprofloxacin, Latex, Methylprednisolone, Vancomycin ................... ................... ................... ................... ................... ................... ................... ........ Disposition: Fulfilled Denilson Brunner MD [address] [facility],[address], [place], [address], [place] [facility] 06/01/2024 12:14:49 08/08/2024 text/html HPI: 12:57pm ? TONY contacts the CRU directly to report B hand pain, B knee pain, and headaches. TONY is a 69 y/o female with a PMH of, but not limited to: mild asthma, DM II (insulin), HTN, CKD (hemodialysis), diabetic neuropathy, PTSD, anxiety, obesity, hx ovarian CA, arthritis and migraines. TONY states that she has been having B hand pain for several months, but today she has noticed that her hands are ? really white.? TONY is also experiencing B knee pain, B foot pain, and 10/10 headache pain. She uses a wheelchair at baseline due to mobility issues. TONY states that she has been seen in the ED for these symptoms in the past, and also by her PCP, but ? no one is doing anything for me.? TNOY denies CP, SOB, N/T to extremities, or fevers. She does state that her pain is ? so bad that I don? t even want to eat.? TONY feels ? something isn? t right, and I think I should have bloodwork.? Her main concern is the ? white color? to her hands. At baseline, TONY is only able to use three fingers on each hand because of chronic pain. TONY is home alone, as her is currently in a intermediate, and is unable to get out for treatment. She is requesting an in-home visit today for assessment. After confirming TONY? s address and phone number on file, TONY is strongly advised to call 911 for any new or worsening symptoms. She understands and will do so, as she wears a life alert bracelet. This call originated from [phone]. ................... ................... ................... ................... ................... ................... ................... ........ [facility] Nurse Triage Notes (Brandi Juan): Reason For Request: Pain Chief Complaints: Headache, Joint pain/swelling PMH: COPD/Asthma, Hypertension, Cancer, Diabetes Mellitus Type 1, Anxiety Disorder, Chronic Kidney Disease, Chronic Back Pain Comments: Reviewed info, no further data needed.Mason GOMEZ ................... ................... ................... ................... ................... ................... ................... ........ Driver License Examiner Note From Shubham Cantu: Dispatched to stated address for a 81yo female with joint and hand pain. Pt states she is unable to get up and take care of her self. Pt states she has a decreased po intake due to only having help from a visiting healthcare applications analyst in the morning and night. Pt states she had increase in joint pain and is less mobile than normal. Pt states she has missed multiple visits to primary care due to transportation issues. Pt states one visit was for b12 and iron injections. Pt states she will go to the hospital to help get more resources. [facility] consulted and agreed more resources are need to help manage pt's care. [facility] transported pt to [facility]. Pt found seated and speaking in full clear sentences with no signs of distress in a clean apartment. AO and GCS-15. PERRL. Skin P/W/D. Airway open and lung sounds clear. ABD soft non tender. Rest of exam unremarkable. ................... ................... ................... ................... ................... ................... ................... ........ [facility] Consulted: Denilson Brunner ................... ................... ................... ................... ................... ................... ................... ........ Disposition: Fulfilled Denilson Brunner MD [address] [facility] [facility], [place], [address], [facility] 08/08/2024 16:14:20 OBGyn Episode No OBEpisode recorded.
--- OUTSIDE RECORDS SUMMARY | 2024-08-30 16:02 | XMS_ITS | Continuity of Care Document ---
Author Organization [employer] [place] [facility] [place] Address [address] [place] [phone] Care Team Providers Care Senior Genetic Counselor Name Role Phone HIM CCA OTHER Assessment Encounter Date Assessment Date Assessment LastModified by Organization Details LastModified Time 08/08/2024 08/08/2024 As noted, we were called to see this patient regarding concerns of pain. Evaluation in the field was performed by my site leasing agent colleague, as noted above, I provided real-time [...] to ambulate or stand. 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 Discussed with medics who feel she is unsafe to remain at home and I am in agreement. Pt will need transfer to ED for full in person evaluation and discussion of rehab placement. Expect call placed to [facility] ED. Plan: ED Primary care, consider ED followup and rehab needs. Disposition: We discussed the situation and I recommended referral to the emergency department. [email or web address] Not available 08/08/2024 15:37:38 Plan of Treatment Reminders Order Date Submit Date Provider Last Modified By Organization Details Last Modified Time Details Appointments None record ed. Lab None record ed. Referral None record ed. Procedures None record ed. Surgeries None record ed. Imaging None record ed. Medication Orders None record ed. Patient TargetsNo targets recorded. Patient InstructionsNo instructions recorded. Reason for Referral None Reported. Medical Equipment None Reported. Allergies Allergen ID Allergen Name Allergen Category Reaction Reaction Severity Criticality Documentation Date Start Date Code Code System Note Provider Name and Address Organization Details Recorded Time 04336 pravastat in medicatio n Not available Not available Not available 08/08/2024 62574 RxNorm Not Available [facility] - production 4 13:38:21 5141 tree nut food Not available Not available Not available 02/16/2024 Karlie Ramírez MD [address] [facility],[address], [place], [phone], [employer], [employer] 4 10:01:58 5142 beef allergeni c extract food,medi cation Not available Not available Not available 02/16/2024 28508 9 RxNorm Kalrie Ramírez MD [address] [facility],[address], [place], [phone], [employer], [employer] 4 10:02:08 5143 fish derived food,medi cation Not available Not available Not available 02/16/2024 Karlie Ramírez MD [address] [facility],[address], [place], [phone], [employer], [employer] 4 10:02:18 5144 vancomyci n medicatio n Not available Not available Not available 02/16/2024 85717 Rx[facility] Not Available [facility] 03:47:47 5145 rosuvasta tin medicatio n Not available Not available Not available 02/16/2024 28290 2 [facility] Available [facility] 4 13:38:21 5146 Product containin g angiotens in-conver ting enzyme inhibitor (product) medicatio n Not available Not available Not available 02/16/2024 37283 009 SNOMED Karlie Ramírez MD [address] [facility],[address], [place], [address], [employer], [employer] 4 10:02:50 5147 ciproflox acin medicatio n Not available Not available Not available 02/16/2024 2551 Rx[facility] Not Available [facility] 03:47:47 5148 codeine medicatio n Not available Not available Not available 02/16/2024 2670 RxNorm Not Available [facility] - production 4 13:38:21 5149 latex environme nt,medica tion Not available Not available Not available 02/16/2024 73146 91 RxNorm Not Available [facility] - production 4 03:47:47 5150 lactose food,medi cation Not available Not available Not available 02/16/2024 6211 RxNorm Karlie Ramírez MD [address] [place] [address],[address], [place], [address], [employer] 4 10:03:16 5151 cyclobenz aprine medicatio n Not available Not available Not available 02/16/2024 93161 RxNorm Not Available [facility] - production 4 13:38:21 5152 ferrous sulfate medicatio n Not available Not available Not available 02/16/2024 60887 RxNorm Not Available [facility] - production 13:38:21 5153 insulin lispro medicatio n Not available Not available Not available 02/16/2024 15505 RxNorm Karlie Ramírez MD [address] [place] [address],[address], [place], [address], [employer] 4 10:03:48 5154 methylpre dnisolone medicatio n Not available Not available Not available 02/16/2024 6902 RxNorm Not Available [facility] 4 03:47:47 5155 Medicinal product containin g penicilli n and acting as antibacte rial agent (product) medicatio n Not available Not available Not available 02/16/2024 69217 05 SNOMED Karlie Ramírez MD [address] [place] [address],[address], [place], [address], [place] 4 10:04:13 5156 tamsulosi n medicatio n Not available Not available Not available 02/16/2024 63992 RxNorm Not Available [facility] 4 13:38:21 5157 tramadol medicatio n Not available Not available Not available 02/16/2024 41177 RxNorm Karlie Ramírez MD [address] [place] [address],[address], [place], [phone], [place]OUST[place] RIVERA 10:04:30 Medications Name Sig Start Date Stop [...] Available No t Available Vitals Date Recorded Oxygen saturation Oxygen saturation in Arterial blood by Pulse oximetry Heart rate Respiratory rate Systolic blood pressure Diastolic blood pressure Provider Name and Address Organization Details Last Updated DateTime 4 99 % 99 % 90 /min 18 /min 138 mm[Hg] 80 mm[Hg] Not Available [facility] - production 4 15:51:20 Social History None recorded. Functional Status None recorded. Mental Status None recorded. Family History Nothing Reported. Medical History No medical history recorded. Gynecological HistoryNo gynecological history recorded. Obstetrics History GPAL:G 0 P 0 0 0 0 Past Encounters Encounter ID Performer Location Encounter Start Date Encounter Closed Date Diagnosis/Indication Diagnosis SNOMED-CT Code Diagnosis ICD10 Code [id number] Denilson Brunner MD [facility] [address] [place] [phone] 08/08/2024 15:28:56 08/08/2024 16:50:00 Generalized chronic body pains 037551231 G89.29 Health Concerns Section Related Observation LastModified by Organization Detai ls LastModified Time None Recorded Concern Status LastModified by Organization Details LastModified Time None Recorded Payers Encounter Date Sequence Insurance Name Policy Number Policy Galdamez Covered Member ID Galdamez Member ID Guarantor Name 08/08/2024 1 [facility] - DOS ON OR AFTER 2022 - DUAL ELIGIBLE - LONG TERM OPTIONS AND ONE CARE (MEDICARE REPLACEMENT/ADV ANTAGE - HMO) Paige Harris [id number] Paige Harris Notes Date Note Type Note Provider Name and Address Organization Details Recorded Time 08/08/2024 text/html HPI: 12:57pm ? TONY contacts [...] no one is doing anything for me.? TONY denies CP, SOB, N/T to extremities, or [...] alone, as her is currently in a senior care, and is unable to get out for treatment. She is requesting an in-home visit today for assessment. After confirming TONY? s address and phone number on file, TONY is strongly advised to call 911 for any new or worsening symptoms. She understands and will do so, as she wears a life alert bracelet. This call originated from [phone]. .................. .................. .................. .................. .................. .................. .................. ............... [facility] Nurse Triage Notes (Brandi Juan): Reason For Request: Pain Chief Complaints: Headache, Joint pain/swelling PMH: COPD/Asthma, Hypertension, Cancer, Diabetes Mellitus Type 1, Anxiety Disorder, Chronic Kidney Disease, Chronic Back Pain Comments: Reviewed info, no further data needed.Mason GOMEZ .................. .................. .................. .................. .................. .................. .................. ............... Flat Clothier Note From Shubham Cantu: Dispatched to stated address for a 81yo female with joint and hand pain. Pt states she is unable to get up and take care of her self. Pt states she has a decreased po intake due to only having help from a visiting care consultant in the morning and night. Pt states she had increase in joint pain and is less mobile than normal. Pt states she has missed multiple visits to primary care due to transportation issues. Pt states one visit was for b12 and iron injections. Pt states she will go to the hospital to help get more resources. [facility] consulted and agreed more resources are need to help manage pt's care. [facility] transported pt to [facility]. Pt found seated and speaking in full clear sentences with no signs of distress in a clean apartment. AO and GCS-15. PERRL. Skin P/W/D. Airway open and lung sounds clear. ABD soft non tender. Rest of exam unremarkable. .................. .................. .................. .................. .................. .................. .................. ............... [facility] Consulted: Denilson Brunner .................. .................. .................. .................. .................. .................. .................. ............... Disposition: Fulfilled Denilson Brunner MD [address] [facility],[address] [facility], [place], [phone], [facility] 08/08/2024 16:14:20 OBGyn Episode No OBEpisode recorded.
--- OUTSIDE RECORDS SUMMARY | 2024-08-30 16:02 | XMS_ITS | Continuity of Care Document ---
Author Organization [facility] ter Address [address] [place] [address]- Care Team Providers Care Child Care Nurse Name Role Phone Alejandro Ferreira MD, Lisbeth Primary Care Physician [phone] Encounter [facility] [id number] Date(s): 08/08/24 - 08/10/[address] [address]- Discharge Disposition: A-D/C Home Attending Physician: Vernon Matute MD Admitting Physician: Glenn Armenta MD Referring Physician: Not on Staff, Referring MD Encounter Type: Disch Obv Allergies, Adverse Reactions, Alerts Substance Criticality Severity Reaction Reaction Severity Status ciprofloxacin hives / diarrhea Active codeine hives Active azithromycin diarrhea, painf ul joints Active penicillin hives Active levofloxacin diarrhea Active Medrol unknown Active Bactrim diarrhea Active Latex rash Active Red Meat Active NovoLog Mix 70/30 hives on a rm and itching all over Active Other Food Allergy all fresh vegetables and fruits- itch/hives Active [place] inhibitors hives Activ e Medications Accu-Chek Marilee Test Strips See Instructions, # 200, Refills 10, Tot. Refills 10, Test BS seven times per day and prn, DM, 02/11/08 11:08:46 AM EDT Start Date: 02/11/08 Status: Ordered Quantity: 200.0 Unit: Repeat number: 11 Accu-Chek Multiclix Drum Lancets See Instructions, # 204, Refills 10, Tot. Refills 10, Test BS seven times a day and prn, DM, 02/11/08 11:08:53 AM EDT Start Date: 02/11/08 Status: Ordered Quantity: 204.0 Unit: Repeat number: 11 Breo Ellipta 200 mcg-25 mcg/inh inhalation powder 1 puffs, Inhalation, Daily, 0 Refills, Maintenance, 08/09/24 7:08:00 AM EST, Powder, Partial fill upon patient request if the prescription is for a schedule II opioid drug. Start Date: 08/09/24 Status: Ordered Repeat number: 1 BuPROpion = 150 mg, By Mouth, 2 times a day, 0 Refills, Maintenance, 01/31/16 9:28:20 AM EDT Start Date: 01/31/16 Status: Ordered Repeat number: 1 ezetimibe 10 mg oral tablet 0 Refills, Maintenance, 08/09/24 7:12:00 AM EST, Partial fill upon patient request if the prescription is for a schedule II opioid drug. Start Date: 08/09/24 Status: Ordered Repeat number: 1 Insulin Syringe, BD Ultra-Fine 1 cc 30 G x 12.7 mm (1/2in) See Instructions, # 60, Refills 6, Tot. Refills 6, USE WITH INSULIN TWICE A DAY, 09/19/08 2:46:09 PM EST, JANY,Markie Carroll Start Date: 09/19/08 Status: Ordered Quantity: 60.0 Unit: Repeat number: 7 Lopressor 50 mg oral tablet 50 mg, Tablet, By Mouth, 08/10/24 9:00:00 AM EST Start Date: 08/10/24 Stop Date: 08/10/24 Status: Completed Repeat number: 1 methocarbamol 750 mg oral tablet 0 Refills, Maintenance, 08/09/24 7:12:00 AM EST, Partial fill upon patient request if the prescription is for a schedule II opioid drug. Start Date: 08/09/24 Status: Ordered Repeat number: 1 Metoprolol Tartrate 50 mg oral tablet 1 tablet = 50 mg, By Mouth, 2 times a day, # 180 tablet, 0 Refills, Maintenance, 08/09/24 7:12:00 AM EST, Tablet, Partial fill upon patient request if the prescription is for a schedule II opioid drug. Start Date: 08/09/24 Status: Ordered Quantity: 180.0 Unit: tablet Repeat number: 1 nystatin topical 233476 u/gm powder 1 application, Topically, 2 times a day, PRN Rash, apply to abdomen and groin folds for rash, # 30 Gm, 3 Refills, Maintenance, 08/16/18 9:57:15 AM EST, Powder, [id number], 1 application Topically 2 times a day,PRN:Rash,Instr:apply to abdomen and groin folds for rash Start Date: 08/16/18 Status: Ordered Quantity: 30.0 Unit: g Repeat number: 4 Patient's Own Meds See Instructions, Maintenance, vitamin b12 inj, injection monthly, 05/14/16 12:37:02 PM EDT Start Date: 05/14/16 Status: Ordered Repeat number: 1 ProAir HFA 90 mcg/inh inhalation aerosol with adapter 2, puffs, Inhalation, 4 times a day, PRN, Refills 0, Maintenance, 05/14/16 12:38:35 PM EDT Start Date: 05/14/16 Status: Ordered Repeat number: 1 Protonix 40 mg oral delayed release tablet 40 mg, 1, tablet, By Mouth, Daily, PRN, Refills 0, Maintenance, Other, 01/31/16 9:25:09 AM EDT Start Date: 01/31/16 Status: Ordered Repeat number: 1 Toujeo SoloStar 300 units/mL subcutaneous solution INJECT 85 UNITS SUBCUTANEOUSLY EVERY DAY Start Date: 08/09/24 Status: Ordered Repeat number: 1 valsartan 320 mg oral tablet 0 Refills, Maintenance, 08/09/24 7:12:00 AM EST, Partial fill upon patient request if the prescription is for a schedule II opioid drug. Start Date: 08/09/24 Status: Ordered Repeat number: 1 Problem List Condition Confirmation Course Effective Dates Status Health [facility] Informant Asthma Confirmed Active Depression Confirmed Active Diabetes mellitus Confirmed Active HTN (hypertension) Confirmed Active Results Radiology Reports * Exam Date Time Procedure Performing Provider Status 08/10/24 11:00 AM US Renal Bladder [facility] (Verified) Notes: (US Renal Bladder) Reason For Exam: History of nephrolithiasis and L hydro;Other: RESULT: US Renal Bladder US Renal Bladder Reason: History of nephrolithiasis and left hydronephrosis. COMPARISON: None available. FINDINGS: Right kidney: 11.0 cm in length. Fullness to the renal collecting system without hydronephrosis. Increased parenchymal echogenicity. No stones. No suspicious mass. Few simple cysts, largest measuring1.7 x 1.3 x 1.6 cm in the lower pole with peripheral echogenic focus demonstrating twinkling artifact on color Doppler imaging, possibly representing milk of calcium. Left kidney: 11.1 cm in length. No hydronephrosis. Increased parenchymal echogenicity. No stones. No suspicious mass. Few cysts, the largest with a few thin internal septations measuring 2.0 x 2.0 x 2.2 cm. Urinary bladder: Incompletely distended, but no evidence of stone, mass or debris. IMPRESSION: No sonographic evidence of nephrolithiasis or hydronephrosis. Echogenic kidneys likely representing medical renal disease. Bilateral renal cysts measuring up to 1.7 cm on the right and 2.2 cm on the left. WSN: [id number] Ordering Physician: Mahesh Eller Dictated By: Frantz Andrew MD Dictated Date/Time: 08/10/24 1:26 pm Reviewed By: Frantz Andrew MD Signed By: Frantz Andrew MD Signed Date/Time: 08/10/24 1:26 pm Transcribed By: KATHY Transcribed Date/Time: 08/10/24 12:00 pm * Exam Date Time Procedure Performing Provider Status 08/09/24 10:[address] Angio Chest Collin Conn; Auth (V erified) Notes: (CT Angio Chest) Reason For Exam: PE Suspected, Intermediate Prob, Positive D-Dimer;Other: RESULT: CT Angio Chest EXAMINATION: CT Angio Chest INDICATION: Reason: Other:; PE Suspected, Intermediate Prob, Positive D-Dimer; Clinical Question(s): Pulmonary Embolism; Order Comment: TECHNIQUE: Spiral CTA of the chest was performed after rapid IV contrast administration without cardiac gating, triggered by an PAIGE on the main pulmonary artery. Images are formatted in multiple planes using 2-D multiplanar and 3-D maximum intensity projection. 65 cc of Omnipaque 300 was administered intravenously. Weight-based protocol using automatic tube modulation was used to optimize exposure parameters. CTDIvol Body: 11.83 mGy, DLP Body: 638 mGy*cm. COMPARISONS: None. ANGIOGRAPHIC FINDINGS: No pulmonary embolism to the subsegmental level. Normal caliber pulmonary arteries. No acute aortic abnormality seen on this study performed without cardiac gating. NON-ANGIOGRAPHIC FINDINGS: [employer] View Findings, Lines and Tubes: None. Trachea and Airways: Patent without evidence of tracheal or endobronchial lesion. Lungs and Pleura: Dependent atelectasis both lower lobes. 4 mm nodule in the left lower lobe (33/405). 4 mm nodule in the medial right middle lobe (41/405). 4 mm nodule in the right lower lobe (43/405). No effusion or pneumothorax. Mediastinum and silvio: No mass or hematoma. No mediastinal or hilar lymphadenopathy. No esophageal abnormality. Partially imaged thyroid is unremarkable. Heart: Heart is normal in size. No pericardial effusion. Minimal coronary artery calcification. Chest Wall Soft Tissues: Normal. Diaphragm and upper abdomen: No acute processes. Top normal size of the spleen. Bones: No acute abnormality. IMPRESSION: 1. No evidence of pulmonary embolism. 2. Bilateral pulmonary nodules measuring up to 4 mm. If low risk for malignancy, no routine follow-up. If high risk, optional CT at 12 months. If unchanged, no further follow-up needed per Guidelinesfor Management of Incidental Pulmonary Nodules Detected on CT Images: From the Fleischner Society 2017. WSN: [id number] Ordering Physician: Angie Mckeon Dictated By: David Julien MD Dictated Date/Time: 08/09/24 11:29 a Reviewed By: David Julien MD Signed By: David Julien MD Signed Date/Time: 08/09/24 11:29 am Transcribed By: KATHY Transcribed Date/Time: 08/09/24 11:19 am * Exam Date Time Procedure Performing Provider Status 08/09/24 3:25 AM Wrist Comp Min 3 Views Left Yamila Gallardo; Auth (Verified) Notes: (Wrist Comp Min 3 Views Left) Reason For Exam: Pain RESULT: Wrist Comp Min 3 Views Left Wrist Comp Min 3 Views Left Hx of Present Illness: reports progressive joint pains knees ankles fingers, unable to clench, + swelling, and unable to ambulate w walker, no fever, chills, falls, lives alone ( in hospital);Reason: Pain; Clinical Question(s): Arthritis COMPARISON: None. FINDINGS: No fracture or dislocation. Top normal size of the scapholunate interval. Normal carpal configuration. Intact radial and ulnar styloid processes. Mild joint space narrowing and bony proliferation is seen of the first carpometacarpal joint. Mild soft tissue swelling in the wrist. Scattered vascular calcifications are seen. IMPRESSION: Mild soft tissue swelling with no acute displaced fracture. Mild degenerative change at the first carpometacarpal joint. WSN: [id number] Ordering Physician: Nannette Alicea Dictated By: Arleen Joseph MD Dictated Date/Time: 08/09/24 9:24 am Reviewed By: Arleen Joseph MD Signed By: Arleen Joseph MD Signed Date/Time: 08/09/24 9:24 am Transcribed By: KATHY Transcribed Date/Time: 08/09/24 9:08 am * Exam Date Time Procedure Performing Provider Status 08/09/24 3:25 AM Wrist Comp Min 3 Views Right Yamila Gallardo; Auth (Verified) Notes: (Wrist Comp Min 3 Views Right) Reason For Exam: Pain RESULT: Wrist Comp Min 3 Views Right Wrist Comp 4 Views Right Reason: Pain; Clinical Question(s): Arthritis COMPARISON: None. FINDINGS: IV catheter tubing noted. No fracture or dislocation. Normal carpal configuration. Intact radial and ulnar styloid processes. No significant arthritic change. Normal soft tissues. Mild diffuse osteoporosis. IMPRESSION: No acute abnormality. No significant arthritic change. Mild diffuse osteoporosis. I have personally reviewed the images and I agree with this report. WSN: [id number] Ordering Physician: Nannette Alicea Dictated By: Jayson Richards MD Dictated Date/Time: 08/09/24 9:10 am Reviewed By: Jordi Turner MD, V Signed By: Jordi Turner MD, V Signed Date/Time: 08/09/24 9:15 am Transcribed By: KATHY Transcribed Date/Time: 08/09/24 9:08 am * Exam Date Time Procedure Performing Provider Status 08/09/24 3:25 AM Knee 1 or 2 Views Right Mitesh Gallardo an; Auth (Verified) Notes: (Knee 1 or 2 Views Right) Reason For Exam: Pain RESULT: Knee 1 or 2 Views Right Knee 1 or 2 Views Right, 2 views Hx of Present Illness: reports progressive joint pains knees ankles fingers, unable to clength, + swelling, and unable to ambulate w walker, no fever, chills, falls, lives alonw ( in hospital); Reason: Pain; Clinical Question(s): Arthritis COMPARISON: None. FINDINGS: No bone lesions or fractures. Mild tricompartmental degenerative osteoarthritis but no evidence of osteochondral defect or intra-articular loose body. Small suprapatellar bursa effusion. IMPRESSION: Mild tricompartmental degenerative osteoarthritis but no acute abnormality. Probable small right suprapatellar bursa effusion. WSN: [id number] Ordering Physician: Nannette Alicea Dictated By: Jordi Turner MD, V Dictated Date/Time: 08/09/24 8:55 am Reviewed By: Jordi Turner MD, V Signed By: Jordi Turner MD, V Signed Date/Time: 08/09/24 8:55 am Transcribed By: KATHY Transcribed Date/Time: 08/09/24 8:55 am * Exam Date Time Procedure Performing Provider Status 08/09/24 3:25 AM Knee 1 or 2 Views Left Bella Gallardo; John (Verified) Notes: (Knee 1 or 2 Views Left) Reason For Exam: Pain RESULT: Knee 1 or 2 Views Left Knee 1 or 2 Views Left, 2 views Hx of Present Illness: reports progressive joint pains knees ankles fingers, unable to clength, + swelling, and unable to ambulate w walker, no fever, chills, falls, lives alonw ( in hospital); Reason: Pain; Clinical Question(s): Arthritis COMPARISON: None. FINDINGS: No acute fracture. Erosive type changes at the posterior cranial aspect of the patella with the cortex not well seen. Minimal tricompartmental degenerative osteoarthritis , mild at the patellofemoral compartment, but no evidence of osteochondral defect or intra- articular loose body. Moderate knee joint effusion. IMPRESSION: Erosive type changes at the posterior cranial aspect of the patella with the cortex not well seen. This could be seen with arthropathy. Please exclude signs of infection clinically. Moderate knee joint effusion. An actionable message (Yellow) has been communicated via the [employer] system on 08/09/2024 8:02 AM, Message ID [id number]. WSN: [id number] Ordering Physician: Nannette Alicea Dictated By: Janie Palomo MD Dictated Date/Time: 08/09/24 8:02 am Reviewed By: Janie Palomo MD Signed By: Janie Palomo MD Signed Date/Time: 08/09/24 8:02 am Transcribed By: KATHY Transcribed Date/Time: 08/09/24 8:00 am * Exam Date Time Procedure Performing Provider Status 08/09/24 3:25 AM Chest 2 Views Frontal and Lat Yamila Gallardo; Auth (Verified) Notes: (Chest 2 Views Frontal and Lat) Reason For Exam: Shortness of Breath RESULT: Chest 2 Views Frontal and Lat Chest 2 Views Frontal and Lat Hx of Present Illness: reports progressive joint pains knees ankles fingers, unable to clength, + swelling, and unable to ambulate w walker, no fever, chills, falls, lives alonw ( in hospital); Reason: Shortness of Breath; Clinical Question(s): CHF COMPARISON: 06/08/2005. FINDINGS: LINES AND TUBES: None. LUNGS AND PLEURA: Clear lungs. Normal pulmonary vascularity. No pleural effusion. No pneumothorax. HEART, MEDIASTINUM AND SILVIO: Heart is normal in size. Normal mediastinal and hilar contour. BONES AND SOFT TISSUES: No acute abnormality. IMPRESSION: No acute abnormality. WSN: [id number] Ordering Physician: James Gonsalves Dictated By: Jordi Turner MD, V Dictated Date/Time: 08/09/24 7:50 am Reviewed By: Jordi Turner MD, V Signed By: Jordi Turner MD, V Signed Date/Time: 08/09/24 7:50 am Transcribed By: KATHY Transcribed Date/Time: 08/09/24 7:43 am Vital Signs Most recent to oldest [Reference Range]: 1 2 3 Height 160 cm (08/10/24 8:11 AM) 160 cm (08/10/24 4:03 AM) 160 cm (08/10/24 12:15 AM) Oxygen Saturation [94-100 %] 99 % (08/10/24 8:11 AM) 100 % (08/10/24 4:03 AM) 100 % (08/10/24 12:15 AM) Pulse Rate [55-90 bpm] 82 bpm (08/10/24 9:36 AM) 80 bpm (08/10/24 8:11 AM) 72 bpm (08/10/24 4:03 AM) Blood Pressure [90-138/55-84 mm Hg] 141/70mm Hg *H* (08/10/24 9:36 AM) 160/74mm Hg *H* (08/10/24 8:11 AM) 125/67mm Hg (08/10/24 4:03 AM) Respiratory Rate [16-30 br/min] 16 br/min (08/10/24 9:53 AM) 18 br/min (08/10/24 8:11 AM) 20 br/min (08/10/24 4:03 AM) Temperature [96.8-100.4 DegF] 98.3 DegF (08/10/24 4:03 AM) 97.9 DegF (08/10/24 12:15 AM) 98.2 DegF (08/09/24 7:46 PM) Mode of Delivery (Oxygen) Room air (08/10/24 8:11 AM) Room air (08/10/24 4:03 AM) Room air (08/10/24 12:15 AM) Blood pressure sites Arm, right (08/10/24 4:03 AM) Arm, right (08/10/24 12:15 AM) Arm, right (08/09/24 7:46 PM) Temperature Route Oral (08/10/24 4:03 AM) Oral (08/10/24 12:15 AM) Oral (08/09/24 7:46 PM) Dry Weight 79 kg (08/09/24 10:19 AM) 79 kg (08/08/24 5:18 PM) Social History Social History Type Response Smoking Status Never smoker entered on: 01/31/16 Sex Sex Representation Female (finding) Admission evaluation note * Kathi SOMERS, Glenn Valentine: PERFORM, MODIFY Event Display: Admission Note Authored Date: [id number] Patient: ??PAIGE JONAS ? Age:??69 Years?Sex:??Female?:??[id number]?? Chief Complaint/Reason for Consultation Alert and oriented, coming from home. Complaint of gen weakness for 3 months. Fatigue and FTT, not eating well. Lives alone. History of Present Illness 69-year-old female patient with a medical history significant for HTN,HLD, DM, CKD, Asthma, GERD, and anxiety who presented to the ED for evaluation of multiple joints pain and chest pain and being admitted for concern of acute kidney injury. ?? Patient reports in the last several weeks she has been having multiple pain including both hands (mostly index fingers limiting index finger movement), back (Rt Lateral/paraspinal, Mid-lower), and both ankles and feet. She also reports intermittent chest central chest pain radiating to her back worse at night and with movement. She thinks her pain is getting worse because she feel anxious about her who is currently hospitalized at the oncology floor. She denies fever, chills, nausea, vomiting, SOB, cough. abdominal pain, change in bowel habits. ?? In ED: - Afebrile, HR 100s, BP 130s-150s/70s-90s, on RA. - Labs: stable anemia (compared to lab 2016), and elevated creatinine at 2.08 mg/dl, calcium at 11.1, glucose 333 , Na 131 (corrected 135-137), Trop 15 -> 14, total CK 12. - EKG: Sinus tachy, RBBB. - CXR: no acute abnormalities. - X-Ray: Bilateral knee and wrist with no obvious??abnormalities- pending final report. ?? She was given 85 unit of Lantus, morphine and admitted for further evaluation.?? Review of Systems Constitutional:?fatigue Cardiovascular:??No chest pain,pressure or discomfort. No palpitations or pedal edema. Respiratory:??No shortness of breath, cough or sputum production. Gastrointestinal:?No anorexia, nausea, vomiting or diarrhea. No abdominal pain or blood in stool. Genitourinary: No burning micturition. No urinary frequency or incontinence. Neurologic: No headache, dizziness, syncope, unilateral weakness, ataxia, numbness or tingling in the extremities. No change in bowel or bladder control. Musculoskeletal: No muscle pain, back pain, joint pain or stiffness. Hematologic: No bleeding or bruising. Lymphatics: No enlarged lymph nodes. Psychiatric: No depression or anxiety. Endocrine: No reports of sweating. No cold or heat intolerance. No polyuria or polydipsia. All other systems were reviewed and are negative.?? Objective Vital Signs?? Temperature: 98.4 DegF (08/08/24 21:20:00) Temperature Route: Oral (08/08/24 21:20:00) Pulse Rate:??104 bpm??High (08/09/24 01:43:00) Respiratory Rate: 18 br/min (08/09/24 01:52:00) Systolic Blood Pressure: 131 mm Hg (08/09/24 01:43:00) Diastolic Blood Pressure: 60 mm Hg (08/09/24 01:43:00) Blood pressure sites: Arm, right (08/09/24 01:43:00) Mean Arterial Pressure: 101 mm Hg (08/08/24 19:21:00) Pulse Pressure: 71 mm Hg (08/09/24 01:43:00) Oxygen Saturation: 100 % (08/09/24:43:00) Mode of Delivery (Oxygen): Room air (08/09/24:43:00) Early Warning Score: 2 (08/09/24 03:48:20) ? Physical Exam Constitutional: Alert, in no acute distress. Head: Normocephalic. Eyes: Pupils are equal and round. Extraocular muscles intact. No pallor or scleral icterus Ear, Nose and Throat: mucous membranes moist. Ears and nose - no obvious deformities. Neck: No JVD. Respiratory:??Equal bilateral air entry. No wheezing or rhonchi.??No use of accessory muscles. Cardiovascular:??S1 S2 regular. No murmurs, rubs or gallops. Gastrointestinal:??Abdomen soft, non-tender, non-distended. Extremities: No lower extremity pitting edema. Neurologic:??AAOx3, Cranial nerves II-XII grossly intact. Speech normal, no facial droop. No focal neurological deficits. Moves all extremities spontaneously however limited movement due to pain. Musculoskeletal:??No gross deformities on inspection. .?? Psychiatric: Normal mood and affect. Assessment/Plan Diagnoses Asthma ??(J45.909) CKD (chronic kidney disease) ??(N18.9) Chest pain ??(R07.9) Elevated serum creatinine ??(R79.89) HTN (hypertension) ??(I10) Hypercalcemia ??(E83.52) Multiple joint pain ??(M25.50) ?? Assessment:??69-year-old female patient with a medical history significant for HTN,HLD, DM, CKD, Asthma, GERD, and anxiety who presented to the ED for evaluation of multiple joints pain and chest pain and being admitted for concern of acute kidney injury. ?? Elevated serum creatinine (R79.89):??- CKD (chronic kidney disease) (N18.9):?? Patient with history of chronic kidney disease??most recent creatinine in our system was in 2016??of 1 mg/dL - Cr here 2 mg/dl, ED team were concerned for VERENA however??after I spoke to the patient??she??has??a left upper extremity fistula??created around??2 months ago not on dialysis. This??indicate that she??has??advanced kidney??disease.??Likely this represent baseline creatinine. - will monitor kidney function and obtain records.?? - monitor kidney??function.?? - if Cr stable can resume home chlorthalidone and valsartan.? Hypercalcemia (E83.52):??received 500 cc of fluid. Repeat BMP, check ionized Ca, PTH, Vit D??levels.? Chest pain (R07.9):?? Chest pain atypical (sharp, intermittent, non-radiating), EKG with no ST elevation, Trop is mildly elevated but flat. CXR is unremarkable. This is less likely cardiac pain. Low suspicion??for PE, will get D-Dimer. Given advanced kidney function would avoid IV contrast to rule out dissection but forthat and for multiple ASCVD risk factors will get??echocardiogram.? Multiple joint pain (M25.50):??Hand, back, ankle, foot. no swelling or erythema, afebrile, Labs with elevated creatinine and hypercalcemia. extremity x-ray with no obvious pathology, final report pending.?? - f.u x-ray report.?? - check PEPE, RF.?? - work up for hypercalcemia as mentioned.?? - consider back imaging for back pain.? HTN (hypertension) (I10):??continue??home metoprolol. resume??home??losartan and chlorthalidone if kidney function stable. Asthma (J45.909):??Breo??ellipta and albuterol inhaler.? VTE Prophylaxis:??low risk ?VTE Prophylaxis Assessment:??Risk Level documented as Low Risk Code Status:??presumed full code ?Order Code Status:??Code Status Ordered Histories Allergies Allergies ?(Active and Proposed Allergies Only) Other Food Allergy? (Severity: Unknown severity, Onset: Unknown) ?Reactions: all fresh vegetables and fruits- itch/hives levofloxacin? (Severity: Unknown severity, Onset: Unknown) ?Reactions: diarrhea Bactrim? (Severity: Unknown severity, Onset: Unknown) ?Reactions: diarrhea Medrol? (Severity: Unknown severity, Onset: Unknown) ?Reactions: unknown Latex? (Severity: Unknown severity, Onset: Unknown) ?Reactions: rash ciprofloxacin? (Severity: Unknown severity, Onset: Unknown) ?Reactions: hives / diarrhea [place] inhibitors? (Severity: Unknown severity, Onset: Unknown) ?Reactions: hives azithromycin? (Severity: Unknown severity, Onset: Unknown) ?Reactions: diarrhea, painful joints NovoLog Mix 70/30? (Severity: Unknown severity, Onset: Unknown) ?Reactions: hives on arm and itching all over penicillin? (Severity: Unknown severity, Onset: Unknown) ?Reactions: hives codeine? (Severity: Unknown severity, Onset: Unknown) ?Reactions: hives ? Past Medical History/Problem List Active Problems(4) Asthma Depression Diabetes mellitus HTN (hypertension) ? Past Surgical History No surgery history documented. ? Social History Tobacco Details:??Never smoker ? Family History No Family History documented. ? Medications Home Medications Albuterol (ProAir HFA 90 mcg/inh inhalation aerosol with adapter)?2?puff(s)?Inhalation?4 times a day?as needed?Wheezing/Shortness of Breath BuPROpion?150?Milligram?By Mouth?2 times a day Cetirizine (cetirizine 10 mg oral tablet)?1?tab(s)?10?Milligram?By Mouth?Daily?as needed?Other Chlorthalidone (chlorthalidone 25 mg oral tablet)?1?tab(s)?25?Milligram?By Mouth?Daily Durable Medical Equipment (Accu-Chek Multiclix Drum Lancets)?See Instructions?Test BS seven times a day and prn Durable Medical Equipment (Accu-Chek Marilee Test Strips)?See Instructions?Test BS seven times per day and prn Durable Medical Equipment (Insulin Syringe, BD Ultra-Fine 1 cc 30 G x 12.7 mm (1/2in))?See Instructions?USE WITH INSULIN TWICE A DAY Fluticasone-Salmeterol (Advair Diskus 250 mcg-50 mcg inhalation powder)?1?puff(s)?Inhalation?2 times a day?as needed?Wheezing/Shortness of Breath Insulin Lispro-Insulin Lispro Protamine (Humalog Mix 75/25)?See Instructions?inject 100 unitsin am and 80 units in pm Insulin Lispro-Insulin Lispro Protamine (Humalog Mix 75/25 Inj)?70 unit?Subcutaneous Injection?Daily at bedtime Losartan (Cozaar 50 mg oral tablet)?50?Milligram?1?tablet?By Mouth?Daily Metformin?500?Milligram?By Mouth?1,000?2 times a day Metoprolol (metoprolol 100 mg oral tablet)?100?Milligram?1?tablet?By Mouth?2 times a day Nystatin Topical (nystatin topical 069284 u/gm powder)?1?denice?Topically?2 times a day?as needed?Rash?apply to abdomen and groin folds for rash Pantoprazole (Protonix 40 mg oral delayed release tablet)?40?Milligram?1?tablet?By Mouth?Daily?as needed?Other Pravastatin (Pravachol 20 mg oral tablet)?20?Milligram?1?tablet?By Mouth?Daily Isabel Pt.'s Own Meds (Patient's Own Meds)?See Instructions?vitamin b12 inj?Indication: ??injection monthly ? Results Recent Labs BLOOD COUNT & DIFF WBC 10.3 k/mm3 ()?? 08/08/2024 19:00 RBC 3.30 m/mm3 (Low)?? 08/08/2024 19:00 Hgb 9.0 Gm/dL (Low)?? 08/08/2024 19:00 Hct 28.2 % (Low)?? 08/08/2024 19:00 MCV 85.5 femtoliters ()?? 08/08/2024 19:00 MCH 27.3 pg ()?? 08/08/2024 19:00 MCHC 31.9 Gm/dL (Low)?? 08/08/2024 19:00 Platelet Count 424 k/mm3 ()?? 08/08/2024 19:00 RDW-SD 41.4 femtoliters ()?? 08/08/2024 19:00 MPV 10.0 femtoliters ()?? 08/08/2024 19:00 Nucleated RBC (Automated) 0.0 #/100 WBC'S ()?? 08/08/2024 19:00 Abs. NRBC 0.0 k/mm3 ()?? 08/08/2024 19:00 Abs. Neut 6.1 k/mm3 ()?? 08/08/2024 19:00 Abs. Lymph 2.8 k/mm3 ()?? 08/08/2024 19:00 Abs. [place] 1.0 k/mm3 (High)?? 08/08/2024 19:00 Abs. Eo 0.3 k/mm3 ()?? 08/08/2024 19:00 Abs. Baso 0.0 k/mm3 ()?? 08/08/2024 19:00 Neut % 59.3 % ()?? 08/08/2024 19:00 Lymph % 27.3 % ()?? 08/08/2024 19:00 [place] % 9.6 % ()?? 08/08/2024 19:00 Eos % 2.8 % ()?? 08/08/2024 19:00 Baso % 0.4 % ()?? 08/08/2024 19:00 Imm Gran 0.6 % ()?? 08/08/2024 19:00 Abs. Imm Gran 0.1 k/mm3 ()?? 08/08/2024 19:00 ?? CARDIAC CK, Total 12 units/L ()?? 08/09/2024 03:30 High Sensitivity Troponin (HSTnT) 14 ng/L (High)?? 08/09/2024 03:30 ?? CHEM GENERAL Sodium 131 mmol/L (Low)?? 08/08/2024 19:00 Potassium 3.8 mmol/L ()?? 08/08/2024 19:00 Chloride 95 mmol/L (Low)?? 08/08/2024 19:00 Bicarbonate Level 21 mmol/L (Low)?? 08/08/2024 19:00 Anion Gap 15 ()?? 08/08/2024 19:00 Glucose Level 333 mg/dL (High)?? 08/08/2024 19:00 Glucose, POC 242 mg/dL (High)?? 08/09/2024 03:26 BUN 42 mg/dL (High)?? 08/08/2024 19:00 Creatinine-Blood 2.08 mg/dL (High)?? 08/08/2024 19:00 Estimated GFR Creatinine 25 ML/MIN/1.73 M2 ()?? 08/08/2024 19:00 Calcium 11.1 mg/dL (High)?? 08/08/2024 19:00 ?? URINE OTHER Est Creatinine Clearance 21.41 mL/min ()?? 08/08/2024 20:11 ? EKG study * Event Display: ECG 12-Lead Authored Date: Please click on pdf link to open report * Event Display: ECG 12-Lead Authored Date: Ventricular Rate: 101 BPM Atrial Rate: 101 BPM P-R Interval: 254 ms QRS Duration: 126 ms Q-T Interval: 342 ms QTC Calculation(Bazett): 443 ms P [place]: 37 degrees R [place]: 54 degrees T [place]: -8 degrees Sinus tachycardia with 1st degree A-V block with Premature atrial complexes with Aberrant conduction Right bundle branch block T wave abnormality, consider inferior ischemia Abnormal ECG When compared with ECG of 08-JUN-2005 18:31, Aberrant conduction is now Present Right bundle branch block is now Present Confirmed by LEOBARDO NEELY ([id number]) on 08/09/2024 10:31:26 AM [place]: LEOBARDO NEELY Heart * Event Display: Echocardiogram - Complete Authored Date: [id number] Transthoracic Echocardiography Report (TTE) Patient Demographics Patient Name PAIGE JONAS Date of Study 08/09/2024 Corporate Gender Female Facility Race Ethnicity or Date of 1955 Height: 62.99 inches Age 69 year(s) Weight: 174 pounds Accession Number [id number] BSA: 1.82 m2 Room Number [id number] BMI: 30.83 kg/m2 Referring Physician UNASSIGNED Interpreting Nate Pruett UNASSIGNED Physician [employer] Officer Arthur June Fellow Brijesh Blanco MD Indications Chest pain. Clinical History HTN HLD DM CKD Asthma Study Data Type of Study TTE procedure:Echo Complete-Doppler, Colorflow, M-Mode. Study Date08/09/2024 Start Time: 08:29 AM Study Location: [facility] Adult Echo Study Status: Echo lab Patient Status: Routine Technical Quality: Fair due to body habitus. Blood Pressure:131/60 mmHg EKG: Normal sinus rhythm HR: 91 bpm 2D Measurements LV Diastolic Dimension: 3.7 cm LV Systolic Dimension: 2.1 cm LV Septum Diastolic: 0.9 cm LV PW Diastolic: 0.9 cm AO Root Dimension: 3 cm LA Dimension: 3.5 cm LA ESV (BP):43.9 ml LVOT Stroke Volume: 64.37 ml LA ESV Index: 24 ml/m2 Stroke Volume Index35.37 ml/m2 LVOT: 2 cm Cardiac Index:3.22 l/min/m2 Ascending Aorta:3 cm Doppler Measurements AV Peak Velocity: 166 cm/s MV Peak E-Wave: 154 cm/s AV Peak Gradient: 11.02 mmHg AV Mean Gradient: 5 mmHg MV P1/2t: 46 msec AV VTI:26.8 cm LVOT Peak Velocity: 141 cm/s MV Deceleration Time: 157 msec LVOT VTI20.5 cm MV Area (PHT): 4.78 cm2 AV Area (Continuity):2.4 cm2 PV Peak Velocity: 130 cm/s PV Peak Gradient: 6.76 mmHg E' Septal Velocity: 17.7 cm/s E' Lateral Velocity: 18.5 cm/s E/Med E':[id number] E/Lat E':[id number] Cardiac Anatomy Left Ventricle/Interventricular Septum The left ventricular size and thickness are normal. The LV systolic function seems to be preserved with ejection fraction of 55-60% by visual estimation. There are no regional wall motion abnormalities. Normal diastolic function. Left Atrium/Interatrial Septum The left atrium is normal in size. Aortic Valve The aortic valve appears calcified, cusps not well-visualized. There is no aortic stenosis. There is no aortic regurgitation. Mitral Valve The mitral valve is normal in structure and function. There is no mitral stenosis or insufficiency. Aorta The ascending aorta and aortic root are normal in size. Right Ventricle The right ventricle is normal in size. Right ventricular systolic function is mildly reduced. Right Atrium The right atrium is normal in size. Pulmonic Valve The pulmonic valve is normal in structure and function. There is trace pulmonic regurgitation. Tricuspid Valve The tricuspid valve is normal in structure and function. There is trace regurgitation. Pumonary Artery An accurate pulmonary artery pressure could not be obtained. Venous Structures The inferior vena cava appears normal. Pericardium/Extracardiac There is no pericardial effusion. Summary -The left ventricular size and thickness are normal. The LV systolic function seems to be preserved with ejection fraction of 55-60% by visual estimation. There are no regional wall motion abnormalities. Normal diastolic function. -The right ventricle is normal in size with mildly reduced systolic function. -Biatrial normal sizes. -No obvious valve diseases. -An accurate pulmonary artery pressure could not be obtained. -The inferior vena cava appears normal. -There is no pericardial effusion. Comparison No prior study available for comparison. Signature * Event Display: Echocardiogram - Complete Authored Date: Cardiology * Event Display: Cardiac Rhythm Strips Authored Date: Hospital Progress note * Mirian Selby: PERFORM, SIGN, VERIFY Event Display: Progress Note Hospital Authored Date: Patient: PAIGE JONAS Age: 69 years Sex: Female : 1955 Associated Diagnoses: None Author: Mirian Selby Findings Patient refused MRI, patient states she has had nightmares and refuses to get an MRI done, patient educated on medications that are available prior to going to MRI, patient further refused MRI, provider made aware. Discharge Information Case Management Discharge Plan : Case Management Discharge Plan Data 08/10/2024 17:17 EST Discharge Level of Care at Discharge Homehealth/VNA Discharge VNA/Hospice/Home Care [facility] 08/10/2024 10:58 EST Discharge Level of Care at Discharge Homehealth/VNA Discharge VNA/Hospice/Home Care [facility] Name of Agency #1 [facility] Service Categories #1 Retirement Service Comments #1 resume services Rehabilitation Discharge : Rehab Discharge Index 08/10/2024 8:58 EST Comments on treatment indicated Pt demonstrated safe functional mobility. Pt appears to be at baseline. Rec hme PT services; pt is agreeable Walker: distance >50 Full chart review completed Yes Hospital course Hospital course Other findings Pt reports chronic (B) knee pain, ongoing for months, also reports numbness is feet.Pt wears neoprene sleeve supports on knees * Mahesh Zhong: PERFORM Event Display: Progress Note Hospital Authored Date: Patient: ??PAIGE JONAS ? Age:??69 Years?Sex:??Female?:??1955?? Subjective No overnight events Continues to endorse bilateral wrist pain Review of Systems Negative unless otherwise mentioned above?? Objective Measurements?? Height: 160 cm (08/10/24) Dry Weight: 79 kg (08/09/24) ? Vital Signs?? Temperature: 98.3 DegF (08/10/24 04:03:00) Temperature Route: Oral (08/10/24 04:03:00) Pulse Rate: 82 bpm (08/10/24 09:36:00) Respiratory Rate: 16 br/min (08/10/24 09:53:00) Systolic Blood Pressure:??141 mm Hg??High (08/10/24 09:36:00) Diastolic Blood Pressure: 70 mm Hg (08/10/24 09:36:00) Blood pressure sites: Arm, right (08/10/24 04:03:00) Mean Arterial Pressure: 103 mm Hg (08/10/24 08:11:00) Pulse Pressure: 86 mm Hg (08/10/24 08:11:00) Oxygen Saturation: 99 % (08/10/24 08:11:00) Mode of Delivery (Oxygen): Room air (08/10/24 08:11:00) Early Warning Score: 0 (08/10/24 09:53:44) ? Intake/Output? No Data Available ? Physical Exam ?General: No acute distress ?HEENT: Mucous membranes moist ?CV: Regular rate and rhythm ?Respiratory: CTAB ?Abdominal: Soft ?Extremities: No peripheral edema ?Neuro: AAO x3 ?Skin: No rashes _ Inpatient Medications Medications (13) Active SCHEDULED: (6) BuPROPion XL 150 mg Tablet (Wellbutrin XL Tablet) ??150 mg, By Mouth, Daily Insulin Glargine 100 units/mL Inj (Insulin Glargine Inj) ??85 units 0.85 mL, Subcutaneous Injection, Daily at bedtime Lidocaine 5% Topical Patch (Lidocaine 5% Patch) ??1 each, Topically, Daily Metoprolol 50 mg Tablet (Lopressor 50 mg oral tablet) ??50 mg, By Mouth, 2 times a day NaCl 0.9% Flush 3ml (NaCL 0.9% Flush) ??3 mL, IV Push, Every 8 hours Remove Patch (Remove Lidocaine Patch) ??1 each, Topically, Daily at bedtime CONTINUOUS: (0) PRN: (7) Acetaminophen 325 mg Tablet (Acetaminophen Tablet) ??650 mg, By Mouth, Every 4 hours Docusate Sodium 100 mg Capsule (Docusate Sodium Capsule) ??100 mg 1 capsule, By Mouth, 2 times a day Melatonin 3 mg Tablet (Melatonin Tablet) ??3 mg, By Mouth, Daily at bedtime NaCl 0.9% Flush 3ml (NaCL 0.9% Flush) ??3 mL, IV Push, Every 8 hours Pantoprazole 40 mg EC Tablet (Protonix 40 mg oral delayed release tablet) ??40 mg, By Mouth, Daily Polyethylene Glycol 17 Gm Powder (MiraLax Powder) ??17 Gm 1 pack/packet, By Mouth, Daily Senna Tablet ??8.6 mg 1 tablet, By Mouth, 2 times a day ? Results Recent Labs BLOOD COUNT & DIFF WBC 8.0 k/mm3 ()?? 08/09/2024 07:57 RBC 3.11 m/mm3 (Low)?? 08/09/2024 07:57 Hgb 8.6 Gm/dL (Low)?? 08/09/2024 07:57 Hct 26.2 % (Low)?? 08/09/2024 07:57 MCV 84.2 femtoliters ()?? 08/09/2024 07:57 MCH 27.7 pg ()?? 08/09/2024 07:57 MCHC 32.8 Gm/dL (Low)?? 08/09/2024 07:57 Platelet Count 340 k/mm3 ()?? 08/09/2024 07:57 RDW-SD 41.1 femtoliters ()?? 08/09/2024 07:57 MPV 9.5 femtoliters ()?? 08/09/2024 07:57 Nucleated RBC (Automated) 0.0 #/100 WBC'S ()?? 08/09/2024 07:57 Abs. NRBC 0.0 k/mm3 ()?? 08/09/2024 07:57 ?? CARDIAC CK, Total 12 units/L ()?? 08/09/2024 03:30 High Sensitivity Troponin (HSTnT) 14 ng/L (High)?? 08/09/2024 03:30 ?? CHEM GENERAL Sodium 137 mmol/L ()?? 08/10/2024 04:21 Potassium 4.2 mmol/L ()?? 08/10/2024 04:21 Chloride 103 mmol/L ()?? 08/10/2024 04:21 Bicarbonate Level 21 mmol/L (Low)?? 08/10/2024 04:21 Anion Gap 13 ()?? 08/10/2024 04:21 Glucose Level 86 mg/dL ()?? 08/10/2024 04:21 Glucose, POC 242 mg/dL (High)?? 08/09/2024 03:26 BUN 34 mg/dL (High)?? 08/10/2024 04:21 Creatinine-Blood 1.72 mg/dL (High)?? 08/10/2024 04:21 Estimated GFR Creatinine 32 ML/MIN/1.73 M2 ()?? 08/10/2024 04:21 Calcium 11.1 mg/dL (High)?? 08/10/2024 04:21 Calcium, Ionized pH Corrected 1.59 mmol/L (Critical)?? 08/10/2024 04:21 Phosphorus 2.8 mg/dL ()?? 08/10/2024 04:21 C-Reactive Protein 13.3 mg/dL (High)?? 08/09/2024 07:57 ?? COAG D-Dimer 1.89 mg/L FEU (High)?? 08/09/2024 07:57 ?? ENDOCRINE/TUMOR MARKER TSH 0.90 uIU/mL ()?? 08/09/2024 07:57 PTH, Intact 74 pg/mL (High)?? 08/09/2024 07:57 ?? HEME OTHER Sed Rate 55 mm/hr (High)?? 08/09/2024 07:57 ?? IMMUNOLOGY GENERAL Rheumatoid Factor 10.0 IU/mL ()?? 08/09/2024 07:57 ?? MISC. CHEMISTRY 25 OH-Vitamin D Level 23.1 ng/mL ()?? 08/09/2024 07:57 ?? URINE OTHER Est Creatinine Clearance 25.89 mL/min ()?? 08/10/2024 05:00 ? Assessment/Plan Assessment:??Paige Jonas is a 69-year-old female with past??medical history significant of??HTN,HLD, DM, CKD, asthma, GERD, and anxiety who presented to the ED on 08/08 for evaluation of multiple joint??pains and chest pain and being admitted for concern of acute kidney injury. ?? 1. CKD IIIb Creatinine currently at baseline of 1.8mg/dL (most??recent??outpatient labs in Oct 2023 with Cr 1.8, prior to that her baseline Cr was 2.3 in 2021 and 2022 for which a L AVF was created- has not required dialysis) ?? 2. Hypercalcemia Ca 11.1 on arrival most likely due to primary hyperparathyroidism given elevated PTH of 74 versus chlorthalidone use Of note, patient does have a history of nephrolithiasis per outpatient records but no hypercalcemiaon prior labs ?? Plan - No need for further IVF - Discontinue chlorthalidone indefinitely - Follow-up renal ultrasound (currently in process) to reassess stone burden - Add on repeat PTH ordered - Patient has outpatient follow-up with Dr. Duncan 09/05 at 4pm and will likely benefit from a 24 hour urine collection for stone evaluation as outpatient ?Will continue to follow. ?Mahesh Eller PA-C ?[facility] ?? Discussed with Dr. Wood * Ashli Wood MD: PERFORM Event Display: Progress Note Hospital Authored Date: Patient and charted reviewed. Management discussed with CIERRA. ??Continue the current management as documented in PA's chart. US kidney pending. Chlorthalidone effect can last up to 3 days. Patient likely has primary hyperparathyroidism and will need outpatient work up with endocrinology * Jadon Huddleston RN: PERFORM, SIGN, VERIFY Event Display: Progress Note Hospital Authored Date: Patient: PAIGE JONAS Age: 69 years Sex: Female : 1955 Associated Diagnoses: None Author: Jadon Huddleston RN Pt. A/Ox4, VSS, standby assist. Still c/o multiple joint pain and pain in her chest and she think it is due to stress. SR on tele, pending PT consult. Refused MRI, even offered medication to make herrelax, she state's that she can't able to tolerate the sound. 85 units of insulin Lantus was not given, pt. used to take that in AM. Safety maintained, Call modi within reach. Consult note * Mahesh Zhong: PERFORM, MODIFY Event Display: Consultation Note Authored Date: Patient: ??PAIGE JONAS ? Age:??69 Years?Sex:??Female?:??1955?? Chief Complaint/Reason for Consultation VERENA versus CKD / Hypercalcemia History of Present Illness Paige Jonas is a 69-year-old female with past??medical history significant of??HTN,HLD, DM, CKD, asthma, GERD, and anxiety who presented to the ED on 08/08 for evaluation of multiple joint??pains and chest pain and being admitted for concern of acute kidney injury. ?? Patient reports in the last several weeks she has been having multiple pain including both hands (mostly index fingers limiting index finger movement), back (right??lateral/paraspinal, Mid=d-lower), and both ankles and feet. She also reports intermittent chest central chest pain radiating to her back worse at night and with movement. She thinks her pain is getting worse because she feel anxious about her who is currently hospitalized at the oncology floor. She denies fever, chills, nausea, vomiting, SOB, cough, abdominal pain, change in bowel habits. ?? In ED, patient??febrile, HR 100s, BP 130s-150s/70s-90s, on RA. Creatinine 2.08 on arrival, down to 1.76 today. Patient follows with Dr. Duncan with creatinine 2.3 in 2021 and 2022 for which a fistula was created. Most recent outpatient labs with Cr 1.84 in October 2023. Labs also notable for Ca11.1 down to 10.9 today. ?? On my assessment, patient is resting comfortably in bed. She endorses multiple joint pains mostly in her wrists currently. She has no other complaints. States she does not like what she got for lunch but does have an appetite and denies nausea, vomiting, or diarrhea. She does have a history of ki dney stones per Dr. Duncan's note but patient states she has not had kidney stones in years. Review of Systems Constitutional: No weight loss, fever, chills, weakness or fatigue. HEENT: No visual loss, blurred vision, double vision or yellow sclera. No hearing loss, sneezing, congestion, runny nose or sore throat. Skin: No rash or itching. Cardiovascular: No chest pain, chest pressure or chest discomfort. No palpitations or pedal edema. Respiratory: No shortness of breath, cough or sputum production. Gastrointestinal: Negative for nausea, vomiting & diarrhea. No abdominal pain or blood in stool. Genitourinary: No burning micturition. No urinary frequency or incontinence. Neurologic: No headache, dizziness, syncope, unilateral weakness, ataxia Musculoskeletal: ++ joint pain, ++ back pain. Hematologic: No bleeding or bruising. Lymphatics: No enlarged lymph nodes. Psychiatric: No depression or anxiety. Endocrine: No reports of sweating. No cold or heat intolerance. No polyuria or polydipsia. ? Objective Vital Signs?? Temperature: 98.2 DegF (08/09/24 10:19:00) Temperature Route: Oral (08/09/24 10:19:00) Pulse Rate:??98 bpm??High (08/09/24 11:12:00) Respiratory Rate: 17 br/min (08/09/24 10:19:00) Systolic Blood Pressure: 128 mm Hg (08/09/24 11:12:00) Diastolic Blood Pressure: 70 mm Hg (08/09/24 11:12:00) Blood pressure sites: Arm, right (08/09/24 10:19:00) Mean Arterial Pressure: 82 mm Hg (08/09/24 10:19:00) Pulse Pressure: 66 mm Hg (08/09/24 10:19:00) Oxygen Saturation: 98 % (08/09/24 10:19:00) Mode of Delivery (Oxygen): Room air (08/09/24 10:19:00) Early Warning Score: 1 (08/09/24 12:31:16) ? Intake/Output? No Data Available ? Physical Exam ?General: No acute distress ?HEENT: Mucous membranes moist ?CV: Regular rate and rhythm ?Respiratory: CTAB ?Abdominal: Soft ?Extremities: No peripheral edema ?Neuro: AAO x3 ?Skin: No rashes Assessment/Plan Assessment:??Paige Jonas is a 69-year-old female with past??medical history significant of??HTN,HLD, DM, CKD, asthma, GERD, and anxiety who presented to the ED on 08/08 for evaluation of multiple joint??pains and chest pain and being admitted for concern of acute kidney injury. ?? 1. CKD IIIb/IV Creatinine currently at baseline of 1.8mg/dL (most??recent??outpatient labs in Oct 2023 with Cr 1.8, prior to that her baseline Cr was 2.3 in 2021 and 2022 for which a L AVF was created- has not required dialysis) ?? 2. Hypercalcemia Ca 11.1 on arrival, down to 10.9 today??most likely due to primary hyperparathyroidism given elevated PTH of 74 versus chlorthalidone use Of note, patient does have a history of nephrolithiasis per outpatient records but no hypercalcemiaon prior labs ?? Plan - Agree with normal saline as ordered - Discontinue chlorthalidone indefinitely - Renal ultrasound ordered given history of nephrolithiasis and history of L sided hydro per outpatient notes - Repeat calcium and ionized Ca ordered for tomorrow AM - Patient has outpatient follow-up with Dr. Duncan 09/05 at 4pm ?Thank you for the courtesy of this consult, REANE will continue monitoring the patient along with you. Please do not hesitate to call us with any further questions. ?Mahesh Eller PA-C ?[facility] ?? Discussed with Dr. Wood Histories Allergies Allergies ?(Active and Proposed Allergies Only) Other Food Allergy? (Severity: Unknown severity, Onset: Unknown) ?Reactions: all fresh vegetables and fruits- itch/hives levofloxacin? (Severity: Unknown severity, Onset: Unknown) ?Reactions: diarrhea Bactrim? (Severity: Unknown severity, Onset: Unknown) ?Reactions: diarrhea Medrol? (Severity: Unknown severity, Onset: Unknown) ?Reactions: unknown Latex? (Severity: Unknown severity, Onset: Unknown) ?Reactions: rash ciprofloxacin? (Severity: Unknown severity, Onset: Unknown) ?Reactions: hives / diarrhea [place] inhibitors? (Severity: Unknown severity, Onset: Unknown) ?Reactions: hives azithromycin? (Severity: Unknown severity, Onset: Unknown) ?Reactions: diarrhea, painful joints NovoLog Mix 70/30? (Severity: Unknown severity, Onset: Unknown) ?Reactions: hives on arm and itching all over penicillin? (Severity: Unknown severity, Onset: Unknown) ?Reactions: hives codeine? (Severity: Unknown severity, Onset: Unknown) ?Reactions: hives ? Past Medical History/Problem List Active Problems(4) Asthma Depression Diabetes mellitus HTN (hypertension) ? Past Surgical History No surgery history documented. ? Social History Tobacco Details:??Never smoker ? Family History No Family History documented. ? Medications Home Medications Albuterol (ProAir HFA 90 mcg/inh inhalation aerosol with adapter)?2?puff(s)?Inhalation?4 times a day?as needed?Wheezing/Shortness of Breath BuPROpion?150?Milligram?By Mouth?2 times a day Chlorthalidone (chlorthalidone 25 mg oral tablet)?1?tab(s)?25?Milligram?By Mouth?Daily Durable Medical Equipment (Accu-Chek Multiclix Drum Lancets)?See Instructions?Test BS seven times a day and prn Durable Medical Equipment (Accu-Chek Marilee Test Strips)?See Instructions?Test BS seven times per day and prn Durable Medical Equipment (Insulin Syringe, BD Ultra-Fine 1 cc 30 G x 12.7 mm (1/2in))?See Instructions?USE WITH INSULIN TWICE A DAY fluticasone-vilanterol (Breo Ellipta 200 mcg-25 mcg/inh inhalation powder)?1?puff(s)?Inhalation?Daily Insulin Glargine (Toujeo SoloStar 300 units/mL subcutaneous solution)?INJECT 85 UNITS SUBCUTANEOUSLY EVERY DAY Metoprolol (Metoprolol Tartrate 50 mg oral tablet)?1?tab(s)?50?Milligram?By Mouth?2 times a day Nystatin Topical (nystatin topical 233450 u/gm powder)?1?denice?Topically?2 times a day?as needed?Rash?apply to abdomen and groin folds for rash Pantoprazole (Protonix 40 mg oral delayed release tablet)?40?Milligram?1?tablet?By Mouth?Daily?as needed?Other Pt.'s Own Meds (Patient's Own Meds)?See Instructions?vitamin b12 inj?Indication: ??injection monthly ? Inpatient Medications Medications (15) Active SCHEDULED: (7) BuPROPion XL 150 mg Tablet (Wellbutrin XL Tablet) ??150 mg, By Mouth, Daily Insulin Glargine 100 units/mL Inj (Insulin Glargine Inj) ??85 units 0.85 mL, Subcutaneous Injection, Daily at bedtime Lidocaine 5% Topical Patch (Lidocaine 5% Patch) ??1 each, Topically, Daily Metoprolol 50 mg Tablet (Lopressor 50 mg oral tablet) ??50 mg, By Mouth, 2 times a day NaCl 0.9% Flush 3ml (NaCL 0.9% Flush) ??3 mL, IV Push, Every 8 hours Potassium Chloride 10mEq ER Tablet (potassium chloride 10 mEq oral tablet, extended release) ??40 mEq, By Mouth, Once Remove Patch (Remove Lidocaine Patch) ??1 each, Topically, Daily at bedtime CONTINUOUS: (1) NaCL 0.9% (1000 mL) Cont IV 500 mL (NaCL 0.9% Bolus 500 mL) ??500 mL, IV Infusion PRN: (7) Acetaminophen 325 mg Tablet (Acetaminophen Tablet) ??650 mg, By Mouth, Every 4 hours Docusate Sodium 100 mg Capsule (Docusate Sodium Capsule) ??100 mg 1 capsule, By Mouth, 2 times a day Melatonin 3 mg Tablet (Melatonin Tablet) ??3 mg, By Mouth, Daily at bedtime NaCl 0.9% Flush 3ml (NaCL 0.9% Flush) ??3 mL, IV Push, Every 8 hours Pantoprazole 40 mg EC Tablet (Protonix 40 mg oral delayed release tablet) ??40 mg, By Mouth, Daily Polyethylene Glycol 17 Gm Powder (MiraLax Powder) ??17 Gm 1 pack/packet, By Mouth, Daily Senna Tablet ??8.6 mg 1 tablet, By Mouth, 2 times a day ? Results Recent Labs BLOOD COUNT & DIFF WBC 8.0 k/mm3 ()?? 08/09/2024 07:57 RBC 3.11 m/mm3 (Low)?? 08/09/2024 07:57 Hgb 8.6 Gm/dL (Low)?? 08/09/2024 07:57 Hct 26.2 % (Low)?? 08/09/2024 07:57 MCV 84.2 femtoliters ()?? 08/09/2024 07:57 MCH 27.7 pg ()?? 08/09/2024 07:57 MCHC 32.8 Gm/dL (Low)?? 08/09/2024 07:57 Platelet Count 340 k/mm3 ()?? 08/09/2024 07:57 RDW-SD 41.1 femtoliters ()?? 08/09/2024 07:57 MPV 9.5 femtoliters ()?? 08/09/2024 07:57 Nucleated RBC (Automated) 0.0 #/100 WBC'S ()?? 08/09/2024 07:57 Abs. NRBC 0.0 k/mm3 ()?? 08/09/2024 07:57 Abs. Neut 6.1 k/mm3 ()?? 08/08/2024 19:00 Abs. Lymph 2.8 k/mm3 ()?? 08/08/2024 19:00 Abs. Bedford 1.0 k/mm3 (High)?? 08/08/2024 19:00 Abs. Eo 0.3 k/mm3 ()?? 08/08/2024 19:00 Abs. Baso 0.0 k/mm3 ()?? 08/08/2024 19:00 Neut % 59.3 % ()?? 08/08/2024 19:00 Lymph % 27.3 % ()?? 08/08/2024 19:00 Bedford % 9.6 % ()?? 08/08/2024 19:00 Eos % 2.8 % ()?? 08/08/2024 19:00 Baso % 0.4 % ()?? 08/08/2024 19:00 Imm Gran 0.6 % ()?? 08/08/2024 19:00 Abs. Imm Gran 0.1 k/mm3 ()?? 08/08/2024 19:00 ?? CARDIAC CK, Total 12 units/L ()?? 08/09/2024 03:30 High Sensitivity Troponin (HSTnT) 14 ng/L (High)?? 08/09/2024 03:30 ?? CHEM GENERAL Sodium 134 mmol/L ()?? 08/09/2024 07:57 Potassium 3.5 mmol/L (Low)?? 08/09/2024 07:57 Chloride 99 mmol/L ()?? 08/09/2024 07:57 Bicarbonate Level 21 mmol/L (Low)?? 08/09/2024 07:57 Anion Gap 14 ()?? 08/09/2024 07:57 Glucose Level 207 mg/dL (High)?? 08/09/2024 07:57 Glucose, POC 242 mg/dL (High)?? 08/09/2024 03:26 BUN 40 mg/dL (High)?? 08/09/2024 07:57 Creatinine-Blood 1.76 mg/dL (High)?? 08/09/2024 07:57 Estimated GFR Creatinine 31 ML/MIN/1.73 M2 ()?? 08/09/2024 07:57 Calcium 10.9 mg/dL (High)?? 08/09/2024 07:57 Calcium, Ionized pH Corrected 1.51 mmol/L (Critical)?? 08/09/2024 07:57 C-Reactive Protein 13.3 mg/dL (High)?? 08/09/2024 07:57 ?? COAG D-Dimer 1.89 mg/L FEU (High)?? 08/09/2024 07:57 ?? ENDOCRINE/TUMOR MARKER TSH 0.90 uIU/mL ()?? 08/09/2024 07:57 PTH, Intact 74 pg/mL (High)?? 08/09/2024 07:57 ?? HEME OTHER Sed Rate 55 mm/hr (High)?? 08/09/2024 07:57 ?? IMMUNOLOGY GENERAL Rheumatoid Factor 10.0 IU/mL ()?? 08/09/2024 07:57 ?? MISC. CHEMISTRY 25 OH-Vitamin D Level 23.1 ng/mL ()?? 08/09/2024 07:57 ?? URINE OTHER Est Creatinine Clearance 25.30 mL/min ()?? 08/09/2024 08:48 ? CBC, CBC w/Diff?? CBC?? Differential?? WBC: 8 k/mm3 () Abs. Neut: 6.1 k/mm3 (19:00) RBC:??3.11 m/mm3??Low () Abs. Lymph: 2.8 k/mm3 (19:00) Hct:??26.2 %??Low () Abs. Bedford:??1 k/mm3??High (:) RDW-SD: 41.1 femtoliters () Abs. Eo: 0.3 k/mm3 (19:00) Nucleated RBC (Automated): 0 #/100 WBC'S () Abs. Baso: 0 k/mm3 (:00) Abs. NRBC: 0 k/mm3 () Neut %: 59.3 % (19:00) ?? Lymph %: 27.3 % (19:00) ?? Bedford %: 9.6 % (19:00) ?? Eos %: 2.8 % (19:) ?? Baso %: 0.4 % (19:00) ?? Imm Gran: 0.6 % (19:00) ?? Abs. Imm Gran: 0.1 k/mm3 (:00) ? BMP, Mg, and Phos Anion Gap: 14 () Bicarbonate Level:??21 mmol/L??Low () BUN:??40 mg/dL??High () Calcium:??10.9 mg/dL??High () Calcium, Ionized pH Corrected:??1.51 mmol/L??Critical () Chloride: 99 mmol/L () Creatinine-Blood:??1.76 mg/dL??High () Estimated GFR Creatinine: 31 ML/MIN/1.73 M2 () Glucose Level:??207 mg/dL??High () Potassium:??3.5 mmol/L??Low (:) Sodium: 134 mmol/L (:57) ?? Urinalysis Est Creatinine Clearance: 25.3 mL/min (08:48) Est Creatinine Clearance: 21.41 mL/min (20:11) ? * Nina SOMERS, Ashli: PERFORM Event Display: Consultation Note Authored Date: [id number] Patient and charted reviewed. Management discussed with PA. ??Continue the current management as documented in PA's chart. Stop thiazide diuretics in view of hypercalcemia. Reassess stone burden and repeat US. Will benefit from 24 hour urine collection [facility] Note * Mirian Selby: PERFORM Event Display: Discharge/Transfer Note Hospital Authored Date: [id number] Nursing Discharge Note Entered On: 08/10/2024 17:29 EST Performed On: 08/10/2024 17:17 EST by Mirian Selby Nursing Discharge Note 2 Discharge Time : 08/10/2024 17:17 EST Discharge Level of Care at Discharge : Homehealth/VNA Discharge VNA/Hospice/Home Care(v001) : [facility] Patient Left Unit Via : [facility] Patient Accompanied Off Unit with : Ambulance/Ch[facility] Personnel Handover Given to Transport Personnel : Yes DC Instructions Provided & Signed by Pt : Yes Patient Understands D/C Instructions : Yes Patient Instructions Discharge Signed : Yes Did Pt have Specialty Bed or Wound Vac : No Mirian Selby - 08/10/2024 17:29 EST * Vernon Matute MD: PERFORM Event Display: Discharge/Transfer Note Hospital Authored Date: [id number] Patient: ??PAIGE JONAS ? Age:??69 Years?Sex:??Female?:??1955?? Patient Information Discharge Location: D3B Primary Care Physician: Alejandro Ferreira MD , Pepe Acevedo Admit Date/Time: 08/08/2024 16:21 Discharge Disposition Discharge Disposition: Home with Home Health Discharge Diagnosis CKD (chronic kidney disease) (N18.9) Elevated serum creatinine (R79.89) Chest pain (R07.9) Multiple joint pain (M25.50) Hypercalcemia (E83.52) Asthma (J45.909) HTN (hypertension) (I10) _ Discharge Medications Albuterol (ProAir HFA 90 mcg/inh inhalation aerosol with adapter)?2?puff(s)?Inhalation?4 times a day?as needed?Wheezing/Shortness of Breath BuPROpion?150?Milligram?By Mouth?2 times a day Durable Medical Equipment (Accu-Chek Multiclix Drum Lancets)?See Instructions?Test BS seven times a day and prn Durable Medical Equipment (Accu-Chek Marilee Test Strips)?See Instructions?Test BS seven times per day and prn Durable Medical Equipment (Insulin Syringe, BD Ultra-Fine 1 cc 30 G x 12.7 mm (1/2in))?See Instructions?USE WITH INSULIN TWICE A DAY fluticasone-vilanterol (Breo Ellipta 200 mcg-25 mcg/inh inhalation powder)?1?puff(s)?Inhalation?Daily Insulin Glargine (Toujeo SoloStar 300 units/mL subcutaneous solution)?INJECT 85 UNITS SUBCUTANEOUSLY EVERY DAY Metoprolol (Metoprolol Tartrate 50 mg oral tablet)?1?tab(s)?50?Milligram?By Mouth?2 times a day Nystatin Topical (nystatin topical 463580 u/gm powder)?1?denice?Topically?2 times a day?as needed?Rash?apply to abdomen and groin folds for rash Pantoprazole (Protonix 40 mg oral delayed release tablet)?40?Milligram?1?tablet?By Mouth?Daily?as needed?Other Pt.'s Own Meds (Patient's Own Meds)?See Instructions?vitamin b12 inj?Indication: ??injection monthly ? Medications Started none Medications Discontinued Chlorthalidone Doses Changed none Allergies Allergies ?(Active and Proposed Allergies Only) Red Meat? (Severity: Unknown severity, Onset: Unknown) Other Food Allergy? (Severity: Unknown severity, Onset: Unknown) ?Reactions: all fresh vegetables and fruits- itch/hives levofloxacin? (Severity: Unknown severity, Onset: Unknown) ?Reactions: diarrhea Bactrim? (Severity: Unknown severity, Onset: Unknown) ?Reactions: diarrhea Medrol? (Severity: Unknown severity, Onset: Unknown) ?Reactions: unknown Latex? (Severity: Unknown severity, Onset: Unknown) ?Reactions: rash ciprofloxacin? (Severity: Unknown severity, Onset: Unknown) ?Reactions: hives / diarrhea [place] inhibitors? (Severity: Unknown severity, Onset: Unknown) ?Reactions: hives azithromycin? (Severity: Unknown severity, Onset: Unknown) ?Reactions: diarrhea, painful joints NovoLog Mix 70/30? (Severity: Unknown severity, Onset: Unknown) ?Reactions: hives on arm and itching all over penicillin? (Severity: Unknown severity, Onset: Unknown) ?Reactions: hives codeine? (Severity: Unknown severity, Onset: Unknown) ?Reactions: hives ? Hospital Course ??69-year-old female patient with a medical history significant for HTN,HLD, DM, CKD, Asthma, GERD,and anxiety who presented to the ED for evaluation of multiple joints pain and chest pain and beingadmitted for concern of acute kidney injury which is found to be VERENA on CKD. She refused for MRI ofthe knee to ascess the extent of osteoarthritis. She will F/U outpatient for possible outpatient MRI open. She was evaluated by physical therapy and recommended home with services. ??Nephrology evaluated and recommended??follow-up outpatient. ??I also discussed with endocrine for??primary hyperparathyroidism for which they can set up appointment and call her. for complete work up. ?? Elevated serum creatinine (R79.89):??- CKD (chronic kidney disease) (N18.9):?? Patient with history of chronic kidney disease??most recent creatinine in our system was in 2016??of 1 mg/dL - Cr here 2 mg/dl, ED team were concerned for VERENA however??after I spoke to the patient??she??has??a left upper extremity fistula??created around??2 months ago not on dialysis. This??indicate that she??has??advanced kidney??disease.??Likely this represent baseline creatinine. ??will monitor kidney function and obtain records.?? monitor kidney??function.?? Resume valsartan.?? Chlorthalidone stopped for good as per renal recommendation. ?? Hypercalcemia (E83.52):??likely from Primary ??hyperparathyroidism encourage fluid and follow up with endocrine ? Chest pain (R07.9):??Resovled Chest pain atypical (sharp, intermittent, non-radiating), EKG with no ST elevation, Trop is mildly elevated but flat. CXR is unremarkable. This is less likely cardiac pain. Low suspicion??for PE CTA negative ?? Multiple joint pain (M25.50):?? chronic likely due to osteoarthritis refused MRI due to clostrophobia ,??no suscipicion of infectious disease Follow up with ortho ? HTN (hypertension) (I10):??continue??home metoprolol. resume??home??losartan Asthma (J45.909):??Breo??ellipta and albuterol inhaler.? I discussed plan of care with the patient at bedside, she verbalized understanding and agrees with. Objective Assessment and Plan Discharge Planning:? Measurements?? Height: 160 cm (08/10/24) Dry Weight: 79 kg (08/09/24) ? Vital Signs?? Temperature: 98.3 DegF (08/10/24 04:03:00) Temperature Route: Oral (08/10/24 04:03:00) Pulse Rate: 82 bpm (08/10/24 09:36:00) Respiratory Rate: 16 br/min (08/10/24 09:53:00) Systolic Blood Pressure:??141 mm Hg??High (08/10/24 09:36:00) Diastolic Blood Pressure: 70 mm Hg (08/10/24 09:36:00) Blood pressure sites: Arm, right (08/10/24 04:03:00) Mean Arterial Pressure: 103 mm Hg (08/10/24 08:11:00) Pulse Pressure: 86 mm Hg (08/10/24 08:11:00) Oxygen Saturation: 99 % (08/10/24 08:11:00) Mode of Delivery (Oxygen): Room air (08/10/24 08:11:00) Early Warning Score: 0 (08/10/24 09:53:44) ? . Physical Exam ?General: No acute distress ?HEENT: Mucous membranes moist ?CV: Regular rate and rhythm ?Respiratory: CTAB ?Abdominal: Soft ?Extremities: No peripheral edema, some restricted movement due to her osteoarthritis?Neuro: AAO x3 ?Skin: No rashes Pending Results PEPE Screen ordered on 08/09/2024 Add On Lab Order ordered on 08/10/2024 Add On Lab Order ordered on 08/10/2024 MRI Joint Ext Lower W+W/O Contrast Left ordered on 08/09/2024 Vitamin D 1,25 Dihydroxy Level ordered on 08/09/2024 Follow-Up Appointments Added Follow Up ?Time Frame ?Comments Pepe Ferreira MD Patient Instructions You were admitted and evaluated for??VERENA??on??CKD You have multiple joint pain??which has been going on for a long time and you are following up with??orthopedic, please continue to follow-up All workup found to have a primary hyperparathyroids, you need to see hardening machine operator helper,[facility]??if you do not get call from them with appointment in 1 to 2 weeks. follw up with PCP for pulmonary nodule for possible repeat CT scan? Located in: [facility] Address: [address], [place] [address] Hours: Open ?? Closes 5??PM Home Health Face to Face *Denotes mandatory chong ?? *I certify that this patient is under my care and that I or an allowed non- physician working with me had a face to face encounter with the patient on this date:??08/10/2024 14:56 ?? *The encounter with the patient was in whole, or in part, for the following medical condition, which is the primary diagnosis(es) for home health care:??CKD (chronic kidney disease) (N18.9) Elevated serum creatinine (R79.89) Chest pain (R07.9) Multiple joint pain (M25.50) Hypercalcemia (E83.52) Asthma (J45.909) HTN (hypertension) (I10) ?? *Select the indications for the discipline/s that are being arranged for this patient. Nursing (select all that apply): [_] None [_] Medication management (reconciliation, teaching)?? [x_] Chronic disease management?? [_] Wound care and treatment?? [_] Home safety evaluation [_] Administer SQ/IM/IV medications?? [_] Cath care?? [_] Drain care?? [_] Trach or GT care?? Other _ Occupation Therapy (select all that apply): [_] None [_] ADL Management [_] Fall prevention training [_] Energy conservation [_] Cognitive training Other _ Physical Therapy (select all that apply): [_] None [x_] Functional mobility training [x_] Home exercise program to strengthen [_x] Increase ROM?? [x_] Falls prevention training [_] Home maintenance program for chronic disease Other _ Speech Therapy (select all that apply): [_] None [_] Swallow evaluation and training [_] Speech and language training [_] Cognitive training to process, organize, and/or recall information Other _ ? *Homebound due to (select all that apply): [_] Inability to leave home without assistance/supervision [x_] Inability to ambulate without assistance [_] Pain [_] Decreased strength and endurance [_] Unsteady gait [_] Severe SOB and fatigue [_] Impaired transfers [_] Inability to negotiate stairs [_] Limited weight bearing [_] Mental status change? *Physician Signature: _Vernon Matute ?? *By signing this, I certify that I have personally evaluated the patient and agree with the findings and recommendations as documented above. ? Results Discharge Labs BLOOD COUNT & DIFF WBC 8.0 k/mm3 ()?? 08/09/2024 07:57 RBC 3.11 m/mm3 (Low)?? 08/09/2024 07:57 Hgb 8.6 Gm/dL (Low)?? 08/09/2024 07:57 Hct 26.2 % (Low)?? 08/09/2024 07:57 MCV 84.2 femtoliters ()?? 08/09/2024 07:57 MCH 27.7 pg ()?? 08/09/2024 07:57 MCHC 32.8 Gm/dL (Low)?? 08/09/2024 07:57 Platelet Count 340 k/mm3 ()?? 08/09/2024 07:57 RDW-SD 41.1 femtoliters ()?? 08/09/2024 07:57 MPV 9.5 femtoliters ()?? 08/09/2024 07:57 Nucleated RBC (Automated) 0.0 #/100 WBC'S ()?? 08/09/2024 07:57 Abs. NRBC 0.0 k/mm3 ()?? 08/09/2024 07:57 Abs. Neut 6.1 k/mm3 ()?? 08/08/2024 19:00 Abs. Lymph 2.8 k/mm3 ()?? 08/08/2024 19:00 Abs. Bedford 1.0 k/mm3 (High)?? 08/08/2024 19:00 Abs. Eo 0.3 k/mm3 ()?? 08/08/2024 19:00 Abs. Baso 0.0 k/mm3 ()?? 08/08/2024 19:00 Neut % 59.3 % ()?? 08/08/2024 19:00 Lymph % 27.3 % ()?? 08/08/2024 19:00 Bedford % 9.6 % ()?? 08/08/2024 19:00 Eos % 2.8 % ()?? 08/08/2024 19:00 Baso % 0.4 % ()?? 08/08/2024 19:00 Imm Gran 0.6 % ()?? 08/08/2024 19:00 Abs. Imm Gran 0.1 k/mm3 ()?? 08/08/2024 19:00 ?? CARDIAC CK, Total 12 units/L ()?? 08/09/2024 03:30 High Sensitivity Troponin (HSTnT) 14 ng/L (High)?? 08/09/2024 03:30 ?? CHEM GENERAL Sodium 137 mmol/L ()?? 08/10/2024 04:21 Potassium 4.2 mmol/L ()?? 08/10/2024 04:21 Chloride 103 mmol/L ()?? 08/10/2024 04:21 Bicarbonate Level 21 mmol/L (Low)?? 08/10/2024 04:21 Anion Gap 13 ()?? 08/10/2024 04:21 Glucose Level 86 mg/dL ()?? 08/10/2024 04:21 Glucose, POC 242 mg/dL (High)?? 08/09/2024 03:26 BUN 34 mg/dL (High)?? 08/10/2024 04:21 Creatinine-Blood 1.72 mg/dL (High)?? 08/10/2024 04:21 Estimated GFR Creatinine 32 ML/MIN/1.73 M2 ()?? 08/10/2024 04:21 Calcium 11.1 mg/dL (High)?? 08/10/2024 04:21 Calcium, Ionized pH Corrected 1.59 mmol/L (Critical)?? 08/10/2024 04:21 Phosphorus 2.8 mg/dL ()?? 08/10/2024 04:21 C-Reactive Protein 13.3 mg/dL (High)?? 08/09/2024 07:57 ?? COAG D-Dimer 1.89 mg/L FEU (High)?? 08/09/2024 07:57 ? ENDOCRINE/TUMOR MARKER TSH 0.90 uIU/mL ()?? 08/09/2024 07:57 PTH, Intact 77 pg/mL (High)?? 08/10/2024 04:21 ?? HEME OTHER Sed Rate 55 mm/hr (High)?? 08/09/2024 07:57 Hold Lavender Top SPECIMEN DISCARDED AFTER 24 HOURS. ()?? 08/10/2024 04:21 ?? IMMUNOLOGY GENERAL Rheumatoid Factor 10.0 IU/mL ()?? 08/09/2024 07:57 ? MISC. CHEMISTRY 25 OH-Vitamin D Level 23.1 ng/mL ()?? 08/09/2024 07:57 ? URINE OTHER Est Creatinine Clearance 25.89 mL/min ()?? 08/10/2024 05:00 ? Image ?CT Angio Chest??08/09/2024 10:55 by Collin Conn ?1. No evidence of pulmonary embolism. 2. Bilateral pulmonary nodules measuring up to 4 mm. If low risk for malignancy, no routine follow-up. If high risk, optional CT at 12 months. If unchanged, no further follow-up needed per Guidelines for Management of Incidental Pulmonary Nodules Detected on CT Images: From the Fleischner Society 2017. ?US Renal Bladder??08/10/2024 11:00 by Hillary Acosta ?No sonographic evidence of nephrolithiasis or hydronephrosis. Echogenic kidneys likely representing medical renal disease. Bilateral renal cysts measuring up to 1.7 cm on the right and 2.2 cm on the left. ?? 32_ minutes spent on discharge * Alyssa Gold RN: PERFORM, SIGN, VERIFY Event Display: Case Management Discharge Plan Authored Date: [id number] Patient: PAIGE JONAS Age: 69 years Sex: Female : 1955 Associated Diagnoses: None Author: Alyssa Gold RN Discharge Plan Case Management Discharge Plan : Case Management Discharge Plan Data 08/10/2024 10:58 EST Discharge Level of Care at Discharge Homehealth/VNA Discharge VNA/Hospice/Home Care [facility] Name of Agency #1 [facility] Service Categories #1 Retirement Service Comments #1 resume services * Mirian Selby: PERFORM Event Display: Patient Education/Instruction Authored Date: [id number] Inpatient Adult Discharge Instructions. [address] [address] Name: PAIGE JONAS : 1955?? Visit: 08/08/2024 16:21?? Current Date: 08/10/2024 16:29 ?? Account: [id number]?? Inpatient Adult Discharge Instructions We would like to thank you for allowing us to assist you with your healthcare needs. The following includes patient education materials and information regarding your injury/illness. Our entire staffstrives to provide an excellent experience for our patients and their families. PLEASE ENSURE YOU FOLLOW-UP PER THE INSTRUCTIONS BELOW! ?? YOUR OPINION IS IMPORTANT TO US! Please complete the survey you may receive by mail or email. Your feedback will be used to make improvements to the healthcare experiences of our patients and their families. Surveys are administered by [employer] ?? If further treatment with your primary care physician or another doctor is recommended, it is important for you to keep the appointment. Call your primary care physician or return to the Emergency Department immediately if your condition worsens, fails to improve, or new symptoms develop. If you need to find a doctor, you can call [facility] Link for a referral at [phone] or toll free at [phone]) or log in to [email or web address].. ?? [facility], in keeping with [facility] guidance, no longer requires face masks for staff, patientsor visitors in most situations. Similiar to time spent indoors at other locations, there is the chance that you were exposed to repiratory viruses during your time with us (such as flu or COVID-19). If you develop symptoms concerning for a viral respiratory infection, please seek testing (and treatment if indicated) from your medical provider or home test kit. ?? You can view and manage your care through the patient portal or by using a health care denice of your choosing. [employer] is a website that allows you to securely view your medical information including your hospital discharge summary, office visit summaries, medications and follow-up visits. You can also request appointments, renew medications, and request access to your medical information using a health care denice of your choosing, or just ask a question. You can enroll at [email or web address] or register during your next office visit. You have been discharged from [facility], Patient Care Unit: D3B??. If you have any questions regarding these instructions, including results of studies pending, afteryou leave, please call us and we will be happy to assist you 13/04. [facility] Your Care Team Attending Physician Vernon Matute MD?? Consulting Providers Vernon Matute MD?? Discharging Providers Vernon Matute MD Reason for Your Visit Alert and oriented, coming from home. Complaint of gen weakness for 3 months. Fatigue and FTT, not eating well. Lives alone.?? Your Diagnosis Asthma Chest pain CKD (chronic kidney disease) Elevated serum creatinine HTN (hypertension) Hypercalcemia Multiple joint pain Tests Performed Below is a partial list of the tests performed during your hospitalization. You may have had other tests and procedures not included in this list. Please discuss all test results with your provider. 25OH VITAMIN D Basic Metabolic Panel CBC CBC w/ Differential CK Total Only CRP D Dimer ESR GLUCOSE POC High??Sensitivity??Troponin T HOLD LAVENDER TUBE Ionized Calcium Phosphorus Level PTH, INTACT Rheumatoid Factor Qual Troponin T, High Sensitivity TSH CT Angio Chest MRI Joint Ext Lower W+W/O Contrast Left?-- Results Pending -- Renal Comp US XR Chest 2 Views Frontal and Lat XR Knee 1 or 2 Views Left XR Knee 1 or 2 Views Right XR Wrist Comp Min 3 Views Left XR Wrist Comp Min 3 Views Right PEPE Screen?? Add On Lab Order?? Basic Metabolic Panel?? C Reactive Protein (CRP)?? CBC?? CBC w/ Differential?? CPK Total Only (CK Total Only)?? CT Angio Chest?? D Dimer?? Glucose POC?? High??Sensitivity??Troponin T (Troponin T, High Sensitivity)?? Hold Lavender Top Tube (HOLD LAVENDER TUBE)?? Ionized Calcium?? MRI Joint Ext Lower W+W/O Contrast Left?? PTH Intact (PTH, INTACT)?? Phosphorus Level?? Rheumatoid Factor Qual?? Sedimentation Rate (ESR)?? TSH?? US Renal Bladder (Renal Comp US)?? Vitamin D 1,25 Dihydroxy Level?? Vitamin D 25 Hydroxy Level (25OH ??VITAMIN D)?? Chest 2 Views Frontal and Lat (XR Chest 2 Views Frontal and Lat)?? Knee 1 or 2 Views Left (XR Knee 1 or 2 Views Left)?? Knee 1 or 2 Views Right (XR Knee 1 or 2 Views Right)?? Wrist Comp Min 3 Views Left (XR Wrist Comp Min 3 Views Left)?? Wrist Comp Min 3 Views Right (XR Wrist Comp Min 3 Views Right)?? Primary Care Provider Alejandro Ferreira MD , Pepe Acevedo? Advance Directive Health Care Proxy on File No Patient refuses to discuss Discharge Vitals Temperature: 98.3 DegF Height: 160 cm Pulse Rate: 82 bpm ?? Respiratory Rate: 16 br/min ?? Systolic Blood Pressure:??141 mm Hg??High ?? Diastolic Blood Pressure: 70 mm Hg ?? Oxygen Saturation: 99 % ?? Studies Pending All studies ordered during this hospital stay have been completed unless listed below. Please discuss all pending results with your provider listed above in these instructions. ?? PEPE Screen?? Add On Lab Order?? MRI Joint Ext Lower W+W/O Contrast Left?? Vitamin D 1,25 Dihydroxy Level?? What to do next Instructions From Your Doctor You were admitted and evaluated for??VERENA??on??CKD You have multiple joint pain??which has been going on for a long time and you are following up with??orthopedic, please continue to follow-up All workup found to have a primary hyperparathyroids, you need to see hardening machine operator helper,[facility]??if you do not get call from them with appointment in 1 to 2 weeks. follw up with PCP for pulmonary nodule for possible repeat CT scan? Located in: [facility] Address: [address], [place] [address] Hours: Open ?? Closes 5??PM ?? Orders? 08/10/24 14:57:00 EST?? You Need to Schedule the Following Appointments Follow Up with??Pepe Ferreira MD Where: [address] [place] [address]- Business (1) Discharge Medications PAIGE JONAS :1955 Visit Date:08/08/2024 Medications: Please continue your medications until treatment is completed or stopped by your provider. Medications not listed below should be discontinued. Discuss any questions related to medications with your provider. What How Much When Why Instructions Next Dose Changed Metoprolol (Metoprolol Tartrate 50 mg oral tablet) 1 tab(s) Oral Twice a day 08/10 at 9:00 pm Unchanged Albuterol (ProAir HFA 90 mcg/ inh inhalation aerosol with adapter) 2 puff(s) Inhalation 4 times a day as needed for Wheezing/Shortness of Breath as needed Unchanged BuPROpion 150 Milligram Oral Twice a day 08/10 at 9:00 pm Unchanged Durable Medical Equipment (Accu-Chek Marilee Test Strips) See Instructions DM Test BS seven times per day and prn ?? resume home schedule Unchanged Durable Medical Equipment (Accu-Chek Multiclix Drum Lancets) See Instructions DM Test BS seven times a day and prn ?? resume home schedule Unchanged Durable Medical Equipment (Insulin Syringe, BD Ultra-Fine 1 cc 30 G x 12.7 mm (1/ 2in)) See Instructions USE WITH INSULIN TWICE A DAY ?? resume home schedule Unchanged Ezetimibe (ezetimibe 10 mg oral tablet) resume home schedule Unchanged fluticasone-vilanterol (Breo Ellipta 200 mcg-25 mcg/ inh inhalation powder) 1 puff(s) Inhalation Daily resume home schedule Unchanged Insulin Glargine (Toujeo SoloStar 300 units/ mL subcutaneous solution) INJECT 85 UNITS SUBCUTANEOUSLY EVERY DAY ?? resume home schedule Unchanged Methocarbamol (methocarbamol 750 mg oral tablet) resume home schedule Unchanged Nystatin Topical (nystatin topical 463385 u/ gm powder) 1 denice Topically Twice a day as needed for Rash apply to abdomen and groin folds for rash ?? resume home schedule Unchanged Pantoprazole (Protonix 40 mg oral delayed release tablet) 1 tab(s) Oral Daily as needed for Other resume home schedule Unchanged Pt.'s Own Meds (Patient's Own Meds) See Instructions injection monthly vitamin b12 inj ?? resume home schedule Unchanged Valsartan (valsartan 320 mg oral tablet) resume home schedule ?? What How Much When Why Comments Stop Taking Cetirizine (cetirizine 10 mg oral tablet) 1 tab(s) Oral Daily as needed for Other Stop Taking Chlorthalidone (chlorthalidone 25 mg oral tablet) 1 tab(s) Oral Daily in the morning Stop Taking Fluticasone-Salmeterol (Advair Diskus 250 mcg-50 mcg inhalation powder) 1 puff(s) Inhalation Twice a day as needed for Wheezing/Shortness of Breath Stop Taking Insulin Lispro-Insulin Lispro Protamine (Humalog Mix 75/ 25 Inj) 70 unit Subcutaneous Injection Daily at Bedtime Stop Taking Insulin Lispro-Insulin Lispro Protamine (Humalog Mix 75/ 25) See instructions dispense 18 vials inject 100 units in am and 90 units before supper ?? Stop Taking Losartan (Cozaar 50 mg oral tablet) 1 tab(s) Oral Twice a day Stop Taking Metformin 1,000 Milligram Oral Twice a day Stop Taking Pravastatin (Pravachol 20 mg oral tablet) 1 tab(s) Oral Daily in the morning Prescription Given During Visit No new medications prescribed at time of discharge.?? Laboratory Results Below is a partial list of the most recent Laboratory test results done prior to this discharge. You may have had other tests and procedures not included in this list. Please discuss all test resultswith your provider. Est Creatinine Clearance - 25.89 mL/min (08/10/2024) 25OH VITAMIN D (08/09/2024) ???25 OH-Vitamin D Level - 23.1 ng/mL Basic Metabolic Panel (08/10/2024) ???Sodium - 137 mmol/L???Potassium - 4.2 mmol/L???Chloride - 103 mmol/L???Bicarbonate Level - 21 mmol/L???Anion Gap - 13???Glucose Level - 86 mg/dL???BUN - 34 mg/dL???Creatinine-Blood - 1.72 mg/dL???Estimated GFR Creatinine - 32 ML/MIN/1.73 M2???Calcium - 11.1 mg/dL CBC (08/09/2024) ???WBC - 8.0 k/mm3???RBC - 3.11 m/mm3???Hgb - 8.6 Gm/dL???Hct - 26.2 %???MCV - 84.2 femtoliters???MCH - 27.7 pg???MCHC - 32.8 Gm/dL???Platelet Count - 340 k/mm3???RDW-SD - 41.1 femtoliters???MPV - 9.5 femtoliters???Nucleated RBC (Automated) - 0.0 #/100 WBC'S???Abs. NRBC - 0.0 k/mm3 CBC w/ Differential (08/08/2024) ???WBC - 10.3 k/mm3???RBC - 3.30 m/mm3???Hgb - 9.0 Gm/dL???Hct - 28.2 %???MCV - 85.5 femtoliters???MCH - 27.3 pg???MCHC - 31.9 Gm/dL???Platelet Count - 424 k/mm3???RDW-SD - 41.4 femtoliters???MPV - 10.0 femtoliters???Nucleated RBC (Automated) - 0.0 #/100 WBC'S???Abs. NRBC - 0.0 k/mm3???Abs. Neut - 6.1 k/mm3???Abs. Lymph - 2.8 k/mm3???Abs. [place] - 1.0 k/mm3???Abs. Eo - 0.3 k/mm3???Abs. Baso - 0.0 k/mm3???Neut % - 59.3 %???Lymph % - 27.3 %???Bed[place] % - 9.6 %???Eos % - 2.8 %???Baso % - 0.4 %???Imm Gran - 0.6 %???Abs. Imm Gran - 0.1 k/mm3 CK Total Only (08/09/2024) ???CK, Total - 12 units/L CRP (08/09/2024) ???C-Reactive Protein - 13.3 mg/dL D Dimer (08/09/2024) ???D-Dimer - 1.89 mg/L FEU ESR (08/09/2024) ???Sed Rate - 55 mm/hr GLUCOSE POC (08/09/2024) ???Glucose, POC - 242 mg/dL High??Sensitivity??Troponin T (08/08/2024) ???High Sensitivity Troponin (HSTnT) - HEMOLYZED HOLD LAVENDER TUBE (08/10/2024) ???Hold Lavender Top - SPECIMEN DISCARDED AFTER 24 HOURS. Ionized Calcium (08/10/2024) ???Calcium, Ionized pH Corrected - 1.59 mmol/L Phosphorus Level (08/10/2024) ???Phosphorus - 2.8 mg/dL PTH, INTACT (08/10/2024) ???PTH, Intact - 77 pg/mL Rheumatoid Factor Qual (08/09/2024) ???Rheumatoid Factor - 10.0 IU/mL Troponin T, High Sensitivity (08/09/2024) ???High Sensitivity Troponin (HSTnT) - 14 ng/L TSH (08/09/2024) ???TSH - 0.90 uIU/mL You will be contacted within 72 hours with your results. Allergies (NKA means No Known Allergies) [place] inhibitors??(hives) Bactrim??(diarrhea) Latex??(rash) Medrol??(unknown) NovoLog Mix 70/30??(hives on arm and itching all over) Other Food Allergy??(all fresh vegetables and fruits- itch/hives) Red Meat azithromycin??(diarrhea, painful joints) ciprofloxacin??(hives / diarrhea) codeine??(hives) levofloxacin??(diarrhea) penicillin??(hives) Problems Active Problems??(4) Asthma?? Depression?? Diabetes mellitus?? HTN (hypertension)?? Education Materials Below is the list of Educational Leaflet Providered with your Discharge Instructions. Valuables and Belongings I fully understand and agree that [facility] accepts no responsibility for all my personal property including clothing, toilet articles, radios, jewelry, dentures, hearing aids, rings, money, or any other property that is in my possession or is brought to me after admission. I understand certain valuables may be placed in a hospital safe for a short period of time. I understand that the hospital is not liable for loss or damage due to accident, fire, or other natural occurrence while said property is in the safe. I accept full responsibility for any personal property that I keep with me, and will not hold the hospital responsible in case of loss or disappearance. I acknowledge that i have been encouraged to send valuables and belongings home. ?? Review of Valuable and Belonging List: With patient Date for Pt to Sign Valuables/Belongings: 08/09/24 12:00:00 ?? Other Discharge Information ? Case Management Discharge Plan?? Discharge Plan?? Discharge Agency Information?? Discharge Level of Care at Discharge: Homehealth/VNA Name of Agency #1: [facility] Discharge VNA/Hospice/Home Care: [facility] Service Categories #1: Retirement ?? Service Comments #1: resume services ?? Pulmonary Rehab Status?? Pulmonary Rehab Discharge Status?? Respiratory Rate: 16 br/min ? Common Emergency Awareness Tips IS IT A STROKE? Act FAST and Check for these signs: FACE Does the face look uneven? ARM Does one arm drift down? SPEECH Does their speech sound strange? TIME Call at any sign of stroke ?? Heart Attack Signs Chest discomfort: Most heart attacks involve discomfort in the center of the chest and lasts more than a few minutes, or goes away and comes back. It can feel like uncomfortable pressure, squeezing, fullness or pain. Discomfort in upper body: Symptoms can include pain or discomfort in one or both arms, back, neck, jaw or stomach. Shortness of breath: With or without discomfort. Other signs: Breaking out in a cold sweat, nausea, or lightheaded. Remember, MINUTES DO MATTER. If you experience any of these heart attack warning signs, call to get immediate medical attention! ?? Smoking can increase your chances of developing chronic health problems and can cause harmful effects to other family members in your house. If you smoke, you are strongly encouraged to quit. Please call [facility] at [phone] or [phone] ([phone]) or log in to [email or web address] for referrals to smoking cessation programs. ?? 073 Suicide & Crisis Lifeline is available 13/04 if you or someone you know needs to find a reason to keep living. By calling 322 you'll be connected to a skilled, trained counselor at a crisis center in your area. INPATIENT DISCHARGE INSTRUCTIONS SIGNATURE PAGE PAIGE JONAS Location:[facility] Registration Date and Time:08/08/2024 16:21 EST Primary Care Physician: Pepe Partida MD, Attending Physician: Vernon Matute MD, I PAIGE JONAS, have received the above patient education materials/instructions and have verbalized understanding. If ambulance or transport services are being used I further acknowledge being given a choice of service. ?? If you need to contact me, please call me at this number: . Patient/Paper Winder Name: Patient/Paper Winder Signature: Relationship to Patient: Witness Name/Signature: Date: * Vernon Matute MD: PERFORM, SIGN, VERIFY Event Display: Patient Education Handout Authored Date: [id number] Patient Care team information Care Team Personnel Name: Coby Vicente RN Position: [facility] RN Member Role: Primary Care Nurse Name: Mirian Selby Position: [facility] RN Member Role: Primary Care Nurse Name: Alejandro Ferreira MD , Pepe Acevedo Position: Reference Physician Member Role: PCP Address: [address] [place] [address]- [place] Tele[employer]: Name: Diego Duncan MD Position: [facility] Renal MD Member Role: Lifetime Consulting Physician Address: [address] [facility] [place] [address]- [place] [employer]: Care Team Related Persons Name: FARZANEH LEBLANC Name: DUANE JONAS Name: [facility] [employer] [facility], NONE Insurance Providers Guarantor name: PAIGE JONAS Health Plan Information #: 1 Payer: NA Member Number: [id number] Policy Number: NA Group Number: NA Health Plan Information #: 2 Payer: NA Member Number: [id number] Policy Number: NA Group Number: NA
== END 2024-08-24 02:07 | disposition home or self-care (01) ==
PROVIDERS: Physician Assistant Medical; Emergency Provider Internal Medicine; PCP Internal Medicine
DX: M79.602 Pain in left arm (principal); R60.0 Localized edema; E11.9 Type 2 diabetes mellitus without complications; Z79.4 Long term (current) use of insulin; Z79.899 Other long term (current) drug therapy
CPT/HCPCS: 36415; 73070; 80053; 83735; 85025; 85379; 85610; 85652; 86140; 93971; 99284

== ENCOUNTER 2024-08-30 10:05 | Outpatient (AMB) | payer OTHER, SELFPAY ==
--- NOTE | 2024-08-30 10:29 | MHC.PC.OV ---
Vital Signs 08/30/24 10:35 Height 5 ft 4 in Weight 173 lb BMI 29.7 BP 132/70 Blood Pressure Location Lt brachial Position Sitting Intake Visit Reasons: [facility] [facility] 12/4 L arm pain on and off for 2 years Intake Note: Patient here for a [facility] [place] [facility] ED follow up left hand arm pain, c.o unable to bend index finger Architect In Training Required: No Accompanied by: niece Allergies nut - unspecified [nut] Allergy (Severe, Verified 08/30/24 10:46) Anaphylaxis rosuvastatin Allergy (Severe, Verified 08/30/24 10:46) Facial Swelling vancomycin [VANCOMYCIN] Allergy (Severe, Verified 08/30/24 10:46) Itching VIRGINIA Inhibitors [VIRGINIA INHIBITORS] Allergy (Intermediate, Verified 08/30/24 10:46) Rash ciprofloxacin [From CIPRO] Allergy (Intermediate, Verified 08/30/24 10:46) Rash codeine [CODEINE] Allergy (Intermediate, Verified 08/30/24 10:46) Rash cyclobenzaprine [CYCLOBENZAPRINE] Allergy (Intermediate, Verified 08/30/24 10:46) Hives ferrous sulfate [FERROUS SULFATE] Allergy (Intermediate, Verified 08/30/24 10:46) Rash insulin lispro [Humalog U-100 Insulin] Allergy (Intermediate, Verified 08/30/24 10:46) Hives latex [LATEX] Allergy (Intermediate, Verified 08/30/24 10:46) Hives methylprednisolone [From MEDROL] Allergy (Intermediate, Verified 08/30/24 10:46) Rash penicillin V Allergy (Intermediate, Verified 08/30/24 10:46) Hives tamsulosin [TAMSULOSIN] Allergy (Intermediate, Verified 08/30/24 10:46) Rash tramadol Allergy (Intermediate, Verified 08/30/24 10:46) Itching insulin degludec [From Tresiba FlexTouch U-100] Allergy (Mild, Verified 08/30/24 10:46) Hives pravastatin Allergy (Mild, Verified 08/30/24 10:46) pruritus lactose [LACTOSE] Adverse Reaction (Intermediate, Verified 08/30/24 10:46) Diarrhea Beef Containing Products Adverse Reaction (Mild, Verified 08/30/24 10:46) Stomach Upset Fish Containing Products Adverse Reaction (Mild, Verified 08/30/24 10:46) Nausea and Vomiting Pork/Porcine Containing Products Adverse Reaction (Mild, Verified 12/10/24 10:46) Stomach Upset FRUIT Adverse Reaction (Mild, Uncoded 08/30/24 10:46) NAUSEA & VOMITING VEGETABLES,FRESH Adverse Reaction (Mild, Uncoded 08/30/24 10:46) NAUSEA & VOMITING Medication List - Last Reconciled 08/30/24 by Joann Ferreira MD acetaminophen (Tylenol Extra Strength) 500 mg PO Q6H PRN albuterol sulfate 2.5 mg (3 mL) inhalation QID PRN 30 days albuterol sulfate 90 mcg/actuation (Ventolin HFA) 2 puffs inhalation Q4H PRN back brace As directed blood sugar diagnostic (FreeStyle Lite Strips) As directed three times a day blood-glucose meter (FreeStyle Lite Meter kit) As directed Breo Ellipta 200-25 mcg/dose (fluticasone furoate-vilanterol) 1 ea PO DAILY NS bupropion HCl XL 150 mg PO QAM cetirizine 10 mg PO DAILY PRN 90 days chlorthalidone 25 mg PO DAILY 90 days diclofenac sodium 1% (Arthritis Pain (diclofenac)) 2 grams topical QID dulaglutide (Trulicity) 1.5 mg (0.5 mL) subcut QWEEK 84 days ezetimibe 10 mg PO DAILY 90 days flash glucose scanning reader (CIRQYStyle Med 2 [place]) As directed flash glucose sensor (FreeStyle Med 2 Sensor kit) As directed every 2 weeks fluticasone propion-salmeterol 250-50 mcg/dose (Wixela Inhub) 1 ea PO BID hydromorphone (Dilaudid) 2 mg PO Q6H PRN insulin aspart U-100 (Novolog FlexPen U-100 Insulin aspart) 12 - 16 units (0.12 - 0.16 mL) subcut TID insulin glargine U-300 conc (Toujeo SoloStar U-300 Insulin) 85 units (0.2833 mL) subcut DAILY 30 days [juxtalite calf wrap bilateral As directed] lancets (FreeStyle Lancets) Three times a day methocarbamol 750 mg PO QID PRN metoprolol tartrate 50 mg PO BID 90 days [nebulizer tube and adapter As directed] oxycodone 5 mg PO Q6H PRN pantoprazole 40 mg PO DAILY pen needle, diabetic As directed 4 x/day pen needle, diabetic (Comfort EZ Pen [place]) Use 1 pen needle four times a day [recliner lift chair As directed] tirzepatide (Mounjaro) 5 mg subcut QWEEK 4 weeks valsartan 320 mg PO DAILY 90 days walker walker with seat Tobacco use date assessed: 10/05/23 Dental Screening Dental Screen Date: 10/05/23 HPI HPI Comments History of Present Illness Details The patient is a 69-year-old female presenting with persistent elbow pain and swelling. This condition has been ongoing for approximately two years, with intermittent relief. Three months ago, the symptoms worsened, and she now experiences pain daily, which affects her sleep and ability to perform daily activities, such as cutting food. The initial worsening occurred three months ago. She was evaluated in the emergency department on August 23 for this issue, where imaging revealed swelling of the elbow, and laboratories indicated inflammation. Since the exacerbation of symptoms, the patient reports limited range of motion due to the pain. Previous interventions include a laboratory workup and imaging, but no specific treatments have been noted. She has not been evaluated by orthopedics yet. Her condition remains severe, impairing daily function. Additional health concerns include poorly managed diabetes with an A1c of 7.6, persistent magnesium deficiency potentially related to GERD medication, and a history of multiple drug allergies complicating treatment plans. She also has chronic kidney disease stage 4 with a GFR of 29 that is follow by Nephrology. Has anemia secondary to chronic kidney disease. Had side effects from ferrous sulfate. It is accompanied today by niece. [facility] Medical History Medicare annual wellness visit, initial Severe recurrent major depression Postmenopausal CKD (chronic kidney disease) stage 4, GFR 15-29 ml/min Type 2 diabetes mellitus with chronic kidney disease Obesity due to excess calories DM2 (diabetes mellitus, type 2) CKD (chronic kidney disease) Epicondylitis, lateral (tennis elbow) Dyslipidemia Leg edema Pain in both lower legs Calcaneal spur of both feet Acute kidney injury Irregular heart beat Depression Hypercholesteremia Diabetes Essential hypertension Surgical History Hx of vascular surgery History of extraction of renal calculus History of hysterectomy Family History Father Diabetes Mother Diabetes Sister Breast cancer Brother No problems noted. Sister No problems noted. Social History Household Members: Significant Other Housing: Apartment Are you a primary home care music therapist to a significant other at home: No Do you presently have visiting nurse or other home services: Yes Unable to assess alcohol history related to: Unknown Alcohol intake: never Patient Tobacco Use Status: Never used Tobacco e-Cigarette/Vaping Use: Never Used Second Hand Smoke Exposure: No Advance Directives Date on File: 09/11/20 service: No Current occupational status: disabled Cognitive needs: Yes (walker, power chair) Hearing needs: No Vision needs: Yes (glasses) Questionnaire Thrive Questionnaire Date Thrive assessed: 10/05/23 NAYELY-7 AMB Questionnaire NAYELY-7 Date NAYELY - 7 assessed: 10/05/23 Source: Developed by Drs. Stew Reynolds, Татьяна Barron, Biju Rodrigez and colleagues, with an educational saul from [employer]. Review of Systems Const Details: - Musculoskeletal: Reports persistent elbow pain and reduced range of motion, exacerbated over the last three months. - Gastrointestinal: Reports diarrhea linked to lactose intolerance. Physical exam (Primary Care) Vital Signs: Last Vital Signs BP 132/70 08/30/24 10:35 BMI result Body Mass Index 29.7 BMI Assessment/Plan discussion: High BMI High, discussed plan: lifestyle, weight reduction, dietary and physical activity Tobacco/Smoking Status: Tobacco use Status Tobacco use date assessed 10/05/23 08/30/24 10:30 Patient Tobacco Use Status Never used Tobacco 08/30/24 10:30 e-Cigarette/Vaping Use Never Used 08/30/24 10:30 Thrive Assessment: Date of Thrive Assessment Date Thrive assessed 10/05/23 08/30/24 10:30 Const Other: General: No confusion Orientation/Consciousness: Patient oriented x3 and No confusion Head: Normal to inspection, Yes normocephalic and Yes atraumatic Ears: External ears normal Nose: Normal external nose present and No nasal discharge present Face and Sinus: Sinuses nontender Mouth: Lip normal Eyes: Appearance normal, both eyes and all related structures Eyelids: Eyelids normal Conjunctivae: Conjunctivae normal Neck: Normal visual inspection and Yes supple Respiratory: Normal respiratory effort, clear to auscultation bilaterally Cardiovascular: No jugular venous distension, regular rate, regular rhythm, S1 normal heart sound present and S2 normal heart sound present GI: Normal to inspection, Soft to palpation and nontender, normal bowel sounds Skin: Rash present Neurology: Patient oriented x3, no focal motor deficits and No confusion Extremities: Limited ROM in the elbow due to pain and swelling Psychology: Grossly normal Office Procedures Flu Questionnaire Does the patient have a severe egg allergy?: No Results AMB Hemoglobin A1c AMB Hemoglobin A1c 7.6 % Last Edit by AMANDA Dumont on 08/30/24 10:43 Immunizations Fluarix Triv [id number] (PF) 45 mcg (15 mcg x 3)/0.5 mL IM syringe Performing Provider: Joann Ferreira MD [facility] Documented (not given) by: AMANDA Dumont on 08/30/24 10:39 Reason Not Given: Patient Refused Results Reviewed Results Reviewed: Laboratory Last Values Hgb A1c (Clinic) 7.6 % (4.0-6.0) H 08/30/24 10:28 Coding Level of Care Code Est Pt Level 4 (09790) Complex EM visit Add On G2211 Diagnoses Left arm pain M79.602 Hypomagnesemia E83.42 CKD (chronic kidney disease) stage 4, GFR 15-29 ml/min N18.4 Type 2 diabetes mellitus with hyperglycemia, without long-term current use of insulin E11.65 Diabetes mellitus [facility] insulin use: without superintendent container terminal use Diabetes mellitus complication status: with hyperglycemia Essential hypertension I10 Time Spent (min) 24 Assessment & Plan Assessment & Plan (1) Left arm pain: Code(s): M79.602 - Pain in left arm Category: Medical (2) Hypomagnesemia: Code(s): E83.42 - Hypomagnesemia Category: Medical (3) CKD (chronic kidney disease) stage 4, GFR 15-29 ml/min: Code(s): N18.4 - Chronic kidney disease, stage 4 (severe) Category: Medical (4) DM2 (diabetes mellitus, type 2): Code(s): E11.9 - Type 2 diabetes mellitus without complications Category: Medical Qualifiers: Diabetes mellitus superintendent container terminal insulin use: without superintendent container terminal use Diabetes mellitus complication status: with hyperglycemia Qualified Code(s): E11.65 - Type 2 diabetes mellitus with hyperglycemia (5) Essential hypertension: Code(s): I10 - Essential (primary) hypertension Category: Medical Plan - Olecranon Bursitis: Refer patient to flight service specialist for further evaluation and management due to persistent pain and functional impairment in the elbow. - Magnesium Deficiency: Initiate magnesium supplementation in capsule form to avoid adverse reactions associated with liquid preparations. - Hypertension: Continue current antihypertensive regimen with chlorothalidone and valsartan. - Type 2 Diabetes Mellitus: Encourage blood glucose monitoring; consider endocrinology referral due to poor glycemic control. - Asthma: Continue maintenance medication regimen including albuterol and Breo. - GERD: Continue pantoprazole; assess magnesium levels regularly. - Drug allergies: Comprehensive review to ensure no contraindicated medications are inadvertently prescribed. Patient was informed and verbally consented to the use of an ambient scribe for clinic note documentation during this visit. I discussed the current treatment and management plans for the patient's olecranon bursitis, recommending an orthopedic consultation despite previous negative interactions with healthcare providers. Options for managing low magnesium levels were covered, emphasizing the importance of regular monitoring due to possible interactions with GERD medication. We addressed diabetes management, noting the elevated A1c level and discussing the importance of dietary modifications and blood glucose monitoring. I recommended a referral to endocrinology for further diabetes management. The importance of maintaining asthma and hypertension medication adherence was reinforced. Orders: Orders AMB Hemoglobin A1c Today E11.65 - Type 2 diabetes mellitus with hyperglycemia Lipid Panel Today E78.5 - Hyperlipidemia, unspecified Influenza [id number] Immunization Today Z23 - Encounter for immunization Microalbumin, Random (w Creat) Today R80.9 - Proteinuria, unspecified Vitamin D 25-OH Total Today E55.9 - Vitamin D deficiency, unspecified Comprehensive [place]. 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 - Continue current prescribed medications and avoid any allergens. - Start magnesium supplements as instructed. - Monitor blood glucose levels regularly to manage diabetes. - Report any adverse reactions to newly prescribed supplements or medications. - Maintain dietary changes and consider consulting a dietitian to adjust nutrient intake appropriately. - Schedule follow-up appointments for monitoring chronic conditions. - Follow the asthma action plan and use inhalers as directed. - Contact the clinic if symptoms worsen or if new symptoms arise.
[2024-08-30 10:35] VITALS: BP 132/70; BMI 29.7
--- OUTSIDE RECORDS SUMMARY | 2024-08-31 19:42 | XMS_ITS | Data Portability ---
Author Organization [place] [facility] [employer] Address [address] [place] [address] Care Team Providers Care Rebar Worker Name Role Phone HIM CCA OTHER Assessment Encounter Date Assessment Date Assessment LastModified by Organization Details LastModified Time 02/16/2024 02/16/2024 I provided real -time medical direction via phone for this encounter, and was available for additional phone based assistance as needed. I have reviewed and agree with the Assessment and Plan as documented by the Transmission Supervisor. We discussed the diagnostic uncertainty of home [...] in the field was performed by my eyelet cutter colleague, as noted above, I provided real-time [...] any acute worsening or change in symptoms. [email or web address] Not available 06/01/2024 11:46:54 08/08/2024 08/08/2024 As noted, we were called to see this patient regarding concerns of pain. Evaluation in the field was performed by my eyelet cutter colleague, as noted above, I provided real-time [...] to ambulate or stand. 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 Discussed with medics who feel she is unsafe to remain at home and I am in agreement. Pt will need transfer to ED for full in person evaluation and discussion of rehab placement. Expect call placed to [facility] ED. Plan: ED Primary care, consider ED followup and rehab needs. Disposition: We discussed the situation and I recommended referral to the emergency department. [email or web address] Not available 08/08/2024 15:37:38 Plan of Treatment Reminders Order Date Submit Date Provider Last Modified By Organization Details Last Modified Time Details Appointments None recorded. Lab None recorded. Referral None recorded. Procedures None recorded. Surgeries None recorded. Imaging electrocard iogram 2023 [email or web address], [address], 10:56:38 Medication Orders Tylenol 325 mg tablet 2023 024 [email or web address] Not available 11:40:46 Patient TargetsNo targets recorded. Patient InstructionsNo instructions recorded. Reason for Referral None Reported. Results Created Date Observation Date Name Description Value Unit Range Abnormal Flag Note LastModifiedBy Organization Detail LastModifiedTime 02/16/20 24 02/16/2024 elect rema rdz am No observ ation record ed. [email or web address] [address], [address], 02/16/2024 10:56:36 Result Notes None recorded. Procedures Surgical History None recorded. Imaging Results Imaging Date Name Status LastModified by Organization Details LastModified Time 02/16/2024 electrocardiogram completed [address], [address], 02/16/2024 10:56:36 Procedure Notes None recorded. Medical Equipment None Reported. Allergies Allergen ID Allergen Name Allergen Category Reaction Reaction Severity Criticality Documentation Date Start Date Code Code System Note Provider Name and Address Organization Details Recorded Time 31838 gary in medicatio n Not available Not available Not available 08/08/2024 72616 RxNorm Not Available [facility] - production 4 13:38:21 5141 tree nut food Not available Not available Not available 02/16/2024 Karlie Ramírez MD [address], [place], [address], [employer] 4 10:01:58 5142 beef allergeni c extract food,medi cation Not available Not available Not available 02/16/2024 56655 9 RxNorm Karlie Ramírez MD [address], [place], [address], [employer] 4 10:02:08 5143 fish derived food,medi cation Not available Not available Not available 02/16/2024 Karlie Ramírez MD [address] [facility], [place], [address], [employer] 4 10:02:18 5144 vancomyci n medicatio n Not available Not available Not available 02/16/2024 06459 RxNorm Not Available [facility] - production 03:47:47 5145 rosuvasta tin medicatio n Not available Not available Not available 02/16/2024 65692 2 [facility] Available [facility] 13:38:21 5146 Product containin g angiotens in-conver ting enzyme inhibitor (product) medicatio n Not available Not available Not available 02/16/2024 51058 009 SNOMED Karlie Ramírez MD [address] [facility], [place], [address], [employer] 4 10:02:50 5147 ciproflox acin medicatio n Not available Not available Not available 02/16/2024 2551 RxNorm Not Available [facility] - production 03:47:47 5148 codeine medicatio n Not available Not available Not available 02/16/2024 2670 RxNorm Not Available [facility] - production 13:38:21 5149 latex environme nt,medica tion Not available Not available Not available 02/16/2024 27457 91 RxNorm Not Available [facility] - production 03:47:47 5150 lactose food,medi cation Not available Not available Not available 02/16/2024 6211 RxNorm Karlie Ramírez MD [address] [facility], [place], [address], [facility] 4 10:03:16 5151 cyclobenz aprine medicatio n Not available Not available Not available 02/16/2024 66434 RxNorm Not Available [facility] - production 13:38:21 5152 ferrous sulfate medicatio n Not available Not available Not available 02/16/2024 81105 RxNorm Not Available [facility] 13:38:21 5153 insulin lispro medicatio n Not available Not available Not available 02/16/2024 93543 RxNorm Karlie Ramírez MD [address] [facility], [place], [address], [employer] 4 10:03:48 5154 methylpre dnisolone medicatio n Not available Not available Not available 02/16/2024 6902 RxNorm Not Available [facility] 03:47:47 5155 Medicinal product containin g penicilli n and acting as antibacte rial agent (product) medicatio n Not available Not available Not available 02/16/2024 95158 05 SNOMED Karlie Ramírez MD [address] [facility], [place], [address], [employer] 4 10:04:13 5156 tamsulosi n medicatio n Not available Not available Not available 02/16/2024 35108 RxNorm Not Available [facility] production 4 13:38:21 5157 tramadol medicatio n Not available Not available Not available 02/16/2024 67945 RxNorm Karlie Ramírez MD [address], [place], [address], JORGE LUIS - ROCÍO, MOUSTAPHA 10:04:30 [...] % 160.02 cm 64 /min 97.1 [degF] 52421.8 48 g 155 mm[Hg] 84 mm[Hg] Not Available [facility] [employer] 4 09:59:36 Date Recorded Body temperature Body weight Respiratory rate Body height Heart rate Oxygen saturation Oxygen saturation in Arterial blood by Pulse oximetry Systolic blood pressure Diastolic blood pressure Provider Name and Address Organization Details Last Updated DateTime 4 98.4 [degF] 858351 g 18 /min 157.48 cm 90 /min 98 % 98 % 132 mm[Hg] 78 mm[Hg] Not Available [facility] [employer] 4 11:36:00 Date Recorded Oxygen saturation Oxygen saturation in Arterial blood by Pulse oximetry Heart rate Respiratory rate Systolic blood pressure Diastolic blood pressure Provider Name and Address Organization Details Last Updated DateTime 4 99 % 99 % 90 /min 18 /min 138 mm[Hg] 80 mm[Hg] Not Available [facility] [employer] 15:51:20 Social History None recorded. Functional Status None recorded. Mental Status None recorded. Family History Nothing Reported. Medical History No medical history recorded. Gynecological HistoryNo gynecological history recorded. Obstetrics History GPAL:G 0 P 0 0 0 0 Past Encounters Encounter ID Performer Location Encounter Start Date Encounter Closed Date Diagnosis/Indication Diagnosis SNOMED-CT Code Diagnosis ICD10 Code [id number] Karlie Ramírez MD [facility] [address] [place] [address] 02/16/2024 09:59:31 02/16/2024 17:13:28 Thoracic back pain 633239769 M54.6 [id number] Denilson Brunner MD [facility] [address] [place] [address] 06/01/2024 11:35:50 06/01/2024 14:24:16 Pain of right knee joint 2092926443 92673 M25.561 [id number] Denilson Brunner MD [facility] [address] [place] [address] 08/08/2024 15:28:56 08/08/2024 16:50:00 Generalized chronic body pains 323519974 G89.29 Health Concerns Section Related Observation LastModified by Organization Detai ls LastModified Time None Recorded Concern Status LastModified by Organization Details LastModified Time None Recorded Advance Directives Directive None Recorded Payers Encounter Date Sequence Insurance Name Policy Number Policy Galdamez Covered Member ID Galdamez Member ID Guarantor Name 02/16/2024 1 [facility] [employer] - DOS ON OR AFTER 2022 - DUAL ELIGIBLE - PENITENTIARY OPTIONS AND ONE CARE (MEDICARE REPLACEMENT/ADV ANTAGE - HMO) Paige Harris [id number] Paige Harris 06/01/2024 1 [facility] DOS ON OR AFTER 2022 - DUAL ELIGIBLE - PENITENTIARY OPTIONS AND ONE CARE (MEDICARE REPLACEMENT/ADV ANTAGE - HMO) Paige Harris [id number] Paige Harris 08/08/2024 1 [employer] [facility] [employer] - DOS ON OR AFTER 2022 - DUAL ELIGIBLE - PENITENTIARY OPTIONS AND ONE CARE (MEDICARE REPLACEMENT/ADV ANTAGE - HMO) Paige Harris [id number] Paige Harris Notes Date Note Type Note Provider Name and Address Organization Details Recorded Time 02/16/2024 text/html HPI: Mbr calling into [facility] and [facility]SR transferred call to this CRU RN. Tony is a 68 yo Occitan/Scottish speaking female with significant hx including asthma, [...] today and she agreed. Confirmed address and phone/[phone]. ................... ................... ................... ................... ................... ................... ................... ........ [facility] Nurse Triage Notes (Malena Hodge): Comments: HPI Reviewed. No further information needed to process visit. Transmission Supervisor POC Test Results from [facility] EKG (1) [10:06] EKG test performed. Attachments uploaded as part of this test result can be found under Documents section. ................... ................... ................... ................... ................... ................... ................... ........ Transmission Supervisor Note From [facility]: Pt reports acute [...] to medic arrival Karlie Ramírez MD [address] [facility] [facility], [place], [address], JORGE LUIS - MOUSTAPHA ALFORD 02/16/2024 10:56:52 06/01/2024 text/html HPI: Call to mbr at [phone] and spoke with Mbr who is feeling [...] notification of this triage. Confirmed address and phone/[phone]. Instructed Mbr to call 911 and go [...] ................... ................... ................... ................... ................... ................... ........ Transmission Supervisor Note From Michael Donahue: Patient found supine [...] all. Patient reports increase of pain on movement.[facility] recommends 1000 mg Tylenol three times a day for pain. And to follow up with the pain clinic that she is enrolled in at her next appointment. Patient ambulates with a steady slow even gait, appears in pain. Red flags, patient education discussed. Patient demonstrates understanding of care and plan. Transmission Supervisor Allergies: Ciprofloxacin, Latex, Methylprednisolone, Vancomycin ................... ................... ................... ................... ................... ................... ................... ........ Disposition: Fulfilled Denilson Brunner MD [address] [facility] [facility], [place], [address], [place] [facility] 06/01/2024 12:14:49 08/08/2024 text/html HPI: 12:57pm ? [...] life alert bracelet. This call originated from [phone]. ................... ................... ................... ................... ................... ................... ................... ........ [facility] Nurse Triage Notes (Brandi Juan): Reason For Request: Pain Chief Complaints: Headache, Joint pain/swelling PMH: COPD/Asthma, Hypertension, Cancer, Diabetes Mellitus Type 1, Anxiety Disorder, Chronic Kidney Disease, Chronic Back Pain Comments: Reviewed info, no further data needed.Mason GOMEZ ................... ................... ................... ................... ................... ................... ................... ........ Transmission Supervisor Note From Shubham Cantu: Dispatched to stated address for a 81yo female with joint and hand pain. Pt states she is unable to get up and take care of her self. Pt states she has a decreased po intake due to only having help from a visiting healthcare science specialist in the morning and night. Pt states she had increase in joint pain and is less mobile than normal. Pt states she has missed multiple visits to primary care due to transportation issues. Pt states one visit was for b12 and iron injections. Pt states she will go to the hospital to help get more resources. [facility] consulted and agreed more resources are need to help manage pt's care. [facility] transported pt to [facility]. Pt found seated and speaking in full clear sentences with no signs of distress in a clean apartment. AO and GCS-15. PERRL. Skin P/W/D. Airway open and lung sounds clear. ABD soft non tender. Rest of exam unremarkable. ................... ................... ................... ................... ................... ................... ................... ........ [facility] Consulted: Denilson Brunner ................... ................... ................... ................... ................... ................... ................... ........ Disposition: Fulfilled Denilson Brunner MD [address] [facility], [place], [address], [facility] 08/08/2024 16:14:20 OBGyn Episode No OBEpisode recorded.
--- OUTSIDE RECORDS SUMMARY | 2024-08-31 19:43 | XMS_ITS | Continuity of Care Document ---
Author Organization [employer], [place] - [employer] Address [address] [place] [phone] Care Team Providers Care Life Guard Name Role Phone HIM CCA OTHER Assessment Encounter Date Assessment Date Assessment LastModified by Organization Details LastModified Time 06/01/2024 06/01/2024 As noted, we were called to see this patient regarding concerns of joint pain. Evaluation in the field was performed by my thread clipper colleague, as noted above, I provided real-time [...] any acute worsening or change in symptoms. [email or web address] Not available 06/01/2024 11:46:54 Plan of Treatment [...] Name and Address Organization Details Recorded Time 49370 pravastat in medicatio n Not available Not available Not available 08/08/2024 12903 RxNorm Not Available [facility] - production 4 13:38:21 5141 tree nut food Not available Not available Not available 02/16/2024 Karlie Ramírez MD [address] [facility],[address], [place], [address], [employer] 4 10:01:58 5142 beef allergeni c extract food,medi cation Not available Not available Not available 02/16/2024 76837 9 RxNorm Karlie Ramírez MD [address], [place], [address], [employer] 4 10:02:08 5143 fish derived food,medi cation Not available Not available Not available 02/16/2024 Karlie Ramírez MD [address] [place] [address],[address], [place], [address], [employer] 4 10:02:18 5144 vancomyci n medicatio n Not available Not available Not available 02/16/2024 25629 RxNorm Not Available [facility] - production 4 03:47:47 5145 rosuvasta tin medicatio n Not available Not available Not available 02/16/2024 02774 2 RxNorm Not Available [facility] - production 13:38:21 5146 Product containin g angiotens in-conver ting enzyme inhibitor (product) medicatio n Not available Not available Not available 02/16/2024 12892 009 SNOMED Karlie Ramírez MD [address] [place] [address],[address], [place], [address], [employer] 4 10:02:50 5147 ciproflox acin medicatio n Not available Not available Not available 02/16/2024 2551 RxNorm Not Available [facility] - production 4 03:47:47 5148 codeine medicatio n Not available Not available Not available 02/16/2024 2670 RxNorm Not Available [facility] - production 4 13:38:21 5149 latex environme nt,medica tion Not available Not available Not available 02/16/2024 52364 91 RxNorm Not Available [facility] - production 4 03:47:47 5150 lactose food,medi cation Not available Not available Not available 02/16/2024 6211 RxNorm Karlie Ramírez MD [address] [place] [address],[address], [place], [address], [employer] 4 10:03:16 5151 cyclobenz aprine medicatio n Not available Not available Not available 02/16/2024 52316 RxNorm Not Available [facility] - production 4 13:38:21 5152 ferrous sulfate medicatio n Not available Not available Not available 02/16/2024 78397 RxNorm Not Available [facility] 4 13:38:21 5153 insulin lispro medicatio n Not available Not available Not available 02/16/2024 53518 RxNorm Karlie Ramírez MD [address] [place] [address],[address] [facility], [place], [address], [employer] 4 10:03:48 5154 methylpre dnisolone medicatio n Not available Not available Not available 02/16/2024 6902 RxNorm Not Available [facility] 4 03:47:47 5155 Medicinal product containin g penicilli n and acting as antibacte rial agent (product) medicatio n Not available Not available Not available 02/16/2024 80768 05 SNOMED Karlie Ramírez MD [address] [place] [address],[address], [place], [address], [employer] 4 10:04:13 5156 tamsulosi n medicatio n Not available Not available Not available 02/16/2024 95931 RxNorm Not Available [facility] 4 13:38:21 5157 tramadol medicatio n Not available Not available Not available 02/16/2024 20702 RxNorm Karlie Ramírez MD [address] [place] [address],[address] [facility], [place], [address], [employer] 4 10:04:30 Medications Name Sig Start Date [...] Details Last Updated DateTime 4 98.4 [degF] 160621 g 18 /min 157.48 cm 90 /min [...] Diagnosis/Indication Diagnosis SNOMED-CT Code Diagnosis ICD10 Code 46986 Denilson Brunner MD Main - [facility] [address] [place] [address] 06/01/2024 11:35:50 06/01/2024 14:24:16 Pain of right knee joint [id number] 41893 M25.561 Health Concerns Section Related Observation LastModified by Organization Detai ls LastModified Time None Recorded Concern Status LastModified by Organization Details LastModified Time None Recorded Payers Encounter Date Sequence Insurance Name Policy Number Policy Galdamez Covered Member ID Galdamez Member ID Guarantor Name 06/01/2024 1 [facility] - DOS ON OR AFTER 2022 - DUAL ELIGIBLE - M[facility] OPTIONS AND ONE CARE (MEDICARE REPLACEMENT/ADV ANTAGE - HMO) Paige Harris [id number] Paige Harris Notes Date Note Type Note Provider Name and Address Organization Details Recorded Time 06/01/2024 text/html HPI: Call to perry at [phone] and spoke with Mbr who is feeling [...] notification of this triage. Confirmed address and phone/[phone]. Instructed Mbr to call 911 and go [...] ................... ................... ................... ................... ................... ................... ........ Offset Proof Press Operator Note From Michael Donahue: Patient found supine [...] all. Patient reports increase of pain on movement.[facility] recommends 1000 mg Tylenol three times a day for pain. And to follow up with the pain clinic that she is enrolled in at her next appointment. Patient ambulates with a steady slow even gait, appears in pain. Red flags, patient education discussed. Patient demonstrates understanding of care and plan. [employer] Press Operator Allergies: Ciprofloxacin, Latex, Methylprednisolone, Vancomycin ................... ................... ................... ................... ................... ................... ................... ........ Disposition: Fulfilled Denilson Brunner MD [address] [facility],[address], [place], [address], [employer] [email or web address] 06/01/2024 12:14:49 OBGyn Episode No OBEpisode recorded.
--- OUTSIDE RECORDS SUMMARY | 2024-08-31 19:43 | XMS_ITS | Continuity of Care Document ---
Author Organization [employer], [place] - [employer] Address [address] [place] [address] Care Team Providers Care Automobile Mechanic Apprentice Name Role Phone HIM CCA OTHER Assessment Encounter Date Assessment Date Assessment LastModified by Organization Details LastModified Time 08/08/2024 08/08/2024 As noted, we were called to see this patient regarding concerns of pain. Evaluation in the field was performed by my corporate quality manager colleague, as noted above, I provided [...] ambulate or stand. 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 Discussed with medics who feel she is unsafe to remain at home and I am in agreement. Pt will need transfer to ED for full in person evaluation and discussion of rehab placement. Expect call placed to [facility] ED. Plan: ED Primary care, consider ED followup and rehab needs. Disposition: We discussed the situation and I recommended referral to the emergency department. [email or web address] Not available 08/08/2024 15:37:38 Plan of Treatment [...] Name and Address Organization Details Recorded Time 78796 pravastat in medicatio n Not available Not available Not available 08/08/2024 36946 RxNorm Not Available [facility] - production 4 13:38:21 5141 tree nut food Not available Not available Not available 02/16/2024 Karlie Ramírez MD [address] [facility],[address], [place], [address], [employer], [employer] 4 10:01:58 5142 beef allergeni c extract food,medi cation Not available Not available Not available 02/16/2024 73880 9 RxNorm Karlie Ramírez MD [address] [facility],[address], [place], [address], [employer], [employer] 4 10:02:08 5143 fish derived food,medi cation Not available Not available Not available 02/16/2024 Karlie Ramírez MD [address] [facility],[address], [place], [address], [employer], [employer] 4 10:02:18 5144 vancomyci n medicatio n Not available Not available Not available 02/16/2024 93854 RxNorm Not Available [facility] 4 03:47:47 5145 rosuvasta tin medicatio n Not available Not available Not available 02/16/2024 24731 2 RxNorm Not Available [facility] 4 13:38:21 5146 Product containin g angiotens in-conver ting enzyme inhibitor (product) medicatio n Not available Not available Not available 02/16/2024 06450 009 SNOMED Karlie Ramírez MD [address] [facility],[address], [place], [address], [employer], [employer] 4 10:02:50 5147 ciproflox acin medicatio n Not available Not available Not available 02/16/2024 2551 RxNorm Not Available [facility] 4 03:47:47 5148 codeine medicatio n Not available Not available Not available 02/16/2024 2670 RxNorm Not Available [facility] - production 4 13:38:21 5149 latex environme nt,medica tion Not available Not available Not available 02/16/2024 60299 91 RxNorm Not Available [facility] - production 4 03:47:47 5150 lactose food,medi cation Not available Not available Not available 02/16/2024 6211 RxNorm Karlie Ramírez MD [address] [place] [address],[address], [place], [address], [employer] 4 10:03:16 5151 cyclobenz aprine medicatio n Not available Not available Not available 02/16/2024 31135 RxNorm Not Available [facility] - production 4 13:38:21 5152 ferrous sulfate medicatio n Not available Not available Not available 02/16/2024 51644 RxNorm Not Available [facility] 13:38:21 5153 insulin lispro medicatio n Not available Not available Not available 02/16/2024 85474 RxNorm Karlie Ramírez MD [address] [place] [address],[address], [place], [address], [employer] 4 10:03:48 5154 methylpre dnisolone medicatio n Not available Not available Not available 02/16/2024 6902 RxNorm Not Available [facility] 4 03:47:47 5155 Medicinal product containin g penicilli n and acting as antibacte rial agent (product) medicatio n Not available Not available Not available 02/16/2024 66619 05 SNOMED Karlie Ramírez MD [address] [place] [address],[address], [place], [address], [employer] 4 10:04:13 5156 tamsulosi n medicatio n Not available Not available Not available 02/16/2024 81490 RxNorm Not Available [facility] 4 13:38:21 5157 tramadol medicatio n Not available Not available Not available 02/16/2024 87353 RxNorm Karlie Ramírez MD [address] [place] [address],[address], [place], [address], [place] [employer] 10:04:30 Medications Name [...] Diagnosis/Indication Diagnosis SNOMED-CT Code Diagnosis ICD10 Code 53035 Denilson Brunner MD Main - [facility] [address] [place] [address] 08/08/2024 15:28:56 08/08/2024 16:50:00 Generalized chronic body pains [id number] G89.29 Health Concerns Section Related Observation LastModified by Organization Detai ls LastModified Time None Recorded Concern Status LastModified by Organization Details LastModified Time None Recorded Payers Encounter Date Sequence Insurance Name Policy Number Policy Galdamez Covered Member ID Galdamez Member ID Guarantor Name 08/08/2024 1 [facility] - DOS ON OR AFTER 2022 - DUAL ELIGIBLE - ALF OPTIONS AND ONE CARE (MEDICARE REPLACEMENT/ADV ANTAGE - HMO) Paige Harris [id number] Paige Harris Notes Date Note Type Note [...] alone, as her is currently in a penitentiary, and is unable to get out for treatment. She is requesting an in-home visit today for assessment. After confirming TONY? s address and phone number on file, TONY is strongly advised to call 911 for any new or worsening symptoms. She understands and will do so, as she wears a life alert bracelet. This call originated from [phone]. .................. .................. .................. .................. .................. .................. .................. ............... [facility] Nurse Triage Notes (Brandi Juan): Reason For Request: Pain Chief Complaints: Headache, Joint pain/swelling PMH: COPD/Asthma, Hypertension, Cancer, Diabetes Mellitus Type 1, Anxiety Disorder, Chronic Kidney Disease, Chronic Back Pain Comments: Reviewed info, no further data needed.Mason GOMEZ .................. .................. .................. .................. .................. .................. .................. ............... Bone Char Operator Note From Shubham Cantu: Dispatched to stated address for a 81yo female with joint and hand pain. Pt states she is unable to get up and take care of her self. Pt states she has a decreased po intake due to only having help from a visiting housekeeper child care in the morning and night. Pt states she had increase in joint pain and is less mobile than normal. Pt states she has missed multiple visits to primary care due to transportation issues. Pt states one visit was for b12 and iron injections. Pt states she will go to the hospital to help get more resources. [facility] consulted and agreed more resources are need to help manage pt's care. [facility] transported pt to [facility]. Pt found seated and speaking in full clear sentences with no signs of distress in a clean apartment. AO and GCS-15. PERRL. Skin P/W/D. Airway open and lung sounds clear. ABD soft non tender. Rest of exam unremarkable. .................. .................. .................. .................. .................. .................. .................. ............... [facility] Consulted: Denilson Brunner .................. .................. .................. .................. .................. .................. .................. ............... Disposition: Fulfilled Denilson Brunner MD [address] [facility],[address] [facility], [place], [address], [employer] 08/08/2024 16:14:20 OBGyn Episode No OBEpisode recorded.
== END 2024-08-30 11:01 | disposition home or self-care (01) ==
PROVIDERS: PCP Internal Medicine; Visit Provider Internal Medicine
DX: I12.9 Hypertensive chronic kidney disease with stage 1 through stage 4 chronic kidney disease, or unspecified chronic kidney disease (principal); N18.4 Chronic kidney disease, stage 4 (severe); E11.65 Type 2 diabetes mellitus with hyperglycemia; M79.602 Pain in left arm; E83.42 Hypomagnesemia

== ENCOUNTER → 2024-08-30 10:05 | Outpatient (BNVA) | payer OTHER, SELFPAY | PROVIDERS: PCP Internal Medicine; Visit Provider Internal Medicine | DX: M79.602 Pain in left arm (principal); E83.42 Hypomagnesemia; E11.65 Type 2 diabetes mellitus with hyperglycemia; I12.9 Hypertensive chronic kidney disease with stage 1 through stage 4 chronic kidney disease, or unspecified chronic kidney disease; E11.22 Type 2 diabetes mellitus with diabetic chronic kidney disease; N18.4 Chronic kidney disease, stage 4 (severe) | CPT/HCPCS: 83036; 99212 ==

== ENCOUNTER 2024-10-04 12:20 | Outpatient (REF) | payer OTHER, SELFPAY | END 2024-10-04 12:21 | disposition home or self-care (01) | LOC: HO.HOSX 12:20 | PROVIDERS: Visit Provider Physician Assistant | DX: Z13.89 Encounter for screening for other disorder (principal) ==

== ENCOUNTER 2024-11-11 17:09 | Emergency (ER) | payer OTHER, SELFPAY ==
--- NOTE | ~2024-11-11 | CT_ITS ---
CLINICAL HISTORY: fall, +HS CT head without contrast Comparison: CT/REG/SR - CT HEAD/BRAIN WO IV CON - 12/16/23 22:43 EDT Findings: Acute subdural hematoma in the right frontal extra-axial space measures up to 3 mm in thickness (measured on series 3, image 54). Small parafalcine lipomas, unchanged. No hydrocephalus, mass-effect or herniation. Chapman-white differentiation is maintained. White matter is within normal limits for age. No acute orbital pathology. No acute soft tissue abnormality. No fracture. Foamy secretions in the right maxillary sinus and bilateral sphenoid sinuses. The other visualized paranasal sinuses are clear. The mastoid air cells are clear. Impression: Acute subdural hematoma in the right frontal extra-axial space measuring up to 3 mm in thickness. No mass effect. This document has been electronically signed by: Brooklynn Maria MD on 11/11/2024 20:15:12
--- NOTE | ~2024-11-11 | CT_ITS ---
CLINICAL HISTORY: subdural hematoma - obtain at 23:30 CT head without contrast Comparison: Head CT from 11/11/2024 Findings: No significant change in thin subdural hematoma over the right frontal convexity measuring 2 mm thickness. No new intracranial hemorrhage. No midline shift or hydrocephalus. Mild volume loss is generalized. Brain parenchyma appears unchanged. Vascular calcifications are redemonstrated. Fluid and mucosal thickening of the paranasal sinuses including ethmoid air cells. Imaged mastoid air cells are well aerated. No osseous change in the [id number]-rfwx. IMPRESSION: Stable head CT compared to 6 hours prior. No new intracranial hemorrhage. This document has been electronically signed by: Estevan Carmona MD on 11/12/2024 00:28:57
--- NOTE | ~2024-11-11 | CT_ITS ---
CLINICAL HISTORY: fall, head injury CT cervical spine without contrast Comparison: CR - CERV SPINE 4 TO 5 VIEWS [id number] - 05/13/16 10:31 EDT Findings: Mild multilevel anterolisthesis, degenerative. No fracture. No severe central spinal canal stenosis. No epidural hematoma. Normal thickness of the prevertebral soft tissues. The lung apices are clear. Impression: No acute findings. This document has been electronically signed by: Brooklynn Maria MD on 11/11/2024 20:11:16
[2024-11-11 17:22] VITALS: BP 109/50; BP 116/63; PULSE 60; PULSE 67; RESP 16; TEMP 36.5; O2SAT 100; O2SAT 99; BMI 29.7
--- NOTE | 2024-11-11 17:28 | ED_ITS ---
HPI - Head Injury General Chief complaint: Fall Stated complaint: mechanical fall,+ head strike,no thinn/loc,dizzy Time Seen by Provider: 11/11/24 17:16 Source: patient Limitations: no limitations History of Present Illness HPI Narrative: Patient is a 69-year-old female who presents emergency department via EMS for evaluation. She reports a mechanical fall. States that she was sitting on her Rollator walker, she was attempting to scoot forward while seated on the walker so that she could shut the door, but the walker slipped out from under her resulting in her falling backwards landing supine with positive head strike. She denies any loss of consciousness. Denies use of anticoagulants or known coagulation disorders. She was unable to get up unassisted. She yelled for help and kicked down the door until neighbors came for help. She is endorsing dizziness post fall, posterior headache, and ?back pain? localized to the lower cervical spine. Denies vision changes, numbness or tingling of the extremities, bladder bowel dysfunction. Related Data Home Medications ?Medication ?Instructions ?Recorded ?Confirmed acetaminophen 500 mg tablet 1,000 mg PO Q6H PRN fever or pain 11/12/24 11/12/24 (Tylenol Extra Strength) bupropion HCl 150 mg 24 hr tablet, 150 mg PO DAILY 11/12/24 11/12/24 extended release dulaglutide 1.5 mg/0.5 mL 1.5 mg subcut ERAZO@0900 11/12/24 11/12/24 subcutaneous pen injector (Trulicity) fluticasone furoate 200 1 inh PO DAILY 11/12/24 11/12/24 mcg-vilanterol 25 mcg/dose inhalation powder (Breo Ellipta) insulin aspart U-100 100 unit/mL 16 unit subcut DAILY@0800 11/12/24 11/12/24 (3 mL) subcutaneous pen (Novolog FlexPen U-100 Insulin aspart) insulin glargine U-300 conc 300 75 unit subcut DAILY 11/12/24 11/12/24 unit/mL (1.5 mL) subcutaneous pen (Toujeo SoloStar U-300 Insulin) pantoprazole 40 mg tablet,delayed 40 mg PO DAILY@0630 11/12/24 11/12/24 release Previous Rx's ?Medication ?Instructions ?Recorded cetirizine 10 mg tablet 10 mg PO DAILY PRN Allergy 11/12/21 Symptoms 90 days #90 tabs walker #1 ea 03/03/22 flash glucose sensor (FreeStyle #2 ea 05/15/22 Med 2 Sensor kit) juxtalite calf wrap bilateral #2 ea 08/12/22 back brace #1 ea 10/08/22 nebulizer tube and adapter #1 ea 11/27/22 recliner lift chair #1 ea 01/07/23 albuterol sulfate 2.5 mg/3 mL 2.5 mg (3 mL) inhalation QID PRN 05/18/23 (0.083 %) solution for nebulization shortness of breath or wheezing 30 days #75 mL albuterol sulfate 90 mcg/actuation 2 puff inhalation Q4H PRN for 07/15/23 aerosol inhaler (Ventolin HFA) muscle spasm #18 ea valsartan 320 mg tablet 320 mg PO DAILY 90 days #90 tabs 02/29/24 ezetimibe 10 mg tablet 10 mg PO DAILY 90 days #90 tabs 05/30/24 flash glucose scanning reader #1 ea 08/22/24 (FreeStyle Med 2 [place]) blood sugar diagnostic (FreeStyle #100 ea 08/30/24 Lite Strips) blood-glucose meter (FreeStyle #1 ea 08/30/24 Lite Meter kit) lancets 28 gauge (FreeStyle #100 ea 08/30/24 Lancets) magnesium oxide 500 mg PO DAILY 90 days #90 tabs 08/30/24 pen needle, diabetic 31 gauge x #100 ea 09/27/2402/03 (Comfort EZ Pen [place]) metoprolol tartrate 50 mg tablet 50 mg PO BID 90 days #180 tabs 10/22/24 chlorthalidone 25 mg tablet 25 mg PO DAILY 90 days #90 tabs 10/26/24 Allergies Allergy/AdvReac Type Severity Reaction Status Date / Time nut - unspecified [nut] Allergy Severe Anaphylaxis Verified 11/11/24 17:27 rosuvastatin Allergy Severe Facial Verified 11/11/24 17:27 Swelling vancomycin [VANCOMYCIN] Allergy Severe Itching Verified 11/11/24 17:27 [place] Inhibitors Allergy Intermediate Rash Verified 11/11/24 17:27 [[place] INHIBITORS] ciprofloxacin [From CIPRO] Allergy Intermediate Rash Verified 11/11/24 17:27 codeine [CODEINE] Allergy Intermediate Rash Verified 11/11/24 17:27 cyclobenzaprine Allergy Intermediate Hives Verified 11/11/24 17:27 [CYCLOBENZAPRINE] ferrous sulfate Allergy Intermediate Rash Verified 11/11/24 17:27 [FERROUS SULFATE] insulin lispro Allergy Intermediate Hives Verified 11/11/24 17:27 [Humalog U-100 Insulin] latex [LATEX] Allergy Intermediate Hives Verified 11/11/24 17:27 methylprednisolone Allergy Intermediate Rash Verified 11/11/24 17:27 [From MEDROL] penicillin V Allergy Intermediate Hives Verified 11/11/24 17:27 tamsulosin [TAMSULOSIN] Allergy Intermediate Rash Verified 11/11/24 17:27 tramadol Allergy Intermediate Itching Verified 11/11/24 17:27 insulin degludec Allergy Mild Hives Verified 11/11/24 17:27 [From Tresiba FlexTouch U-100] pravastatin Allergy Mild pruritus Verified 11/11/24 17:27 lactose [LACTOSE] AdvReac Intermediate Diarrhea Verified 11/11/24 17:27 Beef Containing Products AdvReac Mild Stomach Verified 11/11/24 17:27 Upset Fish Containing Products AdvReac Mild Nausea and Verified 11/11/24 17:27 Vomiting Pork/Porcine Containing AdvReac Mild Stomach Verified 11/11/24 17:27 Products Upset FRUIT AdvReac Mild NAUSEA & Uncoded 08/30/24 10:46 VOMITING VEGETABLES,FRESH AdvReac Mild NAUSEA & Uncoded 08/30/24 10:46 VOMITING Review of Systems 2 Review of Systems: Yes all other systems are reviewed and are negative PMFSH Past Medical History Attestation statement: The following information was validated with the patient. Source: old records reviewed Medical History Medicare annual wellness visit, initial Severe recurrent major depression Postmenopausal CKD (chronic kidney disease) stage 4, GFR 15-29 ml/min Type 2 diabetes mellitus with chronic kidney disease Obesity due to excess calories DM2 (diabetes mellitus, type 2) CKD (chronic kidney disease) Epicondylitis, lateral (tennis elbow) Dyslipidemia Leg edema Pain in both lower legs Calcaneal spur of both feet Acute kidney injury Irregular heart beat Depression Hypercholesteremia Diabetes Essential hypertension Surgical History Hx of vascular surgery History of extraction of renal calculus History of hysterectomy Family History Family History Father Diabetes Mother Diabetes Sister Breast cancer Brother No problems noted. Sister No problems noted. Social History Social History Household Members: Significant Other Housing: Apartment Are you a primary medicare contact specialist to a significant other at home: No Do you presently have visiting nurse or other home services: Yes Unable to assess alcohol history related to: Unknown Alcohol intake: never Patient Tobacco Use Status: Never used Tobacco Smoked in Last 30 Days: No e-Cigarette/Vaping Use: Never Used Second Hand Smoke Exposure: No Use of substances other than those prescribed or required for medical reasons: No Advance Directives: No Advance Directives Information Provided: Yes Advance Directives Date on File: 09/11/20 service: No Current occupational status: disabled Cognitive needs: Yes (walker, power chair) Hearing needs: No Vision needs: Yes (glasses) Physical Exam 2 Vital Signs: Vital Signs: Last Vital Signs Temp 98.1 F 11/12/24 04:27 Pulse 74 11/12/24 09:14 Resp 16 11/12/24 04:27 BP 129/54 L 11/12/24 09:14 Pulse Ox 98 11/12/24 09:14 O2 Del Method Room Air 11/12/24 04:27 BMI result Body Mass Index 29.7 Appearance: Alert.?Oriented to person, place and time. No acute distress.?Normal affect. Head: Normocephalic Eyes: Pupils equal, round and reactive to light. EOMI. Conjunctiva and sclera normal? No Sidhu sign noted. No raccoon eyes noted ENT: No septal hematoma, nares patent bilaterally. External auditory canal normal tympanic membrane pearly chapman and intact bilaterally. Dentition normal, no fractured teeth. No lesions or lacerations of oropharynx. Uvula midline. Moist mucous membranes. Neck: Normal inspection.? Neck supple.??Diffuse midline palpable tenderness without palpable step-off or deformities. Bilateral trapezius muscle tenderness upon palpation CVS: Heart sounds normal. Normal heart rate and rhythm.? Pulses normal.?? Respiratory: No respiratory distress.? Lung sounds clear to auscultation bilaterally?? Abdomen: Soft and non-tender. Normoactive bowel sounds. ?? Skin: Skin warm and dry.? Normal skin color.? Normal skin turgor.?? Extremities: No lower extremity edema.? Neuro: Moves all extremities spontaneously. Sensation intact bilaterally. CN II- XII intact. No focal neuro deficits. Course Reevaluation(s) Reevaluation #1: Serum labs notable for VERENA on CKD, see MDM for further detail. Patient to receive 1 L normal saline IV fluid. See MDM portion of this note, CT imaging with acute subdural hematoma 3 mm, consulted with Trauma Service at [facility], patient will remain in the emergency department for observation, obtaining repeat head CT as per ED attending Dr. Chambers, will repeat chemistries to assure VERENA has resolved. Patient signed out to [facility] pending re-evaluation and disposition planning Placed in physician observation at this time Time: 21:00 Reevaluation #2: Patient received in sign-out at change of shift pending repeat CT imaging, chemistries in re-evaluation. The patient's repeat CT scan does not show any significant change from previous. The small subdural hematoma went from 3 mm down to 2 mm. Renal function improved slightly. When they went to evaluate the patient she reports dizziness and describes vertigo she states when she turns her head to the sides specifically the left side she tends to feel as if the room is spinning around her. The brain injury was in the frontal lobe, that she would not explain her vertigo symptoms. I did treat with meclizine and we will get orthostatic vital signs. The patient remains awake, alert and oriented, there has not been any mental status changes Time: 01:40 Reevaluation #3: The patient is a 2 person assist to stand up to the commode. She walks with a walker at baseline and fell today already and causing a minor TBI. The patient is not stable for discharge home. She was cleared from the subdural hematoma through BIG criteria and repeat CT scan. However, she will be a physical therapy evaluation and case management patient for likely we have placement Time: 01:52 Additional Reevaluation(s): 11/12/24 -- Vital signs stable. no acute over night events per nursing notes. labs/ imaging reviewed by myself. med rec reviewed and completed. physician observation continued pending PT/CM and disposition. Medications Administered Discontinued Medications Generic Name Dose Route Start Last Admin Trade Name Leatha PRN Reason Stop Dose Admin Acetaminophen 975 mg 11/11/24 18:03 11/11/24 18:33 Acetaminophen 325 Mg Tablet PO 11/11/24 18:04 975 mg ONCE ONE Administration Sodium Chloride 1,000 mls @ 999 mls/hr 11/11/24 19:15 11/11/24 22:01 Ns IV 11/11/24 20:15 Infused .Q1H1M JOSE Infusion Meclizine HCl 50 mg 11/12/24 00:35 11/12/24 00:49 Meclizine Hcl 25 Mg Tablet PO 11/12/24 00:36 50 mg ONCE ONE Administration Medical Decision Making Medical Decision Making [facility] Narrative: Patient is a 69-year-old female with past medical history of CKD, diabetes, hypertension, hyperlipidemia, depression who presents emergency department for evaluation after mechanical fall from sitting on her walker as per HPI. She endorses post fall dizziness headache neck pain as per HPI. She has no focal neurological deficits at the time my evaluation. Hard cervical spine collar is intact. She is moving bilateral upper and lower extremities with full range of motion. Chest and abdominal examination are benign. Given age and mechanism of injury, obtaining CT of the head and cervical spine to evaluate for ICH, SDH, skull fracture, cervical spine fracture subluxation. Acetaminophen for analgesia at this time. I suspect that the dizziness may be secondary to the head injury, however will obtain serum labs in addition to EKG to rule out acute pathology such as anemia, electrolyte derangement, arrhythmia. Differential Diagnosis Differential Diagnoses: The differential diagnosis associated with the presentation includes (See narrative above) Admission/Observation Consideration of admission/observation: Escalation of care including admission/observation considered (See narrative above) Consult Healthcare Provider Management of the patient was discussed with: Parachute [place] Tier (Consulted with [facility] Trauma Service) Trauma provider Dr. Sears, advised that based on CT findings she is deemed a BIG 1 (modified brain injury guideline) advises that procedure would be for 6 hours of observation, and if without any neurological deficits or complaints would be cleared for discharge home without repeat imaging, follow-up with PCP. If not able to observe here at this emergency department that would be amenable to transfer. Thus far she has been here for a total of 3 hours . Spoke with ED attending here, Dr. Chambers, he was amenable to her being monitored here for an additional 3 hours, crusting repeat head CT orders have been placed Lab Data MDM Lab Attestation statement: I reviewed the patient's lab results. CBC reveals a mild leukocytosis 11,800, normocytic anemia chronic and stable not meeting transfusion criteria, no thrombocytopenia. No electrolyte derangement. VERENA on CKD, appears to have most recent creatinine ranging 1.7-1.9 with GFR 26-29, currently BUN/creatinine 50/2.55 GFR of 19 11/11/24 18:12 11/11/24 22:06 Labs: Lab Results 11/11/24 11/11/24 Range/Units 18:12 22:06 WBC 11.8 H (4.8-10.8) X10*3/uL RBC 3.39 L (4.20-5.50) X10*6/uL Hgb 9.6 L (12.0-16.0) g/dl Hct 28.7 L (37.0-47.0) % MCV 84.7 (80.0-98.0) fL MCH 28.3 (27.0-33.0) pg MCHC 33.4 (31.0-35.0) g/dl RDW 14.0 (11.0-16.0) % Plt Count 327 D (160-400) X10*3/uL MPV 10.1 (9.4-12.3) fL Immature Gran % (Auto) 0.4 (0.0-0.4) % Neut % (Auto) 74.3 H (45-73) % Lymph % (Auto) 16.1 L (20-40) % Dickinson % (Auto) 7.6 (2-11) % Eos % (Auto) 1.3 (0-4) % Baso % (Auto) 0.3 (0-2) % Lymph # (Auto) 1.9 (1.2-4.9) X10*3/uL Dickinson # (Auto) 0.9 (0.1-1.2) X10*3/uL Eos # (Auto) 0.2 (0.0-0.4) X10*3/uL Baso # (Auto) 0.0 (0.0-0.2) X10*3/uL Abs Immat Gran (auto) 0.05 H (0.00-0.03) X10*3/uL Absolute Neuts (auto) 8.7 H (2.0-8.3) x10*3/uL Absolute Nucleated RBC 0.000 (0.0-0.012) X10*3/uL Nucleated RBC % (auto) 0.0 (0.0-0.2) /100WBC PT 12.3 (10.9-12.4) SEC INR 1.1 (0.9-1.1) Sodium 135 136 (135-145) mmol/L Potassium 4.1 D 4.0 (3.3-5.1) mmol/L Chloride 105 107 (96-108) mmol/L Carbon Dioxide 20 L 20 L (22-29) mmol/L Anion Gap 14 13 (12-20) BUN 50 H 49 H (9-16) mg/dL Creatinine 2.55 H 2.47 H (0.5-1.4) mg/dL Estim Creat Clear Calc 21.3 22.0 Estimated GFR 19 19 Random Glucose 109 98 (60-115) mg/dL Calcium 10.5 H 10.0 (8.4-10.2) mg/dL Total Bilirubin 0.5 (0.0-1.0) mg/dL AST 15 (5-31) U/L ALT < 6 (0-31) U/L Alkaline Phosphatase 102 (39-117) U/L Troponin I High Sens 3.0 (<3.5-17.0) ng/L Total Protein 8.1 H (6.5-8.0) g/dL Albumin 3.5 (3.5-5.0) g/dL Independent Interpretation I performed an independent interpretation of an: EKG (Sinus rhythm with first- degree AV block as seen on prior, ventricular rate of 68, QTC of 463, no ST elevation) and CT Scan Radiology Impression Discussion of test interpretation with radiology: I have reviewed the radiologist's reading. Radiologist Impression: CT head without contrast Comparison: CT/REG/SR - CT HEAD/BRAIN WO IV CON - 12/16/23 22:43 EDT Findings: Acute subdural hematoma in the right frontal extra-axial space measures up to 3 mm in thickness (measured on series 3, image 54). Small parafalcine lipomas, unchanged. No hydrocephalus, mass-effect or herniation. Chapman-white differentiation is maintained. White matter is within normal limits for age. No acute orbital pathology. No acute soft tissue abnormality. No fracture. Foamy secretions in the right maxillary sinus and bilateral sphenoid sinuses. The other visualized paranasal sinuses are clear. The mastoid air cells are clear. Impression: Acute subdural hematoma in the right frontal extra-axial space measuring up to 3 mm in thickness. No mass effect. CT cervical spine without contrast Comparison: CR - CERV SPINE 4 TO 5 VIEWS [id number] - 05/13/16 10:31 EDT Findings: Mild multilevel anterolisthesis, degenerative. No fracture. No severe central spinal canal stenosis. No epidural hematoma. Normal thickness of the prevertebral soft tissues. The lung apices are clear. Impression: No acute findings. Independent Historian Clinical information obtained from an independent historian. History obtained from or confirmed by: EMS External Record Review External record reviewed: Outpatient record Critical Care Time Critical Care Time Critical Care Time: Yes Total Critical Care Time: 35 Attestation: I personally attest to this critical care time spent taking care of the patient exclusive of all other billable procedures was approximately 35 minutes including initial evaluation of patient, ordering tests, CT interpretation, medical consultation with the acute tertiary care center, documentation, re- evaluation. Discharge Plan Discharge Clinical Impression: Acute subdural hematoma, VERENA (acute kidney injury) Patient Disposition: Still a Patient Instructions: Acute Kidney Injury (DC), Intracranial Hematoma (ED) Prescriptions: No Action cetirizine 10 mg tablet 10 mg PO DAILY PRN (Reason: Allergy Symptoms) 90 Days Qty: 90 1RF (DME) walker Misc See Rx Instructions .Route Qty: 1 0RF Rx Instructions: walker with seat (DME) FreeStyle Med 2 Sensor Kit See Rx Instructions .ROUTE .MEDSUPPLY Qty: 2 11RF Rx Instructions: As directed every 2 weeks (DME) juxtalite calf wrap bilateral 30 mmHg See Rx Instructions .Route .MEDSUPPLY Qty: 2 0RF Rx Instructions: As directed (DME) back brace Misc See Rx Instructions .Route Qty: 1 0RF Rx Instructions: As directed (DME) nebulizer tube and adapter See Rx Instructions .Route .MEDSUPPLY Qty: 1 0RF Rx Instructions: As directed (DME) recliner lift chair See Rx Instructions .Route .MEDSUPPLY Qty: 1 0RF Rx Instructions: As directed albuterol sulfate 2.5 mg /3 mL (0.083 %) solution for nebulization 2.5 mg inhalation QID PRN (Reason: shortness of breath or wheezing) 30 Days Qty: 75 1RF albuterol sulfate [Ventolin HFA] 90 mcg/actuation HFA aerosol inhaler 2 puff inhalation Q4H PRN (Reason: for muscle spasm) Qty: 18 3RF valsartan 320 mg tablet 320 mg PO DAILY 90 Days Qty: 90 1RF ezetimibe 10 mg tablet 10 mg PO DAILY 90 Days Qty: 90 0RF (DME) FreeStyle Med 2 [place] Misc See Rx Instructions .ROUTE .MEDSUPPLY Qty: 1 0RF Rx Instructions: As directed (DME) pen needle, diabetic [Comfort EZ Pen [place]] 31 gauge x 5/16 needle See Rx Instructions .Route Qty: 100 6RF Rx Instructions: Use 1 pen needle four times a day metoprolol tartrate 50 mg tablet 50 mg PO BID 90 Days Qty: 180 1RF chlorthalidone 25 mg tablet 25 mg PO DAILY 90 Days Qty: 90 1RF pantoprazole 40 mg tablet,delayed release (DR/EC) 40 mg PO DAILY@0630 bupropion HCl 150 mg tablet extended release 24 hr 150 mg PO DAILY fluticasone furoate-vilanterol [Breo Ellipta] 200-25 mcg/dose blister with device 1 inh PO DAILY acetaminophen [Tylenol Extra Strength] 500 mg tablet 1,000 mg PO Q6H PRN (Reason: fever or pain) insulin aspart U-100 [Novolog FlexPen U-100 Insulin] 100 unit/mL (3 mL) insulin pen 16 unit subcut DAILY@0800 Rx Instructions: ONLY TAKES DOSE WITH BREAKFAST Trulicity 1.5 mg/0.5 mL pen injector 1.5 mg subcut ERAZO@0900 insulin glargine U-300 conc [Toujeo SoloStar U-300 Insulin] 300 unit/mL (1.5 mL) insulin pen 75 unit subcut DAILY (DME) FreeStyle Lite Strips Strip See Rx Instructions .ROUTE .MEDSUPPLY Qty: 100 11RF Rx Instructions: As directed three times a day (DME) lancets [FreeStyle Lancets] 28 gauge misc See Rx Instructions .ROUTE .MEDSUPPLY Qty: 100 11RF Rx Instructions: Three times a day magnesium oxide 500 mg magnesium tablet 500 mg PO DAILY 90 Days Qty: 90 1RF (DME) blood-glucose meter [FreeStyle Lite Meter] Kit See Rx Instructions .ROUTE .MEDSUPPLY Qty: 1 0RF Rx Instructions: As directed Referrals: Joann Partida MD [Primary Care Provider] - Print Language: Faroese
--- NOTE | 2024-11-11 17:58 | ECG_ITS ---
Test Reason : fall Blood Pressure : */* mmHG Vent. Rate : 68 BPM Atrial Rate : 68 BPM P-R Int : 274 ms QRS Dur : 88 ms QT Int : 436 ms P-R-T Axes : 56 71 3 degrees QTcB Int : 463 ms Sinus rhythm with 1st degree A-V block Low voltage QRS Right bundle branch block Borderline ECG When compared with ECG of 06-Jul-2024 10:30, No significant changes seen Referred By: Luda Levine Electronically Signed By: VIVIANE DAVILA
[2024-11-11 18:19] LABS: MANUAL DIFF FLAG NO
[2024-11-11] MEDS: Acetaminophen 325 MG TABLET 975 MG PO (18:33)
--- OUTSIDE RECORDS SUMMARY | 2024-11-11 18:35 | XMS_ITS | Continuity of Care Document ---
Author Organization [facility] Address [address] [place] [address]- Care Team Providers Care Core Composer Machine Tender Name Role Phone Alejandro Ferreira MD, Lisbeth Primary Care Physician Encounter [facility] Date(s): 08/11/24 - 10/13/24 [facility] [address] [place] [id number] Attending Physician: Smiley Swanson MD Admitting Physician: Smiley Swanson MD Encounter Type: Pre-OutPatient One Time Allergies, Adverse Reactions, Alerts Substance Criticality Severity [...] Ordered Quantity: 60.0 Unit: Repeat number: 7 methocarbamol 750 mg oral tablet 0 Refills, [...] Unit: tablet Repeat number: 1 nystatin topical [id number] u/gm powder 1 application, Topically, 2 times [...] mellitus Confirmed Active HTN (hypertension) Confirmed Active Social History Social History Type Response Smoking Status Never smoker entered on: 01/31/16 Sex Sex Representation Female (finding) Patient Care team information Care Team Personnel Name: Mirian Selby Position: S RN Member Role: Primary Care Nurse Name: Joann Partida MD Position: Reference Physician Member Role: PCP Address: [address] [place] [address]- [place] [employer]: Name: Diego Duncan MD Position: S Renal MD Member Role: Lifetime Consulting Physician Address: [address] [facility] [place] [address]- [place] [employer]: Care Team Related Persons Name: FARZANEH LEBLANC Name: DUANE JONAS Name: STATES, NONE Insurance Providers Guarantor name: PACO JONAS Health Plan Information #: 2 Payer: MEDICARE PART B OUTPT Member Number: [id number] Policy Number: JULY Group Number: JULY Health Plan Information #: 3 Payer: [facility] Member Number: [id number] Policy Number: JULY Group Number: JULY Health Plan Information #: 1 Payer: Member Number: [id number] Policy Number: JULY Group Number: NA
--- OUTSIDE RECORDS SUMMARY | 2024-11-11 18:35 | XMS_ITS | Continuity of Care Document ---
Author Organization [facility] Address [address] [place] [address]- Care Team Providers Care Wrecker Operator Name Role Phone Alejandro Ferreira MD, Joann Acevedo Primary Care Physician [phone] Encounter [facility] Date(s): 09/13/24 - 10/13/24 [facility] [address] [place] [address] Attending Physician: Admtr, Ar8 Admitting Physician: Admtr, Ar8 Referring Physician: Admtr, Ar8 Encounter Type: Triage Allergies, Adverse Reactions, Alerts Substance Criticality Severity Reaction Reaction Severity Status ciprofloxacin hives / diarrhea Active codeine hives Active levofloxacin diarrhea Active Medrol unknown Active Bactrim diarrhea Active Latex rash Active Other Food Allergy all fresh vegetables and fruits- itch/hives Active [place] inhibitors hives Activ e NovoLog Mix 70/30 hives on a rm and itching all over Active azithromycin diarrhea, painf ul joints Active penicillin hives Active Red Meat Active Medications Accu-Chek Marilee Test Strips See [...] Unit: tablet Repeat number: 1 nystatin topical 074707 u/gm powder 1 application, Topically, 2 times [...] on: 01/31/16 Sex Sex Representation Female (finding) Laboratory * Lashonda Galindo: PERFORM Event Display: Laboratory Results Scanned Authored Date: [id number] Patient Care team information Care Team Personnel Name: Mirian Selby Position: S RN Member Role: Primary Care Nurse Name: Alejandro Ferreira MD , Joann Acevedo Position: Reference Physician Member Role: PCP Address: [address] [place] [address]- [employer] Tele[employer]: Name: Diego Duncan MD Position: Sim Renal MD Member Role: Lifetime Consulting Physician Address: [address] [facility] [address] [facility] [place] [address]- Telecom: Care Team Related Persons Name: FARZANEH LEBLANC Name: DUANE JONAS Name: STATES, NONE Insurance Providers Guarantor name: [facility] Plan Information #: 1 Payer: JULY Member Number: NA Policy Number: NA Group Number: [id number]
--- OUTSIDE RECORDS SUMMARY | 2024-11-11 18:35 | XMS_ITS | Data Portability ---
Author Organization [employer] [employer] Address [address] [place] [address] Care Team Providers Care Gasateria Attendant Name Role Phone HIM CCA OTHER Assessment Encounter Date Assessment Date Assessment LastModified by Organization Details LastModified Time 02/16/2024 02/16/2024 I provided real -time medical direction via phone for this encounter, and was available for additional phone based assistance as needed. I have reviewed and agree with the Assessment and Plan as documented by the Crew Dispatcher. We discussed the diagnostic uncertainty of home [...] in the field was performed by my heel washer stringing machine operator colleague, as noted above, I provided [...] any acute worsening or change in symptoms. [email or web address] Not available 06/01/2024 11:46:54 08/08/2024 08/08/2024 As noted, we were called to see this patient regarding concerns of pain. Evaluation in the field was performed by my heel washer stringing machine operator colleague, as noted above, I provided [...] to ambulate or stand. She has no regulatory internship education counselor, she has been soiling herself and unable to care for herself. Discussed with medics who feel she is unsafe to remain at home and I am in agreement. Pt will need transfer to ED for full in person evaluation and discussion of rehab placement. Expect call placed to [facility] ED. Plan: ED Primary care, consider ED followup and rehab needs. Disposition: We discussed the situation and I recommended referral to the emergency department. Not available 08/08/2024 15:37:38 Plan of Treatment Reminders Order Date Submit Date Provider Last Modified By Organization Details Last Modified Time Details Appointments None recorded. Lab None recorded. Referral None recorded. Procedures None recorded. Surgeries None recorded. Imaging electrocard iogram 2023 [email or web address], [address], 10:56:38 Medication Orders Tylenol 325 mg tablet 2023 024 [email or web address] Not available 11:40:46 Patient TargetsNo targets recorded. Patient InstructionsNo instructions recorded. Reason for Referral None Reported. Results Created Date Observation Date Name Description Value Unit Range Abnormal Flag Note LastModifiedBy Organization Detail LastModifiedTime 02/16/20 24 02/16/2024 elect rema rdz am No observ ation record ed. [address], [address], 02/16/2024 10:56:36 Result Notes None recorded. Procedures Surgical History None recorded. Imaging Results Imaging Date Name Status LastModified by Organization Details LastModified Time 02/16/2024 electrocardiogram completed [email or web address] [address], [address], 02/16/2024 10:56:36 Procedure Notes None recorded. Medical Equipment None Reported. Allergies Allergen ID Allergen Name Allergen Category Reaction Reaction Severity Criticality Documentation Date Start Date Code Code System Note Provider Name and Address Organization Details Recorded Time 16874 pravastat in medicatio n Not available Not available Not available 08/08/2024 77031 RxNorm Not Available [facility] - production 4 13:38:21 5141 tree nut food Not available Not available Not available 02/16/2024 [id number] MICHELLE Ramírez MD [address] [facility],[address], [place], [address], Location Labs 4 10:01:58 5142 beef allergeni c extract food,medi cation Not available Not available Not available 02/16/2024 05778 9 RxNorm Karlie Ramírez MD [address] [facility],[address], [place], [address], Location Labs 4 10:02:08 5143 fish derived food,medi cation Not available Not available Not available 02/16/2024 65463 MICHELLE Ramírez MD [address] [facility],[address], [place], [address], Location Labs 4 10:02:18 5144 vancomyci n medicatio n Not available Not available Not available 02/16/2024 21207 RxNorm Not Available [facility] - production 03:47:47 5145 rosuvasta tin medicatio n Not available Not available Not available 02/16/2024 80035 2 RxNorm Not Available [facility] - production 13:38:21 5146 Product containin g angiotens in-conver ting enzyme inhibitor (product) medicatio n Not available Not available Not available 02/16/2024 13104 009 SNOMED Karlie Ramírez MD [address] [facility],[address], [place], [address], Location Labs 4 10:02:50 5147 ciproflox acin medicatio n Not available Not available Not available 02/16/2024 2551 RxNorm Not Available [facility] - production 03:47:47 5148 codeine medicatio n Not available Not available Not available 02/16/2024 2670 RxNorm Not Available [facility] - production 13:38:21 5149 latex environme nt,medica tion Not available Not available Not available 02/16/2024 43491 91 RxNorm Not Available [facility] - production 4 03:47:47 5150 lactose food,medi cation Not available Not available Not available 02/16/2024 6211 RxNorm Karlie Ramírez MD [address] [facility],[address], [place], [address], [employer] 4 10:03:16 5151 cyclobenz aprine medicatio n Not available Not available Not available 02/16/2024 53334 [facility]21 5152 ferrous sulfate medicatio n Not available Not available Not available 02/16/2024 66711 [facility] 13:38:21 5153 insulin lispro medicatio n Not available Not available Not available 02/16/2024 59304 RxNorm Karlie Ramírez MD [address] [facility],[address], [place], [address], Location Labs 10:03:48 5154 methylpre dnisolone medicatio n Not available Not available Not available 02/16/2024 6902 [facility] 03:47:47 5155 Product containin g penicilli n (product) medicatio n Not available Not available Not available 02/16/2024 68038 8001 SNOMED Karlie Ramírez MD [address] [facility],[address], [place], [address], Location Labs 4 10:04:13 5156 tamsulosi n medicatio n Not available Not available Not available 02/16/2024 58075 RxNorm Not Available [facility] - production 4 13:38:21 5157 tramadol medicatio n Not available Not available Not available 02/16/2024 20083 RxNorm Karlie Ramírez MD [address] [facility],[address], [place], [address], JORGE LUIS - ROCÍO, MOUSTAPHA 10:04:30 [...] % 160.02 cm 64 /min 97.1 [degF] 28499.8 48 g 155 mm[Hg] 84 mm[Hg] Not Available [facility] 4 09:59:36 Date Recorded Body temperature Body weight Respiratory rate Body height Heart rate Oxygen saturation Oxygen saturation in Arterial blood by Pulse oximetry Systolic blood pressure Diastolic blood pressure Provider Name and Address Organization Details Last Updated DateTime 4 98.4 [degF] 305869 g 18 /min 157.48 cm 90 /min 98 % 98 % 132 mm[Hg] 78 mm[Hg] Not Available [facility] 4 11:36:00 Date Recorded Oxygen saturation Oxygen saturation in Arterial blood by Pulse oximetry Heart rate Respiratory rate Systolic blood pressure Diastolic blood pressure Provider Name and Address Organization Details Last Updated DateTime 4 99 % 99 % 90 /min 18 /min 138 mm[Hg] 80 mm[Hg] Not Available [facility] 15:51:20 Social History None recorded. Functional Status None recorded. Mental Status None recorded. Family History Nothing Reported. Medical History No medical history recorded. Gynecological HistoryNo gynecological history recorded. Obstetrics History GPAL:G 0 P 0 0 0 0 Past Encounters Encounter ID Performer Location Encounter Start Date Encounter Closed Date Diagnosis/Indication Diagnosis SNOMED-CT Code Diagnosis ICD10 Code Diagnosis Note [id number] Karlie Ramírez MD [facility] - [facility] [address] [place] [address] 02/16/2024 09:59:31 02/16/2024 17:13:28 Thoracic back pain 181449921 M54.6 Likely muscular since increases with expanding chest wall moving-Adv ised apply heat gently, careful not to burn herself, several times a dayMake patient aware of limited diagnostic capability in homeAdvise d to take Tylenol 1 g 3 times a day as opposed to 2 g at at bedtime for hopefully better pain relief.Med ic medication s have are NSAIDs ketorolac/ ibuprofen which she cannot take due to ESRD and Tylenol which she is already taking. Advised her to speak with PCP regarding pain management . She is allergic to cyclobenza joslyn per the list I was given, and since patient cannot verify her allergies it is difficult to prescribe muscle relaxants. Patient did have an appointmen t with PCP today but elected to see us instead. She is aware of the limited and need to follow-up with PCP as soon as possible [id number] Denilson Brunner MD [facility] - [facility] [address] [place] [phone] 06/01/2024 11:35:50 06/01/2024 14:24:16 Pain of right knee joint 3052191281 10521 M25.561 [id number] Denilson Brunner MD Main - [facility] [address] [place] [address] 08/08/2024 15:28:56 08/08/2024 16:50:00 Generalized chronic body pains 411181359 G89.29 Health Concerns Section Related Observation LastModified by Organization Detai ls LastModified Time None Recorded Concern Status LastModified by Organization Details LastModified Time None Recorded Advance Directives Directive None Recorded Payers Encounter Date Sequence Insurance Name Policy Number Policy Galdamez Covered Member ID Galdamez Member ID Guarantor Name 02/16/2024 1 [facility] - DOS ON OR AFTER 2022 - DUAL ELIGIBLE - FPC OPTIONS AND ONE CARE (MEDICARE REPLACEMENT/ADV ANTAGE - HMO) Paige Coreasez [id number] Paige Harris 06/01/2024 1 [facility] - DOS ON OR AFTER 2022 - DUAL ELIGIBLE - FPC OPTIONS AND ONE CARE (MEDICARE REPLACEMENT/ADV ANTAGE - HMO) Paige Harris [id number] Paige Harris 08/08/2024 1 [facility] - DOS ON OR AFTER 2022 - DUAL ELIGIBLE - FPC OPTIONS AND ONE CARE (MEDICARE REPLACEMENT/ADV ANTAGE - HMO) Paige Steven [id number] Paige Vasquez Harris Notes Date Note Type Note Provider Name and Address Organization Details Recorded Time 02/16/2024 text/html HPI: Mbr calling into [facility] and [facility]SR transferred call to this CRU RN. Tony is a 68 yo Armenian/Slovak speaking female with significant hx including asthma, [...] today and she agreed. Confirmed address and phone/[phone]. ................... ................... ................... ................... ................... ................... ................... ........ [facility] Nurse Triage Notes (Malena Hodge): Comments: HPI Reviewed. No further information needed to process visit. Crew Dispatcher POC Test Results from [facility] EKG (1) [10:06] EKG test performed. Attachments uploaded as part of this test result can be found under Documents section. ................... ................... ................... ................... ................... ................... ................... ........ Crew Dispatcher Note From [facility]: Pt reports acute [...] to medic arrival Karlie Ramírez MD [address] [facility],[address], [place], [address], JORGE LUIS - [employer] MOUSTAPHA 02/16/2024 10:56:52 06/01/2024 text/html HPI: Call to mbr at [phone] and spoke with Mbr who is feeling [...] notification of this triage. Confirmed address and phone/[phone]. Instructed Mbr to call 911 and go [...] ................... ................... ................... ................... ................... ................... ........ Crew Dispatcher Note From Michael Donahue: Patient found supine [...] all. Patient reports increase of pain on movement.[facility] recommends 1000 mg Tylenol three times a day for pain. And to follow up with the pain clinic that she is enrolled in at her next appointment. Patient ambulates with a steady slow even gait, appears in pain. Red flags, patient education discussed. Patient demonstrates understanding of care and plan. Crew Dispatcher Allergies: Ciprofloxacin, Latex, Methylprednisolone, Vancomycin ................... ................... ................... ................... ................... ................... ................... ........ Disposition: Fulfilled Denilson Brunner MD [address] [place] [address],[address], [place], [address], [employer] 06/01/2024 12:14:49 08/08/2024 text/html HPI: 12:57pm ? [...] alone, as her is currently in a snf, and is unable to get out for treatment. She is requesting an in-home visit today for assessment. After confirming TONY? s address and phone number on file, TONY is strongly advised to call 911 for any new or worsening symptoms. She understands and will do so, as she wears a life alert bracelet. This call originated from [phone]. ................... ................... ................... ................... ................... ................... ................... ........ [facility] Nurse Triage Notes (Brandi Juan): Reason For Request: Pain Chief Complaints: Headache, Joint pain/swelling PMH: COPD/Asthma, Hypertension, Cancer, Diabetes Mellitus Type 1, Anxiety Disorder, Chronic Kidney Disease, Chronic Back Pain Comments: Reviewed info, no further data needed.Mason GOMEZ ................... ................... ................... ................... ................... ................... ................... ........ Crew Dispatcher Note From Shubham Cantu: Dispatched to stated address for a 81yo female with joint and hand pain. Pt states she is unable to get up and take care of her self. Pt states she has a decreased po intake due to only having help from a visiting ostomy care nurse in the morning and night. Pt states she had increase in joint pain and is less mobile than normal. Pt states she has missed multiple visits to primary care due to transportation issues. Pt states one visit was for b12 and iron injections. Pt states she will go to the hospital to help get more resources. [facility] consulted and agreed more resources are need to help manage pt's care. [facility] pt to [facility]. Pt found seated and speaking in full clear sentences with no signs of distress in a clean apartment. AO and GCS-15. PERRL. Skin P/W/D. Airway open and lung sounds clear. ABD soft non tender. Rest of exam unremarkable. ................... ................... ................... ................... ................... ................... ................... ........ [facility] Consulted: Denilson Brunner ................... ................... ................... ................... ................... ................... ................... ........ Disposition: Fulfilled Denilson Brunner MD [address] [facility],[address], [place], [address], [employer] 08/08/2024 16:14:20 OBGyn Episode No OBEpisode recorded.
[2024-11-11 18:37] LABS: INTERNATIONAL NORM RATIO 1.1 (0.9-1.1); Prothrombin Time 12.3 SEC (10.9-12.4)
[2024-11-11 18:41] LABS: Alanine Aminotransferase < 6 U/L (0-31); Albumin Level 3.5 g/dL (3.5-5.0); Alkaline Phosphatase 102 U/L (39-117); Anion Gap 14 (12-20); Aspartate Amino Transferase 15 U/L (5-31); Bilirubin Total 0.5 mg/dL (0.0-1.0); Blood Urea Nitrogen 50 mg/dL (9-16); Calcium 10.5 mg/dL (8.4-10.2); Carbon Dioxide 20 mmol/L (22-29); Chloride 105 mmol/L (96-108); Creatinine Clr Calc Pharmacy 21.3; Estimated Glomerular Filt Rate 19; Glucose Random 109 mg/dL (60-115); Potassium 4.1 mmol/L (3.3-5.1); Sodium 135 mmol/L (135-145); Total Protein 8.1 g/dL (6.5-8.0)
[2024-11-11 18:48] LABS: Basophils Percent Auto 0.3 % (0-2); Eosinophils Absolute Auto 0.2 X10*3/uL (0.0-0.4); Eosinophils Percent Auto 1.3 % (0-4); Hematocrit 28.7 % (37.0-47.0); Hemoglobin 9.6 g/dl (12.0-16.0); Imm Gran Abs Auto 0.05 X10*3/uL (0.00-0.03); Imm Gran Pct Auto 0.4 % (0.0-0.4); Lymphocytes Absolute Auto 1.9 X10*3/uL (1.2-4.9); Lymphocytes Percent Auto 16.1 % (20-40); Mean Corpuscular HGB Conc 33.4 g/dl (31.0-35.0); Mean Corpuscular Hemoglobin 28.3 pg (27.0-33.0); Mean Corpuscular Volume 84.7 fL (80.0-98.0); Mean Platelet Volume 10.1 fL (9.4-12.3); Monocytes Absolute Auto 0.9 X10*3/uL (0.1-1.2); Monocytes Percent Auto 7.6 % (2-11); Neutrophils Absolute Auto 8.7 x10*3/uL (2.0-8.3); Neutrophils Percent Auto 74.3 % (45-73); Platelet Count 327 X10*3/uL (160-400); Red Blood Count 3.39 X10*6/uL (4.20-5.50); White Blood Count 11.8 X10*3/uL (4.8-10.8)
[2024-11-11] MEDS: 0.9 % Sodium Chloride 1,000 ML 999 ML IV (20:41)
[2024-11-11 21:16] VITALS: BP 122/62; PULSE 73; RESP 14; TEMP 36.7; O2SAT 96
[2024-11-11 22:26] LABS: Anion Gap 13 (12-20); Blood Urea Nitrogen 49 mg/dL (9-16); Carbon Dioxide 20 mmol/L (22-29); Chloride 107 mmol/L (96-108); Estimated Glomerular Filt Rate 19; Glucose Random 98 mg/dL (60-115); Sodium 136 mmol/L (135-145)
[2024-11-12] VITALS (11 sets, daily range): BP systolic 115–164; BP diastolic 49–89; PULSE 61–81; RESP 16–20; TEMP 36.4–37; O2SAT 97–100
[2024-11-12] MEDS: Meclizine HCl 25 MG TABLET 50 MG PO (00:49)
--- NOTE | 2024-11-12 01:59 | MHC.EDTECH ---
This pct assumed care of Patient [id number] ,Orthodontics vitals taken ,Patient was assisted unto bedside commode ,void and was assisted back to bed ,Provider Trace and RN Danielle is aware that Patient was a max asst of 2 to bedside commode ,Patient very unsteady and not able to walk on her own .Patient belongings list done ,Patient rather stay in her own night gown ,instead of changing into hospital gown ,RN aware ,All safety measure in Place .
--- NOTE | 2024-11-12 04:10 | PC.NURSE ---
Pt from home biba after an unwitnessed mechanical fall. Pt states she was using her walker and went to stand up when her walker slipped from her and she fell backwards. Pt had positive headstrike, reports dizziness after fall and headache. Pt denies loc and not on thinners. Pt is alert and oriented x4, able to make her needs known and 2 person assist to commode, uses a walker and wheelchair at baseline. Pt has 20G IV in RAC. DO NOT USE LEFT LIMB. CT reported pt having 3mm small subdural hematoma, repeat CT showed 2mm small subdural hematoma. Pt currently denying any pain but still reporting dizziness. Pt has not had any mental status changes. Pt not stable enough for discharge, follow up with PT/ CM.
--- NOTE | 2024-11-12 04:27 | MHC.EDTECH ---
This tech took over care of pt at 0400AM,patient is sleeping resp rate WNL, call modi in reach
--- NOTE | 2024-11-12 09:54 | MHC.CM.PN ---
CM RECEIVED ED CONSULT. CM MET WITH PT AT BEDSIDE IN ED. PT LIVES ALONE AND USES A W/C/WALKER FOR MOBILITY. PT HAS 21 HRS/WK FIELD IDENTIFICATION SPECIALIST ASSIST VIA [facility]. +HCP PCP DR. BUSH. DP: PT WILL BE SEEN BY P.T. TO DETERMINE DC NEEDS. PT IS OPEN TO HOME SERVICES AND FIRST CHOICE IS [facility] IF RECOMMENDED. PT'S FRIEND WILL TRANSPORT HOME. CM WILL FOLLOW FOR PLAN.
--- NOTE | 2024-11-12 11:42 | PHA.MEDREC ---
Pharmacy Consult ? Medication Reconciliation Pharmacy has completed the medication reconciliation. Spoke to pt to confirm meds (Mongolian speaking).
[2024-11-12] MEDS: Ezetimibe 10 MG TABLET PO (16:06)
[2024-11-12] MEDS: Valsartan 320 MG TABLET PO (16:06)
[2024-11-12] MEDS: buPROPion HCl XL 150 MG TAB.ER.24H PO (16:06)
[2024-11-12] MEDS: Metoprolol Tartrate 50 MG TABLET PO (16:06)
[2024-11-12 18:31] LABS: Glucose, Whole Blood 85 mg/dL (60-115)
[2024-11-12 21:49] LABS: Glucose, Whole Blood 170 mg/dL (60-115)
[2024-11-12] MEDS: Insulin Lispro 100 UNIT/ML 3 ML VIAL SUBCUT (21:54)
[2024-11-13] VITALS (9 sets, daily range): BP systolic 112–135; BP diastolic 59–72; PULSE 68–84; RESP 14–18; TEMP 36.1–37.1; O2SAT 95–98
[2024-11-13 07:21] LABS: Glucose, Whole Blood 58 mg/dL (60-115)
[2024-11-13 08:17] LABS: Glucose, Whole Blood 139 mg/dL (60-115)
[2024-11-13] MEDS: Metoprolol Tartrate 50 MG TABLET PO ×2 (10:02→20:48)
[2024-11-13] MEDS: hydroCHLOROthiazide 25 MG TABLET PO (10:02)
[2024-11-13] MEDS: buPROPion HCl XL 150 MG TAB.ER.24H PO (10:02)
[2024-11-13] MEDS: Valsartan 320 MG TABLET PO (10:03)
[2024-11-13] MEDS: Ezetimibe 10 MG TABLET PO (10:03)
[2024-11-13 11:04] LABS: Glucose, Whole Blood 163 mg/dL (60-115)
--- NOTE | 2024-11-13 11:34 | PC.NURSE ---
Assumed care of this patient at 1000, patient resting quietly on hospital bed at this time.
[2024-11-13] MEDS: Insulin Lispro 100 UNIT/ML 3 ML VIAL SUBCUT ×2 (11:38→20:49)
--- NOTE | 2024-11-13 12:13 | MHC.CM.PN ---
CM MET WITH PT IN ED OVERFLOW WITH SNF BED OFFERS.. PT CHOOSES [facility] FOR REHAB. CENTER UPDATED AND WILL SEEK INSURANCE AUTH. CM WILL CONTINUE TO FOLLOW.
[2024-11-13 16:17] LABS: Glucose, Whole Blood 116 mg/dL (60-115)
[2024-11-13] MEDS: Acetaminophen 325 MG TABLET 975 MG PO (19:21)
--- NOTE | 2024-11-13 19:24 | PC.NURSE ---
Patient medicated per NOV for 02/28 headache.
[2024-11-13 20:42] LABS: Glucose, Whole Blood 174 mg/dL (60-115)
--- NOTE | 2024-11-13 22:05 | PC.NURSE ---
Patient reports headache resolved, patient assisted with transfer to bedside commode and back to bed, patient voided large amount of yellow urine. Patient medicated with bedtime medications. She offers no complaints at present, call modi in reach, plan of care ongoing.
[2024-11-14 05:45] VITALS: BP 129/61; PULSE 70; RESP 16; TEMP 36.7; O2SAT 97
[2024-11-14] MEDS: Omeprazole 20 MG CAPSULE.DR PO (05:51)
[2024-11-14 07:48] LABS: Glucose, Whole Blood 156 mg/dL (60-115)
--- NOTE | 2024-11-14 09:17 | MHC.CM.ED ---
Addendum entered by Alesha Mendoza 11/14/24 14:16: Insurance auth has been obtained by [facility]. Patient can leave at 5pm. [facility] booked. [facility] with chart. Patient, Arleen RN and Rosalie NORTON aware. Original Note: Patient remains in ER overflow. Will d/c to [facility] for STR when ins auth obtained. Continue to monitor for d/c needs.
[2024-11-14] MEDS: Insulin Lispro 100 UNIT/ML 3 ML VIAL SUBCUT ×2 (09:23→17:23)
[2024-11-14 09:24] VITALS: BP 128/67; PULSE 70
[2024-11-14] MEDS: buPROPion HCl XL 150 MG TAB.ER.24H PO (09:24)
[2024-11-14] MEDS: Metoprolol Tartrate 50 MG TABLET PO (09:24)
[2024-11-14 09:25] VITALS: BP 128/67
[2024-11-14] MEDS: hydroCHLOROthiazide 25 MG TABLET PO (09:25)
[2024-11-14] MEDS: Insulin Glargine,Hum.rec.anlog 100 UNIT/ML 10 ML VIAL 60 UNIT SUBCUT (09:25)
[2024-11-14 10:47] LABS: Influenza A PCR NEGATIVE (Negative); Influenza B PCR NEGATIVE (Negative); Resp Syncy Virus RNA Qual PCR NEGATIVE (Negative); SARS COV2 PCR INHOUSE NEGATIVE (Negative)
[2024-11-14 11:10] VITALS: BP 127/68
[2024-11-14] MEDS: Valsartan 320 MG TABLET PO (11:10)
[2024-11-14] MEDS: Ezetimibe 10 MG TABLET PO (11:10)
[2024-11-14 11:17] VITALS: BP 132/63; PULSE 66; RESP 14; TEMP 37.1; O2SAT 97
[2024-11-14 11:56] LABS: Glucose, Whole Blood 129 mg/dL (60-115)
[2024-11-14] MEDS: Acetaminophen 325 MG TABLET 975 MG PO (13:59)
[2024-11-14 15:49] VITALS: BP 129/59; PULSE 64; RESP 14; TEMP 37.1; O2SAT 97
--- NOTE | 2024-11-14 15:50 | PC.NURSE ---
Pt c/o CARLSON; treated with Tylenol per orders with moderate relief per pt; pt awaiting transport to rehab at 5pm tonight
[2024-11-14 17:21] LABS: Glucose, Whole Blood 158 mg/dL (60-115)
--- NOTE | 2024-11-14 18:52 | PC.NURSE ---
Bedside report given to EMS for tranfer to SNF; all belongings with pt; IV angio removed; vss; pt transferred with EMS in stable condition at this time
== END 2024-11-14 18:52 | disposition skilled nursing facility (03) ==
PROVIDERS: Nurse Practitioner Family; Physician Assistant Medical; Emergency Provider Internal Medicine; PCP Internal Medicine
DX: S06.5XAA Traumatic subdural hemorrhage with loss of consciousness status unknown, initial encounter (principal); R51.9 Headache, unspecified; R42 Dizziness and giddiness; M54.50 Low back pain, unspecified; R26.81 Unsteadiness on feet; E11.9 Type 2 diabetes mellitus without complications; R11.0 Nausea; X58.XXXA Exposure to other specified factors, initial encounter; W07.XXXA Fall from chair, initial encounter; Y93.89 Activity, other specified; Y92.009 Unspecified place in unspecified non-institutional (private) residence as the place of occurrence of the external cause; Y99.8 Other external cause status; Z03.818 Encounter for observation for suspected exposure to other biological agents ruled out; Z79.4 Long term (current) use of insulin; Z79.899 Other long term (current) drug therapy; Z91.81 History of falling
CPT/HCPCS: 0241U; 36415; 70450; 72125; 80048; 80053; 82947; 84484; 85025; 85610; 93005; 96360; 97162; 99285

== ENCOUNTER → 2024-11-11 17:26 | Outpatient (BNV) | payer OTHER, SELFPAY | PROVIDERS: Emergency Provider Internal Medicine; PCP Internal Medicine; Visit Provider Radiology Diagnostic Radiology | DX: I62.01 Nontraumatic acute subdural hemorrhage (principal); S00.93XA Contusion of unspecified part of head, initial encounter; W19.XXXA Unspecified fall, initial encounter | CPT/HCPCS: 70450; 72125 ==

== ENCOUNTER → 2024-11-11 17:58 | Outpatient (BNV) | payer OTHER, SELFPAY | PROVIDERS: Emergency Provider Internal Medicine; PCP Internal Medicine; Visit Provider Internal Medicine | DX: I44.0 Atrioventricular block, first degree (principal); I45.10 Unspecified right bundle-branch block | CPT/HCPCS: 93010 ==

== ENCOUNTER 2024-12-02 10:18 | Outpatient (AMB) | payer OTHER, SELFPAY ==
--- NOTE | 2024-12-02 10:26 | A.OFFPC_ITS ---
Vital Signs 12/02/24 10:29 Height 5 ft 4 in Weight 179 lb 6 oz BMI 30.8 BP 130/66 Blood Pressure Location Rt brachial Position Sitting Pulse 68 Pulse Source Pulse Oximeter Temp 97.3 F Temp Source Temporal Artery Scan Pulse Oximetry (%) 97 Oxygen Delivery Method Room Air Intake Visit Reasons: [facility] 11/23 Intake Note: Patient is here for hospital discharge follow up. Patient was discharged from [facility] on 11/23/24. Java Jsf Developer Required: No Facility Maintenance Mechanic: Not Required per policy Accompanied by: Self / Same As Patient Allergies nut - unspecified [nut] Allergy (Severe, Verified 12/02/24 10:28) Anaphylaxis rosuvastatin Allergy (Severe, Verified 12/02/24 10:28) Facial Swelling vancomycin [VANCOMYCIN] Allergy (Severe, Verified 12/02/24 10:28) Itching [place] Inhibitors [V[place] INHIBITORS] Allergy (Intermediate, Verified 12/02/24 10:28) Rash ciprofloxacin [From CIPRO] Allergy (Intermediate, Verified 12/02/24 10:28) Rash codeine [CODEINE] Allergy (Intermediate, Verified 12/02/24 10:28) Rash cyclobenzaprine [CYCLOBENZAPRINE] Allergy (Intermediate, Verified 12/02/24 10:28) Hives ferrous sulfate [FERROUS SULFATE] Allergy (Intermediate, Verified 12/02/24 10:28) Rash insulin lispro [Humalog U-100 Insulin] Allergy (Intermediate, Verified 12/02/24 10:28) Hives latex [LATEX] Allergy (Intermediate, Verified 12/02/24 10:28) Hives methylprednisolone [From MEDROL] Allergy (Intermediate, Verified 12/02/24 10:28) Rash penicillin V Allergy (Intermediate, Verified 12/02/24 10:28) Hives tamsulosin [TAMSULOSIN] Allergy (Intermediate, Verified 12/02/24 10:28) Rash tramadol Allergy (Intermediate, Verified 12/02/24 10:28) Itching insulin degludec [From Tresiba FlexTouch U-100] Allergy (Mild, Verified 12/02/24 10:28) Hives pravastatin Allergy (Mild, Verified 12/02/24 10:28) pruritus lactose [LACTOSE] Adverse Reaction (Intermediate, Verified 12/02/24 10:28) Diarrhea Beef Containing Products Adverse Reaction (Mild, Verified 12/02/24 10:28) Stomach Upset Fish Containing Products Adverse Reaction (Mild, Verified 12/02/24 10:28) Nausea and Vomiting Pork/Porcine Containing Products Adverse Reaction (Mild, Verified 12/02/24 10:28) Stomach Upset FRUIT Adverse Reaction (Mild, Uncoded 12/02/24 10:28) NAUSEA & VOMITING VEGETABLES,FRESH Adverse Reaction (Mild, Uncoded 12/02/24 10:28) NAUSEA & VOMITING Tobacco use date assessed: 12/02/24 Fall risk assessment: 1 Fall in past year Last assessed Fall Risk: 12/02/24 Dental Screening Dental Screen Date: 12/02/24 Did you have a dental visit in the last 12 months?: Yes Did you have a dental problem in the last 6 months where you did not have access to dental care?: No Was dental information given to patient?: Patient has dentist HPI HPI Comments History of Present Illness Details 69 y/o female [facility]. She was Admitted at [facility] from 11/14 - 11/23 after she suffered a Fall and hit head on the ground. She was evaluated at [facility] 11/[address] scan head showed Subdural Hematoma. She Transfered to [facility] for PT/OT. [facility] Medical History Medicare annual wellness visit, initial Severe recurrent major depression Postmenopausal CKD (chronic kidney disease) stage 4, GFR 15-29 ml/min Type 2 diabetes mellitus with chronic kidney disease Obesity due to excess calories DM2 (diabetes mellitus, type 2) CKD (chronic kidney disease) Epicondylitis, lateral (tennis elbow) Dyslipidemia Leg edema Pain in both lower legs Calcaneal spur of both feet Acute kidney injury Irregular heart beat Depression Hypercholesteremia Diabetes Essential hypertension Surgical History Hx of vascular surgery History of extraction of renal calculus History of hysterectomy Family History Father Diabetes Mother Diabetes Sister Breast cancer Brother No problems noted. Sister No problems noted. Social History Household Members: Significant Other Housing: Apartment Are you a primary pet caregiver to a significant other at home: No Do you presently have visiting nurse or other home services: Yes Unable to assess alcohol history related to: Unknown Alcohol intake: never Patient Tobacco Use Status: Never used Tobacco e-Cigarette/Vaping Use: Never Used Second Hand Smoke Exposure: No Advance Directives Date on File: 09/11/20 service: No Current occupational status: disabled Cognitive needs: Yes (walker, power chair) Hearing needs: No Vision needs: Yes (glasses) Questionnaire PHQ-9 Over the last 2 weeks, how often have you been bothered by any of the following problems? 1. Little interest or pleasure in doing things: not at all 2. Feeling down, depressed, or hopeless: not at all 3. Trouble falling or staying asleep, or sleeping too much: not at all 4. Feeling tired or having little energy: not at all 5. Poor appetite or overeating: not at all 6. Feeling bad about yourself - or that you are a failure or have let yourself or your family down: not at all 7. Trouble concentrating on things, such as reading the newspaper or watching television: not at all 8. Moving or speaking so slowly that other people could have noticed. Or the opposite - being so fidgety or restless that you have been moving around a lot more than usual: not at all 9. Thoughts that you would be better off or of hurting yourself in some way: not at all Total score: 0 Depression Screening Interpretation: Negative Depression Screening Done: Yes Source: Developed by Drs. Stew Reynolds, Татьяна Barron, Biju Rodrigez and colleagues, with an educational saul from Natanael Ulien. Thrive Questionnaire Date Thrive assessed: 12/02/24 I am a: Patient What is your living situation today?: I have a steady place to live Within the past 12 months, did the food you bought not last and you didn't have the money to get more?: Never true Within the past 12 months, did you worry whether your food would run out before you got money to buy more?: Never true Do you have trouble paying for medicines?: No Do you have trouble getting transportation to medical appointments?: No Do you have trouble paying your heating and electricity bill?: No Do you have trouble taking care of your child, family member or friend?: No Do you have trouble with day-to-day activities such as bathing, preparing meals, shopping, managing finances, etc.?: No Are you currently unemployed and looking for a job?: No Are you interested in more education?: No Please select the resources that you would like help with: None Currently or been in a relationship where the following occur: No concerns reported THRIVE Score: 0 AUDIT C Alcohol Use Questionnaire (AUDIT-C) 1. How often do you have a drink containing alcohol?: Never Total Score: 0 NAYELY-7 AMB Questionnaire NAYELY-7 Date NAYELY - 7 assessed: 12/02/24 Feeling nervous, anxious, or on edge: 0 = Not at all Not being able to stop or control worryin = Not at all Worrying too much about different things: 0 = Not at all Trouble relaxin = Not at all Being so restless that it is hard to sit still: 0 = Not at all Becoming easily annoyed or irritable: 0 = Not at all Feeling afraid as if something awful might happen: 0 = Not at all Total NAYELY-7 score (0-4 normal; 5-9 mild; 10-14 moderate; 15-21 severe): 0 Source: Developed by Drs. Stew Reynolds, Татьяна Barron, Biju Rodrigez and colleagues, with an educational saul from Natanael Ulien. Review of Systems Const All systems reviewed & are unremarkable except as noted in HPI and below Physical exam (Primary Care) Vital Signs: Last Vital Signs Temp 97.3 F 12/02/24 10:29 Pulse 68 12/02/24 10:29 BP 130/66 12/02/24 10:29 Pulse Ox 97 12/02/24 10:29 Oxygen Delivery Method Room Air 12/02/24 10:29 BMI result Body Mass Index 30.8 Tobacco/Smoking Status: Tobacco use Status Tobacco use date assessed 12/02/24 12/02/24 10:32 Patient Tobacco Use Status Never used Tobacco 12/02/24 10:32 e-Cigarette/Vaping Use Never Used 12/02/24 10:32 PHQ-9: PHQ-9 Score PHQ-9: Total score 0 12/02/24 10:42 Depression Screening Interpretation: Negative Thrive Assessment: Date of Thrive Assessment Date Thrive assessed 12/02/24 12/02/24 10:32 Currently or been in a relationship where the following occur: No concerns reported Const General: cooperative and no acute distress Orientation/consciousness: patient oriented x3 Limitations: ambulation with walker HENMT Head: Yes normocephalic Ears: external ears normal and TM abnormal with fluid behind the TM General nose exam: Normal external nose present Resp Effort & Inspection: normal respiratory effort Auscultation: clear to auscultation bilaterally Cardio Heart sounds: S1 normal heart sound present and S2 normal heart sound present Neuro Other: Walks with a walker General: patient oriented x3 and moves all extremities Motor exam (neuro): 5/5 motor strength present throughout Psych Speech and movement: Normal speech and movement present Coding Level of Care Code Est Pt Level 4 (46993) Diagnoses Acute subdural hematoma S06.5XAA Time Spent (min) 20 Assessment & Plan Assessment & Plan (1) Acute subdural hematoma: Code(s): S06.5XAA - Traumatic subdural hemorrhage with loss of consciousness status unknown, initial encounter Category: Medical Plan: Resolved.
[2024-12-02 10:29] VITALS: BP 130/66; PULSE 68; TEMP 36.3; O2SAT 97; BMI 30.8
--- OUTSIDE RECORDS SUMMARY | 2024-12-02 11:40 | XMS_ITS ---
Author Organization [facility] Care Team Providers Care Spd Tech Name Role Phone AdriánBenjamínw Unavailable Unavailable Sunita Luevano Unavailable Unavailable Ignacio BROKE MAN, Luba Barry Unavailable Unavailable Allergies and adverse reactions Code CodeSystem Substance Reaction Severity StartDate Concern Status 787009352 SNOMED CT [place] Severe 11/15/2024 active Vancomycin Unknown 11/14/2024 active 504588 RXNORM Rosuvastatin Unknown 11/14/[address] [place] Severe 11/15/[address] Milk Diarrhea (code- 44288472, SNOMED CT) Unknown 11/15/2024 active 6902 RXNORM methylPREDNISolone Unknown 11/14/2024 ac tive 1942917 RXNORM Latex Unknown 11/14/2024 active 11247 RXNORM Insulin Lispro Unknown 11/14/[address] Fresh fruits Unknown 11/15/2024 [place] [address] RXNORM Ferrous Sulfate Unknown 11/14/2024 activ e 2670 RXNORM Codeine Unknown 11/14/2024 active 2551 RXNORM Ciprofloxacin Unknown 11/14/[address] [place] Inhibitors Unknown 11/14/2024 ac tive Care Team Name Role Address Phone Organization Garcia Luevano PCP [address], [place], [address], [place] (Office): : [facility] 11/14/2024 - 11/23/2024 Juan Jose Sampson Attending Physician JORGE LUIS, [facility] 11/14/2024 - 11/23/2024 Luba Pierre NP Attending Physician [address], [place], [place], [facility] (Office): [facility] 11/14/2024 - 11/23/2024 Goals Section Description Status Target Date Paige has expressed interes t in self-directed activities in the comfort of her room. she will be open to room visits through next review date Active 02/12/2025 Paige will be free of any d iscomfort or adverse side effects of diuretic therapy through the review date. Active 02/12/2025 Paige will be free of falls through the review date. Active 02/12/2025 Paige will have no complica tions related to diabetes through the review date. Active 02/12/2025 Paige will improve current level of function in self-care ADLs through the review date. Paige will be able to reach goals set by therapy. Active 02/12/2025 Paige will increase level o f mobility by working with therapy and reaching set goals through the next review date. Active 02/12 Paige will maintain or deve lop clean and intact skin by the review date. Active 02/12/2025 Paige will not have an inte rruption in normal activities due to pain through the review date. Active 02/12/2025 Paige will remain free of c omplications related to immobility, including contractures, thrombus formation, skin-breakdown, fall related injury through the next review date. Active Paige will verbalize adequa te relief of pain through the review date. Active 02/12/2025 The resident will be able to function at the fullest potential possible as outlined by the interdisciplinary team through the review date. Active 02/12/2025 The resident will be able to resume normal daily activities of daily living by the review date. Active 02/12/2025 The resident will be contine nt at all times through the review date Active 02/12/2025 The resident will be contine nt at all times through the review date. Active 02/12/2025 The resident will have impro tomy mood state (happier, calmer appearance, no s/sx of depression, anxiety or sadness) through the review date. Active 02/12/2025 The resident will remain abilio e from discomfort, complications or s/sx related to dx of GERD through review date. Active 2024 The resident will remain abilio e of complications related to altered hematological status through the review date. Active 02/13/20 the resident/HCP/Guardian's Advanced Directives will be honored through next review Active 02/12/2025 Functional Status Code Name Recorded Time Value Entered By Chair/snt-mu-yxeng transfer 11/23/2024 Independent smontero Eating 11/23/2024 Not assessed kmolina Lower body dressing 11/23/2024 Independent smontero Lying to sitting on side of bed 11/23/2024 Independe nt smontero Oral hygiene 11/23/2024 Independent smontero Personal hygiene 11/23/2024 Independent smontero Roll left and right 11/23/2024 Independent smontero Shower/bathe self 11/23/2024 Independent smontero Sit to lying 11/23/2024 Independent smontero Sit to stand 11/23/2024 Independent smontero Toilet transfer 11/23/2024 Independent smontero Toileting hygiene 11/23/2024 Independent smontero Upper body dressing 11/23/2024 Independent smontero Wheel 150 feet 11/23/2024 Not assessed smontero Wheel 50 feet with two turns 11/23/2024 Not assessed smontero Medications Section Medication Name Status Code CodeSystem Dose Route Frequency Admin Type Sig Text Start Date End Date buPROPion HCl Oral Tablet aborted 150 mg Oral one time a day Routine Give 150 mg by mouth one time a day for depres vaughn 11/15 Fleet Enema Enema 7-19 GM/118ML active 429344 RXNORM 1 dose Rectal as needed PRN Insert 1 dose rectal ly as needed for Consti pation (Step 3) as needed if no bowel moveme nt for 8 hours after bisaco dyl suppos itory. 2024 - Acetaminophen Tablet 325 MG aborted 469969 RXNORM 1000 mg Oral as needed PRN Give 1000 mg by mouth every 6 hours as needed for Pain Pain Total dosage for acetam inophe n and medica tions that contai n acetam inophe n should not exceed 3 grams / 24 hours. AND Give 1000 mg by mouth every 6 hours as needed for Fever greate r than 100.0F Total dosage for acetam inophe n and medica tions that contai n acetam inophe n should not exceed 3 grams / 24 hours. 11/15 662031 RXNORM 1000 mg Oral as needed PRN Give 1000 mg by mouth every 6 hours as needed for Pain Pain Total dosage for acetam inophe n and medica tions that contai n acetam inophe n should not exceed 3 grams / 24 hours. AND Give 1000 mg by mouth every 6 hours as needed for Fever greate r than 100.0F Total dosage for acetam inophe n and medica tions that contai n acetam inophe n should not exceed 3 grams / 24 hours. 11/15 Albuterol Sulfate Nebulization Solution (2.5 MG/3ML) 0.083% active 138440 RXNORM 3 ml Inhalat ion as needed PRN 3 ml inhale orally via nebuli zer every 6 hours as needed for sob/ wheezi ng DINH = Clear lung sounds A DV = Sikh itious D IMI = Dimini shed 2024 - Insulin Aspart FlexPen Subcutaneous Solution Pen-injector 100 UNIT/ML active 16 unit Subcuta neous one time a day Routine Inject 16 unit subcut aneous ly one time a day for once a day with breakf ast 2024 - Valsartan Oral Tablet 320 MG active 249689 RXNORM 320 mg Oral one time a day Routine Give 320 mg by mouth one time a day for HTN 2024 - Chlorthalidon e Oral Tablet 25 MG active 331675 RXNORM 25 mg Oral one time a day Routine Give 25 mg by mouth one time a day for diuret ic 2024 - Breo Ellipta Inhalation Aerosol Powder Breath Activated 200-25 MCG/ACT active 501989 5 RXNORM 1 inhala tion Inhalat ion one time a day Routine 1 inhala tion inhale orally one time a day for respir atory functi on 2024 - Cetirizine HCl Oral Tablet 10 MG active 346716 8 RXNORM 10 mg Oral as needed PRN Give 10 mg by mouth every 24 hours as needed for allerg ies 2024 - Albuterol Sulfate HFA Inhalation Aerosol Solution 108 (90 Base) MCG/ACT active 171086 RXNORM 2 puff Inhalat ion as needed PRN 2 puff inhale orally every 4 hours as needed for Sob/wh eeze 2024 - Metoprolol Tartrate Oral Tablet 50 MG active 850913 RXNORM 50 mg Oral two times a day Routine Give 50 mg by mouth two times a day for HTN 2024 - Trulicity Subcutaneous Solution Auto-injector 1.5 MG/0.5ML active 891984 6 RXNORM 1.5 mg Subcuta neous one time a day Routine Inject 1.5 mg subcut aneous ly one time a day every Sun for DM 2024 - Toujeo SoloStar Subcutaneous Solution Pen-injector 300 UNIT/ML aborted 431471 4 RXNORM 75 mg Subcuta neous one time a day Routine Inject 75 mg subcut aneous ly one time a day for DM 11/15 Ezetimibe Oral Tablet 10 MG active 347055 RXNORM 10 mg Oral one time a day Routine Give 10 mg by mouth one time a day for choles terol contro l 2024 - Pantoprazole Sodium Oral Tablet Delayed Release 40 MG active 000685 RXNORM 40 mg Oral one time a day Routine Give 40 mg by mouth one time a day for GERD 2024 - Magnesium Oxide Oral Tablet aborted 500 mg Oral one time a day Routine Give 500 mg by mouth one time a day for supple ment 11/15 Milk of Magnesia Suspension 400 MG/5ML active 384380 RXNORM 30 ml Oral as needed PRN Give 30 ml by mouth as needed for Consti pation (Step 1) As needed if no bowel moveme nt for three days. (Do not use for Hemodi alysis patien ts). 2024 - Bisacodyl Suppository 10 MG active 390022 RXNORM 1 suppos itory Rectal as needed PRN Insert 1 suppos itory rectal ly as needed for If no bowel moveme nt for 8 hours after Milk of Magnes ia 2024 - Glutose 45 Gel 40 % active 302824 7 RXNORM 1 dose Oral as needed PRN Give 1 dose by mouth as needed for hypogl ycemic protoc ol Give one tube PO/SL if FSBS <50 and able to swallo w PRN. Rechec k FSBS 10 minute s after admini strati on and call provid er. 2024 - GlucaGen HypoKit Solution Reconstituted 1 MG active 317263 RXNORM 1 mg Subcuta neous as needed PRN Inject 1 mg subcut aneous ly as needed for hypogl ycemic protoc ol Specia l instru ctions : Glucag en 1 mg hypoki t subcut aneous if FSBS below 60 and unable to swallo w. R echeck FSBS in 10 minute s and update provid er. 2024 - Tylenol Extra Strength Oral Tablet 500 MG active 380450 RXNORM 1000 mg Oral as needed PRN Give 1000 mg by mouth every 6 hours as needed for Pain/f ever 2024 - buPROPion HCl ER (XL) Oral Tablet Extended Release 24 Hour 150 MG active 722245 RXNORM 150 mg Oral one time a day Routine Give 150 mg by mouth one time a day for Depres vaughn 2024 - Magnesium Oxide Oral Tablet active 400 mg Oral one time a day Routine Give 400 mg by mouth one time a day for supple ment 2024 - Toujeo SoloStar Subcutaneous Solution Pen-injector 300 UNIT/ML active 167090 4 RXNORM 75 unit Subcuta neous one time a day Routine Inject 75 unit subcut aneous ly one time a day for DM 2024 - Problems Problem # Description Date of onset Resolved Date Code CodeSystem Concern Status 1 ALLERGY TO OTHER FOODS 11/14/[address] active 2 CHRONIC KIDNEY DISEASE, STAGE 4 (SEVERE) 11/14/[address] active 3 GASTRO-ESOPHAGEAL REFLUX DISEASE WITHOUT ESOPHAGITIS 11/14/[address] active 4 HYPERLIPIDEMIA, UNSPECIFIED 11/14/[address] active 5 HYPERTENSIVE CHRONIC KIDNEY DISEASE WITH STAGE 1 THROUGH STAGE 4 CHRONIC KIDNEY DISEASE, OR UNSPECIFIED CHRONIC KIDNEY DISEASE 11/14/[address] active 6 LOCALIZED SWELLING, MASS AND LUMP, LOWER LIMB, BILATERAL 11/14/[address] active 7 DELIVERY AND MAIL SORTER (CURRENT) USE OF INSULIN 11/14/[address] active 8 MAJOR DEPRESSIVE DISORDER, RECURRENT, UNSPECIFIED 11/14/[address] active 9 MORBID (SEVERE) OBESITY DUE TO EXCESS CALORIES 11/14/[address] active 10 MUSCLE WEAKNESS (GENERALIZED) 11/14/[address] active 11 OTHER ABNORMALITIES OF GAIT AND MOBILITY 11/14/[address] active 12 PAIN IN LEFT LOWER LEG 11/14/[address] active 13 PAIN IN RIGHT LOWER LEG 11/14/[address] active 14 PURE HYPERCHOLESTEROLE LEÓN, UNSPECIFIED 11/14/[address] active 15 TRAUMATIC SUBDURAL HEMORRHAGE WITHOUT LOSS OF CONSCIOUSNESS, SUBSEQUENT ENCOUNTER 11/14/[address] active 16 TYPE 2 DIABETES MELLITUS WITH DIABETIC CHRONIC KIDNEY DISEASE 11/14/[address] active 17 UNSPECIFIED FALL, SUBSEQUENT ENCOUNTER 11/14/[address] active 18 UNSPECIFIED LACK OF COORDINATION 11/14/[address] active 19 UNSTEADINESS ON FEET 11/14/[address] active Reason for Referral No Reasons for Referral Entered Social History Social History Observation Description Start Date End Date Code Code System Current Smoking Status Tobacco smoking consumption unknown 276470360 SNOMED CT Sex Assigned At Female 1955 39819-0 [facility] Vital Signs Code Code System Vitals Name Values and Units Timing Information 11413-2 [facility] Pain Level Value=0.0 11/23/2024 9279-1 [facility] Respiratory Rate Value=18.0 Units=/m in 11/22/2024 8462-4 [facility] Blood Pressure-Diastolic Value=92 Un its=mmHg 11/22/2024 8480-6 [facility] Blood Pressure-Systolic Pwfgp=454 Un its=mmHg 11/22/2024 8310-5 [facility] Body Temperature Value=97.2 Units=?? F 11/22/2024 8867-4 [facility] Heart rate Value=67.0 Units=/min 12/2024 38444-8 [facility] O2 % BldC Oximetry Value=96.0 Units= % 11/22/2024 11690-5 [facility] Weight Wfcei=406.6 Units=Lbs 11/2024 2339-0 [facility] Blood Sugar Bkbrl=813.0 Units=mg/dL 11/19/2024 8302-2 [facility] Height Value=64.0 Units=Inches 11/15/2024
--- OUTSIDE RECORDS SUMMARY | 2024-12-02 11:40 | XMS_ITS | Clinical Summary ---
Author Organization [facility] Address [address] [place] [address] Phone Care Team Providers Care Integrated Circuit Ic Layout Designer Name Role Phone Joann Partida MD Primary Care Provider [phone] Allergies Active Allergy Reactions Criticality Noted Date Comments Wiley Inhibitors Other (see comments) 12/11/2020 Aloe Vera Other (see comments) 12/11/2020 Ciprofloxacin Other (see comments) 12/11/2020 Codeine Other (see comments) 12/11/2020 Ferrous Sulfate Er Other (see comments) 021 Methylprednisolone Other (see comments) 021 Penicillin V Other (see comments) 12/11/2020 Tamsulosin Other (see comments) 12/11/2020 Tramadol Other (see comments) 12/11/2020 Medications chlorthalidone (HYGROTON) 25 MG tablet Take 1 tablet by mouth 1 (one) time each day Active losartan (COZAAR) 50 MG tablet Take 1 tablet by mouth 2 (two) times a day Active metoprolol succinate XL (TOPROL-XL) 100 MG 24 hr tablet Take 1 tablet by mouth 1 (one) time each day Active pantoprazole (PROTONIX) 40 MG EC tablet Take 1 tablet by mouth 1 (one) time each day Active potassium chloride (KLOR-CON M20) 20 MEQ CR tablet Take 1 tablet by mouth 1 (one) time each day Active insulin glargine (LANTUS) 100 UNIT/ML injection Inject under the skin every night Active Dulaglutide (Trulicity) 0.75 MG/0.5ML solution pen-injector Inject under the skin Active gabapentin (NEURONTIN) 300 MG capsule Take 600 mg by mouth every night Active valsartan (DIOVAN) 160 MG tablet 08/10/2021 Active amLODIPine (NORVASC) 5 MG tablet Take 5 mg by mouth 1 (one) time each day 02/21/2022 Active insulin aspart protamine-insuli n aspart (NovoLOG 70/30) (70-30) 100 UNIT/ML injection Inject under the skin 2 (two) times a day before meals Active Active Problems Problem Noted Date Diagnosed Date Renal osteodystrophy 04/28/2022 Hypertensive disorder 11/18/2021 Diabetes mellitus 11/18/2021 Depressive disorder 11/18/2021 Asthma 11/18/2021 Benign essential hypertension 12/11/2020 Chronic kidney disease stage 4 12/11/2020 Proteinuria 12/11/2020 Renal disorder due to type 2 diabetes mellitus 0 12/11/2020 Renal stone 12/11/2020 Morbid obesity 05/18/2012 Iron deficiency anemia 05/18/2012 Hyperlipidemia 05/18/2012 Overview (03/17/2023): O update Resolved Problems Problem Noted Date Diagnosed Date Resolved Date Chronic kidney disease stage 3 12/11/2020 04/18/2021 Family History Medical History Relation Comments Diabetes Father Diabetes Mother Hypertension Sibling 1 Cancer Sibling 2 Relation Status Comments Father Mother Sibling 1 Sibling 2 Social History Tobacco Use Types Packs/Day Years Used Date Smoking Tobacco: Never Smokeless Tobacco: Never Alcohol Use Standard Drinks/Week Comments No 0 (1 standard drink = 0.6 oz pur e alcohol) Comments Unknown Sex and Gender Information Value Date Recorded Sex Assigned at Not on file Legal Sex Female 4:51 PM EST Gender Identity Not on file Sexual Orientation Not on file Last Filed Vital Signs Vital Sign Reading Time Taken Comments Blood Pressure 139/62 03/17/2023 1:28 PM EDT Pulse 68 03/17/2023 1:28 PM EDT Temperature - - Respiratory Rate - - Oxygen Saturation 98% 03/17/2023 1:28 PM EDT Inhaled Oxygen Concentration - - Weight 88 kg (194 lb) 03/14/2024 4:13 PM EDT Height - - Body Mass Index - - Plan of Treatment Upcoming Encounters Date Type Department Care Team (Late st Contact Info) Description 01/19/2025 2:15 PM EDT Office Visit [facility] [address] [place] [address] [facility] [place] [address] Diego Duncan MD [address] [facility] [address] [place] [address] Health Maintenance Due Date Last Done Comments Breast Cancer Screening 1955 Pneumococcal Vaccine: 65+ Ye ars (1 of 2 - PCV) 1962 Colorectal Cancer Screening: Annual FOBT 2005 Colorectal Cancer Screening: Colonoscopy 2005 Colorectal Cancer Screening: Sigmoidoscopy 2005 Diabetes: Ophthalmology Exam 10/21/2020 Diabetes: Pedal Pulse Checked 10/21/2020 Diabetes: Sensory Foot Exam 10/21/2020 Diabetes: Visual Foot Exam 10/21/2020 Diabetes: Hemoglobin A1C 10/29/2021 07/29/2021 Influenza Vaccine (#1) 2024 Hepatitis B Vaccine Aged Out No longe r eligible based on patient's age to complete this topic Procedures Procedure Name Priority Date/Time Associated Diagnosis Comments EXT RESULT ENTRY Routine 08/09/2024 HEMOGLOBIN A1C Routine 07/29/2021 8:03 AM EST Chronic kidney disease, stage 4 (severe) (HCC) from Last 3 Months or Most Recently Relevant to Health Maintenance Results * (ABNORMAL) EXT RESULT ENTRY (08/09/2024) WBC 8.0 3.3 - 10.0 10*3/ML Red Blood Cell Count 3.11 Hemoglobin 8.6(A) 12.0 - 16.0 Hematocrit 26.2(A) 36.0 - 46.0 Platelets 340 150 - 399 10*3/UL MCV 84.2 82.0 - 108.0 Sodium 134(A) 137 - 147 Potassium 3.5 3.4 - 5.5 Chloride 99.0 99.0 - 108.0 Anion Gap 14 <=30 MMOL/L BUN 40(A) 4 - 21 mg/dL Creatinine 1.76(A) 0.50 - 1.10 mg/dL Calcium 10.9(A) 8.7 - 10.7 mg/dL 08/09/2024 Historical Provider LAB BLOOD ORDERABLES Naima mendoza Result * Hemoglobin A1c (07/29/2021 8:03 AM EST) Hemoglobin A1C 8.4 % [place]OH[place] Comment: ?Hemoglobin A1C Reference Range ? Adults: ??4.8 - 6.0 % ? Non diabetic: ??< 6.0 % ? Goal: ??< 7.0 % Additional Action Suggested: ??> 8.0 % Note: ??Hemoglobin A1c results are invalid for patients ? with abnormal amounts of HbF. ??Blood transfusions ? may impact the HbA1c concentration in the patient ? sample. Estimated Average Glucose 194 mg/dL ZOHREH Comment: eAG = Estimated average glucose which is %A1C expressed as average glucose, using the formula of the P6N-Vvshsao Average Glucose study (ADAG), Diabetes Care, Vol.31,#8, Apr. 2007 Blood (Blood, Venous) 07/29/2021 8:03 AM EST 07/29/2021 8:03 AM EST Terry Jamison MD LAB BLOOD ORDERABLES Final Re sult ZOHREH from Last 3 Months or Most Recently Relevant to Health Maintenance Insurance [facility] ([id number]) [facility] ([id number]) Care Teams Integrated Circuit Ic Layout Designer Relationship Specialty Start Date End Date Joann Partida MD [address] [place], [place] PCP - General 10/01/20
--- OUTSIDE RECORDS SUMMARY | 2024-12-02 11:40 | XMS_ITS | Data Portability ---
Author Organization [employer] Address [address] [place] [address] Care Team Providers Care Blower Installer Name Role Phone HIM CCA OTHER Assessment Encounter Date Assessment Date Assessment LastModified by Organization Details LastModified Time 02/16/2024 02/16/2024 I provided real -time medical direction via phone for this encounter, and was available for additional phone based assistance as needed. I have reviewed and agree with the Assessment and Plan as documented by the Records Clerk. We discussed the diagnostic uncertainty of home [...] in the field was performed by my life specialist colleague, as noted above, I provided real-time [...] any acute worsening or change in symptoms. [email or web address] Not available 06/01/2024 11:46:54 08/08/2024 08/08/2024 As noted, we were called to see this patient regarding concerns of pain. Evaluation in the field was performed by my life specialist colleague, as noted above, I provided real-time [...] to ambulate or stand. 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 Discussed with medics who feel she is unsafe to remain at home and I am in agreement. Pt will need transfer to ED for full in person evaluation and discussion of rehab placement. Expect call placed to [facility] ED. Plan: ED Primary care, consider [...] Imaging electrocard iogram 2023 [email or web address], [address], 10:56:38 Medication Orders Tylenol 325 mg tablet 2023 024 [email or web address] Not available 11:40:46 Patient TargetsNo targets recorded. Patient InstructionsNo instructions recorded. Reason for Referral None Reported. Results Created Date Observation Date Name Description Value Unit Range Abnormal Flag Note LastModifiedBy Organization Detail LastModifiedTime 02/16/20 24 02/16/2024 elect rema rdz am No observ ation record ed. [email or web address] [address], [address], 02/16/2024 10:56:36 Result Notes None recorded. Procedures Surgical History None recorded. Imaging Results Imaging Date Name Status LastModified by Organization Details LastModified Time 02/16/2024 electrocardiogram completed [email or web address], [address], 02/16/2024 10:56:36 Procedure Notes None recorded. Medical Equipment None Reported. Allergies Allergen ID Allergen Name Allergen Category Reaction Reaction Severity Criticality Documentation Date Start Date Code Code System Note Provider Name and Address Organization Details Recorded Time 66025 pravastat in medicatio n Not available Not available Not available 08/08/2024 76340 RxNorm Not Available [facility] [employer] 4 13:38:21 5141 tree nut food Not available Not available Not available 02/16/2024 98390 MICHELLE Ramírez MD [address] [facility], [place], [address], [employer] 4 10:01:58 5142 beef allergeni c extract food,medi cation Not available Not available Not available 02/16/2024 24936 9 RxNorm Karlie Ramírez MD [address] [facility],[address], [place], [address], [employer] 4 10:02:08 5143 fish derived food,medi cation Not available Not available Not available 02/16/2024 35784 MICHELLE Ramírez MD [address] [facility],[address], [place], [address], [employer] 4 10:02:18 5144 vancomyci n medicatio n Not available Not available Not available 02/16/2024 91571 RxNorm Not Available [facility] - [employer] 03:47:47 5145 rosuvasta tin medicatio n Not available Not available Not available 02/16/2024 16176 2 RxNorm Not Available [facility] - production 13:38:21 5146 Product containin g angiotens in-conver ting enzyme inhibitor (product) medicatio n Not available Not available Not available 02/16/2024 19801 009 SNOMED Karlie Ramírez MD [address] [facility],[address], [place], [address], [employer] 4 10:02:50 5147 ciproflox acin medicatio n Not available Not available Not available 02/16/2024 2551 RxNorm Not Available [facility] - production 03:47:47 5148 codeine medicatio n Not available Not available Not available 02/16/2024 2670 RxNorm Not Available [facility] - production 13:38:21 5149 latex environme nt,medica tion Not available Not available Not available 02/16/2024 34349 91 RxNorm Not Available [facility] [employer] 4 03:47:47 5150 lactose food,medi cation Not available Not available Not available 02/16/2024 6211 RxNorm Karlie Ramírez MD [address] [facility],[address], [place], [address], [employer] 4 10:03:16 5151 cyclobenz aprine medicatio n Not available Not available Not available 02/16/2024 14555 Rx[facility] Not Available [facility] 13:38:21 5152 ferrous sulfate medicatio n Not available Not available Not available 02/16/2024 05226 Rx[facility] Not Available [facility] 13:38:21 5153 insulin lispro medicatio n Not available Not available Not available 02/16/2024 32421 RxNorm Karlie Ramírez MD [address] [facility],[address], [place], [address], [employer] 10:03:48 5154 methylpre dnisolone medicatio n Not available Not available Not available 02/16/2024 6902 Rx[facility] Not Available [facility] 03:47:47 5155 Product containin g penicilli n (product) medicatio n Not available Not available Not available 02/16/2024 17678 8001 SNOMED Karlie Ramírez MD [address] [facility],[address], [place], [address], [employer] 4 10:04:13 5156 tamsulosi n medicatio n Not available Not available Not available 02/16/2024 89512 RxNorm Not Available [facility] [employer] 4 13:38:21 5157 tramadol medicatio n Not available Not available Not available 02/16/2024 41731 RxNorm Karlie Ramírez MD [address] [facility],[address], [place], [address], JORGE LUIS - ROC[employer], MOUSTAPHA 10:04:30 [...] % 160.02 cm 64 /min 97.1 [degF] 40110.8 48 g 155 mm[Hg] 84 mm[Hg] Not Available [employer] 4 09:59:36 Date Recorded Body temperature Body weight Respiratory rate Body height Heart rate Oxygen saturation Oxygen saturation in Arterial blood by Pulse oximetry Systolic blood pressure Diastolic blood pressure Provider Name and Address Organization Details Last Updated DateTime 4 98.4 [degF] 180456 g 18 /min 157.48 cm 90 /min 98 % 98 % 132 mm[Hg] 78 mm[Hg] Not Available [employer] 4 11:36:00 Date Recorded Oxygen saturation Oxygen saturation in Arterial blood by Pulse oximetry Heart rate Respiratory rate Systolic blood pressure Diastolic blood pressure Provider Name and Address Organization Details Last Updated DateTime 4 99 % 99 % 90 /min 18 /min 138 mm[Hg] 80 mm[Hg] Not Available [employer] 15:51:20 Social History None recorded. Functional Status None recorded. Mental Status None recorded. Family History Nothing Reported. Medical History No medical history recorded. Gynecological HistoryNo gynecological history recorded. Obstetrics History GPAL:G 0 P 0 0 0 0 Past Encounters Encounter ID Performer Location Encounter Start Date Encounter Closed Date Diagnosis/Indication Diagnosis SNOMED-CT Code Diagnosis ICD10 Code Diagnosis Note [id number] Karlie Ramírez MD [facility] [address] [place] [phone] 02/16/2024 09:59:31 02/16/2024 17:13:28 Thoracic back pain 788168337 M54.6 Likely muscular since increases with expanding [...] follow-up with PCP as soon as possible [id number] Denilson Brunner MD [facility] [address] [place] [phone] 06/01/2024 11:35:50 06/01/2024 14:24:16 Pain of right knee joint [id number] 99992 M25.561 [id number] Denilson Brunner MD [facility] [address] [place] [phone] 08/08/2024 15:28:56 08/08/2024 16:50:00 Generalized chronic body pains 228378552 G89.29 Health Concerns Section Related Observation LastModified by Organization Detai ls LastModified Time None Recorded Concern Status LastModified by Organization Details LastModified Time None Recorded Advance Directives Directive None Recorded Payers Encounter Date Sequence Insurance Name Policy Number Policy Galdamez Covered Member ID Galdamez Member ID Guarantor Name 02/16/2024 1 [facility] - DOS ON OR AFTER 2022 - DUAL ELIGIBLE - FDC OPTIONS AND ONE CARE (MEDICARE REPLACEMENT/ADV ANTAGE - HMO) Paige Coreasez [id number] Paige Harris 06/01/2024 1 [facility] - DOS ON OR AFTER 2022 - DUAL ELIGIBLE - FDC OPTIONS AND ONE CARE (MEDICARE REPLACEMENT/ADV ANTAGE - HMO) Paige Harris [id number] Paige Harris 08/08/2024 1 [facility] - DOS ON OR AFTER 2022 - DUAL ELIGIBLE - FDC OPTIONS AND ONE CARE (MEDICARE REPLACEMENT/ADV ANTAGE - HMO) Paige Steven [id number] Paige Vasquez Harris Notes Date Note Type Note Provider Name and Address Organization Details Recorded Time 02/16/2024 text/html HPI: Mbr calling into [facility] and [facility] transferred call to this CRU RN. Tony is a 68 yo Kazakh/Cameroonian speaking female with significant hx including asthma, [...] today and she agreed. Confirmed address and phone/[phone]. ................... ................... ................... ................... ................... ................... ................... ........ [facility] Nurse Triage Notes (Malena Hodge): Comments: HPI Reviewed. No further information needed to process visit. Records Clerk POC Test Results from [facility] EKG (1) [10:06] EKG test performed. Attachments uploaded as part of this test result can be found under Documents section. ................... ................... ................... ................... ................... ................... ................... ........ Records Clerk Note From [facility]: Pt reports acute [...] to medic arrival Karlie Ramírez MD [address] [facility],[address], [place], [address], J[place] - [employer] MOUSTAPHA 02/16/2024 10:56:52 06/01/2024 text/html HPI: Call to mbr at [phone] and spoke with Mbr who is feeling [...] notification of this triage. Confirmed address and phone/[phone]. Instructed Mbr to call 911 and go [...] ................... ................... ................... ................... ................... ................... ........ Records Clerk Note From Michael Donahue: Patient found supine [...] all. Patient reports increase of pain on movement.[facility] recommends 1000 mg Tylenol three times a day for pain. And to follow up with the pain clinic that she is enrolled in at her next appointment. Patient ambulates with a steady slow even gait, appears in pain. Red flags, patient education discussed. Patient demonstrates understanding of care and plan. Records Clerk Allergies: Ciprofloxacin, Latex, Methylprednisolone, Vancomycin ................... ................... ................... ................... ................... ................... ................... ........ Disposition: Fulfilled Denilson Brunner MD [address] [place] [address],[address], [place], [address], [employer] 06/01/2024 12:14:49 08/08/2024 text/html HPI: 12:57pm ? [...] alone, as her is currently in a usp, and is unable to get out for treatment. She is requesting an in-home visit today for assessment. After confirming TONY? s address and phone number on file, TONY is strongly advised to call 911 for any new or worsening symptoms. She understands and will do so, as she wears a life alert bracelet. This call originated from [phone]. ................... ................... ................... ................... ................... ................... ................... ........ [facility] Nurse Triage Notes (Brandi Juan): Reason For Request: Pain Chief Complaints: Headache, Joint pain/swelling PMH: COPD/Asthma, Hypertension, Cancer, Diabetes Mellitus Type 1, Anxiety Disorder, Chronic Kidney Disease, Chronic Back Pain Comments: Reviewed info, no further data needed.Mason GOMEZ ................... ................... ................... ................... ................... ................... ................... ........ Records Clerk Note From Shubham Cnatu: Dispatched to stated address for a 81yo female with joint and hand pain. Pt states she is unable to get up and take care of her self. Pt states she has a decreased po intake due to only having help from a visiting long term acute care registered nurse in the morning and night. Pt states she had increase in joint pain and is less mobile than normal. Pt states she has missed multiple visits to primary care due to transportation issues. Pt states one visit was for b12 and iron injections. Pt states she will go to the hospital to help get more resources. [facility] consulted and agreed more resources are need to help manage pt's care. [facility] transported pt to [facility]. Pt found seated and speaking in full clear sentences with no signs of distress in a clean apartment. AO and GCS-15. PERRL. Skin P/W/D. Airway open and lung sounds clear. ABD soft non tender. Rest of exam unremarkable. ................... ................... ................... ................... ................... ................... ................... ........ [facility] Consulted: Denilson Brunner ................... ................... ................... ................... ................... ................... ................... ........ Disposition: Fulfilled Denilson Brunner MD [address] [facility], [place], [address], [employer] 08/08/2024 16:14:20 OBGyn Episode No OBEpisode recorded.
== END 2024-12-02 11:16 | disposition home or self-care (01) ==
LOC: HO.HMCH 10:18
PROVIDERS: PCP Internal Medicine; Visit Provider Nurse Practitioner Family
DX: S06.5XAA Traumatic subdural hemorrhage with loss of consciousness status unknown, initial encounter (principal)

== ENCOUNTER → 2024-12-02 10:18 | Outpatient (BNVA) | payer OTHER, SELFPAY | PROVIDERS: PCP Internal Medicine; Visit Provider Nurse Practitioner Family | DX: S06.5XAA Traumatic subdural hemorrhage with loss of consciousness status unknown, initial encounter (principal) | CPT/HCPCS: 99212 ==

== ENCOUNTER 2025-01-02 10:26 | Outpatient (AMB) | payer OTHER, SELFPAY ==
--- NOTE | 2025-01-02 10:34 | MHC.PC.OV ---
Vital Signs 01/02/25 10:35 Height 5 ft 4 in Weight 185 lb BMI 31.8 BP 130/72 Blood Pressure Location Lt brachial Position Sitting Intake Visit Reasons: dm Intake Note: Patient here for a follow up DM Manager Truck Required: No Accompanied by: CARPET REPAIRER Allergies nut - unspecified [nut] Allergy (Severe, Verified 01/02/25 10:54) Anaphylaxis rosuvastatin Allergy (Severe, Verified 01/02/25 10:54) Facial Swelling vancomycin [VANCOMYCIN] Allergy (Severe, Verified 01/02/25 10:54) Itching VIRGINIA Inhibitors [V[place] INHIBITORS] Allergy (Intermediate, Verified 01/02/25 10:54) Rash ciprofloxacin [From CIPRO] Allergy (Intermediate, Verified 01/02/25 10:54) Rash codeine [CODEINE] Allergy (Intermediate, Verified 01/02/25 10:54) Rash cyclobenzaprine [CYCLOBENZAPRINE] Allergy (Intermediate, Verified 01/02/25 10:54) Hives ferrous sulfate [FERROUS SULFATE] Allergy (Intermediate, Verified 01/02/25 10:54) Rash insulin lispro [Humalog U-100 Insulin] Allergy (Intermediate, Verified 01/02/25 10:54) Hives latex [LATEX] Allergy (Intermediate, Verified 01/02/25 10:54) Hives methylprednisolone [From MEDROL] Allergy (Intermediate, Verified 01/02/25 10:54) Rash penicillin V Allergy (Intermediate, Verified 01/02/25 10:54) Hives tamsulosin [TAMSULOSIN] Allergy (Intermediate, Verified 01/02/25 10:54) Rash tramadol Allergy (Intermediate, Verified 01/02/25 10:54) Itching insulin degludec [From Tresiba FlexTouch U-100] Allergy (Mild, Verified 01/02/25 10:54) Hives pravastatin Allergy (Mild, Verified 01/02/25 10:54) pruritus lactose [LACTOSE] Adverse Reaction (Intermediate, Verified 01/02/25 10:54) Diarrhea Beef Containing Products Adverse Reaction (Mild, Verified 01/02/25 10:54) Stomach Upset Fish Containing Products Adverse Reaction (Mild, Verified 01/02/25 10:54) Nausea and Vomiting Pork/Porcine Containing Products Adverse Reaction (Mild, Verified 01/02/25 10:54) Stomach Upset FRUIT Adverse Reaction (Mild, Uncoded 01/02/25 10:54) NAUSEA & VOMITING VEGETABLES,FRESH Adverse Reaction (Mild, Uncoded 01/02/25 10:54) NAUSEA & VOMITING Medication List - Last Reconciled 01/02/25 by Joann Ferreira MD acetaminophen (Tylenol Extra Strength) 1,000 mg PO Q6H PRN albuterol sulfate 2.5 mg (3 mL) inhalation QID PRN 30 days albuterol sulfate 90 mcg/actuation (Ventolin HFA) 2 puffs inhalation Q4H PRN amlodipine 5 mg PO DAILY 90 days back brace As directed blood sugar diagnostic (FreeStyle Lite Strips) As directed three times a day blood-glucose meter (FreeStyle Lite Meter kit) As directed bupropion HCl XL 150 mg PO DAILY cetirizine 10 mg PO DAILY PRN 90 days chlorthalidone 25 mg PO DAILY 90 days dulaglutide (Trulicity) 1.5 mg subcut ERAZO@0900 ezetimibe 10 mg PO DAILY 90 days flash glucose scanning reader (DittoStyle Med 2 [place]) As directed flash glucose sensor (FreeStyle Mde 2 Sensor kit) As directed every 2 weeks fluticasone furoate-vilanterol 200-25 mcg/dose (Breo Ellipta) 1 inh PO DAILY insulin aspart U-100 (Novolog FlexPen U-100 Insulin aspart) 16 units subcut DAILY@0800 insulin glargine U-300 conc (Toujeo SoloStar U-300 Insulin) 75 units subcut DAILY [juxtalite calf wrap bilateral As directed] lancets (FreeStyle Lancets) Three times a day magnesium oxide 500 mg PO DAILY 90 days metoprolol tartrate 50 mg PO BID 90 days [nebulizer tube and adapter As directed] pantoprazole 40 mg PO DAILY@0630 pen needle, diabetic (Comfort EZ Pen [place]) Use 1 pen needle four times a day [recliner lift chair As directed] valsartan 320 mg PO DAILY 90 days walker walker with seat Tobacco use date assessed: 12/02/24 Fall risk assessment: 1 Fall in past year Last assessed Fall Risk: 01/02/25 Dental Screening Dental Screen Date: 12/02/24 HPI HPI Comments History of Present Illness Details The patient is a 69-year-old female presenting with dizziness and vertigo. This has been a persistent issue that worsened after hitting her head. It presents as a spinning sensation mainly to one side. She has not received any vestibular therapy previously. She denies tinnitus but mentions occasional auditory disturbances. The patient has a history of chronic kidney disease, with anemia requiring past blood transfusions. She manages multiple chronic conditions, including essential hypertension and type 2 diabetes mellitus, with a recent HbA1c of 6.7%. Previously documented low hemoglobin levels were noted in October. A history of a subdural hematoma was discussed, with no new findings on recent imaging. The patient reports several allergies, including significant reactions to rosuvastatin and various other drugs, manifesting as hives or rashes. Current medication includes bupropion, cetirizine, chlortalidone, dulaglutide, an inhaler for pulmonary issues, and others to manage ongoing chronic conditions. [facility] Medical History (Updated 01/02/25 @ 12:10 by Joann Ferreira MD) Diabetes mellitus Medicare annual wellness visit, initial Severe recurrent major depression Postmenopausal CKD (chronic kidney disease) stage 4, GFR 15-29 ml/min Type 2 diabetes mellitus with chronic kidney disease Obesity due to excess calories DM2 (diabetes mellitus, type 2) CKD (chronic kidney disease) Epicondylitis, lateral (tennis elbow) Dyslipidemia Leg edema Pain in both lower legs Calcaneal spur of both feet Acute kidney injury Irregular heart beat Depression Hypercholesteremia Diabetes Essential hypertension Surgical History Hx of vascular surgery History of extraction of renal calculus History of hysterectomy Family History Father Diabetes Mother Diabetes Sister Breast cancer Brother No problems noted. Sister No problems noted. Social History Household Members: Significant Other Housing: Apartment Are you a primary memory care program resident to a significant other at home: No Do you presently have visiting nurse or other home services: Yes Unable to assess alcohol history related to: Unknown Alcohol intake: never Patient Tobacco Use Status: Never used Tobacco e-Cigarette/Vaping Use: Never Used Second Hand Smoke Exposure: No Advance Directives Date on File: 09/11/20 service: No Current occupational status: disabled Cognitive needs: Yes (walker, power chair) Hearing needs: No Vision needs: Yes (glasses) Questionnaire PHQ-9 Over the last 2 weeks, how often have you been bothered by any of the following problems? 1. Little interest or pleasure in doing things: not at all 2. Feeling down, depressed, or hopeless: not at all 3. Trouble falling or staying asleep, or sleeping too much: not at all 4. Feeling tired or having little energy: not at all 5. Poor appetite or overeating: not at all 6. Feeling bad about yourself - or that you are a failure or have let yourself or your family down: not at all 7. Trouble concentrating on things, such as reading the newspaper or watching television: not at all 8. Moving or speaking so slowly that other people could have noticed. Or the opposite - being so fidgety or restless that you have been moving around a lot more than usual: not at all 9. Thoughts that you would be better off or of hurting yourself in some way: not at all Total score: 0 Depression Screening Interpretation: Negative Depression Screening Done: Yes 56802 - PHQ-9 Billing: Yes Source: Developed by Drs. Stew Reynolds, Татьяна Barron, Biju Rodrigez and colleagues, with an educational saul from [employer]. Thrive Questionnaire Date Thrive assessed: 01/02/25 I am a: Patient What is your living situation today?: I have a steady place to live Within the past 12 months, did the food you bought not last and you didn't have the money to get more?: Never true Within the past 12 months, did you worry whether your food would run out before you got money to buy more?: Never true Do you have trouble paying for medicines?: No Do you have trouble getting transportation to medical appointments?: No Do you have trouble paying your heating and electricity bill?: No Do you have trouble taking care of your child, family member or friend?: No Do you have trouble with day-to-day activities such as bathing, preparing meals, shopping, managing finances, etc.?: No Are you currently unemployed and looking for a job?: No Are you interested in more education?: No Please select the resources that you would like help with: None Currently or been in a relationship where the following occur: No concerns reported THRIVE Score: 0 AUDIT C Alcohol Use Questionnaire (AUDIT-C) 1. How often do you have a drink containing alcohol?: Never Total Score: 0 Score Reviewed/Action Taken: No NAYELY-7 AMB Questionnaire NAYELY-7 Date NAYELY - 7 assessed: 01/02/25 Feeling nervous, anxious, or on edge: 0 = Not at all Not being able to stop or control worryin = Not at all Worrying too much about different things: 0 = Not at all Trouble relaxin = Not at all Being so restless that it is hard to sit still: 0 = Not at all Becoming easily annoyed or irritable: 0 = Not at all Feeling afraid as if something awful might happen: 0 = Not at all Total NAYELY-7 score (0-4 normal; 5-9 mild; 10-14 moderate; 15-21 severe): 0 Source: Developed by Drs. Stew Reynolds, Татьяна Barron, Biju Rodrigez and colleagues, with an educational saul from [employer]. NAYELY-7 Assessment Billing NAYELY-7 Assessment Tool: NAYELY-7 Assessment 44193 Review of Systems Const All systems reviewed & are unremarkable except as noted in HPI and below ENT Reports vertigo Card Denies chest pain at rest, Denies chest pain with activity, Denies edema, Denies irregular heart rhythm, Denies claudication, Denies dyspnea, Denies dyspnea on exertion, Denies orthopnea, Denies paroxysmal nocturnal dyspnea and Denies slow heart rate Resp Denies cough, Denies dyspnea and Denies dyspnea on exertion GI Denies abdominal pain, Denies change in bowel habits, Denies excessive flatus, Denies nausea and Denies vomiting Neuro Reports vertigo Physical exam (Primary Care) Vital Signs: Last Vital Signs BP 130/72 01/02/25 10:35 BMI result Body Mass Index 31.8 BMI Assessment/Plan discussion: High BMI High, discussed plan: lifestyle, weight reduction, dietary and physical activity Tobacco/Smoking Status: Tobacco use Status Tobacco use date assessed 12/02/24 01/02/25 10:43 Patient Tobacco Use Status Never used Tobacco 01/02/25 10:43 e-Cigarette/Vaping Use Never Used 01/02/25 10:43 PHQ-9: PHQ-9 Score PHQ-9: Total score 0 01/02/25 10:58 Depression Screening Interpretation: Negative Thrive Assessment: Date of Thrive Assessment Date Thrive assessed 01/02/25 01/02/25 10:43 Currently or been in a relationship where the following occur: No concerns reported Const Limitations: ambulation with walker Resp Effort & Inspection: normal respiratory effort Auscultation: clear to auscultation bilaterally Cardio Jugular venous distension: no JVD Rate: regular rate Rhythm: regular rhythm Heart sounds: S1 normal heart sound present and S2 normal heart sound present Neuro General: no focal motor deficits Romberg Test: Negative Extrem General: Yes full ROM Psych Appearance: grossly normal Results AMB Hemoglobin A1c AMB Hemoglobin A1c 6.7 % Last Edit by AMANDA Dumont on 01/02/25 10:48 Results Reviewed Results Reviewed: Laboratory Last Values Hgb A1c (Clinic) 6.7 % (4.0-6.0) H 01/02/25 10:28 Coding Level of Care Code Est Pt Level 4 (71386) Complex EM visit Add On G2211 Diagnoses Benign paroxysmal positional vertigo due to bilateral vestibular disorder H81.13 Laterality: bilateral Primary hypertension I10 Hypertension type: primary hypertension Type 2 diabetes mellitus without complication, with long-term current use of insulin E11.9; Z79.4 Diabetes mellitus type: type 2 Diabetes mellitus terminal operations supervisor insulin use: with fci use Diabetes mellitus complication status: without complication Hyperlipidemia LDL goal <70 E78.5 CKD (chronic kidney disease) stage 4, GFR 15-29 ml/min N18.4 Additional Codes NAYELY-7 Assessment Billing - NAYELY-7 Assessment Tool: NAYELY-7 Assessment 06551 ([id number]) PHQ-9 - 43142 - PHQ-9 Billing: Yes ([id number]) Time Spent (min) 23 Assessment & Plan Assessment & Plan (1) BPPV (benign paroxysmal positional vertigo): Code(s): H81.10 - Benign paroxysmal vertigo, unspecified ear Category: Medical Qualifiers: Laterality: bilateral Qualified Code(s): H81.13 - Benign paroxysmal vertigo, bilateral (2) HTN (hypertension): Code(s): I10 - Essential (primary) hypertension Category: Medical Qualifiers: Hypertension type: primary hypertension Qualified Code(s): I10 - Essential (primary) hypertension (3) Diabetes mellitus: Code(s): E11.9 - Type 2 diabetes mellitus without complications Category: Medical Qualifiers: Diabetes mellitus type: type 2 Diabetes mellitus terminal operations supervisor insulin use: with terminal operations supervisor use Diabetes mellitus complication status: without complication Qualified Code(s): E11.9 - Type 2 diabetes mellitus without complications; Z79.4 - intermediate (current) use of insulin (4) Hyperlipidemia LDL goal <70: Code(s): E78.5 - Hyperlipidemia, unspecified Category: Medical (5) CKD (chronic kidney disease) stage 4, GFR 15-29 ml/min: Code(s): N18.4 - Chronic kidney disease, stage 4 (severe) Category: Medical Plan Vestibular therapy will be started for dizziness management. A medication trial to manage vertigo was initiated, with attention to potential side effects, especially dizziness. Lab work will be needed to monitor hemoglobin due to previous anemia associated with chronic kidney disease. Continued management for diabetes and hypertension remains crucial given her current HbA1c level. Her extensive allergy profile must be considered in treatment and medication selection. Routine kidney function and anemia monitoring will proceed as part of ongoing care. Patient was informed and verbally consented to the use of an ambient scribe for clinic note documentation during this visit. I discussed the initiation of vestibular therapy to manage vertigo symptoms effectively. We opted for a trial of medication cautiously, explaining the potential for increased dizziness and drowsiness, advising discontinuation if intolerable side effects occur. We discussed the necessity to monitor hemoglobin levels regularly due to anemia risks linked with her chronic kidney disease. The management of her type 2 diabetes and hypertension continues under our care, considering her satisfactory HbA1c level. A detailed discussion around her extensive allergies was addressed to prevent adverse reactions. I advised follow-up lab tests and routine monitoring of her kidney function and anemia status. Orders: Orders AMB Hemoglobin A1c Today E11.65 - Type 2 diabetes mellitus with hyperglycemia IRON PROFILE Today D64.9 - Anemia, unspecified Vitamin D 25-OH Total Today E55.9 - Vitamin D deficiency, unspecified Comprehensive [place]. Panel Fast Today E11.9 - Type 2 diabetes mellitus without complications PT Evaluation and Treatment Today H81.10 - Benign paroxysmal vertigo, unspecified ear Complete Blood Count Auto Diff Today D64.9 - Anemia, unspecified Lipid Panel Today E78.5 - Hyperlipidemia, unspecified Microalbumin, Random (w Creat) Today R80.9 - Proteinuria, unspecified Vitamin B12 and Folate Today E53.8 - Deficiency of other specified B group vitamins Medications: New meclizine 25 mg PO BID 7 days PRN 14 tabs 0RF dizziness Patient Instructions: - Begin vestibular therapy as directed to manage vertigo symptoms. - Take prescribed medication for dizziness only for the next week and discontinue if side effects like increased dizziness or drowsiness occur. - Complete lab tests as ordered to check hemoglobin and other relevant parameters. - Continue current medications for diabetes and hypertension management. - Avoid known allergens and inform any healthcare provider of your allergies before receiving new medications. - Follow up routinely as advised to monitor kidney function and anemia.
[2025-01-02 10:35] VITALS: BP 130/72; BMI 31.8
--- OUTSIDE RECORDS SUMMARY | 2025-01-02 11:56 | XMS_ITS | Clinical Summary ---
Author Organization [facility] Address [address] [place] [id number] Phone Care Team Providers Care Nuclear Fuel Enrichment Technician Name Role Phone Joann Partida MD Primary Care Provider [phone] Allergies Active Allergy Reactions Criticality Noted Date [...] Visit [facility] [address] [place] [address] [facility] [place] [address] Diego Duncan MD [address] [facility] [address] [place] [address] Health Maintenance Due Date Last Done Comments Breast Cancer Screening 1955 Pneumococcal Vaccine: 50+ Ye ars (1 of 2 - PCV) 1975 Colorectal Cancer Screening: Annual FOBT 2005 Colorectal Cancer Screening: Colonoscopy 2005 Colorectal Cancer Screening: Sigmoidoscopy 2005 Diabetes: Ophthalmology Exam 10/21/2020 Diabetes: Pedal Pulse Checked 10/21/2020 Diabetes: Sensory Foot Exam 10/21/2020 Diabetes: Visual Foot Exam 10/21/2020 Diabetes: Hemoglobin A1C 10/29/2021 07/29/2021 Influenza Vaccine (Season Ended) 2025 Hepatitis B Vaccine Aged Out No longe [...] average glucose, using the formula of the [id number] Average Glucose study (ADAG), Diabetes Care, Vol.31,#8, Apr. 2007 Blood (Blood, Venous) 07/29/2021 8:03 AM EST 07/29/2021 8:03 AM EST Terry Jamison MD LAB BLOOD ORDERABLES Final Re sult [place] from Last 3 Months or Most Recently Relevant to Health Maintenance Insurance [facility] ([id number]) [facility] ([id number]) Care Teams Nuclear Fuel Enrichment Technician Relationship Specialty Start Date End Date Joann Partida MD [address] [place], [place] PCP - General 10/01/20
--- OUTSIDE RECORDS SUMMARY | 2025-01-02 11:56 | XMS_ITS | Data Portability ---
Author Organization [employer] [place] [facility] Address [address] [place] [address] Care Team Providers Care Utility Repairer Name Role Phone HIM CCA OTHER Assessment Encounter Date Assessment Date Assessment LastModified by Organization Details LastModified Time 02/16/2024 02/16/2024 I provided real -time medical direction via phone for this encounter, and was available for additional phone based assistance as needed. I have reviewed and agree with the Assessment and Plan as documented by the Lopper. We discussed the diagnostic uncertainty of home [...] in the field was performed by my microfilm equipment inspector colleague, as noted above, I provided real-time [...] any acute worsening or change in symptoms. [email or web address] Not available 06/01/2024 11:46:54 08/08/2024 08/08/2024 As noted, we were called to see this patient regarding concerns of pain. Evaluation in the field was performed by my microfilm equipment inspector colleague, as noted above, I provided real-time [...] to ambulate or stand. 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 Discussed with medics who feel she is unsafe to remain at home and I am in agreement. Pt will need transfer to ED for full in person evaluation and discussion of rehab placement. Expect call placed to [facility] ED. Plan: ED Primary care, consider ED followup and rehab needs. Disposition: We discussed the situation and I recommended referral to the emergency department. [email or web address] Not available 08/08/2024 15:37:38 Plan of Treatment Reminders Order Date Submit Date Provider Last Modified By Organization Details Last Modified Time Details Appointments None recorded. Lab None recorded. Referral None recorded. Procedures None recorded. Surgeries None recorded. Imaging electrocard iogram 2023 024 [email or web address], [address] 10:56:38 Medication Orders Tylenol 325 mg tablet 2023 024 [email or web address] Not available 11:40:46 Patient TargetsNo targets recorded. Patient InstructionsNo instructions recorded. Reason for Referral None Reported. Results Created Date Observation Date Name Description Value Unit Range Abnormal Flag Note LastModifiedBy Organization Detail LastModifiedTime 02/16/20 24 02/16/2024 elect rema [email or web address] am No observ ation record ed. [email or web address] [address], [address] 02/16/2024 10:56:36 Result Notes None recorded. Procedures Surgical History None recorded. Imaging Results Imaging Date Name Status LastModified by Organization Details LastModified Time 02/16/2024 electrocardiogram completed [email or web address] [address], [address] 02/16/2024 10:56:36 Procedure Notes None recorded. Medical Equipment None Reported. Allergies Allergen ID Allergen Name Allergen Category Reaction Reaction Severity Criticality Documentation Date Start Date Code Code System Note Provider Name and Address Organization Details Recorded Time 70978 pravastat in medicatio n Not available Not available Not available 08/08/2024 78767 RxNorm Not Available [facility] - [facility] 4 13:38:21 5141 tree nut food Not available Not available Not available 02/16/2024 68802 MICHELLE Ramírez MD [address] [place] [address],[address], [place], [address], [facility] 4 10:01:58 5142 beef allergeni c extract food,medi cation Not available Not available Not available 02/16/2024 17380 9 RxNorm Karlie Ramírez MD [address] [place] [address],[address], [place], [address], [facility] 4 10:02:08 5143 fish derived food,medi cation Not available Not available Not available 02/16/2024 05087 MICHELLE Ramírez MD [address] [place] [address],[address], [place], [address], [facility] 4 10:02:18 5144 vancomyci n medicatio n Not available Not available Not available 02/16/2024 29035 RxNorm Not Available [facility] - production 4 03:47:47 5145 rosuvasta tin medicatio n Not available Not available Not available 02/16/2024 32634 2 RxNorm Not Available [facility] 13:38:21 5146 Product containin g angiotens in-conver ting enzyme inhibitor (product) medicatio n Not available Not available Not available 02/16/2024 79705 009 SNOMED Karlie Ramírez MD [address] [place] [address],[address], [place], [address], [facility] 4 10:02:50 5147 ciproflox acin medicatio n Not available Not available Not available 02/16/2024 2551 RxNorm Not Available [facility] - production 4 03:47:47 5148 codeine medicatio n Not available Not available Not available 02/16/2024 2670 RxNorm Not Available [facility] - production 4 13:38:21 5149 latex environme nt,medica tion Not available Not available Not available 02/16/2024 86401 91 RxNorm Not Available [facility] 03:47:47 5150 lactose food,medi cation Not available Not available Not available 02/16/2024 6211 RxNorm Karlie Ramírez MD [address] [place] [address],[address], [place], [address], [facility] 4 10:03:16 5151 cyclobenz aprine medicatio n Not available Not available Not available 02/16/2024 40999 RxNorm Not Available [facility] - production 4 13:38:21 5152 ferrous sulfate medicatio n Not available Not available Not available 02/16/2024 31732 RxNorm Not Available [facility] - production 13:38:21 5153 insulin lispro medicatio n Not available Not available Not available 02/16/2024 03038 RxNorm Karlie Ramírez MD [address] [place] [address],[address], [place], [address], [facility] 4 10:03:48 5154 methylpre dnisolone medicatio n Not available Not available Not available 02/16/2024 6902 RxNorm Not Available [facility] 4 03:47:47 5155 Product containin g penicilli n (product) medicatio n Not available Not available Not available 02/16/2024 03246 8001 SNOMED Karlie Ramírez MD [address] [place] [address],[address], [place], [address], [facility] 4 10:04:13 5156 tamsulosi n medicatio n Not available Not available Not available 02/16/2024 34345 RxNorm Not Available [facility] 4 13:38:21 5157 tramadol medicatio n Not available Not available Not available 02/16/2024 90117 RxNorm Karlie Ramírez MD [address] [place] [address],[address], [place], [address], [facility] 4 10:04:30 Medications Name Sig Start Date [...] % 160.02 cm 64 /min 97.1 [degF] 53729.8 48 g 155 mm[Hg] 84 mm[Hg] Not Available [facility] 4 09:59:36 Date Recorded Body temperature Body weight Respiratory rate Body height Heart rate Oxygen saturation Oxygen saturation in Arterial blood by Pulse oximetry Systolic blood pressure Diastolic blood pressure Provider Name and Address Organization Details Last Updated DateTime 4 98.4 [degF] 350312 g 18 /min 157.48 cm 90 /min 98 % 98 % 132 mm[Hg] 78 mm[Hg] Not Available [facility] 4 11:36:00 Date Recorded Oxygen saturation Oxygen [...] SNOMED-CT Code Diagnosis ICD10 Code Diagnosis Note [id number] Karlie Ramírez MD [facility] - [facility] [address] [place] [address] 02/16/2024 09:59:31 02/16/2024 17:13:28 Thoracic back pain 008890065 M54.6 Likely muscular since increases with expanding [...] follow-up with PCP as soon as possible [id number] Denilson Brunner MD Main - [facility] [address] [place] [address] 06/01/2024 11:35:50 06/01/2024 14:24:16 Pain of right knee joint [id number] 11778 M25.561 09148 Denilson Brunner MD Main - [facility] [address] [place] [address] 08/08/2024 15:28:56 08/08/2024 16:50:00 Generalized chronic body pains [id number] G89.29 Health Concerns Section Related Observation LastModified by Organization Detai ls LastModified Time None Recorded Concern Status LastModified by Organization Details LastModified Time None Recorded Advance Directives Directive None Recorded Payers Encounter Date Sequence Insurance Name Policy Number Policy Galdamez Covered Member ID Galdamez Member ID Guarantor Name 02/16/2024 1 [facility] - DOS ON OR AFTER 2022 - DUAL ELIGIBLE - CORRECTION OPTIONS AND ONE CARE (MEDICARE REPLACEMENT/ADV ANTAGE - HMO) Paige Harris [id number] Paige Harris 06/01/2024 1 [facility] - DOS ON OR AFTER 2022 - DUAL ELIGIBLE - CORRECTION OPTIONS AND ONE CARE (MEDICARE REPLACEMENT/ADV ANTAGE - HMO) Paige Harris [id number] Paige Harris 08/08/2024 1 [facility] - DOS ON OR AFTER 2022 - DUAL ELIGIBLE - CORRECTION OPTIONS AND ONE CARE (MEDICARE REPLACEMENT/ADV ANTAGE - HMO) Paige Harris [id number] Paige Harris Notes Date Note Type Note Provider Name and Address Organization Details Recorded Time 02/16/2024 text/html HPI: Mbr calling into [facility] and [facility]SR transferred call to this CRU RN. Tony is a 68 yo Hungarian/Italian speaking female with significant hx including asthma, [...] today and she agreed. Confirmed address and phone/[phone]. ................... ................... ................... ................... ................... ................... ................... ........ [facility] Nurse Triage Notes (Malena Hodge): Comments: HPI Reviewed. No further information needed to process visit. Lopper POC Test Results from [facility] EKG (1) [10:06] EKG test performed. Attachments uploaded as part of this test result can be found under Documents section. ................... ................... ................... ................... ................... ................... ................... ........ Lopper Note From [facility]: Pt reports acute [...] prior to medic arrival Karlie Ramírez MD [address] [place] [address],[address], [place], [address], JORGE LUIS - [facility] 02/16/2024 10:56:52 06/01/2024 text/html HPI: Call to mbr at [phone] and spoke with Mbr who is feeling [...] notification of this triage. Confirmed address and phone/[phone]. Instructed Mbr to call 911 and go [...] ................... ................... ................... ................... ................... ................... ........ Lopper Note From Michael Donahue: Patient found supine [...] all. Patient reports increase of pain on movement.[facility] recommends 1000 mg Tylenol three times a day for pain. And to follow up with the pain clinic that she is enrolled in at her next appointment. Patient ambulates with a steady slow even gait, appears in pain. Red flags, patient education discussed. Patient demonstrates understanding of care and plan. Lopper Allergies: Ciprofloxacin, Latex, Methylprednisolone, Vancomycin ................... ................... ................... ................... ................... ................... ................... ........ Disposition: Fulfilled Denilson Brunner MD [address] [facility], [place], [address], [facility] 06/01/2024 12:14:49 08/08/2024 text/html HPI: 12:57pm ? [...] alone, as her is currently in a residential, and is unable to get out for treatment. She is requesting an in-home visit today for assessment. After confirming ADRIANAR? s address and phone number on file, TONY is strongly advised to call 911 for any new or worsening symptoms. She understands and will do so, as she wears a life alert bracelet. This call originated from [phone]. ................... ................... ................... ................... ................... ................... ................... ........ CRC Nurse Triage Notes (Brandi Juan): Reason For Request: Pain Chief Complaints: Headache, Joint pain/swelling PMH: COPD/Asthma, Hypertension, Cancer, Diabetes Mellitus Type 1, Anxiety Disorder, Chronic Kidney Disease, Chronic Back Pain Comments: Reviewed info, no further data needed.Mason GOMEZ ................... ................... ................... ................... ................... ................... ................... ........ Lopper Note From Shubham Cantu: Dispatched to stated address for a 81yo female with joint and hand pain. Pt states she is unable to get up and take care of her self. Pt states she has a decreased po intake due to only having help from a visiting child day care provider in the morning and night. Pt states she had increase in joint pain and is less mobile than normal. Pt states she has missed multiple visits to primary care due to transportation issues. Pt states one visit was for b12 and iron injections. Pt states she will go to the hospital to help get more resources. [facility] consulted and agreed more resources are need to help manage pt's care. [facility] transported pt to [facility]. Pt found seated and speaking in full clear sentences with no signs of distress in a clean apartment. AO and GCS-15. PERRL. Skin P/W/D. Airway open and lung sounds clear. ABD soft non tender. Rest of exam unremarkable. ................... ................... ................... ................... ................... ................... ................... ........ [facility] Consulted: Denilson Brunner ................... ................... ................... ................... ................... ................... ................... ........ Disposition: Fulfilled Denilson Brunner MD [address] [facility],[address], [place], [address], [facility] 08/08/2024 16:14:20 OBGyn Episode No OBEpisode recorded.
== END 2025-01-02 11:06 | disposition home or self-care (01) ==
PROVIDERS: PCP Internal Medicine; Visit Provider Internal Medicine
DX: I12.9 Hypertensive chronic kidney disease with stage 1 through stage 4 chronic kidney disease, or unspecified chronic kidney disease (principal); E11.69 Type 2 diabetes mellitus with other specified complication; Z79.4 Long term (current) use of insulin; N18.4 Chronic kidney disease, stage 4 (severe); E11.65 Type 2 diabetes mellitus with hyperglycemia; H81.13 Benign paroxysmal vertigo, bilateral; E78.5 Hyperlipidemia, unspecified

== ENCOUNTER → 2025-01-02 10:26 | Outpatient (BNVA) | payer OTHER, SELFPAY | PROVIDERS: PCP Internal Medicine; Visit Provider Internal Medicine | DX: E11.22 Type 2 diabetes mellitus with diabetic chronic kidney disease (principal); E11.65 Type 2 diabetes mellitus with hyperglycemia; I12.9 Hypertensive chronic kidney disease with stage 1 through stage 4 chronic kidney disease, or unspecified chronic kidney disease; N18.4 Chronic kidney disease, stage 4 (severe); D63.1 Anemia in chronic kidney disease; H81.13 Benign paroxysmal vertigo, bilateral; E55.9 Vitamin D deficiency, unspecified; E78.5 Hyperlipidemia, unspecified; R80.9 Proteinuria, unspecified; E53.8 Deficiency of other specified B group vitamins; Z79.4 Long term (current) use of insulin | CPT/HCPCS: 83036; 96127; 99212 ==

== ENCOUNTER 2025-04-24 10:09 | Outpatient (AMB) | payer OTHER, SELFPAY ==
--- NOTE | 2025-04-24 10:15 | MHC.OFFVIS ---
Vital Signs 04/24/25 10:17 Height 5 ft 4 in Weight 184 lb BMI 31.6 BP 129/61 Blood Pressure Location Rt brachial Position Sitting Respiration 20 Pulse 63 Pulse Source Pulse Oximeter Pulse Oximetry (%) 99 Oxygen Delivery Method Room Air Intake Visit Reasons: Asthma Operational Test Mechanic Required: No Allergies nut - unspecified (nut) Allergy (Severe, Verified 04/24/25 10:16) Anaphylaxis rosuvastatin Allergy (Severe, Verified 04/24/25 10:16) Facial Swelling vancomycin (VANCOMYCIN) Allergy (Severe, Verified 04/24/25 10:16) Itching VIRGINIA Inhibitors (VIRGINIA INHIBITORS) Allergy (Intermediate, Verified 04/24/25 10:16) Rash ciprofloxacin (From CIPRO) Allergy (Intermediate, Verified 04/24/25 10:16) Rash codeine (CODEINE) Allergy (Intermediate, Verified 04/24/25 10:16) Rash cyclobenzaprine (CYCLOBENZAPRINE) Allergy (Intermediate, Verified 04/24/25 10:16) Hives ferrous sulfate (FERROUS SULFATE) Allergy (Intermediate, Verified 04/24/25 10:16) Rash insulin lispro (Humalog U-100 Insulin) Allergy (Intermediate, Verified 04/24/25 10:16) Hives latex (LATEX) Allergy (Intermediate, Verified 04/24/25 10:16) Hives methylprednisolone (From MEDROL) Allergy (Intermediate, Verified 04/24/25 10:16) Rash penicillin V Allergy (Intermediate, Verified 04/24/25 10:16) Hives tamsulosin (TAMSULOSIN) Allergy (Intermediate, Verified 04/24/25 10:16) Rash tramadol Allergy (Intermediate, Verified 04/24/25 10:16) Itching insulin degludec (From Tresiba FlexTouch U-100) Allergy (Mild, Verified 04/24/25 10:16) Hives pravastatin Allergy (Mild, Verified 04/24/25 10:16) pruritus lactose (LACTOSE) Adverse Reaction (Intermediate, Verified 04/24/25 10:16) Diarrhea Beef Containing Products Adverse Reaction (Mild, Verified 04/24/25 10:16) Stomach Upset Fish Containing Products Adverse Reaction (Mild, Verified 04/24/25 10:16) Nausea and Vomiting Pork/Porcine Containing Products Adverse Reaction (Mild, Verified 04/24/25 10:16) Stomach Upset FRUIT Adverse Reaction (Mild, Uncoded 01/02/25 10:54) NAUSEA & VOMITING VEGETABLES,FRESH Adverse Reaction (Mild, Uncoded 01/02/25 10:54) NAUSEA & VOMITING HPI HPI Asthma: Details: Paige is a pleasant 69 year old female, never smoker, with underlying asthma, HTN, DMII, CKDIV and Depression. At baseline she reports moderate control using Breo and albuterol BID. She continues to report dry cough, intermittent wheezing and dyspnea on exertion which she attributes to allergies. Previously discussed Xolair however patient not interested at this time. There was note of heart murmur in chart however no recent evaluation through cardiology or prior echo to assess for a cardiac component contributing to dyspnea. She denies BLE edema or orthopnea. She denies any visits to urgent care or hospitalizations related to respiratory distress since the last visits. [facility] Medical History (Updated 04/24/25 @ 14:22 by Zohra Farrell NP) Diabetes mellitus Medicare annual wellness visit, initial Severe recurrent major depression Postmenopausal CKD (chronic kidney disease) stage 4, GFR 15-29 ml/min Type 2 diabetes mellitus with chronic kidney disease Obesity due to excess calories DM2 (diabetes mellitus, type 2) CKD (chronic kidney disease) Epicondylitis, lateral (tennis elbow) Dyslipidemia Leg edema Pain in both lower legs Calcaneal spur of both feet Acute kidney injury Irregular heart beat Depression Hypercholesteremia Diabetes Essential hypertension Surgical History Hx of vascular surgery History of extraction of renal calculus History of hysterectomy Family History Father Diabetes Mother Diabetes Sister Breast cancer Brother No problems noted. Sister No problems noted. Social History Household Members: Significant Other Housing: Apartment Are you a primary child care group leader to a significant other at home: No Do you presently have visiting nurse or other home services: Yes Unable to assess alcohol history related to: Unknown Alcohol intake: never Patient Tobacco Use Status: Never used Tobacco e-Cigarette/Vaping Use: Never Used Second Hand Smoke Exposure: No Advance Directives Date on File: 09/11/20 service: No Current occupational status: disabled Cognitive needs: Yes (walker, power chair) Hearing needs: No Vision needs: Yes (glasses) Review of Systems Const Denies chills, Denies excessive sweating, Denies fever(s), Denies headache(s) and Denies night sweats Eyes Denies dry eyes, Denies irritation and Denies itchy eyes ENT Reports Normal hearing present, Denies headache(s), Denies nasal discharge, Denies post nasal drip and Denies sore throat Card Denies chest pain, Denies chest pain at rest, Denies chest pain with activity, Denies claudication, Denies leg edema, Reports dyspnea on exertion, Denies orthopnea and Denies paroxysmal nocturnal dyspnea Resp Denies change in phlegm color, Denies chest congestion, Reports cough, Denies hemoptysis, Denies excessive phlegm production, Denies pain on inspiration, Denies pain with cough, Reports dyspnea on exertion and Denies stridor Musc Denies myalgias Neuro Reports Normal hearing present and Denies headache(s) Endo Denies excessive sweating Mike/Lymph Denies lymphadenopathy Aller/Immun Denies itchy eyes and Reports seasonal rhinorrhea Physical Exam Vital Signs: Last Vital Signs Pulse 63 04/24/25 10:17 Resp 20 04/24/25 10:17 BP 129/61 04/24/25 10:17 Pulse Ox 99 04/24/25 10:17 Oxygen Delivery Method Room Air 04/24/25 10:17 BMI result Body Mass Index 31.6 Const General: cooperative, healthy appearing, comfortable, no acute distress, well developed and alert Nutritional Appearance: obese Orientation/consciousness: patient oriented x3 Limitations: wheelchair HEENT Head: Yes normal to inspection, Yes normocephalic and Yes atraumatic Ears: hearing grossly normal bilaterally and external ears normal Eyes General: appearance normal, both eyes and all related structures Eyelids: Yes eyelids normal Sclerae: sclerae normal EOM: EOMs intact bilaterally Neck Neck: Yes normal visual inspection and Yes no lymphadenopathy Lymphatic: no lymphadenopathy noted Chest Chest palpation & inspection: normal inspection of the chest Resp Effort & Inspection: normal respiratory effort, able to speak in complete sentences, no audible wheezes, no stridor, not tachypneic, no tripod positioning and no use of accessory muscles Auscultation: clear to auscultation bilaterally, no crackles, no rales and no wheezes Cardio Jugular venous distension: no JVD Rate: regular rate Heart sounds: Murmur heart sound present Skin Other: warm, dry General skin exam: no rashes or lesions noted Neuro General: patient oriented x3 Cranial nerves: Yes Normal hearing present Cognition (Neuro): normal cognition Extrem General: Yes normal to inspection, Yes capillary refill normal, Yes no clubbing, cyanosis or edema and Yes no pedal edema Psych Appearance: grossly normal and well kempt Speech and movement: Normal speech and movement present and Clear speech present Affect: normal affect Attitude: cooperative Thought process: Normal thought process present Thought content: Normal thought content present Insight: Good insight present (Psych) Judgement: Good judgement present (Psych) Assessment & Plan Assessment & Plan (1) Asthma: Code(s): J45.909 - Unspecified asthma, uncomplicated Category: Medical (2) Environmental allergies: Code(s): Z91.09 - Other allergy status, other than to drugs and biological substances Category: Medical (3) Dyspnea: Code(s): R06.00 - Dyspnea, unspecified Category: Medical Plan Paige reports suboptimal control of respiratory symptoms with the use of Breo. Encouraged increase use of albuterol MDI/neb and consider daily antihistamine as she seems to have a significant allergic contribution. Consider Trelegy if no improvement. She is aware that Xolair was previously approved but will defer starting at this time. If she would like to start she will contact the office. Will also send for echo to assess for underlying cardiac component, All questions were answered and patient is in agreement of plan. Will follow up in 6-8 weeks or sooner if needed. Orders: Orders CA echo transthoracic complete Today R06.00 - Dyspnea, unspecified Medications: New albuterol sulfate 90 mcg/actuation (Ventolin HFA) 1 inh inhalation QID 1 ea 3RF Refilled albuterol sulfate 2.5 mg (3 mL) inhalation QID PRN 75 mL 1RF shortness of breath or wheezing 30 days Coding Level of Care Code Est Pt Level 4 (63676) Diagnoses Asthma J45.909 Environmental allergies Z91.09 Dyspnea R06.00
[2025-04-24 10:17] VITALS: BP 129/61; PULSE 63; RESP 20; O2SAT 99; BMI 31.6
--- OUTSIDE RECORDS SUMMARY | 2025-04-24 10:47 | XMS_ITS | Clinical Summary ---
Author Organization [facility] Address [address] [place] [address] Phone Care Team Providers Care Hand Heel Seat Fitter Name Role Phone Joann Partida MD Primary Care Provider Allergies Active Allergy Reactions Criticality Noted Date Comments Wiley Inhibitors Other (see comments) 12/11/2020 Aloe Vera Other (see comments) 12/11/2020 Ciprofloxacin Other (see comments) 12/11/2020 Codeine Other (see comments) 12/11/2020 Ferrous Sulfate Er Other (see comments) 021 Methylprednisolone Other (see comments) 021 Penicillin V Other (see comments) 12/11/2020 Pravastatin 02/10/2025 Other Reaction(s): Not available Rosuvastatin 11/14/2024 Tamsulosin Other (see comments) 12/11/2020 Tramadol Other (see comments) 12/11/2020 Vancomycin 11/14/2024 Medications chlorthalidone (HYGROTON) 25 MG tablet Take [...] Chronic kidney disease stage 3 12/11/2020 04/18/2021 Encounters Date Type Department Care Team Description 02/10/2025 11:30 AM EDT Office Visit [facility] [address] [address] Diego Duncan MD Chronic kidney disease stage 4 (HCC) (Primary Dx); Hypertensive disorder; Renal disorder due to type 2 diabetes mellitus <Diabetic nephropathy> (HCC); Renal osteodystrophy 02/08/2025 Orders Only [facility] [address] [id number] Lora Haas MA from Last 3 Months Family History Medical History Relation Comments Diabetes [...] Care Team (Late st Contact Info) Description 05/12/2025 10:30 AM EDT Office Visit [facility] [address] [address] Diego Duncan MD [address] [phone] Health Maintenance Due Date Last Done Comments Breast Cancer Screening 1955 Pneumococcal Vaccine: 50+ Years (1 of 2 - PCV) 1975 Colorectal Cancer Screening: Annual FOBT 2005 Colorectal Cancer Screening: Colonoscopy 2005 Colorectal Cancer Screening: Sigmoidoscopy 2005 Diabetes: Ophthalmology Exam 10/21/2020 Diabetes: Pedal Pulse Checked 10/21/2020 Diabetes: Sensory Foot Exam 10/21/2020 Diabetes: Visual Foot Exam 10/21/2020 Diabetes: Hemoglobin A1C 04/03/202501/02/ 025, 07/29/2021 Influenza Vaccine (#1) 2025 Hepatitis B Vaccine Aged Out No longe r eligible based on patient's age to complete this topic Procedures Procedure Name Priority Date/Time Associated Diagnosis Comments ALT EXT LABS Routine 01/02/2025 ALT EXT LABS Routine 11/21/2024 from Last 3 Months or Most Recently Relevant to Health Maintenance Results * (ABNORMAL) ALT EXT LABS (01/02/2025) Only the most recent of2 resultswithin the time period is included. Hemoglobin A1C 6.7(A) 4.0 - 6.0 01/02/2025 Historical Provider LAB BLOOD ORDERABLES Naima l Result from Last 3 Months or Most Recently Relevant to Health Maintenance Insurance ([id number]) ([id number]) [place] [id number] Care Teams Hand Heel Seat Fitter Relationship Specialty Start Date End Date Joann Partida MD [address] [facility] - General 10/01/20
== END 2025-04-24 10:41 | disposition home or self-care (01) ==
LOC: HO.HPS 10:10
PROVIDERS: PCP Internal Medicine; Visit Provider Nurse Practitioner Family
DX: J45.909 Unspecified asthma, uncomplicated (principal); Z91.09 Other allergy status, other than to drugs and biological substances; R06.00 Dyspnea, unspecified
CPT/HCPCS: 99214

== ENCOUNTER → 2025-04-24 10:09 | Outpatient (BNVA) | payer OTHER, SELFPAY | PROVIDERS: PCP Internal Medicine; Visit Provider Nurse Practitioner Family | DX: I10 Essential (primary) hypertension (principal); J45.909 Unspecified asthma, uncomplicated; Z91.09 Other allergy status, other than to drugs and biological substances; R06.00 Dyspnea, unspecified; E11.9 Type 2 diabetes mellitus without complications; N18.4 Chronic kidney disease, stage 4 (severe); F32.A Depression, unspecified | CPT/HCPCS: 99212 ==

== ENCOUNTER 2025-05-25 09:43 | Outpatient (AMB) | payer OTHER, SELFPAY ==
--- NOTE | 2025-05-25 09:48 | MHC.PC.OV ---
Vital Signs 05/25/25 09:49 Height 5 ft 4 in Weight 182 lb 8 oz BMI 31.3 BP 122/60 Blood Pressure Location Rt brachial Position Sitting Respiration 18 Pulse 68 Pulse Source Pulse Oximeter Temp 96.9 F Temp Source Temporal Artery Scan Pulse Oximetry (%) 98 Oxygen Delivery Method Room Air Intake Visit Reasons: Annual exam- A1C Design Editor Required: No Accompanied by: NURSE PRACTICAL Allergies nut - unspecified (nut) Allergy (Severe, Verified 05/25/25 10:21) Anaphylaxis rosuvastatin Allergy (Severe, Verified 05/25/25 10:21) Facial Swelling vancomycin (VANCOMYCIN) Allergy (Severe, Verified 05/25/25 10:21) Itching [place] Inhibitors ([place] INHIBITORS) Allergy (Intermediate, Verified 05/25/25 10:21) Rash ciprofloxacin (From CIPRO) Allergy (Intermediate, Verified 05/25/25 10:21) Rash codeine (CODEINE) Allergy (Intermediate, Verified 05/25/25 10:21) Rash cyclobenzaprine (CYCLOBENZAPRINE) Allergy (Intermediate, Verified 05/25/25 10:21) Hives ferrous sulfate (FERROUS SULFATE) Allergy (Intermediate, Verified 05/25/25 10:21) Rash insulin lispro (Humalog U-100 Insulin) Allergy (Intermediate, Verified 05/25/25 10:21) Hives latex (LATEX) Allergy (Intermediate, Verified 05/25/25 10:21) Hives methylprednisolone (From MEDROL) Allergy (Intermediate, Verified 05/25/25 10:21) Rash penicillin V Allergy (Intermediate, Verified 05/25/25 10:21) Hives tamsulosin (TAMSULOSIN) Allergy (Intermediate, Verified 05/25/25 10:21) Rash tramadol Allergy (Intermediate, Verified 05/25/25 10:21) Itching insulin degludec (From Tresiba FlexTouch U-100) Allergy (Mild, Verified 05/25/25 10:21) Hives pravastatin Allergy (Mild, Verified 05/25/25 10:21) pruritus lactose (LACTOSE) Adverse Reaction (Intermediate, Verified 05/25/25 10:21) Diarrhea Beef Containing Products Adverse Reaction (Mild, Verified 05/25/25 10:21) Stomach Upset Fish Containing Products Adverse Reaction (Mild, Verified 05/25/25 10:21) Nausea and Vomiting Pork/Porcine Containing Products Adverse Reaction (Mild, Verified 05/25/25 10:21) Stomach Upset FRUIT Adverse Reaction (Mild, Uncoded 05/25/25 10:21) NAUSEA & VOMITING VEGETABLES,FRESH Adverse Reaction (Mild, Uncoded 05/25/25 10:21) NAUSEA & VOMITING Medication List - Last Reconciled 05/25/25 by Joann Ferreira MD acetaminophen (Tylenol Extra Strength) 1,000 mg PO Q6H PRN albuterol sulfate 90 mcg/actuation (Ventolin HFA) 2 puffs inhalation Q4H PRN albuterol sulfate 2.5 mg (3 mL) inhalation QID PRN 30 days albuterol sulfate 90 mcg/actuation (Ventolin HFA) 1 inh inhalation QID amlodipine 5 mg PO DAILY 90 days back brace As directed blood sugar diagnostic (FreeStyle Lite Strips) As directed three times a day blood-glucose meter (FreeStyle Lite Meter kit) As directed bupropion HCl XL 150 mg PO DAILY cetirizine 10 mg PO DAILY PRN 90 days chlorthalidone 25 mg PO DAILY 90 days dulaglutide (Trulicity) 1.5 mg (0.5 mL) subcut ERAZO@0900 90 days ezetimibe 10 mg PO DAILY 90 days flash glucose scanning reader ([employer] Heron BiotechnologyStyle Med 2 [place]) As directed flash glucose sensor (FreeStyle Med 2 Sensor kit) As directed every 2 weeks fluticasone furoate-vilanterol 200-25 mcg/dose (Breo Ellipta) 1 inh PO DAILY insulin aspart U-100 (Novolog FlexPen U-100 Insulin aspart) 16 units (0.16 mL) subcut DAILY@0800 [juxtalite calf wrap bilateral As directed] lancets (FreeStyle Lancets) Three times a day magnesium oxide 500 mg PO DAILY 90 days meclizine 25 mg PO BID PRN 7 days metoprolol tartrate 50 mg PO BID 90 days [nebulizer tube and adapter As directed] pantoprazole 40 mg PO DAILY@0630 90 days pen needle, diabetic (Comfort EZ [place]) Use 1 pen needle four times a day [recliner lift chair As directed] Toujeo SoloStar U-300 Insulin (insulin glargine U-300 conc) 85 units (0.2833 mL) subcut DAILY NS valsartan 320 mg PO DAILY 90 days walker walker with seat Tobacco use date assessed: 05/25/25 Fall risk assessment: 1 Fall in past year Last assessed Fall Risk: 05/25/25 Dental Screening Dental Screen Date: 05/25/25 Did you have a dental visit in the last 12 months?: No Did you have a dental problem in the last 6 months where you did not have access to dental care?: No Was dental information given to patient?: No HPI HPI Comments History of Present Illness Details This is a 69-year-old female with diabetes mellitus type 2 on long-term current use of insulin that comes today accompanied by NURSE PRACTICAL for her physical exam. She walks with a walker for gait stability. A1c of 7.6% today and I will increase insulin. Diabetic eye exam done this year. She declines mammogram due to receiving a bill the last time. Last DEXA scan was 2021 and I will order a DEXA scan to be done this year. Declines colonoscopy. Declines Tdap and pneumonia vaccine and any kind of vaccine. Complains of left hand pain and would like ortho referral. [facility] Medical History (Updated 05/25/25 @ 11:41 by Joann Ferreira MD) Diabetes mellitus Medicare annual wellness visit, initial Severe recurrent major depression Postmenopausal CKD (chronic kidney disease) stage 4, GFR 15-29 ml/min Type 2 diabetes mellitus with chronic kidney disease Obesity due to excess calories DM2 (diabetes mellitus, type 2) CKD (chronic kidney disease) Epicondylitis, lateral (tennis elbow) Dyslipidemia Leg edema Pain in both lower legs Calcaneal spur of both feet Acute kidney injury Irregular heart beat Depression Hypercholesteremia Diabetes Essential hypertension Surgical History Hx of vascular surgery History of extraction of renal calculus History of hysterectomy Family History Father Diabetes Mother Diabetes Sister Breast cancer Brother No problems noted. Sister No problems noted. Social History Household Members: Significant Other Housing: Apartment Are you a primary medication care manager to a significant other at home: No Do you presently have visiting nurse or other home services: Yes Unable to assess alcohol history related to: Unknown Alcohol intake: never Patient Tobacco Use Status: Never used Tobacco e-Cigarette/Vaping Use: Never Used Second Hand Smoke Exposure: No Advance Directives Date on File: 09/11/20 service: No Current occupational status: disabled Cognitive needs: Yes (walker, power chair) Hearing needs: No Vision needs: Yes (glasses) Questionnaire PHQ-9 Over the last 2 weeks, how often have you been bothered by any of the following problems? 1. Little interest or pleasure in doing things: not at all 2. Feeling down, depressed, or hopeless: not at all 3. Trouble falling or staying asleep, or sleeping too much: not at all 4. Feeling tired or having little energy: not at all 5. Poor appetite or overeating: not at all 6. Feeling bad about yourself - or that you are a failure or have let yourself or your family down: not at all 7. Trouble concentrating on things, such as reading the newspaper or watching television: not at all 8. Moving or speaking so slowly that other people could have noticed. Or the opposite - being so fidgety or restless that you have been moving around a lot more than usual: not at all 9. Thoughts that you would be better off or of hurting yourself in some way: not at all Total score: 0 Depression Screening Interpretation: Negative Depression Screening Done: Yes 28559 - PHQ-9 Billing: Yes Source: Developed by Drs. Stew Reynolds, Татьяна Barron, Biju Rodrigez and colleagues, with an educational saul from [employer]. Thrive Questionnaire Date Thrive assessed: 05/25/25 I am a: Patient What is your living situation today?: I have a steady place to live Within the past 12 months, did the food you bought not last and you didn't have the money to get more?: Never true Within the past 12 months, did you worry whether your food would run out before you got money to buy more?: Never true Do you have trouble paying for medicines?: No Do you have trouble getting transportation to medical appointments?: No Do you have trouble paying your heating and electricity bill?: No Do you have trouble taking care of your child, family member or friend?: No Do you have trouble with day-to-day activities such as bathing, preparing meals, shopping, managing finances, etc.?: No Are you currently unemployed and looking for a job?: I choose not to answer this question Are you interested in more education?: No Please select the resources that you would like help with: None Currently or been in a relationship where the following occur: I choose not to answer THRIVE Score: 0 AUDIT C Alcohol Use Questionnaire (AUDIT-C) 1. How often do you have a drink containing alcohol?: Never Total Score: 0 Score Reviewed/Action Taken: No NAYELY-7 AMB Questionnaire NAYELY-7 Date NAYELY - 7 assessed: 05/25/25 Feeling nervous, anxious, or on edge: 0 = Not at all Not being able to stop or control worryin = Not at all Worrying too much about different things: 0 = Not at all Trouble relaxin = Not at all Being so restless that it is hard to sit still: 0 = Not at all Becoming easily annoyed or irritable: 0 = Not at all Feeling afraid as if something awful might happen: 0 = Not at all Total NAYELY-7 score (0-4 normal; 5-9 mild; 10-14 moderate; 15-21 severe): 0 Source: Developed by Drs. Stew Reynolds, Татьяна Barron, Biju Rodrigez and colleagues, with an educational saul from [employer]. NAYELY-7 Assessment Billing NAYELY-7 Assessment Tool: NAYELY-7 Assessment 86187 Review of Systems Const All systems reviewed & are unremarkable except as noted in HPI and below Card Denies chest pain at rest, Denies chest pain with activity, Denies edema, Denies irregular heart rhythm, Denies claudication, Denies dyspnea, Denies dyspnea on exertion, Denies orthopnea, Denies paroxysmal nocturnal dyspnea and Denies slow heart rate Resp Denies cough, Denies dyspnea and Denies dyspnea on exertion GI Denies abdominal pain, Denies change in bowel habits, Denies excessive flatus, Denies nausea and Denies vomiting Denies urinary incontinence, Denies urinary hesitancy and Denies urinary urgency Neuro Denies lack of coordination Physical exam (Primary Care) Vital Signs: Last Vital Signs Temp 96.9 F 05/25/25 09:49 Pulse 68 05/25/25 09:49 Resp 18 05/25/25 09:49 BP 122/60 09/04/25 09:49 Pulse Ox 98 05/25/25 09:49 Oxygen Delivery Method Room Air 05/25/25 09:49 BMI result Body Mass Index 31.3 Tobacco/Smoking Status: Tobacco use Status Tobacco use date assessed 05/25/25 05/25/25 10:01 Patient Tobacco Use Status Never used Tobacco 05/25/25 09:50 e-Cigarette/Vaping Use Never Used 05/25/25 09:50 PHQ-9: PHQ-9 Score PHQ-9: Total score 0 05/25/25 10:25 Depression Screening Interpretation: Negative Thrive Assessment: Date of Thrive Assessment Date Thrive assessed 05/25/25 05/25/25 10:01 Currently or been in a relationship where the following occur: I choose not to answer [facility] Head: Yes normal to inspection, Yes normocephalic and Yes atraumatic Ears: external ears normal Eyes General: appearance normal, both eyes and all related structures Eyelids: Yes eyelids normal Conjunctivae: conjunctivae normal Neck Neck: Yes normal visual inspection and Yes supple Resp Effort & Inspection: normal respiratory effort Auscultation: clear to auscultation bilaterally Cardio Jugular venous distension: no JVD Rate: regular rate Rhythm: regular rhythm Heart sounds: S1 normal heart sound present and S2 normal heart sound present GI Inspection: Yes normal to inspection Palpation (GI): Soft to palpation and nontender Auscultation: normal bowel sounds Skin General skin exam: no rashes or lesions noted Neuro General: no focal motor deficits Extrem General: Yes full ROM Psych Appearance: grossly normal Coding Level of Care Code Est Pt Level 3 (07607) Est Pt Prev Care >65y(93772) Diagnoses Adult general medical exam Z00.00 Left hand pain M79.642 Type 2 diabetes mellitus without complication, with long-term current use of insulin E11.9; Z79.4 Diabetes mellitus type: type 2 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: with long distance billing operator use Diabetes mellitus complication status: without complication Additional Codes NAYELY-7 Assessment Billing - NAYELY-7 Assessment Tool: NAYELY-7 Assessment 46014 ([id number]) PHQ-9 - 14454 - PHQ-9 Billing: Yes ([id number]) Time Spent (min) 34 Assessment & Plan Assessment & Plan (1) Adult general medical exam: Code(s): Z00.00 - Encounter for general adult medical examination without abnormal findings Category: Medical (2) Left hand pain: Code(s): M79.642 - Pain in left hand Category: Medical (3) Diabetes mellitus: Code(s): E11.9 - Type 2 diabetes mellitus without complications Category: Medical Qualifiers: Diabetes mellitus type: type 2 Diabetes mellitus half-way insulin use: with long distance billing operator use Diabetes mellitus complication status: without complication Qualified Code(s): E11.9 - Type 2 diabetes mellitus without complications; 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 Increase insulin. Referred to Ortho for left hand pain. Orders: Orders Vitamin B12 and Folate Today E53.8 - Deficiency of other specified B group vitamins Comprehensive [place]. Panel Fast Today E11.65 - Type 2 diabetes mellitus with hyperglycemia XR DEXA axial skeleton Today Z78.0 - Asymptomatic menopausal state Complete Blood Count Auto Diff Today D64.9 - Anemia, unspecified IRON PROFILE Today D64.9 - Anemia, unspecified HIV Ab/Ag Today Z11.4 - Encounter for screening for human immunodeficiency virus [HIV] Lipid Panel Today E78.5 - Hyperlipidemia, unspecified Microalbumin, Random (w Creat) Today R80.9 - Proteinuria, unspecified Vitamin D 25-OH Total Today E55.9 - Vitamin D deficiency, unspecified Referrals Orthopedics Referral M79.642 - Pain in left hand Medications: Changed From Toujeo SoloStar U-300 Insulin (insulin glargine U-300 conc) 85 units (0.2833 mL) subcut DAILY 4.5 mL 0RF NS To Toujeo SoloStar U-300 Insulin (insulin glargine U-300 conc) 88 units (0.2933 mL) subcut DAILY 26.397 mL 1RF 90 days NS Discontinued magnesium oxide Discontinued Reason: Patient Refused 500 mg PO DAILY 90 days 90 tabs 1RF
[2025-05-25 09:49] VITALS: BP 122/60; PULSE 68; RESP 18; TEMP 36.1; O2SAT 98; BMI 31.3
== END 2025-05-25 10:37 | disposition home or self-care (01) ==
LOC: HO.HMCH 09:44
PROVIDERS: PCP Internal Medicine; Visit Provider Internal Medicine
DX: Z00.00 Encounter for general adult medical examination without abnormal findings (principal); M79.642 Pain in left hand; E11.9 Type 2 diabetes mellitus without complications; Z79.4 Long term (current) use of insulin

== ENCOUNTER → 2025-05-25 09:43 | Outpatient (BNVA) | payer OTHER, SELFPAY | PROVIDERS: PCP Internal Medicine; Visit Provider Internal Medicine | DX: Z00.00 Encounter for general adult medical examination without abnormal findings (principal); E11.65 Type 2 diabetes mellitus with hyperglycemia; M79.642 Pain in left hand; E53.8 Deficiency of other specified B group vitamins; D64.9 Anemia, unspecified; Z79.4 Long term (current) use of insulin; Z78.0 Asymptomatic menopausal state | CPT/HCPCS: 96127; 99212; 99397 ==

== ENCOUNTER 2025-05-30 08:51 | Outpatient (REF) | payer OTHER, SELFPAY ==
[2025-05-30 09:13] LABS: MANUAL DIFF FLAG NO
[2025-05-30 09:53] LABS: Hematocrit 30.6 % (37.0-47.0); Hemoglobin 10.3 g/dl (12.0-16.0); Imm Gran Abs Auto 0.05 X10*3/uL (0.00-0.03); Imm Gran Pct Auto 0.4 % (0.0-0.4); Lymphocytes Absolute Auto 1.9 X10*3/uL (1.2-4.9); Mean Corpuscular HGB Conc 33.7 g/dl (31.0-35.0); Mean Corpuscular Hemoglobin 28.1 pg (27.0-33.0); Mean Corpuscular Volume 83.4 fL (80.0-98.0); NRBC Abs Auto 0.000 X10*3/uL (0.0-0.012); NRBC Pct Auto 0.0 /100WBC (0.0-0.2); Platelet Count 309 X10*3/uL (160-400); Red Blood Count 3.67 X10*6/uL (4.20-5.50); White Blood Count 12.2 X10*3/uL (4.8-10.8)
[2025-05-30 10:40] LABS: HIV Num 1 0.05 S/CO (0.00-0.99)
[2025-05-30 10:57] LABS: Alanine Aminotransferase 11 U/L (0-31); Albumin Level 3.8 g/dL (3.5-5.0); Alkaline Phosphatase 142 U/L (39-117); Anion Gap 15 (12-20); Aspartate Amino Transferase 16 U/L (5-31); Blood Urea Nitrogen 42 mg/dL (9-16); Calcium 10.2 mg/dL (8.4-10.2); Carbon Dioxide 21 mmol/L (22-29); Chloride 106 mmol/L (96-108); Cholesterol 162 mg/dL (<200); Estimated Glomerular Filt Rate 22; HDL Cholesterol 38 mg/dL (>40); Iron 45 mcg/dL (30-160); Magnesium 1.4 mg/dL (1.6-2.6); Percent Iron Saturation 22 % (15-50); Potassium 4.2 mmol/L (3.3-5.1); Sodium 138 mmol/L (135-145); Total Iron Binding Capacity 207 mcg/dL (228-428); Total Protein 8.1 g/dL (6.5-8.0); Triglycerides 110 mg/dL (<150); Unsaturated Iron Binding 162 ug/dL
[2025-05-30 11:02] LABS: Folate 4.4 ng/mL (> or = 4.0); Vitamin B12 436 pg/mL (200-900)
== END 2025-05-30 08:52 | disposition home or self-care (01) ==
LOC: HO.LAB 08:51
PROVIDERS: PCP Internal Medicine; Referring Provider Internal Medicine Nephrology; Visit Provider Internal Medicine
DX: E11.65 Type 2 diabetes mellitus with hyperglycemia (principal); E55.9 Vitamin D deficiency, unspecified; D64.9 Anemia, unspecified; E78.5 Hyperlipidemia, unspecified; E53.8 Deficiency of other specified B group vitamins; Z11.4 Encounter for screening for human immunodeficiency virus [HIV]
CPT/HCPCS: 36415; 80053; 80061; 82306; 82607; 82746; 83540; 83735; 85025; 87389

== ENCOUNTER 2025-06-12 10:19 | Outpatient (AMB) | payer OTHER, SELFPAY ==
[2025-06-12 10:42] VITALS: BP 130/70; PULSE 70; O2SAT 100
--- NOTE | 2025-06-12 10:42 | A.OFFVIS_ITS ---
Vital Signs 06/12/25 10:42 Height 5 ft 4 in BMI Reason not done Patient refused/unable BP 130/70 Blood Pressure Location Rt brachial Position Sitting Pulse 70 Pulse Source Pulse Oximeter Pulse Oximetry (%) 100 Oxygen Delivery Method Room Air Intake Visit Reasons: Asthma Allergies nut - unspecified (nut) Allergy (Severe, Verified 06/12/25 10:49) Anaphylaxis rosuvastatin Allergy (Severe, Verified 06/12/25 10:49) Facial Swelling vancomycin (VANCOMYCIN) Allergy (Severe, Verified 06/12/25 10:49) Itching VIRGINIA Inhibitors (VIRGINIA INHIBITORS) Allergy (Intermediate, Verified 06/12/25 10:49) Rash ciprofloxacin (From CIPRO) Allergy (Intermediate, Verified 06/12/25 10:49) Rash codeine (CODEINE) Allergy (Intermediate, Verified 06/12/25 10:49) Rash cyclobenzaprine (CYCLOBENZAPRINE) Allergy (Intermediate, Verified 06/12/25 10:49) Hives ferrous sulfate (FERROUS SULFATE) Allergy (Intermediate, Verified 06/12/25 10:49) Rash insulin lispro (Humalog U-100 Insulin) Allergy (Intermediate, Verified 06/12/25 10:49) Hives latex (LATEX) Allergy (Intermediate, Verified 06/12/25 10:49) Hives methylprednisolone (From MEDROL) Allergy (Intermediate, Verified 06/12/25 10:49) Rash penicillin V Allergy (Intermediate, Verified 06/12/25 10:49) Hives tamsulosin (TAMSULOSIN) Allergy (Intermediate, Verified 06/12/25 10:49) Rash tramadol Allergy (Intermediate, Verified 06/12/25 10:49) Itching insulin degludec (From Tresiba FlexTouch U-100) Allergy (Mild, Verified 06/12/25 10:49) Hives pravastatin Allergy (Mild, Verified 06/12/25 10:49) pruritus lactose (LACTOSE) Adverse Reaction (Intermediate, Verified 06/12/25 10:49) Diarrhea Beef Containing Products Adverse Reaction (Mild, Verified 06/12/25 10:49) Stomach Upset Fish Containing Products Adverse Reaction (Mild, Verified 06/12/25 10:49) Nausea and Vomiting Pork/Porcine Containing Products Adverse Reaction (Mild, Verified 06/12/25 10:49) Stomach Upset FRUIT Adverse Reaction (Mild, Uncoded 06/12/25 10:49) NAUSEA & VOMITING VEGETABLES,FRESH Adverse Reaction (Mild, Uncoded 06/12/25 10:49) NAUSEA & VOMITING HPI HPI Asthma: Details: Paige is a pleasant 69 year old female, never smoker, with underlying asthma, HTN, DMII, CKDIV and Depression. She reports no changes in her medical history since the last visit and denies any recent urgent care or hospital visits r elated to breathing issues. The patient has been using a nebulizer and Breo inhaler for asthma management. She finds it difficult to open the medication vials for the nebulizer but was advised on an easier method to administer the medication. The Breo inhaler is used once daily, primarily at night, and she reports it to be helpful without any adverse reactions. Regarding allergic rhinitis, the patient experiences occasional coughing, attributed to allergies. She has tried various antihistamines, including Zyrtec, Raina, and Claritin, but finds Zyrtec to be the most effective when used. She previously received allergy shots but experienced a severe reaction, leading to discontinuation. The patient is hesitant to restart allergy shots due to past adverse reactions and is considering consulting a different dry box operator. COUNTS INCLUDE 234 BEDS AT THE [facility] Medical History Diabetes mellitus Medicare annual wellness visit, initial Severe recurrent major depression Postmenopausal CKD (chronic kidney disease) stage 4, GFR 15-29 ml/min Type 2 diabetes mellitus with chronic kidney disease Obesity due to excess calories DM2 (diabetes mellitus, type 2) CKD (chronic kidney disease) Epicondylitis, lateral (tennis elbow) Dyslipidemia Leg edema Pain in both lower legs Calcaneal spur of both feet Acute kidney injury Irregular heart beat Depression Hypercholesteremia Diabetes Essential hypertension Surgical History Hx of vascular surgery History of extraction of renal calculus History of hysterectomy Family History Father Diabetes Mother Diabetes Sister Breast cancer Brother No problems noted. Sister No problems noted. Social History Household Members: Significant Other Housing: Apartment Are you a primary home care liaison to a significant other at home: No Do you presently have visiting nurse or other home services: Yes Alcohol intake: never Patient Tobacco Use Status: Never used Tobacco e-Cigarette/Vaping Use: Never Used Second Hand Smoke Exposure: No Advance Directives Date on File: 09/11/20 service: No Current occupational status: disabled Cognitive needs: Yes (walker, power chair) Hearing needs: No Vision needs: Yes (glasses) Review of Systems Const Denies chills, Denies excessive sweating, Denies fever(s), Denies headache(s) and Denies night sweats Eyes Denies dry eyes, Denies irritation and Denies itchy eyes ENT Reports Normal hearing present, Denies headache(s), Denies nasal discharge, Denies post nasal drip and Denies sore throat Card Denies chest pain, Denies chest pain at rest, Denies chest pain with activity, Denies claudication, Denies leg edema, Denies dyspnea on exertion, Denies orthopnea and Denies paroxysmal nocturnal dyspnea Resp Denies change in phlegm color, Denies chest congestion, Denies cough, Denies hemoptysis, Denies excessive phlegm production, Denies pain on inspiration, Denies pain with cough, Denies dyspnea on exertion, Denies stridor and Denies wheezing Musc Denies myalgias Neuro Reports Normal hearing present and Denies headache(s) Endo Denies excessive sweating Mike/Lymph Denies lymphadenopathy Aller/Immun Denies itchy eyes, Reports seasonal rhinorrhea and Denies wheezing Physical Exam Vital Signs: Last Vital Signs Pulse 70 06/12/25 10:42 BP 130/70 06/12/25 10:42 Pulse Ox 100 06/12/25 10:42 Oxygen Delivery Method Room Air 06/12/25 10:42 Const General: cooperative, healthy appearing, comfortable, no acute distress, well developed and alert Nutritional Appearance: obese Orientation/consciousness: patient oriented x3 Limitations: wheelchair HEENT Head: Yes normal to inspection, Yes normocephalic and Yes atraumatic Ears: hearing grossly normal bilaterally and external ears normal Eyes General: appearance normal, both eyes and all related structures Eyelids: Yes eyelids normal Sclerae: sclerae normal EOM: EOMs intact bilaterally Neck Neck: Yes normal visual inspection and Yes no lymphadenopathy Lymphatic: no lymphadenopathy noted Chest Chest palpation & inspection: normal inspection of the chest Resp Effort & Inspection: normal respiratory effort, able to speak in complete sentences, no audible wheezes, no stridor, not tachypneic, no tripod positioning and no use of accessory muscles Auscultation: clear to auscultation bilaterally, no crackles, no rales and no wheezes Cardio Jugular venous distension: no JVD Rate: regular rate Heart sounds: Murmur heart sound present Skin Other: warm, dry General skin exam: no rashes or lesions noted Neuro General: patient oriented x3 Cranial nerves: Yes Normal hearing present Cognition (Neuro): normal cognition Extrem General: Yes normal to inspection, Yes capillary refill normal, Yes no clubbing, cyanosis or edema and Yes no pedal edema Psych Appearance: grossly normal and well kempt Speech and movement: Normal speech and movement present and Clear speech present Affect: normal affect Attitude: cooperative Thought process: Normal thought process present Thought content: Normal thought content present Insight: Good insight present (Psych) Judgement: Good judgement present (Psych) Assessment & Plan Assessment & Plan (1) Asthma: Code(s): J45.909 - Unspecified asthma, uncomplicated Category: Medical (2) Environmental allergies: Code(s): Z91.09 - Other allergy status, other than to drugs and biological substances Category: Medical (3) Dyspnea: Code(s): R06.00 - Dyspnea, unspecified Category: Medical Plan Paige reports good control of respiratory symptoms with the use of Breo and nebulizer PRN. She is aware to call if symptoms change. She is aware that Xolair was previously approved but she would like to defer starting at this time. If she would like to start she will contact the office. She has upcoming echo to assess for underlying cardiac component of dyspnea, however patient feels dyspnea has been moderately controlled with current regimen. All questions were answered and patient is in agreement of plan. Will follow up in 3 months or sooner if needed. Medications: New fluticasone furoate-vilanterol 200-25 mcg/dose (Breo Ellipta) 1 inh PO DAILY 60 ea 6RF Coding Level of Care Code Est Pt Level 4 (42947) Diagnoses Asthma J45.909 Environmental allergies Z91.09 Dyspnea R06.00
--- OUTSIDE RECORDS SUMMARY | 2025-06-12 12:40 | XMS_ITS | Clinical Summary ---
Author Organization [facility] Address [address] [place] [address] Phone Care Team Providers Care Check Airman Name Role Phone Joann Partida MD Primary Care Provider [phone] Allergies Active Allergy Reactions Criticality Noted Date Comments Wiley Inhibitors Other (see comments) 12/11/2020 Aloe Vera Other (see comments) 12/11/2020 Ciprofloxacin Other (see comments) 12/11/2020 Codeine Other (see comments) 12/11/2020 Cyclobenzaprine 06/02/2025 Insulin Lispro 06/02/2025 Ferrous Sulfate Er Other (see comments) 021 Latex 06/02/2025 Methylprednisolone Other (see comments) 021 Penicillin V [...] mouth 1 (one) time each day Active Dulaglutide (Trulicity) 0.75 MG/0.5ML solution pen-injector Inject under the skin Active gabapentin (NEURONTIN) 300 MG capsule Take 600 mg by mouth every night Active valsartan (DIOVAN) 160 MG tablet 1 Active amLODIPine (NORVASC) 5 MG tablet Take 5 mg by mouth 1 (one) time each day 2 Active insulin aspart protamine-insu oswald aspart (NovoLOG 70/30) (70-30) 100 UNIT/ML injection Inject under the skin 2 (two) times a day before meals Active albuterol HFA (PROVENTIL HFA;VENTOLIN HFA) 108 (90 Base) MCG/ACT inhaler Inhale 2 puffs in the morning and 2 puffs at noon and 2 puffs in the evening and 2 puffs before bedtime. Active FLUTICASONE FUROATE-VILANT JUANITA IN Inhale 250 mcg in the morning and 250 mcg in the evening. Active buPROPion (ZYBAN) 150 MG 12 hr tablet Take 150 mg by mouth in the morning and 150 mg in the evening. Do not crush, chew, or split. Active Dulaglutide (Trulicity) 1.5 MG/0.5ML solution auto-injector Inject under the skin Active cetirizine (ZyrTEC) 10 MG tablet Take 10 mg by mouth 1 (one) time each day Active Insulin Glargine, 2 Unit Dial, (Toujeo Max SoloStar) 300 UNIT/ML solution pen-injector Inject 88 Units under the skin in the morning. Active insulin glargine (LANTUS) 100 UNIT/ML injection Inject under the skin every night 06/02/20 25 Discontinued Active Problems Problem Noted Date Diagnosed Date Renal osteodystrophy 04/28/2022 Hypertensive disorder 11/18/2021 Diabetes mellitus 11/18/2021 Depressive disorder 11/18/2021 Asthma 11/18/2021 Benign essential hypertension 12/11/2020 Chronic kidney disease, stage 4 (severe) 021 Proteinuria 12/11/2020 Renal disorder due to type 2 diabetes mellitus 0 12/11/2020 Renal stone 12/11/2020 Morbid obesity 05/18/2012 Iron deficiency anemia 05/18/2012 Hyperlipidemia 05/18/2012 Overview (03/17/2023): IMO update Resolved Problems Problem Noted Date Diagnosed Date Resolved Date Chronic kidney disease stage 3 12/11/2020 04/18/2021 Encounters Date Type Department Care Team Description 06/02/2025 11:00 AM EDT Office Visit [facility] [address] [phone] Diego Duncan MD Chronic kidney disease, stage 4 (severe) (HCC) (Primary Dx); Renal disorder due to type 2 diabetes mellitus <Diabetic nephropathy> (HCC); Renal osteodystrophy; Hypertensive disorder from Last 3 Months Family History Medical [...] Sign Reading Time Taken Comments Blood Pressure 113/60 06/02/2025 11:39 AM EDT Pulse 68 06/02/2025 11:39 AM EDT Temperature - - Respiratory Rate - - Oxygen Saturation 99% 06/02/2025 11:39 AM EDT Inhaled Oxygen Concentration - - Weight 80.3 kg (177 lb) 06/02/2025 11:39 AM EDT Height - - Body Mass Index - - Plan of Treatment Upcoming Encounters Date Type Department Care Team (Late st Contact Info) Description 10/06/2025 9:00 AM EST Office Visit [facility] [address] [phone] Diego Duncan MD [address] [phone] Health Maintenance Due Date Last Done Comments Breast Cancer Screening 1955 Pneumococcal Vaccine: 50+ Years (1 of 2 - PCV) 1975 Colorectal Cancer Screening: Annual FOBT 2005 Colorectal Cancer Screening: Colonoscopy 2005 Colorectal Cancer Screening: Sigmoidoscopy 2005 Diabetes: Ophthalmology Exam 10/21/2020 Diabetes: Pedal Pulse Checked 10/21/2020 Diabetes: Sensory Foot Exam 10/21/2020 Diabetes: Visual Foot Exam 10/21/2020 Diabetes: Hemoglobin A1C 04/03/2025 025, 07/29/2021 Influenza Vaccine (#1) 2025 Hepatitis B Vaccine Aged Out No longe r eligible based on patient's age to complete this topic Procedures Procedure Name Priority Date/Time Associated Diagnosis Comments ALT EXT LABS Routine 05/30/2025 ALT EXT LABS Routine 01/02/2025 from Last 3 Months or Most Recently Relevant to Health Maintenance Results * (ABNORMAL) ALT EXT LABS (05/30/2025) Only the most recent of2 resultswithin the time period is included. WBC 12.2(A) 3.3 - 10.0 10*3/ML Red Blood Cell Count 3.67 Hemoglobin 10.3(A) 12.0 - 16.0 Hematocrit 30.6(A) 36.0 - 46.0 Platelets 309 150 - 399 10*3/UL MCV 83.4 82.0 - 108.0 Iron 45 UG/DL Iron Saturation (TSat) 22 % TIBC 162 ug/dL Calcium 10.2 8.7 - 10.7 mg/dL Sodium 138 137 - 147 Potassium 4.2 3.4 - 5.5 Chloride 106.0 99.0 - 108.0 Magnesium 1.4(A) 1.6 - 2.4 05/30/2025 us Historical Provider LAB BLOOD ORDERABLES Naima l Result from Last 3 Months or Most Recently Relevant to Health Maintenance Insurance [facility] ([id number]) [facility] ([id number]) Care Teams Check Airman Relationship Specialty Start Date End Date Joann Partida MD [address] [place], [place] PCP - General 10/01/20
== END 2025-06-12 11:10 | disposition home or self-care (01) ==
LOC: HO.HPS 10:20
PROVIDERS: PCP Internal Medicine; Visit Provider Nurse Practitioner Family
DX: J45.909 Unspecified asthma, uncomplicated (principal); Z91.09 Other allergy status, other than to drugs and biological substances; R06.00 Dyspnea, unspecified
CPT/HCPCS: 99214

== ENCOUNTER 2025-06-12 10:20 | Outpatient (REF) | payer OTHER, SELFPAY ==
[2025-06-12 11:33] LABS: Microalbum/Creatinine Ratio Ur 120.0 ug/mg cr (<30)
== END 2025-06-12 10:21 | disposition home or self-care (01) ==
LOC: HO.LNP 10:20
PROVIDERS: PCP Internal Medicine; Visit Provider Nurse Practitioner Family
DX: J45.909 Unspecified asthma, uncomplicated (principal); R06.00 Dyspnea, unspecified; R80.9 Proteinuria, unspecified; Z91.09 Other allergy status, other than to drugs and biological substances; Z79.899 Other long term (current) drug therapy
CPT/HCPCS: 82043; 82570; 99212

== ENCOUNTER 2025-06-17 09:27 | Emergency (ER) | payer OTHER, SELFPAY ==
--- NOTE | 2025-06-17 | ECG_ITS ---
Test Reason : CHEST PAINM Blood Pressure : */* mmHG Vent. Rate : 90 BPM Atrial Rate : 90 BPM P-R Int : 220 ms QRS Dur : 132 ms QT Int : 404 ms P-R-T Axes : 32 58 9 degrees QTcB Int : 494 ms Sinus rhythm with 1st degree A-V block with Premature atrial complexes with Aberrant conduction Right bundle branch block T wave abnormality, consider inferior ischemia Abnormal ECG When compared with ECG of 11-Nov-2024 18:15, Aberrant conduction is now Present Right bundle branch block is now Present Referred By: Generic ED Physician Electronically Signed By: Johnathon Perez
--- NOTE | ~2025-06-17 | CT_ITS ---
CLINICAL HISTORY: CARLSON, recent ICH CT head without contrast Comparison: CT/SR - CT HEAD/BRAIN WO IV CON - 11/11/24 23:34 EST Findings: No evidence of acute territorial infarct. There is patchy low density in the periventricular and subcortical white matter. Diffuse volume loss is noted. No hydrocephalus. No hemorrhage, mass effect, mass lesion or midline shift. No abnormal extra-axial fluid. No calvarial fracture. Paranasal sinuses and mastoid air cells are clear. Impression: No acute intracranial process. Chronic changes as detailed. This document has been electronically signed by: William Yadav MD on 06/17/2025 12:23:59
--- NOTE | ~2025-06-17 | XR_ITS ---
CLINICAL HISTORY: CP 2 views chest Comparison: CR/SR - XR CHEST 1 VIEW - 07/06/24 10:54 EDT Findings: Cardiac and mediastinal contours are normal. Mild interstitial prominence with scattered peribronchial thickening. No focal consolidation. No effusion. No pneumothorax. No acute osseous finding. Impression: Mild interstitial prominence with scattered peribronchial thickening. No focal consolidation. This document has been electronically signed by: William Yadav MD on 06/17/2025 12:00:13
[2025-06-17 09:37] VITALS: BP 119/75; BP 146/61; PULSE 75; PULSE 93; RESP 17; TEMP 37.1; O2SAT 97; O2SAT 98; BMI 33.7
--- OUTSIDE RECORDS SUMMARY | 2025-06-17 09:58 | XMS_ITS | Clinical Summary ---
Author Organization [facility] Address [address] [place] [address] Phone Care Team Providers Care Glass Tube Bender Name Role Phone Joann Partida MD Primary Care Provider [phone] Allergies Active Allergy Reactions Criticality Noted Date [...] Office Visit [facility] [address] [phone] Diego Duncan MD Chronic kidney disease, stage [...] Office Visit [facility] [address] [phone] Diego Duncan MD [address] [phone] Health Maintenance Due Date Last Done Comments [...] Most Recently Relevant to Health Maintenance Insurance [facility] ([id number]) [facility] ([id number]) Care Teams Glass Tube Bender Relationship Specialty Start Date End Date Joann Partida MD [address] [place], [place] PCP - General 10/01/20
[2025-06-17 10:15] LABS: MANUAL DIFF FLAG NO
[2025-06-17 10:16] LABS: Hematocrit 24.8 % (37.0-47.0); Hemoglobin 8.3 g/dl (12.0-16.0); Imm Gran Abs Auto 0.05 X10*3/uL (0.00-0.03); Imm Gran Pct Auto 0.6 % (0.0-0.4); Lymphocytes Absolute Auto 1.6 X10*3/uL (1.2-4.9); Mean Corpuscular HGB Conc 33.5 g/dl (31.0-35.0); Mean Corpuscular Hemoglobin 28.2 pg (27.0-33.0); Mean Corpuscular Volume 84.4 fL (80.0-98.0); NRBC Abs Auto 0.000 X10*3/uL (0.0-0.012); NRBC Pct Auto 0.0 /100WBC (0.0-0.2); Platelet Count 310 X10*3/uL (160-400); Red Blood Count 2.94 X10*6/uL (4.20-5.50); White Blood Count 8.8 X10*3/uL (4.8-10.8)
[2025-06-17 10:35] LABS: Alanine Aminotransferase 7 U/L (0-31); Albumin Level 3.1 g/dL (3.5-5.0); Alkaline Phosphatase 115 U/L (39-117); Anion Gap 13 (12-20); Aspartate Amino Transferase 18 U/L (5-31); Blood Urea Nitrogen 43 mg/dL (9-16); Calcium 10.2 mg/dL (8.4-10.2); Carbon Dioxide 22 mmol/L (22-29); Chloride 104 mmol/L (96-108); Creatinine Clr Calc Pharmacy 23.5; Estimated Glomerular Filt Rate 20; Magnesium 1.8 mg/dL (1.6-2.6); Potassium 3.7 mmol/L (3.3-5.1); Sodium 135 mmol/L (135-145); Total Protein 7.1 g/dL (6.5-8.0)
[2025-06-17 10:47] LABS: Troponin-I High Sensitivity < 2.7 ng/L (<3.5-17.0)
[2025-06-17 10:51] LABS: Thyroid Stimulating Hormone 0.84 uIU/mL (0.32-4.0)
--- NOTE | 2025-06-17 11:11 | ED.CHESTPAIN ---
HPI - Chest Pain General Chief Complaint: Chest Pain Stated Complaint: CHEST PAIN Time Seen by Provider: 06/17/25 09:48 Source: patient Mode of arrival: ambulatory Limitations: no limitations History of Present Illness ED Provider: Estelle Diaz APRN HPI narrative: 69-year-old female with a history of fibromyalgia, polyarthralgia, chronic kidney disease, diabetes presents the ER with complaints of right-sided chest pain which radiates to the right shoulder and neck and head for the last 3 days. Pain is described as sharp and stabbing. It is not exertional. It comes and goes. Patient denies any associated shortness of breath, vomiting or diaphoresis. She denies any photophobia, nausea, phonophobia, fevers, chills, neck pain or neck stiffness. Patient reports that she has a history of intracranial hemorrhage secondary to a fall. She denies any new falls or injuries. Related Data Home Medications ?Medication ?Instructions ?Recorded ?Confirmed acetaminophen 500 mg tablet 1,000 mg PO Q6H PRN fever or pain 11/12/24 05/25/25 (Tylenol Extra Strength) bupropion HCl 150 mg 24 hr tablet, 150 mg PO DAILY 11/12/24 05/25/25 extended release Previous Rx's ?Medication ?Instructions ?Recorded cetirizine 10 mg tablet 10 mg PO DAILY PRN Allergy 11/12/21 Symptoms 90 days #90 tabs walker #1 ea 03/03/22 flash glucose sensor (FreeStyle #2 ea 05/15/22 Med 2 Sensor kit) juxtalite calf wrap bilateral #2 ea 08/12/22 back brace #1 ea 10/08/22 nebulizer tube and adapter #1 ea 11/27/22 recliner lift chair #1 ea 01/07/23 flash glucose scanning reader #1 ea 08/22/24 (FreeStyle Med 2 Holiday) blood-glucose meter (FreeStyle #1 ea 08/30/24 Lite Meter kit) lancets 28 gauge (FreeStyle #100 ea 08/30/24 Lancets) metoprolol tartrate 50 mg tablet 50 mg PO BID 90 days #180 tabs 10/22/24 amlodipine 5 mg tablet 5 mg PO DAILY 90 days #90 tabs 12/08/24 albuterol sulfate 90 mcg/actuation 2 puff inhalation Q4H PRN for 03/01/25 aerosol inhaler (Ventolin HFA) muscle spasm #18 ea pen needle, diabetic 31 gauge x #100 ea 03/15/25 5/16 (Comfort EZ Pen Baxley) valsartan 320 mg tablet 320 mg PO DAILY 90 days #90 tabs 04/20/25 albuterol sulfate 2.5 mg/3 mL 2.5 mg (3 mL) inhalation QID PRN 04/24/25 (0.083 %) solution for nebulization shortness of breath or wheezing 30 days #75 mL albuterol sulfate 90 mcg/actuation 1 inh inhalation QID #1 ea 04/24/25 aerosol inhaler (Ventolin HFA) pantoprazole 40 mg tablet,delayed 40 mg PO DAILY@0630 90 days #90 04/24/25 release tabs insulin aspart U-100 100 unit/mL 16 unit (0.16 mL) subcut 05/08/25 (3 mL) subcutaneous pen (Novolog DAILY@08 #15 mL FlexPen U-100 Insulin aspart) Toujeo SoloStar U-300 Insulin 300 88 unit (0.2933 mL) subcut DAILY 05/25/25 unit/mL (1.5 mL) subcutaneous pen 90 days #26.397 mL (insulin glargine U-300 conc) magnesium glycinate 300 mg (3 x 100 mg magnesium) PO 05/30/25 BEDTIME 90 days #270 caps ezetimibe 10 mg tablet 10 mg PO DAILY 90 days #90 tabs 06/01/25 blood sugar diagnostic (FreeStyle #100 ea 06/09/25 Lite Strips) chlorthalidone 25 mg tablet 25 mg PO DAILY 90 days #90 tabs 06/09/25 fluticasone furoate 200 1 inh PO DAILY #60 ea 06/12/25 mcg-vilanterol 25 mcg/dose inhalation powder (Breo Ellipta) dulaglutide 1.5 mg/0.5 mL 1.5 mg (0.5 mL) subcut ERAZO@0900 90 06/16/25 subcutaneous pen injector days #6.5 mL (Trulicity) methocarbamol 500 mg tablet 500 mg PO BID PRN muscle spasm #8 06/17/25 tabs Allergies Allergy/AdvReac Type Severity Reaction Status Date / Time nut - unspecified (nut) Allergy Severe Anaphylaxis Verified 06/17/25 09:41 rosuvastatin Allergy Severe Facial Verified 06/17/25 09:41 Swelling vancomycin (VANCOMYCIN) Allergy Severe Itching Verified 06/17/25 09:41 [place] Inhibitors (VIR[place]IA Allergy Intermediate Rash Verified 06/17/25 09:41 INHIBITORS) ciprofloxacin (From CIPRO) Allergy Intermediate Rash Verified 06/17/25 09:41 codeine (CODEINE) Allergy Intermediate Rash Verified 06/17/25 09:41 cyclobenzaprine Allergy Intermediate Hives Verified 06/17/25 09:41 (CYCLOBENZAPRINE) ferrous sulfate (FERROUS Allergy Intermediate Rash Verified 06/17/25 09:41 SULFATE) insulin lispro (Humalog Allergy Intermediate Hives Verified 06/17/25 09:41 U-100 Insulin) latex (LATEX) Allergy Intermediate Hives Verified 06/17/25 09:41 methylprednisolone (From Allergy Intermediate Rash Verified 06/17/25 09:41 MEDROL) penicillin V Allergy Intermediate Hives Verified 06/17/25 09:41 tamsulosin (TAMSULOSIN) Allergy Intermediate Rash Verified 06/17/25 09:41 tramadol Allergy Intermediate Itching Verified 06/17/25 09:41 insulin degludec (From Allergy Mild Hives Verified 06/17/25 09:41 Tresiba FlexTouch U-100) pravastatin Allergy Mild pruritus Verified 06/17/25 09:41 lactose (LACTOSE) AdvReac Intermediate Diarrhea Verified 06/17/25 09:41 Beef Containing Products AdvReac Mild Stomach Verified 06/17/25 09:41 Upset Fish Containing Products AdvReac Mild Nausea and Verified 06/17/25 09:41 Vomiting Pork/Porcine Containing AdvReac Mild Stomach Verified 06/17/25 09:41 Products Upset FRUIT AdvReac Mild NAUSEA & Uncoded 06/17/25 09:41 VOMITING VEGETABLES,FRESH AdvReac Mild NAUSEA & Uncoded 06/17/25 09:41 VOMITING Review of Systems Review of Systems: Yes all other systems are reviewed and are negative Constitutional: Constitutional: Reports no additional constitutional complaints, Denies body ache(s), Denies chills, Denies fever(s), Reports headache(s) and Denies weakness Eyes: Eyes: Reports no additional eye complaints and Denies change in vision ENT: Reports system reviewed and no additional complaints, except as documented, Denies dizziness, Reports headache(s), Denies nasal congestion, Denies nasal discharge and Reports neck pain Cardiovascular: Cardiovascular: Reports no additional cardiovascular complaints, Reports chest pain, Denies leg edema and Denies dyspnea Respiratory: Respiratory: Reports no additional respiratory complaints, Denies cough and Denies dyspnea Gastrointestinal: Gastrointestinal: Reports no additional gastrointestinal complaints, Denies abdominal pain, Denies diarrhea, Denies nausea and Denies vomiting Genitourinary: Genitourinary: Reports no additional female genitourinary complaints and Denies urinary incontinence Musculoskeletal: Musculoskeletal: Reports no additional musculoskeletal complaints, Denies back pain, Denies arthralgias, Denies joint swelling, Reports neck pain, Denies numbness and Denies tingling Integumentary/Breasts: Skin/Breast: Reports system reviewed and no additional complaints, except as docu and Denies rash Neurologic: Reports system reviewed and no additional complaints, except as documented, Denies Abnormal speech present, Denies dizziness, Reports headache(s), Denies numbness, Denies tingling and Denies weakness PMFSH Past Medical History Attestation statement: The following information was validated with the patient. Source: old records reviewed and nursing notes reviewed Medical History Diabetes mellitus Medicare annual wellness visit, initial Severe recurrent major depression Postmenopausal CKD (chronic kidney disease) stage 4, GFR 15-29 ml/min Type 2 diabetes mellitus with chronic kidney disease Obesity due to excess calories DM2 (diabetes mellitus, type 2) CKD (chronic kidney disease) Epicondylitis, lateral (tennis elbow) Dyslipidemia Leg edema Pain in both lower legs Calcaneal spur of both feet Acute kidney injury Irregular heart beat Depression Hypercholesteremia Diabetes Essential hypertension Surgical History Hx of vascular surgery History of extraction of renal calculus History of hysterectomy Family History Family History Father Diabetes Mother Diabetes Sister Breast cancer Brother No problems noted. Sister No problems noted. Social History Social History Household Members: Significant Other Housing: Apartment Are you a primary senior care specialist to a significant other at home: No Do you presently have visiting nurse or other home services: Yes Alcohol intake: never Patient Tobacco Use Status: Never used Tobacco e-Cigarette/Vaping Use: Never Used Second Hand Smoke Exposure: No Advance Directives: No Advance Directives Information Provided: Yes Advance Directives Date on File: 09/11/20 Do you have a plan to hurt others: No Plan service: No Current occupational status: disabled Cognitive needs: Yes (walker, power chair) Hearing needs: No Vision needs: Yes (glasses) Physical Exam Vital Signs: Vital Signs: Last Vital Signs Temp 98.0 F 06/17/25 12:00 Pulse 81 06/17/25 12:00 Resp 15 06/17/25 12:00 BP 143/68 H 06/17/25 12:00 Pulse Ox 98 06/17/25 12:00 O2 Del Method Room Air 06/17/25 12:00 BMI result Body Mass Index 33.7 Const: General: cooperative, healthy appearing, comfortable and no acute distress Orientation/consciousness: patient oriented x3 Limitations: no limitations HEENT: Head: Yes normal to inspection and No Temporal artery tenderness present Ears: hearing grossly normal bilaterally General nose exam: Normal external nose present Face and sinus: Yes normal facial exam Mouth: Normal oral and palatal mucosa present Throat: Yes posterior oropharynx normal Eyes: General: appearance normal, both eyes and all related structures Pupils: Equal, round and reactive pupils present Neck: Other: Tenderness to palpation to the bilateral soft tissue areas into the rhomboid and trapezius muscles. Neck: Yes normal visual inspection, Yes full ROM, Yes no lymphadenopathy and Yes no meningeal signs Chest: Chest palpation & inspection: normal inspection of the chest Resp: Effort & Inspection: normal respiratory effort Auscultation: clear to auscultation bilaterally Cardio: Rate: regular rate Rhythm: regular rhythm Peripheral pulses: Peripheral pulses 2+ throughout GI: Inspection: Yes normal to inspection Palpation (GI): Soft to palpation and nontender Auscultation: normal bowel sounds Back/Spine/Pelvis: Thoracic/Lumbar Spine: thoracic and lumbar spine normal to inspection Skin: General skin exam: no rashes or lesions noted Neuro: General: patient oriented x3, moves all extremities, no meningeal signs, no focal motor deficits and normal sensation to monofilament Cranial nerves: Yes CN's II-XII intact bilaterally, Yes Equal, round and reactive pupils present, Yes Bilaterally intact EOM present, Yes Nystagmus not present, Yes Normal facial strength present and Yes Midline tongue present Cognition (Neuro): normal cognition Speech: No Abnormal speech present Gait exam (Neuro): Normal gait present Motor exam (neuro): 5/5 motor strength present throughout Sensory Exam: Normal double simultaneous stimulation for sensation Extrem: General: Yes normal to inspection, Yes no calf tenderness and Yes normal gait Course Course Course Narrative: Lab work is at baseline. I doubt ACS with a nonischemic EKG and flat troponin with symptoms greater than 3 days. No clinical findings concerning for DVT, no hypoxia, no tachypnea and no risk factors so I do believe PE is less likely. Less likely aortic dissection with gradual onset of symptoms. As far as headache patient has no temporal artery tenderness. Headache is not positional to suggest pseudotumor cerebri she has no fever, neck pain or neck stiffness suggest meningitis or encephalitis. Her CT of her head is negative for ICH. She does have quite a bit of neck muscle spasm and tenderness along the trapezius and rhomboid muscle. She may have a tension headache. She is feeling improved with receiving Tylenol Valium. Will send her home with a muscle relaxants recommend she continue this with Tylenol, heat and gentle stretching. Reviewed worrisome signs and symptoms of when to return to the emergency room. Comfortable plan for discharge home. Medications Administered Discontinued Medications Generic Name Dose Route Start Last Admin Trade Name Leatha PRN Reason Stop Dose Admin Acetaminophen 975 mg 06/17/25 10:57 06/17/25 11:31 Acetaminophen 325 Mg Tablet PO 06/17/25 10:58 975 mg ONCE ONE Administration Diazepam 2 mg 06/17/25 10:57 06/17/25 11:31 Diazepam 2 Mg Tablet PO 06/17/25 10:58 2 mg ONCE ONE Administration Medical Decision Making Medical Decision Making [facility] Narrative: 69-year-old female with a history of fibromyalgia, polyarthralgia, chronic kidney disease, diabetes presents the ER with complaints of right-sided chest pain which radiates to the right shoulder and neck and head for the last 3 days. Pain is described as sharp and stabbing. It is not exertional. It comes and goes. Patient denies any associated shortness of breath, vomiting or diaphoresis. She denies any photophobia, nausea, phonophobia, fevers, chills, neck pain or neck stiffness. Patient reports that she has a history of intracranial hemorrhage secondary to a fall. She denies any new falls or injuries. Prior to arrival patient received 324 mg of aspirin and 1 sublingual nitro with no change in pain On exam patient has normal neuro exam. Her vital signs are stable. She is quite tender over the soft tissues of the neck and she has palpable muscle spasms over the rhomboid and trapezius muscles. She has no lymphadenopathy or meningeal Will obtain labs, EKG, chest x-ray, CT head Patient did receive Tylenol and Valium Differential Diagnosis Differential Diagnoses: The differential diagnosis associated with the presentation includes CP-ACS, PNA, PE CARLSON-temporal arteritis, ICH, meningitis/encephalitis, pseudotumor cerebri Admission/Observation Consideration of admission/observation: Escalation of care including admission/observation considered see course of care Lab Data MDM Lab Attestation statement: I reviewed the patient's lab results. 06/17/25 10:10 06/17/25 10:10 Labs: Lab Results 06/17/25 Range/Units 10:10 WBC 8.8 (4.8-10.8) X10*3/uL RBC 2.94 L (4.20-5.50) X10*6/uL Hgb 8.3 L (12.0-16.0) g/dl Hct 24.8 L (37.0-47.0) % MCV 84.4 (80.0-98.0) fL MCH 28.2 (27.0-33.0) pg MCHC 33.5 (31.0-35.0) g/dl RDW 13.1 (11.0-16.0) % Plt Count 310 (160-400) X10*3/uL MPV 9.7 (9.4-12.3) fL Immature Gran % (Auto) 0.6 H (0.0-0.4) % Neut % (Auto) 70.4 (45-73) % Lymph % (Auto) 18.6 L (20-40) % Throckmorton % (Auto) 7.0 (2-11) % Eos % (Auto) 3.1 (0-4) % Baso % (Auto) 0.3 (0-2) % Lymph # (Auto) 1.6 (1.2-4.9) X10*3/uL Throckmorton # (Auto) 0.6 (0.1-1.2) X10*3/uL Eos # (Auto) 0.3 (0.0-0.4) X10*3/uL Baso # (Auto) 0.0 (0.0-0.2) X10*3/uL Abs Immat Gran (auto) 0.05 H (0.00-0.03) X10*3/uL Absolute Neuts (auto) 6.2 (2.0-8.3) x10*3/uL Absolute Nucleated RBC 0.000 (0.0-0.012) X10*3/uL Nucleated RBC % (auto) 0.0 (0.0-0.2) /100WBC Sodium 135 (135-145) mmol/L Potassium 3.7 (3.3-5.1) mmol/L Chloride 104 (96-108) mmol/L Carbon Dioxide 22 (22-29) mmol/L Anion Gap 13 (12-20) BUN 43 H (9-16) mg/dL Creatinine 2.38 H (0.5-1.4) mg/dL Estim Creat Clear Calc 23.5 Estimated GFR 20 Random Glucose 302 H (60-115) mg/dL Calcium 10.2 (8.4-10.2) mg/dL Magnesium 1.8 (1.6-2.6) mg/dL Total Bilirubin 0.4 (0.0-1.0) mg/dL AST 18 (5-31) U/L ALT 7 (0-31) U/L Alkaline Phosphatase 115 (39-117) U/L Troponin I High Sens < 2.7 (<3.5-17.0) ng/L Total Protein 7.1 (6.5-8.0) g/dL Albumin 3.1 L (3.5-5.0) g/dL TSH 0.84 (0.32-4.0) uIU/mL Independent Interpretation I performed an independent interpretation of an: EKG, Plain X-Ray and CT Scan Interpretation: I independently viewed the EKG which shows sinus rhythm with a first-degree AV block which is unchanged when compared to EKG from October of 2024 I independently viewed the x-ray/CT scan and agree with the radiologist's Radiology Impression Discussion of test interpretation with radiology: I have reviewed the radiologist's reading. Radiologist Impression: [address] [address] XRay Report Signed Patient: Paige Harris MR#: [id number] : 1955 Acct:[id number] Age/Sex: 69 / F ADM Date: 06/17/25 Loc: .ED Attending Dr: Ordering Physician: Estelle Diaz NP Date of Service: 06/17/25 Procedure(s): XR chest 2V Accession Number(s): [id number] cc: Estelle Diaz NP; Joann Partida MD~ Reason for Exam: CP CLINICAL HISTORY: CP 2 views chest Comparison: CR/SR - XR CHEST 1 VIEW - 07/06/24 10:54 EDT Findings: Cardiac and mediastinal contours are normal. Mild interstitial prominence with scattered peribronchial thickening. No focal consolidation. No effusion. No pneumothorax. No acute osseous finding. Impression: Mild interstitial prominence with scattered peribronchial thickening. No focal consolidation. [address] [address] [address] Scan Report Signed Patient: Paige Harris MR#: [id number] : 1955 Acct:[id number] Age/Sex: 69 / F ADM Date: 06/17/25 Loc: .ED Attending Dr: Ordering Physician: Estelle Diaz NP Date of Service: 06/17/25 Procedure(s): CT head/brain wo IV con Accession Number(s): [id number] cc: Estelle Diaz NP; Joann Partida MD~ Report Number: [id number]: Total DLP = 578.00 mGy-cm Reason for Exam: CARLSON, recent ICH CLINICAL HISTORY: CARLSON, recent ICH CT head without contrast Comparison: CT/SR - CT HEAD/BRAIN WO IV CON - 11/11/24 23:34 EST Findings: No evidence of acute territorial infarct. There is patchy low density in the periventricular and subcortical white matter. Diffuse volume loss is noted. No hydrocephalus. No hemorrhage, mass effect, mass lesion or midline shift. No abnormal extra-axial fluid. No calvarial fracture. Paranasal sinuses and mastoid air cells are clear. Impression: No acute intracranial process. Chronic changes as detailed. This document has been electronically signed by: William Yadav MD on 06/17/2025 12:23:59 Discharge Plan Discharge Clinical Impression: Chest pain, Headache Patient Disposition: Home, Self-Care Instructions: Chest Pain (ED), Acute Headache (DC) Additional Instructions: Your blood work is reassuring Your CAT scan shows no signs of bleeding Your EKG and chest x-ray are also reassuring You received Tylenol and Valium while you were in the emergency room Follow-up with your primary care doctor for any continued symptoms Apply heat or ice to the affected area as needed, with gentle massage and stretching Prescriptions: New methocarbamol 500 mg tablet 500 mg PO BID PRN (Reason: muscle spasm) Qty: 8 0RF No Action cetirizine 10 mg tablet 10 mg PO DAILY PRN (Reason: Allergy Symptoms) 90 Days Qty: 90 1RF (DME) walker Misc See Rx Instructions .Route Qty: 1 0RF Rx Instructions: walker with seat (DME) FreeStyle Med 2 Sensor Kit See Rx Instructions .ROUTE .MEDSUPPLY Qty: 2 11RF Rx Instructions: As directed every 2 weeks (DME) juxtalite calf wrap bilateral 30 mmHg See Rx Instructions .Route .MEDSUPPLY Qty: 2 0RF Rx Instructions: As directed (DME) back brace Misc See Rx Instructions .Route Qty: 1 0RF Rx Instructions: As directed (DME) nebulizer tube and adapter See Rx Instructions .Route .MEDSUPPLY Qty: 1 0RF Rx Instructions: As directed (DME) recliner lift chair See Rx Instructions .Route .MEDSUPPLY Qty: 1 0RF Rx Instructions: As directed (DME) FreeStyle Med 2 Holiday Misc See Rx Instructions .ROUTE .MEDSUPPLY Qty: 1 0RF Rx Instructions: As directed metoprolol tartrate 50 mg tablet 50 mg PO BID 90 Days Qty: 180 1RF amlodipine 5 mg tablet 5 mg PO DAILY 90 Days Qty: 90 3RF albuterol sulfate [Ventolin HFA] 90 mcg/actuation HFA aerosol inhaler 2 puff inhalation Q4H PRN (Reason: for muscle spasm) Qty: 18 3RF (DME) pen needle, diabetic [Comfort EZ Pen Baxley] 31 gauge x 5/16 needle See Rx Instructions .Route Qty: 100 6RF Rx Instructions: Use 1 pen needle four times a day valsartan 320 mg tablet 320 mg PO DAILY 90 Days Qty: 90 1RF pantoprazole 40 mg tablet,delayed release (DR/EC) 40 mg PO DAILY@0630 90 Days Qty: 90 3RF insulin aspart U-100 [Novolog FlexPen U-100 Insulin] 100 unit/mL (3 mL) insulin pen 16 unit subcut DAILY@0800 Qty: 15 4RF Rx Instructions: ONLY TAKES DOSE WITH BREAKFAST magnesium glycinate 100 mg magnesium capsule 300 mg PO BEDTIME 90 Days Qty: 270 1RF ezetimibe 10 mg tablet 10 mg PO DAILY 90 Days Qty: 90 0RF chlorthalidone 25 mg tablet 25 mg PO DAILY 90 Days Qty: 90 1RF (DME) FreeStyle Lite Strips Strip See Rx Instructions .ROUTE .MEDSUPPLY Qty: 100 11RF Rx Instructions: As directed three times a day Trulicity 1.5 mg/0.5 mL pen injector 1.5 mg subcut ERAZO@0900 90 Days Qty: 6.5 1RF bupropion HCl 150 mg tablet extended release 24 hr 150 mg PO DAILY acetaminophen [Tylenol Extra Strength] 500 mg tablet 1,000 mg PO Q6H PRN (Reason: fever or pain) (DME) lancets [FreeStyle Lancets] 28 gauge misc See Rx Instructions .ROUTE .MEDSUPPLY Qty: 100 11RF Rx Instructions: Three times a day (DME) blood-glucose meter [FreeStyle Lite Meter] Kit See Rx Instructions .ROUTE .MEDSUPPLY Qty: 1 0RF Rx Instructions: As directed fluticasone furoate-vilanterol [Breo Ellipta] 200-25 mcg/dose blister with device 1 inh PO DAILY Qty: 60 6RF insulin glargine U-300 conc [Toujeo SoloStar U-300 Insulin] 300 unit/mL (1.5 mL) insulin pen 88 unit subcut DAILY 90 Days Qty: 26.397 1RF albuterol sulfate 2.5 mg /3 mL (0.083 %) solution for nebulization 2.5 mg inhalation QID PRN (Reason: shortness of breath or wheezing) 30 Days Qty: 75 1RF albuterol sulfate [Ventolin HFA] 90 mcg/actuation HFA aerosol inhaler 1 inh inhalation QID Qty: 1 3RF Referrals: Joann Partida MD [Primary Care Provider, Internal Medicine] Print Language: Armenian
--- NOTE | 2025-06-17 11:38 | PC.NURSE ---
pt medicated per provider order. effectiveness pending.
[2025-06-17 12:00] VITALS: BP 143/68; PULSE 81; RESP 15; TEMP 36.7; O2SAT 98
[2025-06-17 13:41] VITALS: BP 143/68; PULSE 81; RESP 15; TEMP 36.7; O2SAT 98
== END 2025-06-17 13:42 | disposition home or self-care (01) ==
PROVIDERS: Emergency Provider Emergency Medicine Emergency Medical Services; PCP Internal Medicine
DX: R07.9 Chest pain, unspecified (principal); R51.9 Headache, unspecified; I12.9 Hypertensive chronic kidney disease with stage 1 through stage 4 chronic kidney disease, or unspecified chronic kidney disease; E11.22 Type 2 diabetes mellitus with diabetic chronic kidney disease; N18.4 Chronic kidney disease, stage 4 (severe); Z79.899 Other long term (current) drug therapy
CPT/HCPCS: 36415; 70450; 71046; 80053; 83735; 84443; 84484; 85025; 93005; 99284

== ENCOUNTER → 2025-06-17 09:39 | Outpatient (BNV) | payer OTHER, SELFPAY | PROVIDERS: Emergency Provider Emergency Medicine Emergency Medical Services; PCP Internal Medicine; Visit Provider Internal Medicine Cardiovascular Disease | DX: I44.0 Atrioventricular block, first degree (principal); I49.1 Atrial premature depolarization; I45.10 Unspecified right bundle-branch block | CPT/HCPCS: 93010 ==

== ENCOUNTER → 2025-06-17 10:57 | Outpatient (BNV) | payer OTHER, SELFPAY | PROVIDERS: Emergency Provider Emergency Medicine Emergency Medical Services; PCP Internal Medicine; Visit Provider Radiology Vascular & Interventional Radiology | DX: R51.9 Headache, unspecified (principal); R07.89 Other chest pain; J84.9 Interstitial pulmonary disease, unspecified | CPT/HCPCS: 70450; 71046 ==

== ENCOUNTER → 2025-07-11 08:22 | Outpatient (REF) | payer OTHER, SELFPAY ==
--- NOTE | 2025-07-11 08:25 | CA_ITS ---
Transthoracic Echocardiogram Patient (Last, First, Middle): Paige Harris R Gender: Female Date of : 1955 Age: 70 Procedure Date: 07/11/2025 Procedure Type: Transthoracic Echocardiogram Location: OP Height: 162.56 cm Weight: 83.46 kg BSA: 1.89 m2 Heart Rate: bpm BP: 130 / 70 mmHg Shot Packer: THERESA Referring MD: Zohra Farrell BEEF SELECTOR Obstetrics Gyn: Logan Stafford MD Symptoms: R06.00 - Dyspnea, unspecified Study Quality: Adequate ECG Rhythm: Sinus Conclusions: - 1. Normal LV ejection fraction 55-60% with elevated filling pressures 2. Calcific aortic valve changes noted with early mild aortic stenosis 3. Normal RV systolic pressure 4. No gross pericardial effusion Findings Left Ventricle Normal left ventricular size, thickness, and systolic function. The visually estimated ejection fraction is between 55-60%. There is no dynamic left ventricular outflow tract obstruction. Spectral Doppler is indicative of an impaired relaxation filling pattern. Elevated filling pressures. There is mild septal asymmetric hypertrophy. Right Ventricle Normal right ventricular cavity size and systolic function. Atria The left atrium is normal in size. There is no evidence of interatrial shunt. The right atrium is normal in size. Aortic Valve There is mild calcification of the aortic valve. There is mild thickening of the aortic valve. There is mild aortic valve stenosis. The peak aortic gradient is 13 mmHg.The mean gradient is 7 mmHg. There is no aortic valve regurgitation. Mitral Valve There is mild anterior and posterior mitral leaflet thickening. There is mild mitral annular calcification. There is trace mitral valve regurgitation. There is no mitral valve stenosis. Pulmonic Valve The pulmonic valve is likely normal. Tricuspid Valve Normal tricuspid valve structure. There is trace tricuspid valve regurgitation. The right ventricular systolic pressure is normal. The right ventricular systolic pressure is 26 mmHg. Normal right atrial pressure. There is no evidence of pulmonary hypertension. Great Vessels The pulmonary artery was not well visualized. There is no dilatation of the ascending aorta measuring 3.50 cm. Small plaque is seen in the sino tubular ridge. Venous The inferior vena cava is normal in size and collapses greater than 50% with inspiration. Pericardium/Pleural There is no evidence of pericardial effusion. Prior Study Comparison No prior study available for comparison. Measurements 2D Linear Measurements IVSd: 1.37 0.6-0.9/0.6-1.0 cm LVIDd: 4.42 3.9-5.3/4.2-5.9 cm LVIDd Index: 2.34 2.4-3.2/2.2-3.1 cm/m2 LVIDs: 2.52 2.0-3.6 cm LVPWd: 0.88 0.7-1.1 cm LA Diam: 4.10 2.7-3.8/3.0-4.0 cm LAIDs Index: 2.17 1.5-2.3 cm/m2 LV Mass: 218.11 67-162/88-224 g LV Mass Index: 115.40 43-95/49-115 g/m2 LVOT Diam: 1.90 3.0+(-)1.3 cm 2D Systolic Function EF 4C: 61.00 >55% EF 2C: 57.70 >55% EF BiP: 59.80 >55% Mitral Valve MV Pk E: 1.26 MV PK A: 1.45 MV Decel Time: 147.00 E/A: 0.90 E'Lateral: 6.74 E'Medial: 6.42 E/E' Med: 19.60 E/E' Lat: 18.70 PHT: 43.00 MVA PHT: 5.12 Decel [place]man: 8.58 Aortic Valve AoV Pk Akash: 1.80 AoV Mn Akash: 1.20 AoV VTI: 0.35 AoV Pk Grad: 13.00 Aov Mn Grad: 7.00 RUBA Cont.VTI: 2.22 LVOT LVOT Pk Akash: 1.41 LVOT Mn Akash: 0.90 LVOT VTI: 0.27 LVOT Pk Grad: 8.00 LVOT Mn Grad: 4.00 LVOT Diam: 1.90 LVOT Area: 2.84 Diastolic Function MV Pk E: 1.26 MV Pk A: 1.45 E/A: 0.90 E'Medial: 6.42 E/E' Med: 19.60 E' Laterial: 6.74 E/E' Lat: 18.70 Right Ventricle TAPSE (mm): 17.70 TVS' Akash: 14.00 Tricuspid Valve TR Pk Akash: 2.38 TR Pk Grad: 23.00 RA Press: 3.00 RVSP: 26.00 Great Vessels Aorta Sinus of Valsalva: 3.40 2.0-3.5 cm Ao Asc: 3.50 2.1-3.4 cm Ao Arch: 2.70 Pulmonary Veins Pulm Vein S/D 1.10 Pulmonary Valve PV Pk Akash: 0.87 Peak PV Grad: 3.00 Updated in Other Vendor System with Status of Final Logan Stafford MD electronically signed on 07/11/2025 6:35:58 PM with status of Final
--- OUTSIDE RECORDS SUMMARY | 2025-07-11 08:31 | XMS_ITS | Data Portability ---
Author Organization [facility], [facility] Address [address] [place] [address] Care Team Providers Care Leasing Agent Name Role Phone HIM CCA OTHER Assessment Encounter Date Assessment Date Assessment LastModified by Organization Details LastModified Time 02/16/2024 02/16/2024 I provided real -time medical direction via phone for this encounter, and was available for additional phone based assistance as needed. I have reviewed and agree with the Assessment and Plan as documented by the Server Support Technician. We discussed the diagnostic uncertainty of home [...] verbalized understanding of instructions to the medic [email or web address] Not available 02/16/2024 10:54:22 06/01/2024 06/01/2024 As noted, we were called to see this patient regarding concerns of joint pain. Evaluation in the field was performed by my materials planning analyst colleague, as noted above, I provided real-time [...] any acute worsening or change in symptoms. [email or web address] Not available 06/01/2024 11:46:54 08/08/2024 08/08/2024 As noted, we were called to see this patient regarding concerns of pain. Evaluation in the field was performed by my materials planning analyst colleague, as noted above, I provided real-time [...] to ambulate or stand. 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 Discussed with medics who feel she is unsafe to remain at home and I am in agreement. Pt will need transfer to ED for full in person evaluation and discussion of rehab placement. Expect call placed to [facility] ED. Plan: ED Primary care, consider ED followup and rehab needs. Disposition: We discussed the situation and I recommended referral to the emergency department. [email or web address] Not available 08/08/2024 15:37:38 Plan of Treatment Reminders Order Date Submit Date Provider Last Modified By Organization Details Last Modified Time Details Appointments None recorded. Lab None recorded. Referral None recorded. Procedures None recorded. Surgeries None recorded. Imaging electrocard iogram 2023 024 [email or web address] 0 [facility], [address] [place] [address], [phone] 10:56:38 Medication Orders Tylenol 325 mg tablet 2023 024 [email or web address] Not available 11:40:46 Patient TargetsNo targets recorded. Patient InstructionsNo instructions recorded. Reason for Referral None Reported. Results Created Date Observation Date Name Description Value Unit Range Abnormal Flag Note LastModifiedBy Organization Detail LastModifiedTime 02/16/20 24 02/16/2024 elect rema [email or web address] No observ ation record ed. [address], [address] 02/16/2024 10:56:36 Result Notes None recorded. Medical Equipment None Reported. Allergies Allergen ID Allergen Name Allergen Category Reaction Reaction Severity Criticality Documentation Date Start Date Code Code System Note Provider Name and Address Organization Details Recorded Time 15552 pravastat in medicatio n Not available Not available Not available 08/08/2024 06773 RxNorm Not Available [facility] - production 13:38:21 5141 tree nut food Not available Not available Not available 02/16/2024 Karlie Ramírez MD [address] [place] [address],[address], [place], [phone] , [employer] 4 10:01:58 5142 beef allergeni c extract food,medi cation Not available Not available Not available 02/16/2024 69477 9 RxNorm Karlie Ramírez MD [address] [facility],[address], [place], [address], [employer] 4 10:02:08 5143 fish derived food,medi cation Not available Not available Not available 02/16/2024 Karlie Ramírez MD [address] [facility],[address], [place], [address], [facility]k [facility] 4 10:02:18 5144 vancomyci n medicatio n Not available Not available Not available 02/16/2024 72498 RxNorm Not Available [facility] - production 03:47:47 5145 rosuvasta tin medicatio n Not available Not available Not available 02/16/2024 67120 2 RxNorm Not Available [facility] - production 13:38:21 5146 Product containin g angiotens in-conver ting enzyme inhibitor (product) medicatio n Not available Not available Not available 02/16/2024 91223 009 SNOMED Karlie Ramírez MD [address] [facility],[address], [place], [address], [facility] 4 10:02:50 5147 ciproflox acin medicatio n Not available Not available Not available 02/16/2024 2551 RxNorm Not Available [facility] - production 4 03:47:47 5148 codeine medicatio n Not available Not available Not available 02/16/2024 2670 RxNorm Not Available [facility] - production 4 13:38:21 5149 latex environme nt,medica tion Not available Not available Not available 02/16/2024 88580 91 RxNorm Not Available [facility] - production 03:47:47 5150 lactose food,medi cation Not available Not available Not available 02/16/2024 6211 RxNorm Karlie Ramírez MD [address] [place] [address],[address], [place], [address], [employer] 4 10:03:16 5151 cyclobenz aprine medicatio n Not available Not available Not available 02/16/2024 70842 RxNorm Not Available [facility] - production 4 13:38:21 5152 ferrous sulfate medicatio n Not available Not available Not available 02/16/2024 53632 RxNorm Not Available [facility] - production 4 13:38:21 5153 insulin lispro medicatio n Not available Not available Not available 02/16/2024 26160 RxNorm Karlie Ramírez MD [address] [place] [address],[address], [place], [address], [employer] 4 10:03:48 5154 methylpre dnisolone medicatio n Not available Not available Not available 02/16/2024 6902 RxNorm Not Available [facility] - production 4 03:47:47 5155 Product containin g penicilli n (product) medicatio n Not available Not available Not available 02/16/2024 32676 8001 SNOMED Karlie Ramírez MD [address] [place] [address],[address], [place], [address], [employer] 4 10:04:13 5156 tamsulosi n medicatio n Not available Not available Not available 02/16/2024 91561 RxNorm Not Available [facility] - production 4 13:38:21 5157 tramadol medicatio n Not available Not available Not available 02/16/2024 00362 RxNorm Karlie Ramírez MD [address] [place] [address],[address], [place], [address], [employer] 4 10:04:30 Medications Name Sig Start Date [...] Not Available Not Available Not Available [facility] [employer] U-300 Insulin 300 unit/mL (1.5 mL) [...] Heart rate Body temperature Body weight Systolic And Diastolic Provider Name and Address Organization Details Last Updated DateTime 4 16 /min 98 % 98 % 160.02 cm 64 /min 97.1 [degF] 71083.8 48 g 155/84 mm[Hg] Not Available [employer] 4 09:59:36 Date Recorded Body temperature Body weight Respiratory rate Body height Heart rate Oxygen saturation Oxygen saturation in Arterial blood by Pulse oximetry Systolic And Diastolic Provider Name and Address Organization Details Last Updated DateTime 4 98.4 [degF] 102723 g 18 /min 157.48 cm 90 /min 98 % 98 % 132/78 mm[Hg] Not Available [employer] 4 11:36:00 Date Recorded Oxygen saturation Oxygen saturation in Arterial blood by Pulse oximetry Heart rate Respiratory rate Systolic And Diastolic Provider Name and Address Organization Details Last Updated DateTime 4 99 % 99 % 90 /min 18 /min 138/80 mm[Hg] Not Available [facility] 4 15:51:20 Social History None recorded. Functional Status None recorded. Mental Status None recorded. Family History Nothing Reported. Medical History No medical history recorded. Gynecological HistoryNo gynecological history recorded. Obstetrics History GPAL:G 0 P 0 0 0 0 Past Encounters Encounter ID Performer Location Encounter Start Date Encounter Closed Date Diagnosis/Indication Diagnosis SNOMED-CT Code Diagnosis ICD10 Code Diagnosis IMO Codes Diagnosis Note [id number] Karlie Ramírez MD [facility] [address] [place] [address] 02/16/2024 09:59:31 02/16/2024 17:13:28 Thoracic back pain 994956224 M54.6 Likely muscular since increases with expanding [...] follow-up with PCP as soon as possible [id number] Denilson Brunner MD [facility] - [facility] [address] [place] [phone] 06/01/2024 11:35:50 06/01/2024 14:24:16 Pain of right knee joint [id number] 71379 M25.561 [id number] Denilson Brunner MD Main - [facility] [address] [place] [phone] 08/08/2024 15:28:56 08/08/2024 16:50:00 Generalized chronic body pains 991982586 G89.29 Health Concerns Section Related Observation LastModified by Organization Detai ls LastModified Time None Recorded Concern Status LastModified by Organization Details LastModified Time None Recorded Advance Directives Directive None Recorded Payers Insurance Date Sequence Insurance Name Policy Number Policy Galdamez Covered Member ID Galdamez Member ID Guarantor Name 08/08/2024 1 [facility] - DOS ON OR AFTER 2022 - DUAL ELIGIBLE - CUSTODIAL OPTIONS AND ONE CARE (MEDICARE REPLACEMENT/ADV ANTAGE - HMO) Paige Harris [id number] Paige Harris Notes Date Note Type Note Provider Name and Address Organization Details Recorded Time 02/16/2024 text/html ROS as noted in the HPI HPI: Tony calling into [facility] and [facility]SR transferred call to this CRU RN. Tony is a 68 yo Azeri/Syriac speaking female with significant hx including asthma, HTN, CKD 4 with HD, Dyslipidemia, DM 2, Obesity, hx of ovarian cancer, arthritis, lymphedema, MDD, PTSD, anemia, migraine, GERD, and seasonal allergies. Mbr has multiple allergies including tree nuts, beef [...] today and she agreed. Confirmed address and phone/[phone]. ................... ................... ................... ................... ................... ................... ................... ........ CRC Nurse Triage Notes (Malena Hodge): Comments: HPI Reviewed. No further information needed to process visit. Server Support Technician POC Test Results from [facility] EKG (1) [10:06] EKG test performed. Attachments uploaded as part of this test result can be found under Documents section. ................... ................... ................... ................... ................... ................... ................... ........ Server Support Technician Note From [facility]: Pt reports acute [...] to medic arrival Karlie Ramírez MD [address] [facility],[address], [place], [address], [employer] 02/16/2024 10:56:52 06/01/2024 text/html ROS as noted in the HPI HPI: Call to tony at [phone] and spoke with Mbr who is feeling [...] notification of this triage. Confirmed address and phone/[phone]. Instructed Mbr to call 911 and go [...] ................... ................... ................... ................... ................... ................... ........ Server Support Technician Note From Michael Donahue: Patient found supine [...] Patient reports increase of pain on movement.[facility] recommends 1000 mg Tylenol three times a day for pain. And to follow up with the pain clinic that she is enrolled in at her next appointment. Patient ambulates with a steady slow even gait, appears in pain. Red flags, patient education discussed. Patient demonstrates understanding of care and plan. Server Support Technician Allergies: Ciprofloxacin, Latex, Methylprednisolone, Vancomycin ................... ................... ................... ................... ................... ................... ................... ........ Disposition: Fulfilled Denilson Brunner MD [address] [facility],[address], [place], [address], Front [facility] 06/01/2024 12:14:49 08/08/2024 text/html ROS as noted in the HPI HPI: 12:57pm TONY contacts the CRU directly to report [...] she has noticed that her hands are r eally white. TONY is also experiencing B knee pain, B foot pain, and 10/10 headache pain. She uses a wheelchair at baseline due to mobility issues. TONY states that she has been seen in the ED for these symptoms in the past, and also by her PCP, but n o one is doing anything for me. TONY denies CP, SOB, N/T to extremities, or fevers. She does state that her pain is s o bad that I don t even want to eat. TONY feels s omething isn t right, and I think I should have bloodwork. Her main concern is the w sebastian color to her hands. At baseline, TONY is only able to use three fingers on each hand because of chronic pain. TONY is home alone, as her is currently in a senior living, and is unable to get out for treatment. She is requesting an in-home visit today for assessment. After confirming TONY s address and phone number on file, TONY is strongly advised to call 911 for any new or worsening symptoms. She understands and will do so, as she wears a life alert bracelet. This call originated from [phone]. ................... ................... ................... ................... ................... ................... ................... ........ CRC Nurse Triage Notes (Brandi Juan): Reason For Request: Pain Chief Complaints: Headache, Joint pain/swelling PMH: COPD/Asthma, Hypertension, Cancer, Diabetes Mellitus Type 1, Anxiety Disorder, Chronic Kidney Disease, Chronic Back Pain Comments: Reviewed info, no further data needed.Mason GOMEZ ................... ................... ................... ................... ................... ................... ................... ........ Server Support Technician Note From Shubham Cantu: Dispatched to stated address for a 81yo female with joint and hand pain. Pt states she is unable to get up and take care of her self. Pt states she has a decreased po intake due to only having help from a visiting clinical care manager in the morning and night. Pt states she had increase in joint pain and is less mobile than normal. Pt states she has missed multiple visits to primary care due to transportation issues. Pt states one visit was for b12 and iron injections. Pt states she will go to the hospital to help get more resources. [facility] consulted and agreed more resources are need to help manage pt's care. [facility] transported pt to [facility]. Pt found seated and speaking in full clear sentences with no signs of distress in a clean apartment. AO and GCS-15. PERRL. Skin P/W/D. Airway open and lung sounds clear. ABD soft non tender. Rest of exam unremarkable. ................... ................... ................... ................... ................... ................... ................... ........ [facility] Consulted: Denilson Brunner ................... ................... ................... ................... ................... ................... ................... ........ Disposition: Fulfilled Denilson Brunner MD [address] [facility],[address] [facility], [place], [address], Front Desk HQ 08/08/2024 16:14:20 OBGyn Episode No OBEpisode recorded.
--- OUTSIDE RECORDS SUMMARY | 2025-07-11 08:31 | XMS_ITS | Clinical Summary ---
Author Organization [facility] Address [address] [place] [address] Phone Care Team Providers Care Brass Wind Instruments Tube Bender Name Role Phone Joann Partida MD Primary Care Provider [phone] Allergies Active Allergy Reactions Criticality Noted Date [...] time each day 02/21/2022 Active insulin aspart protamine-insul in aspart (NovoLOG 70/30) (70-30) 100 UNIT/ML injection Inject under the skin 2 (two) times a day before meals Active albuterol HFA (PROVENTIL HFA;VENTOLIN HFA) 108 (90 Base) MCG/ACT inhaler Inhale 2 puffs in the morning and 2 puffs at noon and 2 puffs in the evening and 2 puffs before bedtime. Active FLUTICASONE FUROATE-VILANTE ROL IN Inhale 250 mcg in the morning [...] under the skin in the morning. Active Active Problems Problem Noted Date Diagnosed [...] EDT Office Visit [facility] [address] [phone] Diego Duncan MD Chronic kidney disease, stage [...] Office Visit [facility] [address] [phone] Diego Duncan MD [address] [phone] Health Maintenance Due Date Last Done Comments [...] 108.0 Magnesium 1.4(A) 1.6 - 2.4 05/30/2025 Historical Provider LAB BLOOD ORDERABLES Naima l Result from Last 3 Months or Most Recently Relevant to Health Maintenance Insurance [facility] ([id number]) [facility] ([id number]) Care Teams Br[employer] Tube Bender Relationship Specialty Start Date End Date Joann Partida MD [address] [place], [place] PCP - General 10/01/20
== END ==
LOC: HO.CARD 08:22
PROVIDERS: PCP Internal Medicine; Visit Provider Nurse Practitioner Family
DX: R06.00 Dyspnea, unspecified (principal)
CPT/HCPCS: 93306

== ENCOUNTER → 2025-07-11 08:25 | Outpatient (BNV) | payer OTHER, SELFPAY | PROVIDERS: PCP Internal Medicine; Visit Provider Internal Medicine Cardiovascular Disease | DX: I42.2 Other hypertrophic cardiomyopathy (principal); I35.0 Nonrheumatic aortic (valve) stenosis; I35.8 Other nonrheumatic aortic valve disorders; I34.81 Nonrheumatic mitral (valve) annulus calcification | CPT/HCPCS: 93306 ==

== ENCOUNTER 2025-07-31 08:04 | Outpatient (REF) | payer OTHER, SELFPAY ==
--- NOTE | ~2025-07-31 | XR_ITS ---
EXAMINATION: XR HAND, LEFT CLINICAL INFORMATION: M79.642 - Pain in left hand COMPARISON: None available. TECHNIQUE: PA, lateral, and oblique views of the left hand. FINDINGS: Bone marrow inhomogeneity. Asymmetric joint space narrowing involving the proximal distal interphalangeal joints of the digits. Bony erosions in the radial aspect of the proximal phalanx second digit. Probable old traumatic deformity, styloid processes of the ulna. No acute fracture or dislocation. No lytic or blastic lesions. No subcutaneous emphysema. XR/XR hand LT min 3V IMPRESSION: Osteoarthrosis/osteoarthritis involving mostly the digits. Osteoporosis. Consider renal osteodystrophy. Electronically signed by: Emir Stone MD 07/31/2025 09:41 AM CARMEN HOLLEY
--- OUTSIDE RECORDS SUMMARY | 2025-07-31 08:09 | XMS_ITS | Clinical Summary ---
Author Organization [facility] Address [address] [place] [address] Phone Care Team Providers Care Pre K Lead Teacher Name Role Phone Joann Partida MD Primary [...] EDT Office Visit [facility] [address] [phone] Diego Duncan MD Chronic kidney disease, stage [...] Office Visit [facility] [address] [phone] Deigo Duncan MD [address] [phone] Health Maintenance Due Date Last Done Comments [...] Most Recently Relevant to Health Maintenance Insurance [facility] ([id number]) [facility] ([id number]) Care Teams Pre K Lead Teacher Relationship Specialty Start Date End Date Joann Partida MD [address] [place], [place] PCP - General 10/01/20
== END 2025-07-31 08:05 | disposition home or self-care (01) ==
LOC: HO.HOSX 08:04
DX: M65.332 Trigger finger, left middle finger (principal); M25.642 Stiffness of left hand, not elsewhere classified
CPT/HCPCS: 73130; 99202

== ENCOUNTER 2025-07-31 09:10 | Outpatient (AMB) | payer OTHER, SELFPAY ==
[2025-07-31 09:30] VITALS: BMI 33.7
--- NOTE | 2025-07-31 09:30 | MHC.OFFVIS ---
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 Patient reports within the last year her the dorsal aspect of her left hand has been swelling up. She is having trouble bending her left index finger. She is unable to lift many things as she is continuously dropping them. She also complains of left middle finger locking and catching. She denies numbness or tingling. She denies any previous injuries or surgeries to the left hand. Patient uses a walker for gait stability. History of Type 2 Diabetes Mellitus - last A1C 7.6% on 05/25/25. Allergies nut - unspecified (nut) Allergy (Severe, Verified 07/31/25 09:31) Anaphylaxis rosuvastatin Allergy (Severe, Verified 07/31/25 09:31) Facial Swelling vancomycin (VANCOMYCIN) Allergy (Severe, Verified 07/31/25 09:31) Itching VIRGINIA Inhibitors (VIRGINIA INHIBITORS) Allergy (Intermediate, Verified 07/31/25 09:31) Rash ciprofloxacin (From CIPRO) Allergy (Intermediate, Verified 07/31/25 09:31) Rash codeine (CODEINE) Allergy (Intermediate, Verified 07/31/25 09:31) Rash cyclobenzaprine (CYCLOBENZAPRINE) Allergy (Intermediate, Verified 07/31/25 09:31) Hives ferrous sulfate (FERROUS SULFATE) Allergy (Intermediate, Verified 07/31/25 09:31) Rash insulin lispro (Humalog U-100 Insulin) Allergy (Intermediate, Verified 07/31/25 09:31) Hives latex (LATEX) Allergy (Intermediate, Verified 07/31/25 09:31) Hives methylprednisolone (From MEDROL) Allergy (Intermediate, Verified 07/31/25 09:31) Rash penicillin V Allergy (Intermediate, Verified 07/31/25 09:31) Hives tamsulosin (TAMSULOSIN) Allergy (Intermediate, Verified 07/31/25 09:31) Rash tramadol Allergy (Intermediate, Verified 07/31/25 09:31) Itching insulin degludec (From Tresiba FlexTouch U-100) Allergy (Mild, Verified 07/31/25 09:31) Hives pravastatin Allergy (Mild, Verified 07/31/25 09:31) pruritus lactose (LACTOSE) Adverse Reaction (Intermediate, Verified 07/31/25 09:31) Diarrhea Beef Containing Products Adverse Reaction (Mild, Verified 07/31/25 09:31) Stomach Upset Fish Containing Products Adverse Reaction (Mild, Verified 07/31/25 09:31) Nausea and Vomiting Pork/Porcine Containing Products Adverse Reaction (Mild, Verified 07/31/25 09:31) Stomach Upset FRUIT Adverse Reaction (Mild, Uncoded 07/31/25 09:31) NAUSEA & VOMITING VEGETABLES,FRESH Adverse Reaction (Mild, Uncoded 07/31/25 09:31) NAUSEA & VOMITING HPI HPI 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 Patient reports within the last year her the dorsal aspect of her left hand has been swelling up. She is having trouble bending her left index finger. She is unable to lift many things as she is continuously dropping them. She also complains of left middle finger locking and catching. She denies numbness or tingling. She denies any previous injuries or surgeries to the left hand. Patient uses a walker for gait stability. History of Type 2 Diabetes Mellitus - last A1C 7.6% on 05/25/25. [facility] Medical History Diabetes mellitus Medicare annual wellness visit, initial Severe recurrent major depression Postmenopausal CKD (chronic kidney disease) stage 4, GFR 15-29 ml/min Type 2 diabetes mellitus with chronic kidney disease Obesity due to excess calories DM2 (diabetes mellitus, type 2) CKD (chronic kidney disease) Epicondylitis, lateral (tennis elbow) Dyslipidemia Leg edema Pain in both lower legs Calcaneal spur of both feet Acute kidney injury Irregular heart beat Depression Hypercholesteremia Diabetes Essential hypertension Surgical History Hx of vascular surgery History of extraction of renal calculus History of hysterectomy Family History Father Diabetes Mother Diabetes Sister Breast cancer Brother No problems noted. Sister No problems noted. Social History Household Members: Significant Other Housing: Apartment Are you a primary director of patient care to a significant other at home: No Do you presently have visiting nurse or other home services: Yes Alcohol intake: never Patient Tobacco Use Status: Never used Tobacco e-Cigarette/Vaping Use: Never Used Second Hand Smoke Exposure: No Advance Directives Date on File: 09/11/20 service: No Current occupational status: disabled Cognitive needs: Yes (walker, power chair) Hearing needs: No Vision needs: Yes (glasses) Review of Systems Const All systems reviewed & are unremarkable except as noted in HPI and below Physical Exam Vital Signs: BMI result Body Mass Index 33.7 Extrem Other: Patient is alert, oriented, and in no acute distress. Neuro: Normal sensation of the tips of all digits of the left hand at this time Vascular: Cap refill brisk Pain: Tenderness to palpation of the A1 pat of the left middle finger Significant pain associated with flexion of the left index and middle fingers ROM: Significantly limited flexion of the left index and middle fingers Flexion and extension of all other digits of the left hand full and intact Skin: No lacerations or abrasions. General: No ecchymosis, erythema, or evidence of infection. Psych: Appears grossly normal Affect normal Attitude cooperative Assessment & Plan Assessment & Plan (1) Stiffness of left hand joint: Code(s): M25.642 - Stiffness of left hand, not elsewhere classified Category: Medical (2) Trigger finger, left middle finger: Code(s): M65.332 - Trigger finger, left middle finger Category: Medical Plan 1. Stiffness of the left hand 2. Left middle finger trigger finger Patient is educated about this condition Patient is educated about the typical treatment course At this time, I feel that prior to getting any treatment for her trigger finger, I feel it is best for the patient to regain some range of motion of the left hand Patient is offered an injection today, however she is unsure of what her blood sugars this morning, and patient is informed that it is unsafe for us to be able to proceed with an injection without knowing what her blood sugar is Patient referred to OT for range of motion and gentle strengthening of the left hand Follow-up in 6 weeks for reassessment, we will consider injection or surgery at that time, sooner with any acute concerns Orders: Orders XR hand LT min 3V Today M79.642 - Pain in left hand OT Evaluation and Treatment Today M25.642 - Stiffness of left hand, not elsewhere classified Coding Level of Care Code New Pt Level 3 (56874) Diagnoses Stiffness of left hand joint M25.642 Trigger finger, left middle finger M65.332
--- OUTSIDE RECORDS SUMMARY | 2025-07-31 09:58 | XMS_ITS | Data Portability ---
Author Organization [facility], [facility] Address [address] [place] [address] Care Team Providers Care Care Transition Coordinator Name Role Phone HIM CCA OTHER Assessment Encounter Date Assessment Date Assessment LastModified by Organization Details LastModified Time 02/16/2024 02/16/2024 I provided real -time medical direction via phone for this encounter, and was available for additional phone based assistance as needed. I have reviewed and agree with the Assessment and Plan as documented by the Oceanographer Geological. We discussed the diagnostic uncertainty of home [...] verbalized understanding of instructions to the medic [email or web address] Not available 02/16/2024 10:54:22 06/01/2024 06/01/2024 As noted, we were called to see this patient regarding concerns of joint pain. Evaluation in the field was performed by my electrode cleaning machine operator colleague, as noted above, I [...] any acute worsening or change in symptoms. [email or web address] Not available 06/01/2024 11:46:54 08/08/2024 08/08/2024 As noted, we were called to see this patient regarding concerns of pain. Evaluation in the field was performed by my electrode cleaning machine operator colleague, as noted above, I [...] to ambulate or stand. 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 Discussed with medics who feel she is unsafe to remain at home and I am in agreement. Pt will need transfer to ED for full in person evaluation and discussion of rehab placement. Expect call placed to [facility] ED. Plan: ED Primary care, consider ED followup and rehab needs. Disposition: We discussed the situation and I recommended referral to the emergency department. [email or web address] Not available 08/08/2024 15:37:38 Plan of Treatment Reminders Order Date Submit Date Provider Last Modified By Organization Details Last Modified Time Details Appointments None recorded. Lab None recorded. Referral None recorded. Procedures None recorded. Surgeries None recorded. Imaging electrocard iogram 2023 024 [email or web address] 0 [facility], [address] [place] [address], [phone] 10:56:38 Medication Orders Tylenol 325 mg tablet 2023 024 [email or web address] Not available 11:40:46 Patient TargetsNo targets recorded. Patient InstructionsNo instructions recorded. Reason for Referral None Reported. Results Created Date Observation Date Name Description Value Unit Range Abnormal Flag Note LastModifiedBy Organization Detail LastModifiedTime 02/16/20 24 02/16/2024 elect rema [email or web address] No observ ation record ed. [email or web address] [address], [address] 02/16/2024 10:56:36 Result Notes None recorded. Medical Equipment None Reported. Allergies Allergen ID Allergen Name Allergen Category Reaction Reaction Severity Criticality Documentation Date Start Date Code Code System Note Provider Name and Address Organization Details Recorded Time 29725 pravastat in medicatio n Not available Not available Not available 08/08/2024 86508 RxNorm Not Available [facility] - production 13:38:21 5141 tree nut food Not available Not available Not available 02/16/2024 Karlie Ramírez MD [address] [place] [address],[address], [place], [address] , [facility] 4 10:01:58 5142 beef allergeni c extract food,medi cation Not available Not available Not available 02/16/2024 96973 9 RxNorm Karlie Ramírez MD [address] [facility],[address], [place], [address], [facility] 4 10:02:08 5143 fish derived food,medi cation Not available Not available Not available 02/16/2024 Karlie Ramírez MD [address] [facility],[address], [place], [address], [facility] 4 10:02:18 5144 vancomyci n medicatio n Not available Not available Not available 02/16/2024 46277 RxNorm Not Available [facility] - production 03:47:47 5145 rosuvasta tin medicatio n Not available Not available Not available 02/16/2024 01095 2 RxNorm Not Available [facility] - production 13:38:21 5146 Product containin g angiotens in-conver ting enzyme inhibitor (product) medicatio n Not available Not available Not available 02/16/2024 32098 009 SNOMED Karlie Ramírez MD [address] [facility],[address], [place], [address], [facility] 4 10:02:50 5147 ciproflox acin medicatio n Not available Not available Not available 02/16/2024 2551 RxNorm Not Available [facility] - production 4 03:47:47 5148 codeine medicatio n Not available Not available Not available 02/16/2024 2670 RxNorm Not Available [facility] - production 4 13:38:21 5149 latex environme nt,medica tion Not available Not available Not available 02/16/2024 93298 91 RxNorm Not Available [facility] - production 03:47:47 5150 lactose food,medi cation Not available Not available Not available 02/16/2024 6211 RxNorm Karlie Ramírez MD [address] [place] [address],[address], [place], [address], [facility] 4 10:03:16 5151 cyclobenz aprine medicatio n Not available Not available Not available 02/16/2024 22619 RxNorm Not Available [facility] - production 4 13:38:21 5152 ferrous sulfate medicatio n Not available Not available Not available 02/16/2024 47398 RxNorm Not Available [facility] - production 4 13:38:21 5153 insulin lispro medicatio n Not available Not available Not available 02/16/2024 89534 RxNorm Karlie Ramírez MD [address] [place] [address],[address], [place], [address], [facility] 4 10:03:48 5154 methylpre dnisolone medicatio n Not available Not available Not available 02/16/2024 6902 RxNorm Not Available [facility] - production 4 03:47:47 5155 Product containin g penicilli n (product) medicatio n Not available Not available Not available 02/16/2024 60902 8001 SNOMED Karlie Ramírez MD [address] [place] [address],[address], [place], [address], [facility] 4 10:04:13 5156 tamsulosi n medicatio n Not available Not available Not available 02/16/2024 55608 RxNorm Not Available [facility] - production 4 13:38:21 5157 tramadol medicatio n Not available Not available Not available 02/16/2024 67712 RxNorm Karlie Ramírez MD [address] [place] [address],[address], [place], [address], [facility] 4 10:04:30 Medications Name Sig Start Date [...] % 160.02 cm 64 /min 97.1 [degF] 99229.8 48 g 155/84 mm[Hg] Not Available [facility] 4 09:59:36 Date Recorded Body temperature Body weight Respiratory rate Body height Heart rate Oxygen saturation Oxygen saturation in Arterial blood by Pulse oximetry Systolic And Diastolic Provider Name and Address Organization Details Last Updated DateTime 4 98.4 [degF] 787819 g 18 /min 157.48 cm 90 /min 98 % 98 % 132/78 mm[Hg] Not Available [employer] 4 11:36:00 Date Recorded Oxygen saturation Oxygen saturation in Arterial blood by Pulse oximetry Heart rate Respiratory rate Systolic And Diastolic Provider Name and Address Organization Details Last Updated DateTime 4 99 % 99 % 90 /min 18 /min 138/80 mm[Hg] Not Available [employer] 4 15:51:20 Social History None recorded. Functional Status None recorded. Mental Status None recorded. Family History Nothing Reported. Medical History No medical history recorded. Gynecological HistoryNo gynecological history recorded. Obstetrics History GPAL:G 0 P 0 0 0 0 Past Encounters Encounter ID Performer Location Encounter Start Date Encounter Closed Date Diagnosis/Indication Diagnosis SNOMED-CT Code Diagnosis ICD10 Code Diagnosis IMO Codes Diagnosis Note [id number] Karlie Ramírez MD [facility] [address] [place] [address] 02/16/2024 09:59:31 02/16/2024 17:13:28 Thoracic back pain 541815155 M54.6 Likely muscular since increases with expanding [...] follow-up with PCP as soon as possible [id number] Denilson Brunner MD [facility] [address] [place] [address] 06/01/2024 11:35:50 06/01/2024 14:24:16 Pain of right knee joint [id number] 37083 M25.561 [id number] Denilson Brunner MD [facility] [address] [place] [address] 08/08/2024 15:28:56 08/08/2024 16:50:00 Generalized chronic body pains 393699874 G89.29 Health Concerns Section Related Observation LastModified by Organization Detai ls LastModified Time None Recorded Concern Status LastModified by Organization Details LastModified Time None Recorded Advance Directives Directive None Recorded Payers Insurance Date Sequence Insurance Name Policy Number Policy Galdamez Covered Member ID Galdamez Member ID Guarantor Name 08/08/2024 1 [facility] - DOS ON OR AFTER 2022 - DUAL ELIGIBLE - DETENTION OPTIONS AND ONE CARE (MEDICARE REPLACEMENT/ADV ANTAGE - HMO) Paige Harris [id number] Paige Harris Notes Date Note Type Note Provider Name and Address Organization Details Recorded Time 02/16/2024 text/html ROS as noted in the HPI HPI: Tony calling into [facility] and [facility] transferred call to this CRU RN. Tony is a 68 yo English/Estonian speaking female with significant hx including asthma, [...] today and she agreed. Confirmed address and phone/[phone]. ................... ................... ................... ................... ................... ................... ................... ........ [facility] Nurse Triage Notes (Malena Hodge): Comments: HPI Reviewed. No further information needed to process visit. Oceanographer Geological POC Test Results from [facility] EKG (1) [10:06] EKG test performed. Attachments uploaded as part of this test result can be found under Documents section. ................... ................... ................... ................... ................... ................... ................... ........ Oceanographer Geological Note From [facility]: Pt reports acute [...] to medic arrival Karlie Ramírez MD [address] [facility],[address], [place], [address], [email or web address] 02/16/2024 10:56:52 06/01/2024 text/html ROS as noted in the HPI HPI: Call to tony at [phone] and spoke with Mbr who is feeling [...] notification of this triage. Confirmed address and phone/[phone]. Instructed Mbr to call 911 and go [...] ................... ................... ................... ................... ................... ................... ........ Oceanographer Geological Note From Michael Donahue: Patient found supine [...] all. Patient reports increase of pain on movement.[facility] recommends 1000 mg Tylenol three times a day for pain. And to follow up with the pain clinic that she is enrolled in at her next appointment. Patient ambulates with a steady slow even gait, appears in pain. Red flags, patient education discussed. Patient demonstrates understanding of care and plan. Oceanographer [employer]ological Allergies: Ciprofloxacin, Latex, Methylprednisolone, Vancomycin ................... ................... ................... ................... ................... ................... ................... ........ Disposition: Fulfilled Denilson Brunner MD [address] [facility],[address], [place], [address], [facility] 06/01/2024 12:14:49 08/08/2024 text/html ROS as noted [...] life alert bracelet. This call originated from [phone]. ................... ................... ................... ................... ................... ................... ................... ........ [facility] Nurse Triage Notes (Brandi Juan): Reason For Request: Pain Chief Complaints: Headache, Joint pain/swelling PMH: COPD/Asthma, Hypertension, Cancer, Diabetes Mellitus Type 1, Anxiety Disorder, Chronic Kidney Disease, Chronic Back Pain Comments: Reviewed info, no further data needed.Mason GOMEZ ................... ................... ................... ................... ................... ................... ................... ........ Oceanographer Geological Note From Shubham Cantu: Dispatched to stated address for a 81yo female with joint and hand pain. Pt states she is unable to get up and take care of her self. Pt states she has a decreased po intake due to only having help from a visiting disabilities caregiver in the morning and night. Pt states she had increase in joint pain and is less mobile than normal. Pt states she has missed multiple visits to primary care due to transportation issues. Pt states one visit was for b12 and iron injections. Pt states she will go to the hospital to help get more resources. [facility] consulted and agreed more resources are need to help manage pt's care. [facility] transported pt to [facility]. Pt found seated and speaking in full clear sentences with no signs of distress in a clean apartment. AO and GCS-15. PERRL. Skin P/W/D. Airway open and lung sounds clear. ABD soft non tender. Rest of exam unremarkable. ................... ................... ................... ................... ................... ................... ................... ........ [facility] Consulted: Denilson Brunner ................... ................... ................... ................... ................... ................... ................... ........ Disposition: Fulfilled Denilson Brunner MD [address] [facility],[address] [facility], [place], [address], [facility] 08/08/2024 16:14:20 OBGyn Episode No OBEpisode recorded.
== END 2025-07-31 09:52 | disposition home or self-care (01) ==
LOC: HO.HOS 09:12
PROVIDERS: PCP Internal Medicine
DX: M25.642 Stiffness of left hand, not elsewhere classified (principal); M65.332 Trigger finger, left middle finger
CPT/HCPCS: 99203

== ENCOUNTER → 2025-07-31 09:14 | Outpatient (BNV) | payer OTHER, SELFPAY | PROVIDERS: Visit Provider Radiology Diagnostic Radiology | DX: M79.642 Pain in left hand (principal) | CPT/HCPCS: 73130 ==